=== PATIENT | female | born 1940 | race Caucasian/White ===

== ENCOUNTER 2017-03-25 14:05 | Inpatient (IN) | payer MEDICARE, OTHER ==
--- NOTE | 2017-03-25 15:11 | EDM.PDOC ---
ED HPI GENERAL MEDICAL PROBLEM - General Chief Complaint: Respiratory Problem Stated Complaint: COUGHING DIFFICULT TIME BREATHING Time Seen by Provider: 03/25/17 14:50 Source of Information: Reports: Patient, EMS, Family History Limitations: Reports: No Limitations - History of Present Illness INITIAL COMMENTS - FREE TEXT/NARRATIVE: 76-year-old female with chronic diarrhea, chronic weakness who has gotten to the point where she can't stand or walk by herself, can't get out of a chair, and her family is concerned that she is having serious failure to thrive. She was seen in the clinic 3 weeks ago and treated with double antibiotics for a "sinus infection", but her postnasal drainage, cough, and diarrhea had already started before that. She's had no fevers or chills. She denies any pain. Denies any significant shortness of breath despite the chronic cough. Onset: Unknown/Unsure Severity: Moderate Improves with: Reports: None Worsens with: Reports: Other (Whenever she eats anything she gets a profuse diarrhea response) Associated Symptoms: Reports: Cough, Weakness. Denies: Chest Pain, Fever/Chills , Nausea/Vomiting, Shortness of Breath - Related Data Allergies Allergy/AdvReac Type Severity Reaction Status Date / Time latex Allergy Rash Verified 03/25/17 17:58 Home Meds: Home Meds Albuterol [Proair HFA] 2 gm IN Q6HR PRN 06/26/16 [History] Aspirin [Ecotrin] 81 mg PO DAILY 06/26/16 [History] Cyanocobalamin (Vitamin B-12) [Vitamin B-12] 1,000 mcg INJECT ASDIRECTED [History] Furosemide [Lasix] 20 mg PO DAILY 06/26/16 [History] Gabapentin [Neurontin] 300 mg PO TID 06/26/16 [History] Hydrocodone/Acetaminophen [Ursa 10-325 Tablet] 10 - 325 mg PO Q4HR PRN [History] Omeprazole Magnesium [Prilosec Otc] 40 mg PO DAILY 06/26/16 [History] Oxybutynin 5 mg PO TID 06/26/16 [History] Primidone 125 mg PO BID 06/26/16 [History] Propranolol [Inderal LA] 60 mg PO BID 06/26/16 [History] Escitalopram [Lexapro] 10 mg PO BEDTIME 03/25/17 [History] Past Medical History HEENT History: Reports: Impaired Vision Respiratory History: Reports: Bronchitis, Recurrent, COPD Gastrointestinal History: Reports: Bowel Obstruction, GERD 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: Reports: Musculoskeletal History: Reports: Arthritis, Fracture, Osteoporosis Neurological History: Reports: Other (See Below) Other Neuro History: DBS implant for tremor Hematologic History: Reports: B12 Deficiency - Infectious Disease History Infectious Disease History: Reports: Chicken Pox - Past Surgical History HEENT Surgical History: Reports: Oral Surgery, Tonsillectomy GI Surgical History: Reports: Appendectomy, Cholecystectomy, Colon, Colostomy, EGD, Hernia Repair/Other Female Surgical History: Reports: Breast Biopsy, Section Musculoskeletal Surgical History: Reports: Knee Replacement Oncologic Surgical History: Reports: Biopsy of Breast Social & Family History - Tobacco Use Smoking Status *Q: Former Smoker Used Tobacco, but Quit: Yes Month Tobacco Last Used: 05/2016 - Caffeine Use Caffeine Use: Reports: Coffee - Recreational Drug Use Recreational Drug Use: No ED ROS GENERAL - Review of Systems Review Of Systems: See Below Constitutional: Reports: Malaise, Weakness. Denies: Fever, Chills HEENT: Reports: Other (She describes persistent postnasal drainage which is chronic) Respiratory: Reports: Cough. Denies: Shortness of Breath, Sputum Cardiovascular: Denies: Chest Pain GI/Abdominal: Reports: Diarrhea. Denies: Abdominal Pain, Nausea, Vomiting : Reports: No Symptoms Skin: Reports: No Symptoms Neurological: Reports: Weakness. Denies: Confusion, Headache ED EXAM, GENERAL - Physical Exam Exam: See Below Exam Limited By: No Limitations General Appearance: Alert, No Apparent Distress, Other (Patient does appear very tired, very weak even having difficulty keeping her eyes open) Throat/Mouth: Normal Inspection Head: Atraumatic Respiratory/Chest: No Respiratory Distress, Lungs Clear Cardiovascular: Regular Rate, Rhythm. No: Tachycardia GI/Abdominal: Soft, Non-Tender Extremities: Pedal Edema (Trace of lower extremity symmetric edema), Other ( Extremities are very thin) Neurological: Oriented, Slow to Respond Psychiatric: Depressed Mood, Flat Affect Skin Exam: Warm, Dry Course - Vital Signs Last Recorded V/S: Last Vital Signs Temp 98.3 F 03/26/17 14:25 Pulse 75 03/26/17 15:25 Resp 18 03/26/17 15:25 BP 120/61 11/10/17 15:25 Pulse Ox 97 03/26/17 15:25 - Orders/Labs/Meds Orders: Medication Orders Acetaminophen (Tylenol) 650 mg PO Q4H PRN PRN Reason: Pain (Mild 1-3)/fever Hydrocodone Bitart/Acetaminophen (Ursa 325-10 Mg) 1 tab PO Q4H PRN PRN Reason: Pain Aspirin (Halfprin) 81 mg PO DAILY [facility] Last Admin: 03/26/17 09:07 Dose: 81 mg Benzocaine/Menthol (Cepacol Sore Throat) 1 lozenge MUCMEM ASDIRECTED PRN PRN Reason: Cough Last Admin: 03/25/17 23:55 Dose: 1 camilla Escitalopram Oxalate (Lexapro) 10 mg PO BEDTIME [facility] Last Admin: 03/25/17 20:23 Dose: 10 mg Gabapentin (Neurontin) 300 mg PO TID [facility] Last Admin: 03/26/17 13:38 Dose: 300 mg Admin: 03/26/17 09:11 Dose: 300 mg Admin: 03/25/17 20:23 Dose: 300 mg Potassium Chloride/Dextrose/Sod Cl (D5 Ns With 20 Meq Kcl) 1,000 mls @ 100 mls/ hr IV ASDIRECTED [facility] Last Admin: 03/26/17 13:39 Dose: 100 mls/hr Infusion: 03/26/17 12:56 Dose: 100 mls/hr Admin: 03/26/17 02:56 Dose: 100 mls/hr Infusion: 03/26/17 02:56 Dose: 100 mls/hr Admin: 03/25/17 18:06 Dose: 100 mls/hr Sodium Chloride (Normal Saline) 70 mls @ 3 mls/sec IV ASDIRECTED [facility] Stop: 03/26/17 23:00 Last Admin: 03/26/17 08:54 Dose: 2.5 mls/sec Magnesium Sulfate 2 gm/ Premix 50 mls @ 25 mls/hr IV Q6H [facility] Stop: 03/26/17 23:59 Last Admin: 03/26/17 15:52 Dose: 25 mls/hr Infusion: 03/26/17 11:11 Dose: 25 mls/hr Admin: 03/26/17 09:11 Dose: 25 mls/hr Levofloxacin/Dextrose 750 mg/ (Premix) 150 mls @ 100 mls/hr IV Q24H [facility] Last Admin: 03/26/17 13:13 Dose: 100 mls/hr Iopamidol (Isovue-300 (61%)) 88 ml IV . DIRECTED PRN PRN Reason: RADIOLOGY EXAM Stop: 03/27/17 07:14 Last Admin: 03/26/17 08:54 Dose: 88 ml Lorazepam (Ativan) 0.5 - 1 mg IVPUSH Q4H PRN PRN Reason: Nausea/Vomiting Ondansetron HCl (Zofran Odt) 4 mg PO Q6H PRN PRN Reason: Nausea able to take PO Oxybutynin Chloride (Oxybutynin) 5 mg PO TID [facility] Last Admin: 03/26/17 13:38 Dose: 5 mg Admin: 03/26/17 09:11 Dose: 5 mg Admin: 03/25/17 20:23 Dose: 5 mg Primidone (Mysoline) 125 mg PO BID [facility] Last Admin: 03/26/17 09:10 Dose: 125 mg Admin: 03/25/17 20:22 Dose: 125 mg Propranolol HCl (Inderal La) 60 mg PO BID [facility] Last Admin: 03/26/17 09:10 Dose: 60 mg Admin: 03/25/17 21:32 Dose: 60 mg Trolamine Salicylate (Aspercreme 10%) 0 gm TOP Q1H PRN PRN Reason: Pain Last Admin: 03/26/17 02:56 Dose: 1 applic Labs: Laboratory Tests 03/25/17 03/25/17 03/25/17 Range/Units 15:05 15:20 15:20 WBC 9.5 (4.5-11.0) K/uL RBC 4.27 (3.30-5.50) M/uL Hgb 13.7 D (12.0-15.0) g/dL Hct 43.1 (36.0-48.0) % MCV 101 H (80-98) fL MCH 32 H (27-31) pg MCHC 32 (32-36) % Plt Count 268 (150-400) K/uL Neut % (Auto) 58 (36-66) % Lymph % (Auto) 25 (24-44) % [place] % (Auto) 15 H (2-6) % Eos % (Auto) 2 (2-4) % Baso % (Auto) 0 (0-1) % Sodium 139 L (140-148) mmol/L Potassium 3.2 L (3.6-5.2) mmol/L Chloride 99 L (100-108) mmol/L Carbon Dioxide 33 H (21-32) mmol/L Anion Gap 10.2 (5.0-14.0) mmol/L BUN 16 (7-18) mg/dL Creatinine 1.1 H (0.6-1.0) mg/dL Est Cr Clr Drug Dosing 38.34 mL/min Estimated GFR (MDRD) 48 L (>60) Glucose 91 (74-106) mg/dL Calcium 9.2 (8.5-10.1) mg/dL Magnesium (1.8-2.4) mg/dL Total Bilirubin 0.5 (0.2-1.0) mg/dL AST 21 (15-37) U/L ALT 13 (12-78) U/L Alkaline Phosphatase 96 (46-116) U/L C-Reactive Protein (0.0-0.3) mg/dL Total Protein 7.2 (6.4-8.2) g/dL Albumin 2.3 L (3.4-5.0) g/dL Globulin 4.9 H (2.3-3.5) g/dL Albumin/Globulin Ratio 0.5 L (1.2-2.2) Amylase 25 (25-115) U/L Lipase 59 L (73-393) U/L TSH, Ultra Sensitive (0.358-3.740) uIU/mL Urine Color Yellow Urine Appearance Clear Urine pH 6.0 (4.5-8.0) Ur Specific [place] 1.010 (1.008-1.030) Urine Protein Negative (NEGATIVE) mg/dL Urine Glucose (UA) Normal (NEGATIVE) mg/dL Urine Ketones Negative (NEGATIVE) mg/dL Urine Occult Blood Negative (NEGATIVE) Urine Nitrite Negative (NEGATIVE) Urine Bilirubin Negative (NEGATIVE) Urine Urobilinogen Normal (NORMAL) mg/dL Ur Leukocyte Esterase Negative (NEGATIVE) Urine RBC 0-5 (0-5) Urine WBC 0-5 (0-5) Ur Epithelial Cells Rare Amorphous Sediment Not seen Urine Bacteria Not seen Urine Mucus Not seen 03/25/17 Range/Units 17:05 WBC (4.5-11.0) K/uL RBC (3.30-5.50) M/uL Hgb (12.0-15.0) g/dL Hct (36.0-48.0) % MCV (80-98) fL MCH (27-31) pg MCHC (32-36) % Plt Count (150-400) K/uL Neut % (Auto) (36-66) % Lymph % (Auto) (24-44) % [place] % (Auto) (2-6) % Eos % (Auto) (2-4) % Baso % (Auto) (0-1) % Sodium (140-148) mmol/L Potassium (3.6-5.2) mmol/L Chloride (100-108) mmol/L Carbon Dioxide (21-32) mmol/L Anion Gap (5.0-14.0) mmol/L BUN (7-18) mg/dL Creatinine (0.6-1.0) mg/dL Est Cr Clr Drug Dosing mL/min Estimated GFR (MDRD) (>60) Glucose (74-106) mg/dL Calcium (8.5-10.1) mg/dL Magnesium 1.2 L (1.8-2.4) mg/dL Total Bilirubin (0.2-1.0) mg/dL AST (15-37) U/L ALT (12-78) U/L Alkaline Phosphatase (46-116) U/L C-Reactive Protein 11.48 H (0.0-0.3) mg/dL Total Protein (6.4-8.2) g/dL Albumin (3.4-5.0) g/dL Globulin (2.3-3.5) g/dL Albumin/Globulin Ratio (1.2-2.2) Amylase (25-115) U/L Lipase (73-393) U/L TSH, Ultra Sensitive 3.689 (0.358-3.740) uIU/mL Urine Color Urine Appearance Urine pH (4.5-8.0) Ur Specific [place] (1.008-1.030) Urine Protein (NEGATIVE) mg/dL Urine Glucose (UA) (NEGATIVE) mg/dL Urine Ketones (NEGATIVE) mg/dL Urine Occult Blood (NEGATIVE) Urine Nitrite (NEGATIVE) Urine Bilirubin (NEGATIVE) Urine Urobilinogen (NORMAL) mg/dL Ur Leukocyte Esterase (NEGATIVE) Urine RBC (0-5) Urine WBC (0-5) Ur Epithelial Cells Amorphous Sediment Urine Bacteria Urine Mucus Meds: Medications Generic Name Dose Route Start Last Admin Trade Name Freq PRN Reason Stop Dose Admin Acetaminophen 650 mg 03/25/17 17:55 Tylenol PO Q4H PRN Pain (Mild 1-3)/fever Hydrocodone Bitart/Acetaminophen 1 tab 03/25/17 17:55 Ursa 325-10 Mg PO Q4H PRN Pain Aspirin 81 mg 03/26/17 09:00 03/26/17 09:07 Halfprin PO 81 mg DAILY [facility] Administration Benzocaine/Menthol 1 lozenge 03/25/17 23:43 03/25/17 23:55 Cepacol Sore Throat MUCMEM 1 camilla ASDIRECTED PRN Administration Cough Escitalopram Oxalate 10 mg 03/25/17 21:00 03/25/17 20:23 Lexapro PO 10 mg BEDTIME [facility] Administration Gabapentin 300 mg 03/25/17 21:00 03/26/17 13:38 Neurontin PO 300 mg TID [facility] Administration Potassium Chloride/Dextrose/Sod Cl 1,000 mls @ 100 mls/hr 03/25/17 17:55 03/02 13:39 D5 Ns With 20 Meq Kcl IV 100 mls/hr ASDIRECTED [facility] Administration Sodium Chloride 70 mls @ 3 mls/sec 03/26/17 07:15 03/26/17 08:54 Normal Saline IV 03/26/17 23:00 2.5 mls/sec ASDIRECTED [facility] Administration Magnesium Sulfate 2 gm/ Premix 50 mls @ 25 mls/hr 03/26/17 10:00 03/26/17 15: 52 IV 03/26/17 23:59 25 mls/hr Q6H [facility] Administration Levofloxacin/Dextrose 750 mg/ 150 mls @ 100 mls/hr 03/26/17 12:30 03/26/17 13 :13 Premix IV 100 mls/hr Q24H [facility] Administration Iopamidol 88 ml 03/26/17 07:13 03/26/17 08:54 Isovue-300 (61%) IV 03/27/17 07:14 88 ml . DIRECTED PRN Administration RADIOLOGY EXAM Lorazepam 0.5 - 1 mg 03/25/17 17:55 Ativan IVPUSH Q4H PRN Nausea/Vomiting Ondansetron HCl 4 mg 03/25/17 17:55 Zofran Odt PO Q6H PRN Nausea able to take PO Oxybutynin Chloride 5 mg 03/25/17 21:00 03/26/17 13:38 Oxybutynin PO 5 mg TID [facility] Administration Primidone 125 mg 03/25/17 21:00 03/26/17 09:10 Mysoline PO 125 mg BID [facility] Administration Propranolol HCl 60 mg 03/25/17 21:00 03/26/17 09:10 Inderal La PO 60 mg BID [facility] Administration Trolamine Salicylate 0 gm 03/26/17 00:15 03/26/17 02:56 Aspercreme 10% TOP 1 applic Q1H PRN Administration Pain Discontinued Medications Generic Name Dose Route Start Last Admin Trade Name Freq PRN Reason Stop Dose Admin Bacitracin Confirm 03/26/17 15:27 Bacitracin Oint 1 Gm Administered 03/26/17 15:28 Dose 1 dose .ROUTE .STK-MED ONE Sodium Chloride 1,000 mls @ 250 mls/hr 03/25/17 15:15 03/25/17 15:35 Normal Saline IV 250 mls/hr ASDIRECTED [facility] Administration Potassium Chloride 20 meq/ 100 mls @ 50 mls/hr 03/25/17 19:00 03/25/17 21:56 Premix IV 03/25/17 22:59 50 mls/hr Q2H [facility] Administration Iohexol 20 ml 03/26/17 06:15 03/26/17 06:31 Omnipaque-300 PO 03/26/17 06:16 20 ml ONETIME ONE Administration Lidocaine HCl 2 ml 03/25/17 18:30 03/25/17 21:56 Xylocaine-Mpf 1% INJECT 03/25/17 20:31 2 ml Q2H [facility] Administration Sodium Chloride 10 ml 03/26/17 07:13 03/26/17 08:54 Saline Flush FLUSH 03/26/17 07:14 10 ml ONETIME ONE Administration - Re-Assessments/Exams Free Text/Narrative Re-Assessment/Exam: 03/25/17 15:11 A UA was obtained, CBC CMP amylase and lipase were obtained and an IV was started with hydration at 250 mL an hour of normal saline. 11/09/17 16:08 UA was clear, CBC was normal, CMP showed low protein levels and mild renal insufficiency. Also moderate hypokalemia. Patient was unable to give us a stool sample. I think because of her profound weakness, and the chronicity of her symptoms hospitalization for a few days until we can evaluate the diarrhea would be worthwhile. I discussed this with Dr. Valles, hospitalist, and he agreed to see the patient to assess for possible admission. Departure - Departure Time of Disposition: 17:43 Disposition: Admitted As Inpatient 65 Condition: Fair Clinical Impression: Weakness, Hypokalemia Diarrhea Qualifiers: Diarrhea type: unspecified type Qualified Code(s): R19.7 - Diarrhea, unspecified - Discharge Information
[2017-03-25] MEDS ORDERED: Sodium Chloride 0.9% 1,000 ML IV SCH (15:15)
--- NOTE | 2017-03-25 17:24 | PCM.HP ---
H&P History of Present Illness - General Date of Service: 03/25/17 Admit Problem/Dx: Admission Diagnosis/Problem Admission Diagnosis/Problem Diarrhea Source of Information: Patient, Family, Provider History Limitations: Reports: No Limitations - History of Present Illness Initial Comments - Free Text/Narative: Kelly presents today with approximately 2 months of progressive diarrhea, weakness and lethargy. Symptoms started out relatively mild but have slowly worsened. She now has watery diarrhea anytime that she eats something. May be some occasional nausea but no associated abdominal pain. She is not aware of any fevers. Her appetite has diminished because she gets sick every time she eats. She has lost weight but is not quite sure how many pounds. No complaints of change in her urinary habits. She also reports cough and some nasal congestion that have been present around the same amount of time. Symptoms have been up and down. She's had 2 rounds of antibiotics for suspected upper respiratory infections but has not improved with either course of treatment. She has not traveled anywhere exotic and has not had any obvious sick contacts. She has significant fatigue and has been sleeping through the night as well as much of the day for the past few weeks. She has also noted that her essential tremor has been worse lately. Workup in the emergency room revealed a mild decrease in her kidney function as well as hypokalemia. She is very somnolent and weak and not thought to be safe for outpatient management. She'll benefit from expedited inpatient workup as well as hydration and electrolyte replacement. - Related Data Allergies/Adverse Reactions: Allergies Allergy/AdvReac Type Severity Reaction Status Date / Time latex Allergy Rash Verified 03/25/17 14:21 Home Medications: Home Meds Albuterol [Proair HFA] 2 gm IN Q6HR PRN 06/26/16 [History] Aspirin [Ecotrin] 81 mg PO DAILY 06/26/16 [History] Cyanocobalamin (Vitamin B-12) [Vitamin B-12] 1,000 mcg INJECT ASDIRECTED [History] Furosemide [Lasix] 20 mg PO DAILY 06/26/16 [History] Gabapentin [Neurontin] 300 mg PO TID 06/26/16 [History] Hydrocodone/Acetaminophen [[place] 10-325 Tablet] 10 - 325 mg PO Q4HR PRN [History] Omeprazole Magnesium [Prilosec Otc] 40 mg PO DAILY 06/26/16 [History] Oxybutynin 5 mg PO TID 06/26/16 [History] Primidone 125 mg PO BID 06/26/16 [History] Propranolol [Inderal LA] 60 mg PO BID 06/26/16 [History] Escitalopram [Lexapro] 10 mg PO BEDTIME 03/25/17 [History] Past Medical History HEENT History: Reports: Impaired Vision Respiratory History: Reports: Bronchitis, Recurrent, COPD Gastrointestinal History: Reports: Bowel Obstruction, GERD COMEDIAN History: Reports: Musculoskeletal History: Reports: Arthritis, Fracture, Osteoporosis Neurological History: Reports: Other (See Below) Other Neuro History: DBS implant for tremor Hematologic History: Reports: B12 Deficiency - Infectious Disease History Infectious Disease History: Reports: Chicken Pox - Past Surgical History HEENT Surgical History: Reports: Oral Surgery, Tonsillectomy GI Surgical History: Reports: Appendectomy, Cholecystectomy, Colon, Colostomy, EGD, Hernia Repair/Other Female Surgical History: Reports: Breast Biopsy, Section Musculoskeletal Surgical History: Reports: Knee Replacement Oncologic Surgical History: Reports: Biopsy of Breast Social & Family History - Family History Cardiac: Denies: CAD - Tobacco Use Smoking Status *Q: Former Smoker Used Tobacco, but Quit: Yes Month Tobacco Last Used: 05/2016 - Caffeine Use Caffeine Use: Reports: Coffee - Alcohol Use Alcohol Use History: No - Recreational Drug Use Recreational Drug Use: No H&P Review of Systems - Review of Systems: Review Of Systems: See Below Free Text/Narrative: A complete 12 point review of systems was obtained. Pertinent positives and negatives are noted in the history of present illness. All other systems were reviewed and were negative except as noted. Exam - Exam Exam: See Below - Vital Signs Vital Signs: Last Vital Signs Temp 36.7 C 03/25/17 17:14 Pulse 61 03/25/17 17:14 Resp 20 03/25/17 14:27 BP 130/83 03/25/17 17:14 Pulse Ox 91 L 03/25/17 17:14 Weight: 56.699 kg - Exam Quality Assessment: No: Supplemental Oxygen General: Alert, Oriented, Cooperative, Lethargic. No: Mild Distress HEENT: Conjunctiva Clear. No: Mucosa Moist & [place] (dry), Scleral Icterus Neck: Supple, Trachea Midline. No: Lymphadenopathy Lungs: Clear to Auscultation, Normal Respiratory Effort Cardiovascular: Regular Rate, Regular Rhythm, Systolic Murmur GI/Abdominal Exam: Normal Bowel Sounds, Soft, Non-Tender, No Distention, No Mass Back Exam: Normal Inspection, Full Range of Motion Extremities: Pedal Edema (mild bilateral ankle edema). No: Increased Warmth Skin: Warm, Dry Neuro Extensive - Mental Status: Alert, Oriented x3, Nl Response to Commands Neuro Extensive - Motor, Sensory, Reflexes: CN II-XII Intact, Tremor (hands and head/neck ). No: Dysarthria, Abnormal Motor Psychiatric: Alert, Normal Affect - Patient Data Lab Results Last 24 hrs: Laboratory Results - last 24 hr 03/25/17 03/25/17 03/25/17 Range/Units 15:05 15:20 15:20 WBC 9.5 (4.5-11.0) K/uL RBC 4.27 (3.30-5.50) M/uL Hgb 13.7 D (12.0-15.0) g/dL Hct 43.1 (36.0-48.0) % MCV 101 H (80-98) fL MCH 32 H (27-31) pg MCHC 32 (32-36) % Plt Count 268 (150-400) K/uL Neut % (Auto) 58 (36-66) % Lymph % (Auto) 25 (24-44) % [place] % (Auto) 15 H (2-6) % Eos % (Auto) 2 (2-4) % Baso % (Auto) 0 (0-1) % Sodium 139 L (140-148) mmol/L Potassium 3.2 L (3.6-5.2) mmol/L Chloride 99 L (100-108) mmol/L Carbon Dioxide 33 H (21-32) mmol/L Anion Gap 10.2 (5.0-14.0) mmol/L BUN 16 (7-18) mg/dL Creatinine 1.1 H (0.6-1.0) mg/dL Est Cr Clr Drug Dosing 38.34 mL/min Estimated GFR (MDRD) 48 L (>60) Glucose 91 (74-106) mg/dL Calcium 9.2 (8.5-10.1) mg/dL Total Bilirubin 0.5 (0.2-1.0) mg/dL AST 21 (15-37) U/L ALT 13 (12-78) U/L Alkaline Phosphatase 96 (46-116) U/L Total Protein 7.2 (6.4-8.2) g/dL Albumin 2.3 L (3.4-5.0) g/dL Globulin 4.9 H (2.3-3.5) g/dL Albumin/Globulin Ratio 0.5 L (1.2-2.2) Amylase 25 (25-115) U/L Lipase 59 L (73-393) U/L Urine Color Yellow Urine Appearance Clear Urine pH 6.0 (4.5-8.0) Ur Specific [place] 1.010 (1.008-1.030) Urine Protein Negative (NEGATIVE) mg/dL Urine Glucose (UA) Normal (NEGATIVE) mg/dL Urine Ketones Negative (NEGATIVE) mg/dL Urine Occult Blood Negative (NEGATIVE) Urine Nitrite Negative (NEGATIVE) Urine Bilirubin Negative (NEGATIVE) Urine Urobilinogen Normal (NORMAL) mg/dL Ur Leukocyte Esterase Negative (NEGATIVE) Urine RBC 0-5 (0-5) Urine WBC 0-5 (0-5) Ur Epithelial Cells Rare Amorphous Sediment Not seen Urine Bacteria Not seen Urine Mucus Not seen Result Diagrams: 03/25/17 15:20 03/25/17 15:20 Imaging Impressions Last 24 hrs: CXR - images personally reviewed - No obvious mass, infiltrate or effusion. *Q Meaningful Use (ADM) - VTE *Q VTE Criteria *Q: - VTE Risk Assess *Q Each Risk Factor Represents 1 Point: Swollen Legs, Current, Abnormal Pulmonary Function (COPD) Total Score 1 Point Risk Factors: 2 Each Risk Factor Represents 2 Points: None Total Score 2 Point Risk Factors: 0 Each Risk Factor Represents 3 Points: Age 75 Years or Greater Total Score 3 Point Risk Factors: 3 Each Risk Factor Represents 5 Points: None Total Score 5 Point Risk Factors: 0 Venous Thromboembolism Risk Factor Score *Q: 5 - Stroke *Q Stroke Criteria *Q: - AMI *Q AMI Criteria *Q: - Problem List (1) Chronic diarrhea SNOMED Code(s): 123778360 ICD Code: K52.9 - NONINFECTIVE GASTROENTERITIS AND COLITIS, UNSPECIFIED Status: Acute Current Visit: Yes (2) Generalized weakness SNOMED Code(s): 44172390 ICD Code: R53.1 - WEAKNESS Status: Acute Current Visit: Yes (3) Hypokalemia SNOMED Code(s): 84347168 ICD Code: E87.6 - HYPOKALEMIA Status: Acute Current Visit: Yes (4) CKD (chronic kidney disease), stage III SNOMED Code(s): 385134139 ICD Code: N18.3 - CHRONIC KIDNEY DISEASE, STAGE 3 (MODERATE) Status: Chronic Current Visit: Yes (5) Essential tremor SNOMED Code(s): 052063524 ICD Code: G25.0 - ESSENTIAL TREMOR Status: Chronic Current Visit: Yes Problem List Initiated/Reviewed/Updated: Yes Orders Last 24hrs: Active Orders 24 hr Category Date Time Status Patient Status Manage Transfer [TRANSFER] Routine ADT 03/25/17 17:11 Ordered Chest 1V Frontal [CR] Stat Exams 03/25/17 16:07 Taken C-REACTIVE PROTEIN [CHEM] Routine Lab 03/25/17 17:05 Ordered CLOSTRIDIUM DIFFICILE BY PCR [RM] Stat Lab 03/25/17 15:05 Uncollected CULTURE STOOL + SHIGATOX [RM] Stat Lab 03/25/17 15:05 Uncollected MAGNESIUM [CHEM] Routine Lab 03/25/17 17:05 Ordered TSH ULTRASENSITIVE [CHEM] Routine Lab 03/25/17 17:05 Ordered WBC, STOOL [OP] Stat Lab 03/25/17 15:05 Uncollected Sodium Chloride 0.9% [Normal Saline] 1,000 ml Med 03/25/17 15:15 Active IV ASDIRECTED Resuscitation Status Routine Resus Stat 03/25/17 17:13 Ordered Medication Orders Sodium Chloride (Normal Saline) 1,000 mls @ 250 mls/hr IV ASDIRECTED ASH Last Admin: 03/25/17 15:35 Dose: 250 mls/hr Assessment/Plan Comment:: ASSESSMENT AND PLAN - Chronic diarrhea with dehydration - differential would include inflammatory versus infectious versus metabolic. She has been off of her cholestyramine which could be contributing. No personal or family history of inflammatory bowel disease. Has previously carried the diagnosis of irritable bowel syndrome but this seems far to severe. She has had recent antibiotics and Clostridium difficile is possible. Hyperthyroidism could be considered as well with recent tremor increase. -Stool studies for C. difficile, fecal leukocytes and stool culture -Hydration overnight -Hold off on Imodium until workup complete -Nausea control if needed -TSH and sedimentation rate -CT scan of the abdomen in the morning with IV contrast -Consider trial of cholestyramine -Discontinue proton pump inhibitor Hypokalemia - Mild at this time and would benefit from replacement. With significant diarrhea magnesium level will also be checked. -Supplement potassium tonight and repeat level in the morning -Magnesium level Stage III chronic kidney disease - Mild decrease in kidney function from baseline. Should improve with hydration. -Fluids as above and labs in the morning Essential tremor - Significant disability because of this, status post deep brain stimulator placement. Tremor worse recently. -management as above -Continue home medications Maintenance issues - - DVT prophylaxis - mechanical - GI prophylaxis - not indicated - Nutrition - regular diet - Montes catheter - not indicated CODE STATUS - DNR/DNI Admission justification - This patient will be admitted for inpatient services and is medically appropriate meeting medical necessity for inpatient admission as outlined in my documentation. I reasonably expect the patient will require inpatient services that span a period time over 2 midnights. I reasonably expect this patient to be discharged or transferred within 96 hours [facility] Disposition - anticipate discharged home after the hospital stay Primary care physician - Dr Mitchell Valles M.D.
[2017-03-25] MEDS ORDERED: Ondansetron 4 MG Tab.DIS PO PRN (17:55)
[2017-03-25] MEDS ORDERED: LORazepam 2 MG/ML MDV IVPUSH PRN (17:55)
[2017-03-25] MEDS ORDERED: Acetaminophen/HYDROcodone 325-10 MG Tab PO PRN (17:55)
[2017-03-25] MEDS ORDERED: Acetaminophen 325 MG Tab PO PRN (17:55)
[2017-03-25] MEDS ORDERED: Potassium Chloride 20 MEQ, Lidocaine 1% 2 ML in Sodium Chloride 0.9% 100 ML IV SCH (18:00)
[2017-03-25] MEDS: Dextrose 5%-0.9% NaCl with KCl 1,000 ML IV SCH (18:06)
[2017-03-25] MEDS: Potassium Chloride 20 MEQ in Premix Bag 1 BAG IV SCH ×2 (19:51→21:56)
[2017-03-25] MEDS: Primidone 50 MG Tab PO SCH (20:22)
[2017-03-25] MEDS: Oxybutynin 5 MG Tab PO SCH (20:23)
[2017-03-25] MEDS: Escitalopram 10 MG Tab PO SCH (20:23)
[2017-03-25] MEDS: Gabapentin 300 MG Cap PO SCH (20:23)
[2017-03-25] MEDS: Propranolol 60 MG Cap.ER PO SCH (21:32)
[2017-03-25] MEDS ORDERED: Benzocaine/Cetylpyridinium/Menthol Lozenge MUCMEM PRN (23:43)
[2017-03-26] MEDS ORDERED: Trolamine Salicylate/Aloe Vera 10% Crm 85 GM Tube TOP PRN (00:15)
[2017-03-26] MEDS: Dextrose 5%-0.9% NaCl with KCl 1,000 ML IV SCH ×2 (02:56→13:39)
[2017-03-26] MEDS ORDERED: Iohexol 647 MG/ML 10 ML SDV PO ONE (06:15)
[2017-03-26] MEDS ORDERED: Sodium Chloride 0.9% 10 ML Syringe FLUSH ONE (07:13)
[2017-03-26] MEDS ORDERED: Iopamidol 612 MG/ML 100 ML Bottle IV PRN (07:13)
--- NOTE | 2017-03-26 09:03 | CR ---
Chest 1V Frontal INDICATION: cough weakness FINDINGS: Comparison 03/05/2017. Stimulator device projected over the left chest. Cardiomegaly with m ild pulmonary venous hypertension, stable. The right pleural effusion is stable. The left pleural eff usion has resolved. Mild infiltrate or atelectasis in the right lung base is new.
[2017-03-26] MEDS: Aspirin 81 MG Tab.EC PO SCH (09:07)
[2017-03-26] MEDS: Primidone 50 MG Tab PO SCH ×2 (09:10→20:37)
[2017-03-26] MEDS: Propranolol 60 MG Cap.ER PO SCH ×2 (09:10→20:37)
[2017-03-26] MEDS: Gabapentin 300 MG Cap PO SCH ×3 (09:11→20:37)
[2017-03-26] MEDS: Magnesium Sulfate/Water 2 GM in Premix Bag 1 BAG IV SCH ×3 (09:11→22:15)
[2017-03-26] MEDS: Oxybutynin 5 MG Tab PO SCH ×3 (09:11→20:37)
--- NOTE | 2017-03-26 11:16 | CT ---
Abdomen Pelvis w Cont Total DLP 423 mGycm. INDICATION: chronic diarrhea, dehydration COMPARISON: None. FINDINGS: Small to moderate right and tiny left pleural effusions with associated infiltrate atelecta sis lung bases. Cardiomegaly. Ectasia of the upper abdominal aorta containing mural thrombus. The teresa er is enlarged measuring 24 cm superior-inferior dimension. Cholecystectomy. Small bilateral renal cy sts. Scattered degenerative changes. Small amount of free fluid in the posterior cul-de-sac is likely physiologic. Anastomosis at the rectosigmoid junction. Small and large bowel are normal in caliber. Exam otherwise unremarkable. IMPRESSION: Cardiac enlargement with bilateral pleural effusions. Infiltrate or atelectasis in the bronson ng bases, greater on the right. Findings suggest CHF; superimposed pneumonia is not excluded. Inciden gerda findings as above.
[2017-03-26] MEDS ORDERED: Levofloxacin/Dextrose 5%-Water 750 MG in Premix Bag 1 BAG IV SCH (12:30)
--- NOTE | 2017-03-26 13:40 | US ---
US Guidance Thoracentesis NC INDICATION: right pleural effusion FINDINGS: Ultrasound guidance provided for right thoracentesis.
--- NOTE | 2017-03-26 15:12 | PCM.PN ---
- General Info Date of Service: 03/26/17 Functional Status: Reports: Pain Controlled - Review of Systems General: Reports: Fever Cardiovascular: Reports: Orthopnea Gastrointestinal: Denies: Diarrhea Systems Review Comment:: no acute events overnight. No diarrhea since the time of admission. Still fatigued but otherwise feeling okay. Did have orthopnea overnight and a significant cough but feels better now that she's sitting up. CT scan of the abdomen did not reveal intra-abdominal pathology but did reveal right pleural effusion and infiltrate versus atelectasis. - Patient Data Vitals - Most Recent: Last Vital Signs Temp 36.8 C 03/26/17 14:25 Pulse 59 L 03/26/17 14:25 Resp 18 03/26/17 14:25 BP 117/48 L 03/26/17 14:25 Pulse Ox 94 L 03/26/17 14:25 Weight - Most Recent: 59.33 kg I&O - Last 24 Hours: Intake & Output 03/26/17 03/26/17 03/26/17 06:59 14:59 22:59 Intake Total 1731 Output Total 300 1000 Balance 1431 -1000 Lab Results Last 24 Hours: Laboratory Results - last 24 hr 03/26/17 03/26/17 Range/Units 05:35 05:35 WBC 7.3 (4.5-11.0) K/uL RBC 3.76 (3.30-5.50) M/uL Hgb 12.2 (12.0-15.0) g/dL Hct 37.3 (36.0-48.0) % MCV 99 H (80-98) fL MCH 32 H (27-31) pg MCHC 33 (32-36) % Plt Count 111 L (150-400) K/uL Sodium 140 (140-148) mmol/L Potassium 4.2 (3.6-5.2) mmol/L Chloride 107 (100-108) mmol/L Carbon Dioxide 26 (21-32) mmol/L Anion Gap 6.9 (5.0-14.0) mmol/L BUN 13 (7-18) mg/dL Creatinine 0.9 (0.6-1.0) mg/dL Est Cr Clr Drug Dosing 49.03 mL/min Estimated GFR (MDRD) > 60 (>60) Glucose 126 H (74-106) mg/dL Calcium 8.3 L (8.5-10.1) mg/dL Med Orders - Current: Current Medications Acetaminophen (Tylenol) 650 mg PO Q4H PRN PRN Reason: Pain (Mild 1-3)/fever Hydrocodone Bitart/Acetaminophen ([place] 325-10 Mg) 1 tab PO Q4H PRN PRN Reason: Pain Aspirin (Halfprin) 81 mg PO DAILY [facility] Last Admin: 03/26/17 09:07 Dose: 81 mg Benzocaine/Menthol (Cepacol Sore Throat) 1 lozenge MUCMEM ASDIRECTED PRN PRN Reason: Cough Last Admin: 03/25/17 23:55 Dose: 1 [place] Escitalopram Oxalate (Lexapro) 10 mg PO BEDTIME [facility] Last Admin: 03/25/17 20:23 Dose: 10 mg Gabapentin (Neurontin) 300 mg PO TID [facility] Last Admin: 03/26/17 13:38 Dose: 300 mg Potassium Chloride/Dextrose/Sod Cl (D5 Ns With 20 Meq Kcl) 1,000 mls @ 100 mls/ hr IV ASDIRECTED [facility] Last Admin: 03/26/17 13:39 Dose: 100 mls/hr Sodium Chloride (Normal Saline) 70 mls @ 3 mls/sec IV ASDIRECTED [facility] Stop: 03/26/17 23:00 Last Admin: 03/26/17 08:54 Dose: 2.5 mls/sec Magnesium Sulfate 2 gm/ Premix 50 mls @ 25 mls/hr IV Q6H [facility] Stop: 03/26/17 23:59 Last Admin: 03/26/17 09:11 Dose: 25 mls/hr Levofloxacin/Dextrose 750 mg/ (Premix) 150 mls @ 100 mls/hr IV Q24H [facility] Last Admin: 03/26/17 13:13 Dose: 100 mls/hr Iopamidol (Isovue-300 (61%)) 88 ml IV . DIRECTED PRN PRN Reason: RADIOLOGY EXAM Stop: 03/27/17 07:14 Last Admin: 03/26/17 08:54 Dose: 88 ml Lorazepam (Ativan) 0.5 - 1 mg IVPUSH Q4H PRN PRN Reason: Nausea/Vomiting Ondansetron HCl (Zofran Odt) 4 mg PO Q6H PRN PRN Reason: Nausea able to take PO Oxybutynin Chloride (Oxybutynin) 5 mg PO TID [facility] Last Admin: 03/26/17 13:38 Dose: 5 mg Primidone (Mysoline) 125 mg PO BID [facility] Last Admin: 03/26/17 09:10 Dose: 125 mg Propranolol HCl (Inderal La) 60 mg PO BID [facility] Last Admin: 03/26/17 09:10 Dose: 60 mg Trolamine Salicylate (Aspercreme 10%) 0 gm TOP Q1H PRN PRN Reason: Pain Last Admin: 03/26/17 02:56 Dose: 1 applic Discontinued Medications Sodium Chloride (Normal Saline) 1,000 mls @ 250 mls/hr IV ASDIRECTED [facility] Last Admin: 03/25/17 15:35 Dose: 250 mls/hr Potassium Chloride 20 meq/ (Premix) 100 mls @ 50 mls/hr IV Q2H [facility] Stop: 03/25/17 22:59 Last Admin: 03/25/17 21:56 Dose: 50 mls/hr Iohexol (Omnipaque-300) 20 ml PO ONETIME ONE Stop: 03/26/17 06:16 Last Admin: 03/26/17 06:31 Dose: 20 ml Lidocaine HCl (Xylocaine-Mpf 1%) 2 ml INJECT Q2H [facility] Stop: 03/25/17 20:31 Last Admin: 03/25/17 21:56 Dose: 2 ml Sodium Chloride (Saline Flush) 10 ml FLUSH ONETIME ONE Stop: 03/26/17 07:14 Last Admin: 03/26/17 08:54 Dose: 10 ml - Exam Quality Assessment: No: Supplemental Oxygen General: Alert, Oriented, Cooperative, No Acute Distress Neck: Supple Lungs: Normal Respiratory Effort Cardiovascular: Regular Rate, Regular Rhythm GI/Abdominal Exam: No Distention Extremities: No Pedal Edema Skin: Warm, Dry Psy/Mental Status: Alert, Normal Affect - Problem List & Annotations (1) Chronic diarrhea SNOMED Code(s): 358144921 Code(s): K52.9 - NONINFECTIVE GASTROENTERITIS AND COLITIS, UNSPECIFIED Status: Acute Current Visit: Yes (2) Generalized weakness SNOMED Code(s): 17384726 Code(s): R53.1 - WEAKNESS Status: Acute Current Visit: Yes (3) Hypokalemia SNOMED Code(s): 40135947 Code(s): E87.6 - HYPOKALEMIA Status: Acute Current Visit: Yes (4) CKD (chronic kidney disease), stage III SNOMED Code(s): 760414156 Code(s): N18.3 - CHRONIC KIDNEY DISEASE, STAGE 3 (MODERATE) Status: Chronic Current Visit: Yes (5) Essential tremor SNOMED Code(s): 538021509 Code(s): G25.0 - ESSENTIAL TREMOR Status: Chronic Current Visit: Yes - Problem List Review Problem List Initiated/Reviewed/Updated: Yes - My Orders Last 24 Hours: My Active Orders 03/25/17 17:13 Resuscitation Status Routine 03/25/17 17:55 Patient Status [ADT] Routine Intake and Output [RC] QSHIFT Notify Provider Vital Signs [RC] ASDIRECTED Oxygen Therapy [RC] PRN Up With Assistance [RC] ASDIRECTED Up to Chair [RC] QID Vital Signs [RC] Q4H Acetaminophen [Tylenol] 650 mg PO Q4H PRN Dextrose 5%-0.9% NaCl with KCl [D5 NS with 20 mEq KCl] 1,000 ml IV ASDIRECTED LORazepam [Ativan] 0.5 - 1 mg IVPUSH Q4H PRN Ondansetron [Zofran ODT] 4 mg PO Q6H PRN Sequential Compression Device [OM.PC] Per Unit Routine 03/25/17 23:43 Benzocaine/Cetylpyrd/Menthol [Cepacol Sore Throat] 1 lozenge MUCMEM ASDIRECTED PRN 03/25/17 Dinner Regular Diet [DIET] 03/26/17 00:15 Trolamine Salicylate/Aloe Vera [Aspercreme 10%] 0 gm TOP Q1H PRN 03/26/17 07:00 PT Evaluation and Treatment [CONS] Routine 03/26/17 07:13 Iopamidol [Isovue-300 (61%)] 88 ml IV . DIRECTED PRN 03/26/17 07:15 Sodium Chloride 0.9% [Normal Saline] 70 ml IV ASDIRECTED 03/26/17 10:00 Magnesium Sulfate/Water [Magnesium Sulfate 2 GM in Water 50 ML] 2 gm Premix Bag 1 bag IV Q6H 03/26/17 12:30 Consult to Physician [CONS] Routine Levofloxacin/Dextrose 5%-Water [Levaquin in D5W 750 MG/150 ML] 750 mg Premix Bag 1 bag IV Q24H 03/26/17 12:31 Notify Provider Consults [RC] ASDIRECTED 03/26/17 13:18 Verify Patient Consent Obtain [RC] ASDIRECTED CULTURE BODY FLUID + SMEAR [RM] Urgent 03/26/17 13:20 BLOSSOM PREP [MYC] Routine - Plan Plan:: ASSESSMENT AND PLAN - Chronic diarrhea with dehydration - differential would include inflammatory versus infectious versus metabolic. She has been off of her cholestyramine which could be contributing. CT did not reveal any bowel issues. No diarrhea since the time of admission. White count normal. She did have a low-grade fever overnight. -Stool studies for C. difficile, fecal leukocytes and stool culture -continue gentle hydration -Hold off on Imodium until workup complete -Nausea control if needed -Consider trial of cholestyramine -Discontinue proton pump inhibitor Probable right lower lobe pneumonia - persistent respiratory symptoms with probable infiltrate and possible parapneumonic effusion. Currently not hypoxic. -Trial of levofloxacin -Diagnostic and therapeutic thoracentesis Hypokalemia - improved with supplementation. -Supplement potassium and repeat labs Stage III chronic kidney disease - Mild decrease in kidney function from baseline which is slowly improving with fluids. -Fluids as above and labs in the morning Essential tremor - Significant disability because of this, status post deep brain stimulator placement. Tremor worse recently. -management as above -Continue home medications Maintenance issues - - DVT prophylaxis - mechanical - GI prophylaxis - not indicated - Nutrition - regular diet Disposition - anticipate discharged home after the hospital stay Nic Valles M.D.
[2017-03-26] MEDS ORDERED: Bacitracin Oint 1 GM U/D Packet ONE (15:27)
[2017-03-26] MEDS: Escitalopram 10 MG Tab PO SCH (20:37)
[2017-03-26] MEDS ORDERED: Calcium Carbonate 500 MG Tab.Chew PO PRN (21:18)
[2017-03-27] MEDS: Dextrose 5%-0.9% NaCl with KCl 1,000 ML IV SCH (04:41)
[2017-03-27] MEDS: Primidone 50 MG Tab PO SCH (08:27)
[2017-03-27] MEDS: Aspirin 81 MG Tab.EC PO SCH (08:27)
[2017-03-27] MEDS: Propranolol 60 MG Cap.ER PO SCH (08:27)
[2017-03-27] MEDS: Oxybutynin 5 MG Tab PO SCH (08:27)
[2017-03-27] MEDS: Gabapentin 300 MG Cap PO SCH (08:27)
--- NOTE | 2017-03-27 10:15 | PCM.DCSUM1 ---
Discharge Summary - Hospital Course Brief History: 76-year-old female with chronic diarrhea and recurrent difficulties with probable upper respiratory infection who presented with persistent watery diarrhea, weight loss, weakness and dehydration. She was admitted for hydration and further workup. - Discharge Data Discharge Date: 03/27/17 Discharge Disposition: Home, Self-Care 01 Condition: Stable - Discharge Diagnosis/Problem(s) (1) Right lower lobe pneumonia SNOMED Code(s): 003382781 ICD Code: J18.1 - LOBAR PNEUMONIA, UNSPECIFIED ORGANISM Status: Suspected Qualifiers: Pneumonia type: due to unspecified organism Qualified Code(s): J18.1 - Lobar pneumonia, unspecified organism (2) Parapneumonic effusion SNOMED Code(s): 83646795 ICD Code: J18.9 - PNEUMONIA, UNSPECIFIED ORGANISM; J91.8 - PLEURAL EFFUSION IN OTHER CONDITIONS CLASSIFIED ELSEWHERE Status: Acute (3) Chronic diarrhea SNOMED Code(s): 421972053 ICD Code: K52.9 - NONINFECTIVE GASTROENTERITIS AND COLITIS, UNSPECIFIED Status: Acute (4) Generalized weakness SNOMED Code(s): 48567178 ICD Code: R53.1 - WEAKNESS Status: Acute (5) Hypokalemia SNOMED Code(s): 72606662 ICD Code: E87.6 - HYPOKALEMIA Status: Acute (6) CKD (chronic kidney disease), stage III SNOMED Code(s): 296169509 ICD Code: N18.3 - CHRONIC KIDNEY DISEASE, STAGE 3 (MODERATE) Status: Chronic (7) Essential tremor SNOMED Code(s): 038572172 ICD Code: G25.0 - ESSENTIAL TREMOR Status: Chronic - Patient Summary/Data Consults: Consultations 03/26/17 07:00 PT Evaluation and Treatment [CONS] Routine Please Evaluate and Treat. PT Reason for Consult: Strengthening This query below is only for informational purposes and is not editable. 03/26/17 12:30 Consult to Physician [CONS] Routine Consulting Provider: Immanuel Alford Call Completed to Consulting Physician: Yes Reason for Consult: right pleural effusion Person Notified: RW Date Notified: 03/26/17 Special Instructions: right thoracentesis Hospital Course: Kelly presented to the emergency room with chronic diarrhea, dehydration, lethargy and weakness. Workup in the emergency room was relatively reassuring other than the somnolence and weakness. She was admitted to the hospital for hydration and further workup for the diarrhea. Overnight there were no acute difficulties. She did not have any diarrhea overnight Toradol during the hospital stay. Clinically she felt better with hydration. Laboratory studies were relatively normal at the time of presentation and remained that way throughout the hospital stay. The morning after admission we did get a CT scan of the abdomen and pelvis and fortunately this did not show any acute pathology in the abdomen. No evidence for enteritis or colitis. No evidence for abscess or abnormality in the abdomen. The CT scan did show a small right pleural effusion and atelectasis versus infiltrate. Given her outpatient symptoms including nocturnal cough and mild shortness of breath we elected to drain the effusion for both diagnostic and therapeutic purposes. She was empirically started on levofloxacin at the time of the thoracentesis. Dr. Alford performed thoracentesis without any complications. About 200 mL of slightly cloudy straw to light orange colored fluid was removed. Gram stain did not reveal organisms or white blood cells or fungal elements. Cultures are negative the morning after her thoracentesis. Clinically she feels quite a bit better. Her energy is improving. She is tolerated her diet without any diarrhea. Vital signs have been stable. I'm suspicious that her difficulties with the results of a parapneumonic effusion and possibly still a component of pneumonia. We have elected to treat her for 8 days with levofloxacin. She has not had this antibiotic previously. I will contact her if any of the cultures come back abnormal. She will follow-up in a few days to ensure that she continues to do well. We were never able to test for C. difficile because she did not have any diarrhea during the hospital stay. I did encourage probiotic use over the next month or so. - Patient Instructions Diet: Regular Diet as Tolerated Activity: As Tolerated Showering/Bathing: May Shower Notify Provider of: Fever, Increased Pain, Nausea and/or Vomiting Other/Special Instructions: 1. 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 While you were in the hospital we discovered a probable right lower lung pneumonia and parapneumonic effusion. There is no evidence for acute infection such as enteritis or colitis based on CT scan imaging. I recommend 7 additional days of antibiotic therapy with levofloxacin. You should take this medication once daily at lunchtime. Your next dose is due this afternoon. I will contact you if the culture results suggest that we need to adjust our treatment over the next couple of days. 2. Because you have had so much trouble with diarrhea and because he will be on antibiotics I recommend that you take a probiotic once daily for the next month. You may consult with your pharmacist to find one that is most appropriate for you. 3. Please continue your other medications as previously prescribed. 4. Please seek medical attention if he develops fever greater than 101, have severe diarrhea that causes dehydration or you suddenly become short of breath or have significant difficulty breathing. - Discharge Plan Prescriptions/Med Rec: Levofloxacin 750 mg PO WITHLUNCH #7 tablet Home Medications: Home Meds Albuterol [Proair HFA] 2 gm IN Q6HR PRN 06/26/16 [History] Aspirin [Ecotrin] 81 mg PO DAILY 06/26/16 [History] Cyanocobalamin (Vitamin B-12) [Vitamin B-12] 1,000 mcg INJECT ASDIRECTED [History] Furosemide [Lasix] 20 mg PO DAILY 06/26/16 [History] Gabapentin [Neurontin] 300 mg PO TID 06/26/16 [History] Hydrocodone/Acetaminophen [[place] 10-325 Tablet] 10 - 325 mg PO Q4HR PRN [History] Omeprazole Magnesium [Prilosec Otc] 40 mg PO DAILY 06/26/16 [History] Oxybutynin 5 mg PO TID 06/26/16 [History] Primidone 125 mg PO BID 06/26/16 [History] Propranolol [Inderal LA] 60 mg PO BID 06/26/16 [History] Escitalopram [Lexapro] 10 mg PO BEDTIME 03/25/17 [History] Levofloxacin 750 mg PO WITHLUNCH #7 tablet 03/27/17 [Rx] Patient Handouts: Levofloxacin tablets, Community-Acquired Pneumonia, Adult Forms: Take Home DC Nutrition Plan Referrals: Harley Medrano MD [Physician] - (f/u in 5 days (some time late next week) to ensure you are continuing to improve) - Discharge Summary/Plan Comment DC Time >30 min.: No (25) - Patient Data Vitals - Most Recent: Last Vital Signs Temp 36.7 C 03/27/17 07:00 Pulse 70 03/27/17 07:00 Resp 18 03/27/17 07:00 BP 144/68 H 03/27/17 07:00 Pulse Ox 94 L 03/27/17 07:00 Weight - Most Recent: 61.552 kg I&O - Last 24 hours: Intake & Output 03/26/17 03/27/17 03/27/17 22:59 06:59 14:59 Intake Total 1673 883 240 Output Total 250 200 300 Balance 1423 683 -60 JUNIOR Results - Last 24 hrs: Microbiology 03/26/17 15:48 BLOSSOM Preparation - Final Other - Lung, Right 03/26/17 15:48 Gram Stain - Final Thoracentesis Fluid - Right Med Orders - Current: Current Medications Acetaminophen (Tylenol) 650 mg PO Q4H PRN PRN Reason: Pain (Mild 1-3)/fever Hydrocodone Bitart/Acetaminophen ([place] 325-10 Mg) 1 tab PO Q4H PRN PRN Reason: Pain Aspirin (Halfprin) 81 mg PO DAILY [facility] Last Admin: 03/27/17 08:27 Dose: 81 mg Benzocaine/Menthol (Cepacol Sore Throat) 1 lozenge MUCMEM ASDIRECTED PRN PRN Reason: Cough Last Admin: 03/25/17 23:55 Dose: 1 camilla Calcium Carbonate/Glycine (Tums) 1,000 mg PO Q2H PRN PRN Reason: Indigestion Last Admin: 03/26/17 22:13 Dose: 1,000 mg Escitalopram Oxalate (Lexapro) 10 mg PO BEDTIME [facility] Last Admin: 03/26/17 20:37 Dose: 10 mg Gabapentin (Neurontin) 300 mg PO TID [facility] Last Admin: 03/27/17 08:27 Dose: 300 mg Levofloxacin/Dextrose 750 mg/ (Premix) 150 mls @ 100 mls/hr IV Q24H [facility] Last Admin: 03/26/17 13:13 Dose: 100 mls/hr Lorazepam (Ativan) 0.5 - 1 mg IVPUSH Q4H PRN PRN Reason: Nausea/Vomiting Ondansetron HCl (Zofran Odt) 4 mg PO Q6H PRN PRN Reason: Nausea able to take PO Last Admin: 03/26/17 18:22 Dose: 4 mg Oxybutynin Chloride (Oxybutynin) 5 mg PO TID [facility] Last Admin: 03/27/17 08:27 Dose: 5 mg Primidone (Mysoline) 125 mg PO BID [facility] Last Admin: 03/27/17 08:27 Dose: 125 mg Propranolol HCl (Inderal La) 60 mg PO BID [facility] Last Admin: 03/27/17 08:27 Dose: 60 mg Trolamine Salicylate (Aspercreme 10%) 0 gm TOP Q1H PRN PRN Reason: Pain Last Admin: 03/26/17 02:56 Dose: 1 applic Discontinued Medications Bacitracin (Bacitracin Oint 1 Gm) Confirm Administered Dose 1 dose .ROUTE .STK- MED ONE Stop: 03/26/17 15:28 Last Admin: 03/26/17 18:29 Dose: 1 dose Sodium Chloride (Normal Saline) 1,000 mls @ 250 mls/hr IV ASDIRECTED [facility] Last Admin: 03/25/17 15:35 Dose: 250 mls/hr Potassium Chloride/Dextrose/Sod Cl (D5 Ns With 20 Meq Kcl) 1,000 mls @ 100 mls/ hr IV ASDIRECTED [facility] Last Admin: 03/27/17 04:41 Dose: 100 mls/hr Potassium Chloride 20 meq/ (Premix) 100 mls @ 50 mls/hr IV Q2H [facility] Stop: 03/25/17 22:59 Last Admin: 03/25/17 21:56 Dose: 50 mls/hr Sodium Chloride (Normal Saline) 70 mls @ 3 mls/sec IV ASDIRECTED [facility] Stop: 03/26/17 23:00 Last Admin: 03/26/17 08:54 Dose: 2.5 mls/sec Magnesium Sulfate 2 gm/ Premix 50 mls @ 25 mls/hr IV Q6H [facility] Stop: 03/26/17 23:59 Last Admin: 03/26/17 22:15 Dose: 25 mls/hr Iohexol (Omnipaque-300) 20 ml PO ONETIME ONE Stop: 03/26/17 06:16 Last Admin: 03/26/17 06:31 Dose: 20 ml Iopamidol (Isovue-300 (61%)) 88 ml IV . DIRECTED PRN PRN Reason: RADIOLOGY EXAM Stop: 03/27/17 07:14 Last Admin: 03/26/17 08:54 Dose: 88 ml Lidocaine HCl (Xylocaine-Mpf 1%) 2 ml INJECT Q2H [facility] Stop: 03/25/17 20:31 Last Admin: 03/25/17 21:56 Dose: 2 ml Sodium Chloride (Saline Flush) 10 ml FLUSH ONETIME ONE Stop: 03/26/17 07:14 Last Admin: 03/26/17 08:54 Dose: 10 ml - Exam Quality Assessment: Denies: Supplemental Oxygen General: Reports: Alert, Oriented, Cooperative, No Acute Distress Neck: Reports: Supple Lungs: Reports: Normal Respiratory Effort Cardiovascular: Reports: Regular Rate, Regular Rhythm GI/Abdominal Exam: No Distention Extremities: No Pedal Edema Skin: Reports: Warm, Dry Psy/Mental Status: Reports: Alert, Normal Affect *Q Meaningful Use (DIS) - VTE *Q VTE Criteria *Q: - Stroke *Q Stroke Criteria *Q: - AMI *Q AMI Criteria *Q:
[2017-03-27 11:23] VITALS: BP 136/78
--- NOTE | 2017-03-29 09:32 | CR ---
Chest 1V Frontal INDICATION: post thoracentesis FINDINGS: Comparison 03/25/2017. Small right pleural effusion with infiltrate or atelectasis in the ri ght lung base. No evidence for pneumothorax. Stimulator device projected over the left chest.
--- NOTE | 2017-03-29 10:53 | OR ---
DATE OF PROCEDURE: 03/26/2017 PROCEDURE: Thoracentesis, right side. PREOPERATIVE DIAGNOSIS: Shortness of breath. POSTOPERATIVE DIAGNOSIS: Shortness of breath. INDICATIONS: A pleasant female with fluid noted on CT scan requiring therapeutic and diagnostic evaluation. RISKS: Risks, benefits, alternatives, limitations including, but not limited to infection, bleeding, and pneumothorax were explained to the patient and wished to proceed. PROCEDURE IN DETAIL: The patient was placed over a Gray stand. The right chest had been prepped, draped, and marked with ultrasound. The skin was anesthetized with lidocaine. A single roel was created. The sheath was introduced as the needle was withdrawn. Approximately 250 mL of straw-colored fluid, probably with a large amount of protein on an average was aspirated. The needle and sheath device were then removed. Direct pressure was held for 10 minutes, and dressings were applied. The patient tolerated the procedure well. Immanuel Alford MD /[id number]
== END 2017-03-27 11:54 | disposition home or self-care (01) | DRG 194 ==
LOC: JP.ED 14:05 → JP.MS 17:11
PROVIDERS: ADMIT Internal Medicine; ATTEND Internal Medicine
PROC: 0W993ZX Drainage of Right Pleural Cavity, Percutaneous Approach, Diagnostic (ICD-10-PCS; principal; 2017-03-26)
DX: J18.1 Lobar pneumonia, unspecified organism (principal); R19.7 Diarrhea, unspecified; J91.8 Pleural effusion in other conditions classified elsewhere; K52.9 Noninfective gastroenteritis and colitis, unspecified; E86.0 Dehydration; E87.6 Hypokalemia; J44.9 Chronic obstructive pulmonary disease, unspecified; Z87.891 Personal history of nicotine dependence; R05 Cough; N18.3 Chronic kidney disease, stage 3 (moderate); Z66 Do not resuscitate; G25.0 Essential tremor; R53.1 Weakness; M19.90 Unspecified osteoarthritis, unspecified site; E53.8 Deficiency of other specified B group vitamins; K21.9 Gastro-esophageal reflux disease without esophagitis; H54.7 Unspecified visual loss; Z91.040 Latex allergy status; Z79.82 Long term (current) use of aspirin
CPT/HCPCS: 36415; 71010 ×2; 80053; 81001; 82150; 83690; 83735; 84443; 85025; 86140; 96360; 96361; 99285; J7040; 74177; 74177-26; 80048; 85027; 87070; 87077; 87205; 87220; 99284; A9270-GY; J1956; J3475; J3480; J7030; J7050; Q9967

== ENCOUNTER 2017-05-06 15:29 | Inpatient (IN) | payer MEDICARE, OTHER ==
[2017-05-06] MEDS ORDERED: Sodium Chloride 0.9% 10 ML Syringe FLUSH PRN (15:44)
--- NOTE | 2017-05-06 15:57 | EDM.PDOC ---
ED HPI GENERAL MEDICAL PROBLEM - General Chief Complaint: Neurological Problem Stated Complaint: MEDICAL Time Seen by Provider: 05/06/17 15:35 Source of Information: Reports: Patient, Family, Old Records History Limitations: Reports: No Limitations (76 yofe ) - History of Present Illness INITIAL COMMENTS - FREE TEXT/NARRATIVE: 76 yo female with an admission in mid Mar here for pneumonia presents with a cough associated with a small amt of hematemesis and weakness coming on for a couple days. No definite fever. Does not complain of SOB. Has nearly fallen several times lately. Lives with her . Here via EMS. reports that for the past few days she leans to the side when she tries to walk. No known hx of afib. Onset: Gradual Onset Date: 05/03/17 Duration: Day(s):, Getting Worse Location: Reports: Generalized Severity: Moderate Improves with: Reports: None Worsens with: Reports: Other (? time) Context: Reports: Other (Hx of pneumonia) Associated Symptoms: Reports: Confusion (mild, intermittent), Cough, Weakness. 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: Reports: Other (see below) (none) Right Abdominal Pain Score (Numeric/FACES): 4 - Related Data Allergies Allergy/AdvReac Type Severity Reaction Status Date / Time latex Allergy Rash Verified 05/06/17 15:51 Home Meds: Home Meds Albuterol [Proair HFA] 2 gm IN Q6HR PRN 06/26/16 [History] Aspirin [Ecotrin] 81 mg PO DAILY 06/26/16 [History] Cyanocobalamin (Vitamin B-12) [Vitamin B-12] 1,000 mcg INJECT ASDIRECTED [History] Furosemide [Lasix] 20 mg PO DAILY 06/26/16 [History] Gabapentin [Neurontin] 300 mg PO TID 06/26/16 [History] Omeprazole Magnesium [Prilosec Otc] 40 mg PO DAILY 06/26/16 [History] Oxybutynin 5 mg PO TID 06/26/16 [History] Primidone 125 mg PO BID 06/26/16 [History] Propranolol [Inderal LA] 60 mg PO BID 06/26/16 [History] Escitalopram [Lexapro] 10 mg PO BEDTIME 03/25/17 [History] Escitalopram [Lexapro] 10 mg PO DAILY 05/06/17 [History] Past Medical History HEENT History: Reports: Impaired Vision Respiratory History: Reports: Bronchitis, Recurrent, COPD Gastrointestinal History: Reports: Bowel Obstruction, GERD [employer] FRAME [employer]TER History: Reports: Musculoskeletal History: Reports: Arthritis, Fracture, Osteoporosis Neurological History: Reports: Other (See Below) Other Neuro History: DBS implant for tremor Hematologic History: Reports: B12 Deficiency - Infectious Disease History Infectious Disease History: Reports: Chicken Pox - Past Surgical History HEENT Surgical History: Reports: Oral Surgery, Tonsillectomy GI Surgical History: Reports: Appendectomy, Cholecystectomy, Colon, Colostomy, EGD, Hernia Repair/Other Female Surgical History: Reports: Breast Biopsy, Section Musculoskeletal Surgical History: Reports: Knee Replacement Oncologic Surgical History: Reports: Biopsy of Breast Social & Family History - Family History Family Medical History: Noncontributory - Tobacco Use Smoking Status *Q: Former Smoker Years of Tobacco use: 60 Packs/Tins Daily: 0.5 Used Tobacco, but Quit: Yes Month Tobacco Last Used: 05/2016 Second Hand Smoke Exposure: No - Caffeine Use Caffeine Use: Reports: Coffee - Recreational Drug Use Recreational Drug Use: No ED ROS GENERAL - Review of Systems Review Of Systems: See Below Constitutional: Reports: Weakness. Denies: Fever HEENT: Reports: Hearing Loss (chronic) Respiratory: Reports: Cough, Hemoptysis Cardiovascular: Reports: No Symptoms GI/Abdominal: Reports: No Symptoms : Reports: No Symptoms Musculoskeletal: Reports: No Symptoms Skin: Reports: No Symptoms Neurological: Reports: Confusion (mild, intermittent), Difficulty Walking (due to weakness.) Psychiatric: Reports: No Symptoms ED EXAM, NEURO - Physical Exam Exam: See Below Exam Limited By: No Limitations General Appearance: Alert, WD/WN, No Apparent Distress Eye Exam: Bilateral Eye: EOMI, Normal Inspection, PERRL Ears: Normal External Exam, Normal Canal, Hearing Loss Nose: Normal Inspection, Normal Mucosa, No Blood Throat/Mouth: Normal Oropharynx, Normal Voice, No Airway Compromise, Other (dry oral mucosa) Head Exam: Atraumatic, Normocephalic Neck: Normal Inspection Respiratory/Chest: No Respiratory Distress, No Accessory Muscle Use, Rhonchi (R base). No: Respiratory Distress, Wheezing, Stridor, Accessory Muscle Use Cardiovascular: Irregularly Irregular GI/Abdominal: Normal Bowel Sounds, Soft, Non-Tender, No Distention Neurological: Alert, Normal Mood/Affect, CN II-XII Intact, No Motor/Sensory Deficits, Oriented x 3, Other (No obvious neuro deficits. Babinski's downgoing bilaterally.) Back Exam: Normal Inspection. No: CVA Tenderness (R), CVA Tenderness (L) Extremities: Normal Inspection, Normal Range of Motion, Non-Tender, No Pedal Edema Psychiatric: Normal Affect, Normal Mood Skin Exam: Warm, Dry, Intact, Normal Color, No Rash EKG INTERPRETATION EKG Date: 05/06/17 Time: 16:00 Rhythm: A-Fib Rate (Beats/Min): 62 [place]: Normal P-Wave: Absent QRS: Normal ST-T: Normal QT: Normal Comparison: NA - No Prior EKG Course - Vital Signs Last Recorded V/S: Last Vital Signs Temp 37.4 C 05/06/17 15:43 Pulse 64 05/06/17 16:33 Resp 20 05/06/17 16:33 BP 120/67 05/06/17 16:33 Pulse Ox 93 L 05/06/17 16:33 - Orders/Labs/Meds Orders: Active Orders 24 hr Category Date Time Status Cardiac Monitoring [RC] .As Directed Care 05/06/17 15:44 Active EKG Documentation Completion [RC] ASDIRECTED Care 05/06/17 15:44 Active Chest 1V Frontal [CR] Stat Exams 05/06/17 15:51 Taken UA W/MICROSCOPIC [URIN] Stat Lab 05/06/17 15:44 Uncollected Levofloxacin/Dextrose 5%-Water [Levaquin in D5W 750 MG/ Med 05/06/17 17:15 Ordered 150 ML] 750 mg Premix Bag 1 bag IV ONETIME Magnesium Sulfate/Water [Magnesium Sulfate 2 GM in Med 05/06/17 16:41 Active Water 50 ML] 2 gm Premix Bag 1 bag IV ONETIME NS + KCl 20mEq/L [Normal Saline with 20 mEq KCl] 1,000 Med 05/06/17 16:30 Active ml IV ASDIRECTED Sodium Chloride 0.9% [Saline Flush] Med 05/06/17 15:44 Active 10 ml FLUSH ASDIRECTED PRN Saline Lock Insert [OM.PC] Routine Oth 05/06/17 15:44 Ordered EKG 12 Lead [EK] Routine Ther 05/06/17 15:43 Ordered Medication Orders Potassium Chloride/Sodium Chloride (Normal Saline With 20 Meq Kcl) 1,000 mls @ 150 mls/hr IV ASDIRECTED [facility] Last Admin: 05/06/17 16:44 Dose: 150 mls/hr Magnesium Sulfate 2 gm/ Premix 50 mls @ 12.5 mls/hr IV ONETIME ONE Stop: 05/06/17 20:40 Last Admin: 05/06/17 16:58 Dose: 12.5 mls/hr Sodium Chloride (Saline Flush) 10 ml FLUSH ASDIRECTED PRN PRN Reason: Keep Vein Open Last Admin: 05/06/17 16:35 Dose: 10 ml Labs: Laboratory Tests 05/06/17 05/06/17 05/06/17 Range/Units 15:44 15:57 16:02 WBC 15.0 H (4.5-11.0) K/uL RBC 4.02 (3.30-5.50) M/uL Hgb 12.8 (12.0-15.0) g/dL Hct 41.0 (36.0-48.0) % MCV 102 H (80-98) fL MCH 32 H (27-31) pg MCHC 31 L (32-36) % Plt Count 161 (150-400) K/uL Sodium 139 L (140-148) mmol/L Potassium 3.0 L (3.6-5.2) mmol/L Chloride 98 L (100-108) mmol/L Carbon Dioxide 36 H (21-32) mmol/L Anion Gap 8.0 (5.0-14.0) mmol/L BUN 23 H D (7-18) mg/dL Creatinine 1.1 H (0.6-1.0) mg/dL Est Cr Clr Drug Dosing 40.48 mL/min Estimated GFR (MDRD) 48 L (>60) Glucose 99 (74-106) mg/dL Calcium 9.3 (8.5-10.1) mg/dL Magnesium 1.2 L (1.8-2.4) mg/dL Troponin I 0.073 H* (0.000-0.056) ng/mL Meds: Medications Generic Name Dose Route Start Last Admin Trade Name Freq PRN Reason Stop Dose Admin Potassium Chloride/Sodium Chloride 1,000 mls @ 150 mls/hr 05/06/17 16:30 16:44 Normal Saline With 20 Meq Kcl IV 150 mls/hr ASDIRECTED ASH Administration Magnesium Sulfate 2 gm/ Premix 50 mls @ 12.5 mls/hr 05/06/17 16:41 05/06/17 16:58 IV 05/06/17 20:40 12.5 mls/hr ONETIME ONE Administration Sodium Chloride 10 ml 05/06/17 15:44 05/06/17 16:35 Saline Flush FLUSH 10 ml ASDIRECTED PRN Administration Keep Vein Open Discontinued Medications Generic Name Dose Route Start Last Admin Trade Name Freq PRN Reason Stop Dose Admin Magnesium Oxide 400 mg 05/06/17 16:40 05/06/17 16:54 Magnesium Oxide PO 05/06/17 16:41 400 mg ONETIME ONE Administration Potassium Chloride 40 meq 05/06/17 16:26 05/06/17 16:42 Potassium Chloride PO 05/06/17 16:27 40 meq ONETIME ONE Administration - Radiology Interpretation Free Text/Narrative:: CXR-minimal change from 03/26/17 Departure - Departure Time of Disposition: 17:50 Disposition: Admitted As Inpatient 65 Condition: Fair Clinical Impression: New onset a-fib, Hypokalemia, Hypomagnesemia RLL pneumonia Qualifiers: Pneumonia type: due to unspecified organism Qualified Code(s): J18.1 - Lobar pneumonia, unspecified organism - Discharge Information Referrals: Harley Medrano MD [Primary Care Provider] - Forms: ED Department Discharge - My Orders Last 24 Hours: My Active Orders 05/06/17 15:43 EKG 12 Lead [EK] Routine 05/06/17 15:44 Cardiac Monitoring [RC] .As Directed EKG Documentation Completion [RC] ASDIRECTED UA W/MICROSCOPIC [URIN] Stat Sodium Chloride 0.9% [Saline Flush] 10 ml FLUSH ASDIRECTED PRN Saline Lock Insert [OM.PC] Routine 05/06/17 15:51 Chest 1V Frontal [CR] Stat 05/06/17 16:30 NS + KCl 20mEq/L [Normal Saline with 20 mEq KCl] 1,000 ml IV ASDIRECTED 05/06/17 16:41 Magnesium Sulfate/Water [Magnesium Sulfate 2 GM in Water 50 ML] 2 gm Premix Bag 1 bag IV ONETIME 05/06/17 17:15 Levofloxacin/Dextrose 5%-Water [Levaquin in D5W 750 MG/150 ML] 750 mg Premix Bag 1 bag IV ONETIME - Assessment/Plan Last 24 Hours: My Active Orders 05/06/17 15:43 EKG 12 Lead [EK] Routine 05/06/17 15:44 Cardiac Monitoring [RC] .As Directed EKG Documentation Completion [RC] ASDIRECTED UA W/MICROSCOPIC [URIN] Stat Sodium Chloride 0.9% [Saline Flush] 10 ml FLUSH ASDIRECTED PRN Saline Lock Insert [OM.PC] Routine 05/06/17 15:51 Chest 1V Frontal [CR] Stat 05/06/17 16:30 NS + KCl 20mEq/L [Normal Saline with 20 mEq KCl] 1,000 ml IV ASDIRECTED 05/06/17 16:41 Magnesium Sulfate/Water [Magnesium Sulfate 2 GM in Water 50 ML] 2 gm Premix Bag 1 bag IV ONETIME 05/06/17 17:15 Levofloxacin/Dextrose 5%-Water [Levaquin in D5W 750 MG/150 ML] 750 mg Premix Bag 1 bag IV ONETIME
[2017-05-06] MEDS ORDERED: Potassium Chloride 10 MEQ Cap.ER PO ONE (16:26)
[2017-05-06] MEDS ORDERED: NS + KCl 20mEq/L 1,000 ML IV SCH ×2 (16:30→18:49)
[2017-05-06] MEDS ORDERED: Magnesium Oxide 400 MG Tab PO ONE (16:40)
[2017-05-06] MEDS ORDERED: Magnesium Sulfate/Water 2 GM in Premix Bag 1 BAG IV ONE (16:41)
[2017-05-06] MEDS ORDERED: Levofloxacin/Dextrose 5%-Water 750 MG in Premix Bag 1 BAG IV ONE (17:15)
--- NOTE | 2017-05-06 18:12 | PCM.HP ---
H&P History of Present Illness - General Date of Service: 05/06/17 Admit Problem/Dx: Admission Diagnosis/Problem Admission Diagnosis/Problem Right lower lobe pneumonia Source of Information: Patient, Family History Limitations: Reports: No Limitations - History of Present Illness Initial Comments - Free Text/Narative: Kelly presents to the emergency room today with cough, weakness and right upper quadrant abdominal pain. She hasn't felt well for the past 2 days with loose cough and fatigue. She has lost her appetite. She has had intermittent episodes of moderately severe sharp right upper quadrant abdominal pain. No obvious trigger for the pain such as breathing or moving around. Seems to come and go in waves. She hasn't taken anything to make the pain feel better. She has not had difficulty with diarrhea. She doesn't feel particularly short of breath and has not had any chest pain. No orthopnea or lower extremity edema. She had several falls today due to generalized weakness but did not suffer any injuries. Workup in the emergency room revealed elevated white blood cell count, low- grade fever and probable right lower lobe and/or right middle lobe pneumonia. She also has low potassium and low magnesium. She will be admitted for further management. Right Abdominal Pain Score (Numeric/FACES): 4 - Related Data Allergies/Adverse Reactions: Allergies Allergy/AdvReac Type Severity Reaction Status Date / Time latex Allergy Rash Verified 05/06/17 15:51 Home Medications: Home Meds Albuterol [Proair HFA] 2 gm IN Q6HR PRN 06/26/16 [History] Aspirin [Ecotrin] 81 mg PO DAILY 06/26/16 [History] Cyanocobalamin (Vitamin B-12) [Vitamin B-12] 1,000 mcg INJECT ASDIRECTED [History] Furosemide [Lasix] 20 mg PO DAILY 06/26/16 [History] Gabapentin [Neurontin] 300 mg PO TID 06/26/16 [History] Omeprazole Magnesium [Prilosec Otc] 40 mg PO DAILY 06/26/16 [History] Oxybutynin 5 mg PO TID 06/26/16 [History] Primidone 125 mg PO BID 06/26/16 [History] Propranolol [Inderal LA] 60 mg PO BID 06/26/16 [History] Escitalopram [Lexapro] 10 mg PO BEDTIME 03/25/17 [History] Escitalopram [Lexapro] 10 mg PO DAILY 05/06/17 [History] Past Medical History HEENT History: Reports: Impaired Vision Respiratory History: Reports: Bronchitis, Recurrent, COPD Gastrointestinal History: Reports: Bowel Obstruction, GERD RN [facility] History: Reports: Musculoskeletal History: Reports: Arthritis, Fracture, Osteoporosis Neurological History: Reports: Other (See Below) Other Neuro History: DBS implant for tremor Psychiatric History: Reports: Depression Hematologic History: Reports: B12 Deficiency - Infectious Disease History Infectious Disease History: Reports: Chicken Pox - Past Surgical History HEENT Surgical History: Reports: Oral Surgery, Tonsillectomy GI Surgical History: Reports: Appendectomy, Cholecystectomy, Colon, Colostomy, EGD, Hernia Repair/Other Female Surgical History: Reports: Breast Biopsy, Section Musculoskeletal Surgical History: Reports: Knee Replacement Oncologic Surgical History: Reports: Biopsy of Breast Social & Family History - Family History Family Medical History: Noncontributory - Tobacco Use Smoking Status *Q: Former Smoker Years of Tobacco use: 60 Packs/Tins Daily: 0.5 Used Tobacco, but Quit: Yes Month Tobacco Last Used: 05/2016 Second Hand Smoke Exposure: No - Caffeine Use Caffeine Use: Reports: Coffee - Alcohol Use Alcohol Use History: No - Recreational Drug Use Recreational Drug Use: No H&P Review of Systems - Review of Systems: Review Of Systems: See Below Free Text/Narrative: A complete 12 point review of systems was obtained. Pertinent positives and negatives are noted in the history of present illness. All other systems were reviewed and were negative except as noted. Exam - Exam Exam: See Below - Vital Signs Vital Signs: Last Vital Signs Temp 37.4 C 05/06/17 15:43 Pulse 64 05/06/17 16:33 Resp 20 05/06/17 16:33 BP 120/67 05/06/17 16:33 Pulse Ox 93 L 05/06/17 16:33 Weight: 59.874 kg - Exam Quality Assessment: No: Supplemental Oxygen General: Alert, Oriented, Cooperative, Lethargic. No: Mild Distress HEENT: Conjunctiva Clear. No: Mucosa Moist & [place] (dry), Scleral Icterus Neck: Supple, Trachea Midline. No: Lymphadenopathy Lungs: Normal Respiratory Effort, Crackles (right middle and right lower lobe). No: Wheezing Cardiovascular: Regular Rate, Irregular Rhythm. No: Systolic Murmur GI/Abdominal Exam: Normal Bowel Sounds, Soft, Non-Tender, No Distention Back Exam: Normal Inspection, Full Range of Motion Extremities: No Pedal Edema. No: Increased Warmth Peripheral Pulses: 2+: Dorsalis Pedis (L), Dorsalis Pedis (R) Skin: Warm, Dry Neuro Extensive - Mental Status: Alert, Oriented x3, Nl Response to Commands Neuro Extensive - Motor, Sensory, Reflexes: CN II-XII Intact, Tremor. No: Dysarthria, Abnormal Motor Psychiatric: Alert, Normal Affect - Patient Data Lab Results Last 24 hrs: Laboratory Results - last 24 hr 05/06/17 05/06/17 05/06/17 Range/Units 15:44 15:57 16:02 WBC 15.0 H (4.5-11.0) K/uL RBC 4.02 (3.30-5.50) M/uL Hgb 12.8 (12.0-15.0) g/dL Hct 41.0 (36.0-48.0) % MCV 102 H (80-98) fL MCH 32 H (27-31) pg MCHC 31 L (32-36) % Plt Count 161 (150-400) K/uL Sodium 139 L (140-148) mmol/L Potassium 3.0 L (3.6-5.2) mmol/L Chloride 98 L (100-108) mmol/L Carbon Dioxide 36 H (21-32) mmol/L Anion Gap 8.0 (5.0-14.0) mmol/L BUN 23 H D (7-18) mg/dL Creatinine 1.1 H (0.6-1.0) mg/dL Est Cr Clr Drug Dosing 40.48 mL/min Estimated GFR (MDRD) 48 L (>60) Glucose 99 (74-106) mg/dL Calcium 9.3 (8.5-10.1) mg/dL Magnesium 1.2 L (1.8-2.4) mg/dL Troponin I 0.073 H* (0.000-0.056) ng/mL Result Diagrams: 05/06/17 15:44 05/06/17 15:57 Imaging Impressions Last 24 hrs: CXR - images personally reviewed - there is a RML and possibly RLL infiltrate. No mass or cardiomegally. Deep brain stimulator generator in left upper chest *Q Meaningful Use (ADM) - VTE *Q VTE Criteria *Q: - VTE Risk Assess *Q Each Risk Factor Represents 1 Point: Serious lung disease including pneumonia Total Score 1 Point Risk Factors: 1 Each Risk Factor Represents 2 Points: None Total Score 2 Point Risk Factors: 0 Each Risk Factor Represents 3 Points: Age 75 Years or Greater Total Score 3 Point Risk Factors: 3 Each Risk Factor Represents 5 Points: None Total Score 5 Point Risk Factors: 0 Venous Thromboembolism Risk Factor Score *Q: 4 - Stroke *Q Stroke Criteria *Q: - AMI *Q AMI Criteria *Q: - Problem List (1) RLL pneumonia SNOMED Code(s): 879401117 ICD Code: J18.1 - LOBAR PNEUMONIA, UNSPECIFIED ORGANISM Status: Acute Current Visit: Yes Qualifiers: Pneumonia type: due to unspecified organism Qualified Code(s): J18.1 - Lobar pneumonia, unspecified organism (2) New onset a-fib SNOMED Code(s): 00173551 ICD Code: I48.91 - UNSPECIFIED ATRIAL FIBRILLATION Status: Acute Current Visit: Yes (3) Hypomagnesemia SNOMED Code(s): 866407311 ICD Code: E83.42 - HYPOMAGNESEMIA Status: Acute Current Visit: Yes (4) Hypokalemia SNOMED Code(s): 38355486 ICD Code: E87.6 - HYPOKALEMIA Status: Acute Current Visit: Yes (5) CKD (chronic kidney disease), stage III SNOMED Code(s): 680704957 ICD Code: N18.3 - CHRONIC KIDNEY DISEASE, STAGE 3 (MODERATE) Status: Chronic Current Visit: No (6) Essential tremor SNOMED Code(s): 212998873 ICD Code: G25.0 - ESSENTIAL TREMOR Status: Chronic Current Visit: No Problem List Initiated/Reviewed/Updated: Yes Orders Last 24hrs: Active Orders 24 hr Category Date Time Status Patient Status Manage Transfer [TRANSFER] Routine ADT 05/06/17 17:49 Ordered Cardiac Monitoring [RC] .As Directed Care 05/06/17 15:44 Active EKG Documentation Completion [RC] ASDIRECTED Care 05/06/17 15:44 Active Chest 1V Frontal [CR] Stat Exams 05/06/17 15:51 Taken UA W/MICROSCOPIC [URIN] Stat Lab 05/06/17 15:44 Uncollected Levofloxacin/Dextrose 5%-Water [Levaquin in D5W 750 MG/ Med 05/06/17 17:15 Active 150 ML] 750 mg Premix Bag 1 bag IV ONETIME Magnesium Sulfate/Water [Magnesium Sulfate 2 GM in Med 05/06/17 16:41 Active Water 50 ML] 2 gm Premix Bag 1 bag IV ONETIME NS + KCl 20mEq/L [Normal Saline with 20 mEq KCl] 1,000 Med 05/06/17 16:30 Active ml IV ASDIRECTED Sodium Chloride 0.9% [Saline Flush] Med 05/06/17 15:44 Active 10 ml FLUSH ASDIRECTED PRN Saline Lock Insert [OM.PC] Routine Oth 05/06/17 15:44 Ordered Resuscitation Status Routine Resus Stat 05/06/17 17:53 Ordered EKG 12 Lead [EK] Routine Ther 05/06/17 15:43 Ordered Medication Orders Potassium Chloride/Sodium Chloride (Normal Saline With 20 Meq Kcl) 1,000 mls @ 150 mls/hr IV ASDIRECTED ASH Last Admin: 05/06/17 16:44 Dose: 150 mls/hr Magnesium Sulfate 2 gm/ Premix 50 mls @ 12.5 mls/hr IV ONETIME ONE Stop: 05/06/17 20:40 Last Admin: 05/06/17 16:58 Dose: 12.5 mls/hr Levofloxacin/Dextrose 750 mg/ (Premix) 150 mls @ 100 mls/hr IV ONETIME ONE Stop: 05/06/17 18:44 Last Admin: 05/06/17 17:52 Dose: 100 mls/hr Sodium Chloride (Saline Flush) 10 ml FLUSH ASDIRECTED PRN PRN Reason: Keep Vein Open Last Admin: 05/06/17 16:35 Dose: 10 ml Assessment/Plan Comment:: ASSESSMENT AND PLAN - right lower lobe pneumonia - symptoms of cough and fatigue and some shortness of breath. Not currently hypoxic. She had a similar infiltrate just over a month ago and would benefit from advanced imaging. No evidence for pleural effusion which was present just over a month ago. Low-grade temperature elevation but no fever at this time. she did receive levofloxacin in the emergency room. -ceftriaxone, consider azithromycin versus levofloxacin tomorrow -Blood cultures if fever -Sputum culture -Supplement oxygen if needed -Tessalon for cough -CT scan of the chest in the morning new-onset atrial fibrillation - history of pulmonary hypertension and enlarged left atrium, both of which could be triggers and likely contribution from current respiratory infection. currently rate controlled. Plan to reassess need for anticoagulation based on duration of atrial fibrillation, hopefully will be short-lived with treatment for pneumonia and electrolyte imbalances as below. -Continue beta sudhir -Optimize electrolytes -Cardiac monitoring hypokalemia - probably related to inadequate intake. No obvious reason for loss other than low-dose diuretic. She has received 60 mEq in the emergency room. -Recheck in the morning hypomagnesemia - probably related to inadequate intake. She did receive some supplementation in the emergency room. -Additional supplementation over the next 24 hours Essential tremor - stable at this time. -Continue home medications Maintenance issues - - DVT prophylaxis - enoxaparin - GI prophylaxis - PPI - Nutrition - regular diet - Montes catheter - not indicated CODE STATUS - DNR/DNI Admission justification - This patient will be admitted for inpatient services and is medically appropriate meeting medical necessity for inpatient admission as outlined in my documentation. I reasonably expect the patient will require inpatient services that span a period time over 2 midnights. I reasonably expect this patient to be discharged or transferred within 96 hours [facility] Disposition - anticipate discharge home after the hospital stay Primary care physician - Dr Mitchell Valles M.D.
[2017-05-06] MEDS ORDERED: Albuterol 0.083% 2.5 MG/3 ML Neb Soln NEB PRN (18:49)
[2017-05-06] MEDS ORDERED: Morphine 2 MG/ML Syringe IVPUSH PRN (18:49)
[2017-05-06] MEDS ORDERED: Polyethylene Glycol 3350 Powder 17 GM Packet PO PRN (18:49)
[2017-05-06] MEDS ORDERED: Benzonatate 100 MG Cap PO PRN (18:49)
[2017-05-06] MEDS ORDERED: Acetaminophen 325 MG Tab PO PRN (18:49)
[2017-05-06] MEDS ORDERED: Ondansetron 4 MG/2 ML SDV IV PRN (18:49)
[2017-05-06] MEDS ORDERED: Ondansetron 4 MG Tab.DIS PO PRN (18:49)
[2017-05-06] MEDS ORDERED: oxyCODONE 5 MG Tab PO PRN (18:49)
[2017-05-06] MEDS ORDERED: cefTRIAXone 2 GM in Sodium Chloride 0.9% 50 ML IV SCH (19:00)
[2017-05-06] MEDS: Magnesium Sulfate/Water 2 GM in Premix Bag 1 BAG IV SCH (20:51)
[2017-05-06] MEDS: Oxybutynin 5 MG Tab PO SCH (20:53)
[2017-05-06] MEDS: Gabapentin 300 MG Cap PO SCH (20:53)
[2017-05-06] MEDS: Escitalopram 10 MG Tab PO SCH (20:53)
[2017-05-06] MEDS: Enoxaparin 40 MG/0.4 ML Syringe SUBCUT SCH (20:53)
[2017-05-06] MEDS ORDERED: Propranolol 40 MG Tab ONE (21:13)
[2017-05-06] MEDS: Primidone 50 MG Tab PO SCH (21:33)
[2017-05-06] MEDS: Propranolol 60 MG Cap.ER PO SCH (21:59)
[2017-05-06] MEDS ORDERED: Calcium Carbonate 500 MG Tab.Chew PO PRN (22:05)
[2017-05-07] MEDS: Magnesium Sulfate/Water 2 GM in Premix Bag 1 BAG IV SCH ×2 (01:05→06:12)
--- NOTE | 2017-05-07 04:07 | PCM.SN ---
- Free Text/Narrative Note: date; 05/06/2017 time 22:05 call from 2 [facility]; Mrs. Delgado ate salad for supper, now with heart burn , requesting Tums, no other concerns a;heart burn p; order Tums 2 tabs as directed. continue present plan of care.
[2017-05-07] MEDS: Propranolol 60 MG Cap.ER PO SCH ×2 (09:11→21:26)
[2017-05-07] MEDS: Aspirin 81 MG Tab.EC PO SCH (09:11)
[2017-05-07] MEDS: Pantoprazole 40 MG Tab.CR PO SCH (09:11)
[2017-05-07] MEDS: Gabapentin 300 MG Cap PO SCH ×3 (09:11→21:28)
[2017-05-07] MEDS: Primidone 50 MG Tab PO SCH ×2 (09:11→21:26)
[2017-05-07] MEDS: Oxybutynin 5 MG Tab PO SCH ×3 (09:11→21:28)
--- NOTE | 2017-05-07 09:38 | PCM.PN ---
- General Info Date of Service: 05/07/17 Functional Status: Reports: Pain Controlled, Tolerating Diet - Review of Systems General: Reports: Weakness. Denies: Fever Pulmonary: Reports: Shortness of Breath Gastrointestinal: Denies: Abdominal Pain Systems Review Comment:: No acute events overnight. Patient is feeling better today with less shortness of breath. Still has a little bit of a cough. She has not had any fevers. Still requiring supplemental oxygen. CT scan of the chest showed probable infiltrate in the right lower lung as well as a small effusion. No recurrence of the right upper quadrant abdominal pain. Appetite has improved. - Patient Data Vitals - Most Recent: Last Vital Signs Temp 36.9 C 05/07/17 08:07 Pulse 68 05/07/17 08:07 Resp 16 05/07/17 08:07 BP 125/72 05/07/17 08:07 Pulse Ox 94 L 05/07/17 08:07 Weight - Most Recent: 56.971 kg I&O - Last 24 Hours: Intake & Output 05/06/17 05/07/17 05/07/17 22:59 06:59 14:59 Intake Total 100 1082 Output Total 110 200 Balance -10 882 Lab Results Last 24 Hours: Laboratory Results - last 24 hr 05/06/17 05/06/17 05/07/17 Range/Units 20:00 21:29 06:15 WBC 11.3 H (4.5-11.0) K/uL RBC 3.72 (3.30-5.50) M/uL Hgb 11.9 L (12.0-15.0) g/dL Hct 37.8 (36.0-48.0) % MCV 102 H (80-98) fL MCH 32 H (27-31) pg MCHC 32 (32-36) % Plt Count 164 (150-400) K/uL Sodium (140-148) mmol/L Potassium (3.6-5.2) mmol/L Chloride (100-108) mmol/L Carbon Dioxide (21-32) mmol/L Anion Gap (5.0-14.0) mmol/L BUN (7-18) mg/dL Creatinine (0.6-1.0) mg/dL Est Cr Clr Drug Dosing mL/min Estimated GFR (MDRD) (>60) Glucose (74-106) mg/dL Calcium (8.5-10.1) mg/dL Troponin I 0.064 H* (0.000-0.056) ng/mL Urine Color [place] Urine Appearance Cloudy Urine pH 5.0 (4.5-8.0) Ur Specific [place] 1.020 (1.008-1.030) Urine Protein 30 H (NEGATIVE) mg/dL Urine Glucose (UA) Normal (NEGATIVE) mg/dL Urine Ketones Negative (NEGATIVE) mg/dL Urine Occult Blood Negative (NEGATIVE) Urine Nitrite Negative (NEGATIVE) Urine Bilirubin Negative (NEGATIVE) Urine Urobilinogen 1 (NORMAL) mg/dL Ur Leukocyte Esterase Moderate (NEGATIVE) Urine RBC 0-5 (0-5) Urine WBC 10-20 H (0-5) Ur Epithelial Cells Moderate Amorphous Sediment Few Urine Bacteria Few Urine Mucus Moderate // Range/Units 06:15 WBC (4.5-11.0) K/uL RBC (3.30-5.50) M/uL Hgb (12.0-15.0) g/dL Hct (36.0-48.0) % MCV (80-98) fL MCH (27-31) pg MCHC (32-36) % Plt Count (150-400) K/uL Sodium 140 (140-148) mmol/L Potassium 3.9 (3.6-5.2) mmol/L Chloride 104 (100-108) mmol/L Carbon Dioxide 31 (21-32) mmol/L Anion Gap 5.1 (5.0-14.0) mmol/L BUN 20 H (7-18) mg/dL Creatinine 1.0 (0.6-1.0) mg/dL Est Cr Clr Drug Dosing 42.37 mL/min Estimated GFR (MDRD) 54 L (>60) Glucose 100 (74-106) mg/dL Calcium 8.4 L (8.5-10.1) mg/dL Troponin I 0.039 (0.000-0.056) ng/mL Urine Color Urine Appearance Urine pH (4.5-8.0) Ur Specific [place] (1.008-1.030) Urine Protein (NEGATIVE) mg/dL Urine Glucose (UA) (NEGATIVE) mg/dL Urine Ketones (NEGATIVE) mg/dL Urine Occult Blood (NEGATIVE) Urine Nitrite (NEGATIVE) Urine Bilirubin (NEGATIVE) Urine Urobilinogen (NORMAL) mg/dL Ur Leukocyte Esterase (NEGATIVE) Urine RBC (0-5) Urine WBC (0-5) Ur Epithelial Cells Amorphous Sediment Urine Bacteria Urine Mucus Spike Results Last 24 Hours: Microbiology 05/07/17 02:17 Gram Stain - Final Sputum - Expectorated Med Orders - Current: Current Medications Acetaminophen (Tylenol) 650 mg PO Q4H PRN PRN Reason: Pain (Mild 1-3)/fever Albuterol (Proventil Neb Soln) 2.5 mg NEB Q4H PRN PRN Reason: Shortness Of Breath/wheezing Aspirin (Halfprin) 81 mg PO DAILY [facility] Last Admin: 05/07/17 09:11 Dose: 81 mg Benzonatate (Tessalon Perles) 100 mg PO TID PRN PRN Reason: Cough Calcium Carbonate/Glycine (Tums) 1,000 mg PO Q2H PRN PRN Reason: Indigestion Last Admin: 05/06/17 22:26 Dose: 1,000 mg Enoxaparin Sodium (Lovenox) 40 mg SUBCUT BEDTIME [facility] Last Admin: 05/06/17 20:53 Dose: 40 mg Escitalopram Oxalate (Lexapro) 10 mg PO BEDTIME [facility] Last Admin: 05/06/17 20:53 Dose: 10 mg Furosemide (Lasix) 20 mg PO DAILY [facility] Gabapentin (Neurontin) 300 mg PO TID [facility] Last Admin: 05/07/17 09:11 Dose: 300 mg Magnesium Sulfate 2 gm/ Premix 50 mls @ 12.5 mls/hr IV Q6H [facility] Stop: 05/07/17 10:48 Last Admin: 05/07/17 06:12 Dose: 12.5 mls/hr Ceftriaxone Sodium 2 gm/ (Sodium Chloride) 50 mls @ 100 mls/hr IV Q24H [facility] Morphine Sulfate (Morphine) 2 mg IVPUSH Q2H PRN PRN Reason: Pain Ondansetron HCl (Zofran Odt) 4 mg PO Q6H PRN PRN Reason: Nausea able to take PO Ondansetron HCl (Zofran) 4 mg IV Q6H PRN PRN Reason: Nausea/Vomiting Oxybutynin Chloride (Oxybutynin) 5 mg PO TID [facility] Last Admin: 05/07/17 09:11 Dose: 5 mg Oxycodone HCl (Oxycodone) 5 mg PO Q4H PRN PRN Reason: Pain (moderate 4-6) Pantoprazole Sodium (Protonix) 40 mg PO ACBREAKFAST [facility] Last Admin: 05/07/17 09:11 Dose: 40 mg Polyethylene Glycol (Miralax) 17 gm PO DAILY PRN PRN Reason: Constipation Primidone (Mysoline) 125 mg PO BID [facility] Last Admin: 05/07/17 09:11 Dose: 125 mg Propranolol HCl (Inderal La) 60 mg PO BID [facility] Last Admin: 05/07/17 09:11 Dose: 60 mg Senna/Docusate Sodium (Senna Plus) 1 tab PO BID PRN PRN Reason: Constipation Sodium Chloride (Saline Flush) 10 ml FLUSH ASDIRECTED PRN PRN Reason: Keep Vein Open Last Admin: 05/06/17 16:35 Dose: 10 ml Discontinued Medications Potassium Chloride/Sodium Chloride (Normal Saline With 20 Meq Kcl) 1,000 mls @ 150 mls/hr IV ASDIRECTED [facility] Last Admin: 05/06/17 16:44 Dose: 150 mls/hr Magnesium Sulfate 2 gm/ Premix 50 mls @ 12.5 mls/hr IV ONETIME ONE Stop: 05/06/17 20:40 Last Admin: 05/06/17 16:58 Dose: 12.5 mls/hr Levofloxacin/Dextrose 750 mg/ (Premix) 150 mls @ 100 mls/hr IV ONETIME ONE Stop: 05/06/17 18:44 Last Admin: 05/06/17 17:52 Dose: 100 mls/hr Ceftriaxone Sodium 2 gm/ (Sodium Chloride) 50 mls @ 100 mls/hr IV Q24H [facility] Last Admin: 05/06/17 21:01 Dose: 100 mls/hr Potassium Chloride/Sodium Chloride (Normal Saline With 20 Meq Kcl) 1,000 mls @ 100 mls/hr IV ASDIRECTED [facility] Magnesium Oxide (Magnesium Oxide) 400 mg PO ONETIME ONE Stop: 05/06/17 16:41 Last Admin: 05/06/17 16:54 Dose: 400 mg Potassium Chloride (Potassium Chloride) 40 meq PO ONETIME ONE Stop: 05/06/17 16:27 Last Admin: 05/06/17 16:42 Dose: 40 meq Propranolol HCl (Inderal) Confirm Administered Dose 80 mg .ROUTE .STK-MED ONE Stop: 12/21/17 21:14 Last Admin: 05/06/17 21:33 Dose: Not Given - Exam Quality Assessment: Supplemental Oxygen General: Alert, Oriented, Cooperative, No Acute Distress Neck: Supple Lungs: Normal Respiratory Effort, Crackles (few right lung base) Cardiovascular: Regular Rate, Irregular Rhythm GI/Abdominal Exam: Soft, No Distention Extremities: No Pedal Edema Psy/Mental Status: Alert, Normal Affect - Problem List & Annotations (1) RLL pneumonia SNOMED Code(s): 474242456 Code(s): J18.1 - LOBAR PNEUMONIA, UNSPECIFIED ORGANISM Status: Acute Current Visit: Yes Qualifiers: Pneumonia type: due to unspecified organism Qualified Code(s): J18.1 - Lobar pneumonia, unspecified organism (2) New onset a-fib SNOMED Code(s): 31749974 Code(s): I48.91 - UNSPECIFIED ATRIAL FIBRILLATION Status: Acute Current Visit: Yes (3) Hypomagnesemia SNOMED Code(s): 460525924 Code(s): E83.42 - HYPOMAGNESEMIA Status: Acute Current Visit: Yes (4) Hypokalemia SNOMED Code(s): 25036859 Code(s): E87.6 - HYPOKALEMIA Status: Acute Current Visit: Yes (5) CKD (chronic kidney disease), stage III SNOMED Code(s): 389131304 Code(s): N18.3 - CHRONIC KIDNEY DISEASE, STAGE 3 (MODERATE) Status: Chronic Current Visit: No (6) Essential tremor SNOMED Code(s): 500688363 Code(s): G25.0 - ESSENTIAL TREMOR Status: Chronic Current Visit: No - Problem List Review Problem List Initiated/Reviewed/Updated: Yes - My Orders Last 24 Hours: My Active Orders 05/06/17 17:53 Resuscitation Status Routine 05/06/17 18:49 Patient Status [ADT] Routine Intake and Output [RC] QSHIFT Notify Provider Vital Signs [RC] ASDIRECTED Oxygen Therapy [RC] PRN RT Aerosol Therapy [RC] ASDIRECTED Up With Assistance [RC] ASDIRECTED VTE/DVT Education [RC] Per Unit Routine Vital Signs [RC] Q4H Acetaminophen [Tylenol] 650 mg PO Q4H PRN Albuterol [Proventil Neb Soln] 2.5 mg NEB Q4H PRN Benzonatate [Tessalon Perles] 100 mg PO TID PRN Docusate Sodium/Sennosides [Senna Plus] 1 tab PO BID PRN Magnesium Sulfate/Water [Magnesium Sulfate 2 GM in Water 50 ML] 2 gm Premix Bag 1 bag IV Q6H Morphine 2 mg IVPUSH Q2H PRN Ondansetron [Zofran ODT] 4 mg PO Q6H PRN Ondansetron [Zofran] 4 mg IV Q6H PRN Polyethylene Glycol 3350 [MiraLAX] 17 gm PO DAILY PRN oxyCODONE 5 mg PO Q4H PRN 05/06/17 21:00 Enoxaparin [Lovenox] 40 mg SUBCUT BEDTIME 05/07/17 02:17 CULTURE RESPIRATORY + SMEAR [RM] Routine 05/07/17 07:00 PT Evaluation and Treatment [CONS] Routine Chest wo Cont [CT] Routine 05/07/17 07:30 Pantoprazole [ProTONIX] 40 mg PO ACBREAKFAST 05/07/17 09:36 Discontinue Telemetry Monitoring [Cardiac Monitoring Discontinue] [RC] Click to Edit 05/07/17 09:37 Convert IV to Saline Lock [OM.PC] Routine 05/07/17 09:45 Doxycycline [Vibramycin] 100 mg PO Q12H 05/07/17 21:00 cefTRIAXone [Rocephin] 2 gm Sodium Chloride 0.9% [Normal Saline] 50 ml IV Q24H 05/08/17 05:00 BASIC METABOLIC PANEL,BMP [CHEM] Timed CBC W/O DIFF,HEMOGRAM [HEME] Timed (1) - Plan Plan:: ASSESSMENT AND PLAN - Right lower lobe pneumonia - still hypoxic. Sputum culture pending with Gram stain showing gram-positive cocci. Quickly improving with current treatment. CT of the chest showed probable right lower lobe pneumonia with small to moderate effusion. -ceftriaxone and doxycycline -Blood cultures if fever -Follow-up Sputum culture -Supplement oxygen as needed -Tessalon for cough New-onset atrial fibrillation - history of pulmonary hypertension and enlarged left atrium, both of which could be triggers and likely contribution from current respiratory infection. Rate control excellent. Electrolytes have improved. -Continue beta sudhir -Optimize electrolytes -Discontinue Cardiac monitoring Hypokalemia - improved with supplementation. -Recheck in the morning Hypomagnesemia - improved with supplementation. Essential tremor - stable at this time. -Continue home medications Maintenance issues - - DVT prophylaxis - enoxaparin - GI prophylaxis - PPI - Nutrition - regular diet Disposition - anticipate discharge home after the hospital stay, hopefully in a day or maybe 2 Nic Valles M.D.
--- NOTE | 2017-05-07 09:56 | CR ---
Chest 1V Frontal HISTORY: hypoxia COMPARISON: 03/26/2017 FINDINGS: Portable chest, 1611 hours. Mild generalized cardiomegaly is redemonstrated. Pulmonary vasculature is not engorged. There is blun ting of the right costophrenic angle suggesting a small amount of pleural fluid. Mild interstitial pr ominence is seen lower right chest. This could be infiltrates, atelectasis, or fibrotic changes. Aleshia harpreet the chest is felt to be clear. Generator overlies the left mid chest and proximal lead wires ap pear stable. Lead wires extend cephalad off the edge of the image. Remainder of the chest is stable. IMPRESSION: Stable cardiomegaly. Possible early infiltrates versus atelectasis or scarring right lowe r lobe. Small right pleural effusion.
--- NOTE | 2017-05-07 10:43 | CT ---
Chest wo Cont HISTORY: recurrent pneumonia Axial spiral noncontrasted CT scan of the chest was obtained along with coronal and MIP reconstructio ns. Comparison plain chest radiograph is dated 05/06/2017. FINDINGS: There are interstitial infiltrates and consolidation along with some atelectasis right lowe r lobe posteriorly. No other focal infiltrate is identified. Some of these changes are noted. There i s a small to moderate right pleural effusion. Minimal left pleural fluid is present. There is mild de pendent atelectasis or scarring posteriorly at the left lung base. Cardiomegaly is noted. I see no obvious hilar or mediastinal mass or adenopathy. Mild atherosclerotic calcification is noted in the aortic arch. Chest wall structures are unremarkable. Probable cyst rudy suring about 1.5 cm diameter in size is noted on the posterior right kidney on the lowermost images. There is a 2 cm diameter cyst upper pole left kidney. IMPRESSION: 1. Possible right lower lobe pneumonia with consolidation or atelectasis. 2. Small to moderate right pleural effusion. 3. There are interstitial infiltrates along with an area of atelectasis or scarring are noted left bronson ng base posteriorly. 4. Generalized cardiomegaly with possible mild pulmonary congestive changes. Emphysematous changes ar e also noted. Total DLP 170 mGycm
[2017-05-07] MEDS: Doxycycline 100 MG Cap PO SCH ×2 (11:10→21:23)
[2017-05-07] MEDS ORDERED: Trolamine Salicylate/Aloe Vera 10% Crm 85 GM Tube TOP PRN (12:22)
[2017-05-07] MEDS ORDERED: cefTRIAXone 2 GM in Sodium Chloride 0.9% 50 ML IV SCH (21:00)
[2017-05-07] MEDS: Escitalopram 10 MG Tab PO SCH (21:25)
[2017-05-07] MEDS: Enoxaparin 40 MG/0.4 ML Syringe SUBCUT SCH (21:25)
[2017-05-07] MEDS: Cefdinir 300 MG Cap PO SCH (21:43)
[2017-05-08] MEDS: Pantoprazole 40 MG Tab.CR PO SCH (07:45)
[2017-05-08] MEDS: Doxycycline 100 MG Cap PO SCH ×2 (07:45→16:38)
[2017-05-08] MEDS: Oxybutynin 5 MG Tab PO SCH ×3 (08:02→21:06)
[2017-05-08] MEDS: Aspirin 81 MG Tab.EC PO SCH (08:02)
[2017-05-08] MEDS: Primidone 50 MG Tab PO SCH ×2 (08:02→21:03)
[2017-05-08] MEDS: Propranolol 60 MG Cap.ER PO SCH ×2 (08:02→21:02)
[2017-05-08] MEDS: Furosemide 20 MG Tab PO SCH (08:02)
[2017-05-08] MEDS: Gabapentin 300 MG Cap PO SCH ×3 (08:03→21:05)
[2017-05-08] MEDS: Cefdinir 300 MG Cap PO SCH ×2 (08:03→21:06)
--- NOTE | 2017-05-08 15:43 | PCM.PN ---
- General Info Date of Service: 05/08/17 Functional Status: Reports: Pain Controlled, Tolerating Diet - Review of Systems General: Reports: Weakness. Denies: Fever Pulmonary: Reports: Shortness of Breath, Cough Systems Review Comment:: No acute events overnight. IV when bad yesterday and she was transitioned to pills. Strength is improving but she remains fairly weak. Still requiring supplemental oxygen down to 1 L at this time. Cultures negative. She has not had any fevers. - Patient Data Vitals - Most Recent: Last Vital Signs Temp 35.3 C 05/08/17 14:43 Pulse 70 05/08/17 14:43 Resp 18 05/08/17 14:43 BP 141/66 H 05/08/17 14:43 Pulse Ox 91 L 05/08/17 14:43 Weight - Most Recent: 58.06 kg I&O - Last 24 Hours: Intake & Output 05/08/17 05/08/17 05/08/17 06:59 14:59 22:59 Intake Total 200 240 Output Total 200 100 Balance 0 140 Lab Results Last 24 Hours: Laboratory Results - last 24 hr 05/08/17 05/08/17 Range/Units 04:59 04:59 WBC 9.9 (4.5-11.0) K/uL RBC 3.59 (3.30-5.50) M/uL Hgb 11.6 L (12.0-15.0) g/dL Hct 35.8 L (36.0-48.0) % MCV 100 H (80-98) fL MCH 32 H (27-31) pg MCHC 32 (32-36) % Plt Count 179 (150-400) K/uL Sodium 138 L (140-148) mmol/L Potassium 3.7 (3.6-5.2) mmol/L Chloride 103 (100-108) mmol/L Carbon Dioxide 28 (21-32) mmol/L Anion Gap 10.7 (5.0-14.0) mmol/L BUN 18 (7-18) mg/dL Creatinine 0.9 (0.6-1.0) mg/dL Est Cr Clr Drug Dosing 47.08 mL/min Estimated GFR (MDRD) > 60 (>60) Glucose 114 H (74-106) mg/dL Calcium 8.2 L (8.5-10.1) mg/dL Spike Results Last 24 Hours: Microbiology 05/07/17 02:17 Gram Stain - Final Sputum - Expectorated Respiratory Culture - Preliminary NORMAL RESPIRATORY BENNY 1 DAY Med Orders - Current: Current Medications Acetaminophen (Tylenol) 650 mg PO Q4H PRN PRN Reason: Pain (Mild 1-3)/fever Albuterol (Proventil Neb Soln) 2.5 mg NEB Q4H PRN PRN Reason: Shortness Of Breath/wheezing Aspirin (Halfprin) 81 mg PO DAILY [facility] Last Admin: 05/08/17 08:02 Dose: 81 mg Benzonatate (Tessalon Perles) 100 mg PO TID PRN PRN Reason: Cough Calcium Carbonate/Glycine (Tums) 1,000 mg PO Q2H PRN PRN Reason: Indigestion Last Admin: 05/06/17 22:26 Dose: 1,000 mg Cefdinir (Omnicef) 300 mg PO BID [facility] Last Admin: 05/08/17 08:03 Dose: 300 mg [facility] Last Admin: 05/08/17 07:45 Dose: 100 mg Enoxaparin Sodium (Lovenox) 40 mg SUBCUT BEDTIME [facility] Last Admin: 05/07/17 21:25 Dose: 40 mg Escitalopram Oxalate (Lexapro) 10 mg PO BEDTIME [facility] Last Admin: 05/07/17 21:25 Dose: 10 mg Furosemide (Lasix) 20 mg PO DAILY [facility] Last Admin: 05/08/17 08:02 Dose: 20 mg Gabapentin (Neurontin) 300 mg PO TID [facility] Last Admin: 05/08/17 14:58 Dose: 300 mg Morphine Sulfate (Morphine) 2 mg IVPUSH Q2H PRN PRN Reason: Pain Ondansetron HCl (Zofran Odt) 4 mg PO Q6H PRN PRN Reason: Nausea able to take PO Ondansetron HCl (Zofran) 4 mg IV Q6H PRN PRN Reason: Nausea/Vomiting Oxybutynin Chloride (Oxybutynin) 5 mg PO TID [facility] Last Admin: 05/08/17 14:58 Dose: 5 mg Oxycodone HCl (Oxycodone) 5 mg PO Q4H PRN PRN Reason: Pain (moderate 4-6) Pantoprazole Sodium (Protonix) 40 mg PO ACBREAKFAST [facility] Last Admin: 05/08/17 07:45 Dose: 40 mg Polyethylene Glycol (Miralax) 17 gm PO DAILY PRN PRN Reason: Constipation Primidone (Mysoline) 125 mg PO BID [facility] Last Admin: 05/08/17 08:02 Dose: 125 mg Propranolol HCl (Inderal La) 60 mg PO BID [facility] Last Admin: 05/08/17 08:02 Dose: 60 mg Senna/Docusate Sodium (Senna Plus) 1 tab PO BID PRN PRN Reason: Constipation Sodium Chloride (Saline Flush) 10 ml FLUSH ASDIRECTED PRN PRN Reason: Keep Vein Open Last Admin: 05/06/17 16:35 Dose: 10 ml Trolamine Salicylate (Aspercreme 10%) 0 gm TOP Q1H PRN PRN Reason: muscle pain Discontinued Medications Potassium Chloride/Sodium Chloride (Normal Saline With 20 Meq Kcl) 1,000 mls @ 150 mls/hr IV ASDIRECTED [facility] Last Admin: 05/06/17 16:44 Dose: 150 mls/hr Magnesium Sulfate 2 gm/ Premix 50 mls @ 12.5 mls/hr IV ONETIME ONE Stop: 05/06/17 20:40 Last Admin: 05/06/17 16:58 Dose: 12.5 mls/hr Levofloxacin/Dextrose 750 mg/ (Premix) 150 mls @ 100 mls/hr IV ONETIME ONE Stop: 05/06/17 18:44 Last Admin: 05/06/17 17:52 Dose: 100 mls/hr Ceftriaxone Sodium 2 gm/ (Sodium Chloride) 50 mls @ 100 mls/hr IV Q24H [facility] Last Admin: 05/06/17 21:01 Dose: 100 mls/hr Magnesium Sulfate 2 gm/ Premix 50 mls @ 12.5 mls/hr IV Q6H [facility] Stop: 05/07/17 10:48 Last Admin: 05/07/17 06:12 Dose: 12.5 mls/hr Potassium Chloride/Sodium Chloride (Normal Saline With 20 Meq Kcl) 1,000 mls @ 100 mls/hr IV ASDIRECTED [facility] Ceftriaxone Sodium 2 gm/ (Sodium Chloride) 50 mls @ 100 mls/hr IV Q24H [facility] Last Admin: 05/07/17 21:49 Dose: Not Given Magnesium Oxide (Magnesium Oxide) 400 mg PO ONETIME ONE Stop: 05/06/17 16:41 Last Admin: 05/06/17 16:54 Dose: 400 mg Potassium Chloride (Potassium Chloride) 40 meq PO ONETIME ONE Stop: 05/06/17 16:27 Last Admin: 05/06/17 16:42 Dose: 40 meq Propranolol HCl (Inderal) Confirm Administered Dose 80 mg .ROUTE .STK-MED ONE Stop: 05/06/17 21:14 Last Admin: 05/06/17 21:33 Dose: Not Given - Exam Quality Assessment: Supplemental Oxygen General: Alert, Oriented, Cooperative, No Acute Distress Neck: Supple (No) Lungs: Clear to Auscultation, Normal Respiratory Effort Cardiovascular: Regular Rate, Regular Rhythm GI/Abdominal Exam: No Distention Extremities: No Pedal Edema Skin: Warm, Dry Psy/Mental Status: Alert, Normal Affect - Problem List & Annotations (1) RLL pneumonia SNOMED Code(s): 072801493 Code(s): J18.1 - LOBAR PNEUMONIA, UNSPECIFIED ORGANISM Status: Acute Current Visit: Yes Qualifiers: Pneumonia type: due to unspecified organism Qualified Code(s): J18.1 - Lobar pneumonia, unspecified organism (2) New onset a-fib SNOMED Code(s): 88462531 Code(s): I48.91 - UNSPECIFIED ATRIAL FIBRILLATION Status: Acute Current Visit: Yes (3) Hypomagnesemia SNOMED Code(s): 425299782 Code(s): E83.42 - HYPOMAGNESEMIA Status: Acute Current Visit: Yes (4) Hypokalemia SNOMED Code(s): 09818795 Code(s): E87.6 - HYPOKALEMIA Status: Acute Current Visit: Yes (5) CKD (chronic kidney disease), stage III SNOMED Code(s): 998448373 Code(s): N18.3 - CHRONIC KIDNEY DISEASE, STAGE 3 (MODERATE) Status: Chronic Current Visit: No (6) Essential tremor SNOMED Code(s): 859496250 Code(s): G25.0 - ESSENTIAL TREMOR Status: Chronic Current Visit: No - Problem List Review Problem List Initiated/Reviewed/Updated: Yes - My Orders Last 24 Hours: My Active Orders 05/07/17 21:30 Cefdinir [Omnicef] 300 mg PO BID 05/09/17 05:00 BASIC METABOLIC PANEL,BMP [CHEM] Timed CBC W/O DIFF,HEMOGRAM [HEME] Timed (1) - Plan Plan:: ASSESSMENT AND PLAN - Right lower lobe pneumonia - still hypoxic but slowly improving. Tolerated transition to oral medications. I would anticipate that we can wean her off her supplemental oxygen in the next 24 hours. -cefdinir and doxycycline -Blood cultures if fever -Follow-up Sputum culture -Supplement oxygen as needed wean as able, -Tessalon for cough New-onset atrial fibrillation - history of pulmonary hypertension and enlarged left atrium, both of which could be triggers and likely contribution from current respiratory infection. Rate control excellent. -Continue beta sudhir -Optimize electrolytes -Outpatient follow-up after resolution of pneumonia Hypokalemia - improved with supplementation. -Recheck in the morning Hypomagnesemia - improved with supplementation. Essential tremor - stable at this time. -Continue home medications Maintenance issues - - DVT prophylaxis - enoxaparin - GI prophylaxis - PPI - Nutrition - regular diet Disposition - anticipate discharge home after the hospital stay, hopefully tomorrow. She may need home oxygen. Nic Valles M.D.
[2017-05-08] MEDS: Escitalopram 10 MG Tab PO SCH (21:02)
[2017-05-08] MEDS: Enoxaparin 40 MG/0.4 ML Syringe SUBCUT SCH (21:03)
[2017-05-09 08:08] VITALS: BP 144/69
[2017-05-09] MEDS: Furosemide 20 MG Tab PO SCH (08:17)
[2017-05-09] MEDS: Propranolol 60 MG Cap.ER PO SCH (08:17)
[2017-05-09] MEDS: Primidone 50 MG Tab PO SCH (08:17)
[2017-05-09] MEDS: Pantoprazole 40 MG Tab.CR PO SCH (08:17)
[2017-05-09] MEDS: Doxycycline 100 MG Cap PO SCH (08:17)
[2017-05-09] MEDS: Aspirin 81 MG Tab.EC PO SCH (08:17)
[2017-05-09] MEDS: Cefdinir 300 MG Cap PO SCH (08:18)
[2017-05-09] MEDS: Oxybutynin 5 MG Tab PO SCH (08:18)
[2017-05-09] MEDS: Gabapentin 300 MG Cap PO SCH (08:18)
--- NOTE | 2017-05-09 10:57 | PCM.DCSUM1 ---
Discharge Summary - Hospital Course Brief History: 76-year-old female with history of pulmonary hypertension and essential tremor who presented with weakness, cough and shortness of breath. She was admitted for management of right lower lobe pneumonia. - Discharge Data Discharge Date: 05/09/17 Discharge Disposition: Home, Self-Care 01 Condition: Good - Discharge Diagnosis/Problem(s) (1) RLL pneumonia SNOMED Code(s): 902135732 ICD Code: J18.1 - LOBAR PNEUMONIA, UNSPECIFIED ORGANISM Status: Acute Qualifiers: Pneumonia type: due to unspecified organism Qualified Code(s): J18.1 - Lobar pneumonia, unspecified organism (2) New onset a-fib SNOMED Code(s): 82526847 ICD Code: I48.91 - UNSPECIFIED ATRIAL FIBRILLATION Status: Acute (3) Hypomagnesemia SNOMED Code(s): 184222622 ICD Code: E83.42 - HYPOMAGNESEMIA Status: Acute (4) Hypokalemia SNOMED Code(s): 33226555 ICD Code: E87.6 - HYPOKALEMIA Status: Acute (5) CKD (chronic kidney disease), stage III SNOMED Code(s): 548165498 ICD Code: N18.3 - CHRONIC KIDNEY DISEASE, STAGE 3 (MODERATE) Status: Chronic (6) Essential tremor SNOMED Code(s): 681994628 ICD Code: G25.0 - ESSENTIAL TREMOR Status: Chronic - Patient Summary/Data Consults: Consultations 05/07/17 07:00 PT Evaluation and Treatment [CONS] Routine Please Evaluate and Treat. PT Reason for Consult: Strengthening This query below is only for informational purposes and is not editable. Hospital Course: Kelly presented to the emergency room with weakness, fever as well as cough and shortness of breath. Workup in the emergency room suggested right lower lung pneumonia with hypoxic respiratory failure. She was started on antibiotics and admitted to the hospital for further management. Cultures were obtained at the time of admission including a sputum culture. Over the next 2 days we saw slow but steady improvement in her respiratory status. Her strength and appetite have both been improving. We have been able to wean down her supplemental oxygen but have not been able to wean her off of the supplemental oxygen. Her vital signs have been stable. She's been up and moving around some. Essential tremor is at baseline. We had transitioned her to only oral antibiotics which she tolerated well and continued to improve. On the day of discharge the plan was initially for just antibiotic coverage but her sputum culture returned growing yeast. She had a similar finding during last hospital stay which was not treated because of the small quantity. Although she has been improving with only antibiotic therapy I believe that with 2 different cultures for yeast she would benefit from a course of antifungal therapy. We will complete a course of antibiotics with doxycycline which she will take is directed in the discharge medications. She received a one-time dose of fluconazole in the hospital and will take this once daily for 7 more days. She has follow-up scheduled in about 10 days. Because we were not able to wean her off the supplemental oxygen we did prescribe home oxygen. She will use this 24 hours a day until her oxygenation improves. With her underlying pulmonary hypertension I think she would benefit from probably lifelong oxygen therapy even if it just at night. She is receiving her equipment through [employer]. - Patient Instructions Diet: Regular Diet as Tolerated Activity: As Tolerated Showering/Bathing: May Shower Notify Provider of: Fever, Increased Pain, Nausea and/or Vomiting Other/Special Instructions: 1. You were in the hospital for management of a right lower lobe pneumonia. The exact cause for the infection is not entirely clear and your culture results have been negative other than as discussed below. You have improved with antibiotic therapy and I recommend 7 additional doses of doxycycline. You should take 100 mg twice daily with food. Your next dose is due tonight. 2. Your sputum culture did eventually grow out yeast. It was not a large quantity but a similar culture result was obtained during your last hospital stay. You have been improving without treatment but I do recommend that we treat this like an infection because we've cultured it on 2 consecutive occasions. I have sent a prescription for fluconazole. You will take 100 mg once daily for 7 more days. You're next dose is due tomorrow morning. 3. Please continue your other medications as previously prescribed. 4. Seek medical attention if you develop fever greater than 101, have sudden onset of shortness of breath or if you develop chest pain - Discharge Plan Prescriptions/Med Rec: Doxycycline Calcium [IMW: Doxycycline] 100 mg PO BIDAC #7 capsule Fluconazole [Diflucan] 100 mg PO DAILY #7 tablet Home Medications: Home Meds Albuterol [Proair HFA] 2 gm IN Q6HR PRN 06/26/16 [History] Aspirin [Ecotrin] 81 mg PO DAILY 06/26/16 [History] Cyanocobalamin (Vitamin B-12) [Vitamin B-12] 1,000 mcg INJECT ASDIRECTED [History] Furosemide [Lasix] 20 mg PO DAILY 06/26/16 [History] Gabapentin [Neurontin] 300 mg PO TID 06/26/16 [History] Omeprazole Magnesium [Prilosec Otc] 40 mg PO DAILY 06/26/16 [History] Oxybutynin 5 mg PO TID 06/26/16 [History] Primidone 125 mg PO BID 06/26/16 [History] Propranolol [Inderal LA] 60 mg PO BID 06/26/16 [History] Escitalopram [Lexapro] 10 mg PO BEDTIME 03/25/17 [History] Escitalopram [Lexapro] 10 mg PO DAILY 05/06/17 [History] Doxycycline Calcium [IMW: Doxycycline] 100 mg PO BIDAC #7 capsule 05/09/17 [Rx] Fluconazole [Diflucan] 100 mg PO DAILY #7 tablet 05/09/17 [Rx] Patient Handouts: Doxycycline tablets or capsules, Smoking Cessation, Tips for Success, Community-Acquired Pneumonia, Adult Referrals: Harley Medrano MD [Primary Care Provider] - 05/21/17 2:00 pm - Discharge Summary/Plan Comment DC Time >30 min.: No (25) - Patient Data Vitals - Most Recent: Last Vital Signs Temp 36.9 C 05/09/17 08:06 Pulse 59 L 05/09/17 08:06 Resp 16 05/09/17 08:06 BP 144/69 H 05/09/17 08:06 Pulse Ox 92 L 05/09/17 08:06 Weight - Most Recent: 58.06 kg I&O - Last 24 hours: Intake & Output 05/08/17 05/09/17 05/09/17 22:59 06:59 14:59 Intake Total 240 120 300 Balance 240 120 300 Lab Results - Last 24 hrs: Laboratory Results - last 24 hr 05/09/17 05/09/17 Range/Units 04:58 04:58 WBC 8.5 (4.5-11.0) K/uL RBC 3.51 (3.30-5.50) M/uL Hgb 11.2 L (12.0-15.0) g/dL Hct 35.7 L (36.0-48.0) % MCV 102 H (80-98) fL MCH 32 H (27-31) pg MCHC 31 L (32-36) % Plt Count 185 (150-400) K/uL Sodium 140 (140-148) mmol/L Potassium 3.5 L (3.6-5.2) mmol/L Chloride 104 (100-108) mmol/L Carbon Dioxide 30 (21-32) mmol/L Anion Gap 9.5 (5.0-14.0) mmol/L BUN 21 H (7-18) mg/dL Creatinine 1.0 (0.6-1.0) mg/dL Est Cr Clr Drug Dosing 43.18 mL/min Estimated GFR (MDRD) 54 L (>60) Glucose 89 (74-106) mg/dL Calcium 7.9 L (8.5-10.1) mg/dL JUNIOR Results - Last 24 hrs: Microbiology 05/07/17 02:17 Gram Stain - Final Sputum - Expectorated Respiratory Culture - Final YEAST Med Orders - Current: Current Medications Acetaminophen (Tylenol) 650 mg PO Q4H PRN PRN Reason: Pain (Mild 1-3)/fever Albuterol (Proventil Neb Soln) 2.5 mg NEB Q4H PRN PRN Reason: Shortness Of Breath/wheezing Aspirin (Halfprin) 81 mg PO DAILY [facility] Last Admin: 05/09/17 08:17 Dose: 81 mg Benzonatate (Tessalon Perles) 100 mg PO TID PRN PRN Reason: Cough Calcium Carbonate/Glycine (Tums) 1,000 mg PO Q2H PRN PRN Reason: Indigestion Last Admin: 05/06/17 22:26 Dose: 1,000 mg Cefdinir (Omnicef) 300 mg PO BID [facility] Last Admin: 05/09/17 08:18 Dose: 300 mg Doxycycline Hyclate (Vibramycin) 100 mg PO BIDAC [facility] Last Admin: 05/09/17 08:17 Dose: 100 mg Enoxaparin Sodium (Lovenox) 40 mg SUBCUT BEDTIME [facility] Last Admin: 05/08/17 21:03 Dose: 40 mg Escitalopram Oxalate (Lexapro) 10 mg PO BEDTIME [facility] Last Admin: 05/08/17 21:02 Dose: 10 mg Fluconazole (Diflucan) 100 mg PO ONETIME ONE Stop: 05/09/17 10:46 Furosemide (Lasix) 20 mg PO DAILY [facility] Last Admin: 05/09/17 08:17 Dose: 20 mg Gabapentin (Neurontin) 300 mg PO TID [facility] Last Admin: 05/09/17 08:18 Dose: 300 mg Morphine Sulfate (Morphine) 2 mg IVPUSH Q2H PRN PRN Reason: Pain Ondansetron HCl (Zofran Odt) 4 mg PO Q6H PRN PRN Reason: Nausea able to take PO Ondansetron HCl (Zofran) 4 mg IV Q6H PRN PRN Reason: Nausea/Vomiting Oxybutynin Chloride (Oxybutynin) 5 mg PO TID [facility] Last Admin: 05/09/17 08:18 Dose: 5 mg Oxycodone HCl (Oxycodone) 5 mg PO Q4H PRN PRN Reason: Pain (moderate 4-6) Pantoprazole Sodium (Protonix) 40 mg PO ACBREAKFAST [facility] Last Admin: 05/09/17 08:17 Dose: 40 mg Polyethylene Glycol (Miralax) 17 gm PO DAILY PRN PRN Reason: Constipation Primidone (Mysoline) 125 mg PO BID [facility] Last Admin: 05/09/17 08:17 Dose: 125 mg Propranolol HCl (Inderal La) 60 mg PO BID [facility] Last Admin: 05/09/17 08:17 Dose: 60 mg Senna/Docusate Sodium (Senna Plus) 1 tab PO BID PRN PRN Reason: Constipation Sodium Chloride (Saline Flush) 10 ml FLUSH ASDIRECTED PRN PRN Reason: Keep Vein Open Last Admin: 05/06/17 16:35 Dose: 10 ml Trolamine Salicylate (Aspercreme 10%) 0 gm TOP Q1H PRN PRN Reason: muscle pain Discontinued Medications Potassium Chloride/Sodium Chloride (Normal Saline With 20 Meq Kcl) 1,000 mls @ 150 mls/hr IV ASDIRECTED [facility] Last Admin: 05/06/17 16:44 Dose: 150 mls/hr Magnesium Sulfate 2 gm/ Premix 50 mls @ 12.5 mls/hr IV ONETIME ONE Stop: 05/06/17 20:40 Last Admin: 05/06/17 16:58 Dose: 12.5 mls/hr Levofloxacin/Dextrose 750 mg/ (Premix) 150 mls @ 100 mls/hr IV ONETIME ONE Stop: 05/06/17 18:44 Last Admin: 05/06/17 17:52 Dose: 100 mls/hr Ceftriaxone Sodium 2 gm/ (Sodium Chloride) 50 mls @ 100 mls/hr IV Q24H [facility] Last Admin: 05/06/17 21:01 Dose: 100 mls/hr Magnesium Sulfate 2 gm/ Premix 50 mls @ 12.5 mls/hr IV Q6H [facility] Stop: 05/07/17 10:48 Last Admin: 05/07/17 06:12 Dose: 12.5 mls/hr Potassium Chloride/Sodium Chloride (Normal Saline With 20 Meq Kcl) 1,000 mls @ 100 mls/hr IV ASDIRECTED [facility] Ceftriaxone Sodium 2 gm/ (Sodium Chloride) 50 mls @ 100 mls/hr IV Q24H [facility] Last Admin: 05/07/17 21:49 Dose: Not Given Magnesium Oxide (Magnesium Oxide) 400 mg PO ONETIME ONE Stop: 05/06/17 16:41 Last Admin: 05/06/17 16:54 Dose: 400 mg Potassium Chloride (Potassium Chloride) 40 meq PO ONETIME ONE Stop: 05/06/17 16:27 Last Admin: 05/06/17 16:42 Dose: 40 meq Propranolol HCl (Inderal) Confirm Administered Dose 80 mg .ROUTE .STK-MED ONE Stop: 05/06/17 21:14 Last Admin: 05/06/17 21:33 Dose: Not Given - Exam Quality Assessment: Reports: Supplemental Oxygen General: Reports: Alert, Oriented, Cooperative, No Acute Distress Neck: Reports: Supple Lungs: Reports: Normal Respiratory Effort GI/Abdominal Exam: Soft, No Distention Extremities: No Pedal Edema Psy/Mental Status: Reports: Alert, Normal Affect *Q Meaningful Use (DIS) - VTE *Q VTE Criteria *Q: - Stroke *Q Stroke Criteria *Q: - AMI *Q AMI Criteria *Q:
[2017-05-09] MEDS ORDERED: Fluconazole 100 MG Tab PO ONE (11:00)
== END 2017-05-09 12:00 | disposition home or self-care (01) | DRG 193 ==
LOC: JP.ED 15:29 → JP.MS 17:49
PROVIDERS: ADMIT Internal Medicine; ATTEND Internal Medicine
DX: J18.1 Lobar pneumonia, unspecified organism (principal); J96.91 Respiratory failure, unspecified with hypoxia; B37.89 Other sites of candidiasis; I48.91 Unspecified atrial fibrillation; E87.6 Hypokalemia; E83.42 Hypomagnesemia; R29.6 Repeated falls; Z91.81 History of falling; N18.3 Chronic kidney disease, stage 3 (moderate); G25.0 Essential tremor; J44.9 Chronic obstructive pulmonary disease, unspecified; R05 Cough; R53.1 Weakness; I27.23 Pulmonary hypertension due to lung diseases and hypoxia; Z99.81 Dependence on supplemental oxygen; K21.9 Gastro-esophageal reflux disease without esophagitis; H54.7 Unspecified visual loss; M19.90 Unspecified osteoarthritis, unspecified site; E53.8 Deficiency of other specified B group vitamins; Z87.891 Personal history of nicotine dependence; Z79.82 Long term (current) use of aspirin; Z91.040 Latex allergy status; Z96.659 Presence of unspecified artificial knee joint; R84.5 Abnormal microbiological findings in specimens from respiratory organs and thorax
CPT/HCPCS: 36415; 71010 ×2; 80048; 83735; 84484; 85027; 93005; 96365; 99285; A9270 ×2; J3475; J3480; J7050; 71250; 71250-26; 81001; 87070; 87077; 87205; 93010; 97110-GP; 97162-GP; 97530-GP; J0696; J1650; J1956

== ENCOUNTER 2017-09-03 04:50 | Inpatient (IN) | payer MEDICARE, OTHER ==
[2017-09-03] MEDS ORDERED: HYDROmorphone 0.5 MG/0.5 ML Syringe IVPUSH ONE (05:30)
[2017-09-03] MEDS ORDERED: Sodium Chloride 0.9% 1,000 ML IV SCH (05:30)
--- NOTE | 2017-09-03 06:36 | EDM.PDOC ---
<Randy Cohen - Last Filed: 09/03/17 06:47> ED HPI GENERAL MEDICAL PROBLEM - General Chief Complaint: Abdominal Pain Stated Complaint: MEDICAL [facility]IA [facility] Time Seen by Provider: 09/03/17 05:05 Source of Information: Reports: Patient, EMS History Limitations: Reports: No Limitations - History of Present Illness INITIAL COMMENTS - FREE TEXT/NARRATIVE: 77-year-old female with a previous history of hernia repair, cholecystectomy and several C-sections has developed abdominal pain over the past 12 hours. She has not had a bowel movement for the past 3 days, and feel symptoms similar to past bowel obstructions. Nausea but no vomiting. No chest pain or shortness of breath, no pain radiating to the back. Most of her pain is periumbilical and in the lower abdomen. She's had no fever. Onset: Sudden (Pain started rather suddenly 12 hours ago) Location: Reports: Abdomen Severity: Moderate Associated Symptoms: Reports: Malaise. Denies: Cough, Shortness of Breath Left Middle Abdomen Pain Score (Numeric/FACES): 6 - Related Data Allergies Allergy/AdvReac Type Severity Reaction Status Date / Time latex Allergy Rash Verified 09/03/17 04:56 Home Meds: Home Meds Albuterol [Proair HFA] 2 gm IN Q6HR PRN 06/26/16 [History] Aspirin [Ecotrin] 81 mg PO DAILY 06/26/16 [History] Cyanocobalamin (Vitamin B-12) [Vitamin B-12] 1,000 mcg INJECT ASDIRECTED [History] Furosemide [Lasix] 20 mg PO DAILY 06/26/16 [History] Gabapentin [Neurontin] 600 mg PO TID 06/26/16 [History] Omeprazole Magnesium [Prilosec Otc] 40 mg PO DAILY 06/26/16 [History] Oxybutynin 5 mg PO TID 06/26/16 [History] Primidone 125 mg PO BID 06/26/16 [History] Propranolol [Inderal LA] 60 mg PO BID 06/26/16 [History] Escitalopram [Lexapro] 10 mg PO DAILY 05/06/17 [History] Hydrocodone/Acetaminophen [Hydrocodon-Acetaminophen 5-325] 1 tab PO BID PRN [History] Past Medical History HEENT History: Reports: Cataract, Hard of Hearing, Impaired Vision Cardiovascular History: Reports: Afib, Arrhythmia, Heart Failure, Pulmonary Hypertension, Other (See Below) Other Cardiovascular History: edema bilaterally Respiratory History: Reports: Bronchitis, Recurrent, COPD, Pneumonia, Recurrent , Other (See Below) Other Respiratory History: panlobular emphysema Gastrointestinal History: Reports: Bowel Obstruction, GERD, Irritable Bowel Syndrome Genitourinary History: Reports: Urinary Incontinence 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 Psychiatric History: Reports: Depression Hematologic History: Reports: Anemia, B12 Deficiency - Infectious Disease History Infectious Disease History: Reports: Chicken Pox, Shingles - Past Surgical History HEENT Surgical History: Reports: Oral Surgery, Tonsillectomy Cardiovascular Surgical History: Reports: None Respiratory Surgical History: Reports: None GI Surgical History: Reports: Appendectomy, Cholecystectomy, Colon, Colonoscopy , EGD, Hernia Repair/Other, Other (See Below) Other GI Surgeries/Procedures: bowel resection Female Surgical History: Reports: Breast Biopsy, Section, Other ( See Below) Other Female Surgeries/Procedures: left side biopsy Neurological Surgical History: Reports: None Musculoskeletal Surgical History: Reports: Knee Replacement Oncologic Surgical History: Reports: Biopsy of Breast, Other (See Below) Other Oncologic Surgeries/Procedures: left side biopsy Social & Family History - Family History Family Medical History: Noncontributory - Tobacco Use Smoking Status *Q: Current Every Day Smoker Years of Tobacco use: 60 Packs/Tins Daily: 0.5 Used Tobacco, but Quit: No Month/Year Tobacco Last Used: 05/2016 Second Hand Smoke Exposure: Yes - Caffeine Use Caffeine Use: Reports: None - Recreational Drug Use Recreational Drug Use: No ED ROS GENERAL - Review of Systems Review Of Systems: See Below Constitutional: Reports: Malaise, Decreased Appetite. Denies: Fever HEENT: Reports: No Symptoms Respiratory: Denies: Shortness of Breath, Cough Cardiovascular: Denies: Chest Pain GI/Abdominal: Reports: Abdominal Pain, Nausea, Other (no bowel movement for the past 3 days). Denies: Vomiting : Reports: No Symptoms Skin: Reports: No Symptoms Neurological: Denies: Headache ED EXAM, GI/ABD - Physical Exam Exam: See Below Exam Limited By: No Limitations General Appearance: Alert, Mild Distress (Patient looks fairly uncomfortable) Eyes: Bilateral: Normal Appearance (No jaundice) Throat/Mouth: Normal Inspection Head: Atraumatic Respiratory/Chest: No Respiratory Distress, Lungs Clear Cardiovascular: Regular Rate, Rhythm. No: Extra Beats GI/Abdominal Exam: Normal Bowel Sounds, Soft, Tender (She is very tender periumbilically into the left lower quadrant with mild guarding) Extremities: Pedal Edema (Symmetric 1+ pitting edema at the ankles) Neurological: Alert, Oriented Psychiatric: Flat Affect Skin Exam: Warm, Dry Course - Vital Signs Last Recorded V/S: Last Vital Signs Temp 94.8 F L 09/03/17 08:12 Pulse 62 09/03/17 08:12 Resp 14 09/03/17 08:12 BP 122/87 09/03/17 08:12 Pulse Ox 94 L 09/03/17 08:12 - Orders/Labs/Meds Orders: Active Orders 24 hr Category Date Time Status Abdomen Pelvis w Cont [CT] Stat Exams 09/03/17 06:31 Taken Lactated Ringers [Ringers, Lactated] 1,000 ml Med 09/03/17 08:08 Active IV BOLUS Lidocaine 4% [Xylocaine 4% Top Soln] Med 09/03/17 09:00 Once 0 ml TOP ONETIME ONE Sodium Chloride 0.9% [Normal Saline] 1,000 ml Med 09/03/17 05:30 Active IV ASDIRECTED NG [Nasogastric Orogastric Tube Insertion] [OM.PC] Oth 09/03/17 08:21 Ordered Routine Medication Orders Sodium Chloride (Normal Saline) 1,000 mls @ 500 mls/hr IV ASDIRECTED ASH Last Admin: 09/03/17 05:36 Dose: 500 mls/hr Lactated Ringer's (Ringers, Lactated) 1,000 mls @ 125 mls/hr IV BOLUS ONE Stop: 09/03/17 16:07 Last Admin: 09/03/17 08:11 Dose: 125 mls/hr Lidocaine HCl (Xylocaine 4% Top Soln) 0 ml TOP ONETIME ONE Stop: 09/03/17 09:01 Last Admin: 09/03/17 08:29 Dose: 2 ml Labs: Laboratory Tests 09/03/17 09/03/17 09/03/17 Range/Units 05:40 05:40 05:40 WBC 10.5 (4.5-11.0) K/uL RBC 4.22 (3.30-5.50) M/uL Hgb 14.2 D (12.0-15.0) g/dL Hct 43.1 (36.0-48.0) % MCV 102 H (80-98) fL MCH 34 H (27-31) pg MCHC 33 (32-36) % Plt Count 217 (150-400) K/uL Neut % (Auto) 67 H (36-66) % Lymph % (Auto) 20 L (24-44) % Addison % (Auto) 8 H (2-6) % Eos % (Auto) 6 H (2-4) % Baso % (Auto) 0 (0-1) % Sodium 142 (140-148) mmol/L Potassium 4.6 (3.6-5.2) mmol/L Chloride 102 (100-108) mmol/L Carbon Dioxide 33 H (21-32) mmol/L Anion Gap 11.6 (5.0-14.0) mmol/L BUN 26 H (7-18) mg/dL Creatinine 1.1 H (0.6-1.0) mg/dL Est Cr Clr Drug Dosing 37.73 mL/min Estimated GFR (MDRD) 48 L (>60) Glucose 131 H (74-106) mg/dL Lactic Acid 1.9 (0.4-2.0) mmol/L Calcium 9.3 D (8.5-10.1) mg/dL Total Bilirubin 0.5 (0.2-1.0) mg/dL AST 31 (15-37) U/L ALT 28 D (12-78) U/L Alkaline Phosphatase 92 (46-116) U/L Total Protein 7.8 (6.4-8.2) g/dL Albumin 3.1 L (3.4-5.0) g/dL Globulin 4.7 H (2.3-3.5) g/dL Albumin/Globulin Ratio 0.7 L (1.2-2.2) Amylase 50 D (25-115) U/L Lipase 112 (73-393) U/L Meds: Medications Generic Name Dose Route Start Last Admin Trade Name Freq PRN Reason Stop Dose Admin Sodium Chloride 1,000 mls @ 500 mls/hr 09/03/17 05:30 09/03/17 05:36 Normal Saline IV 500 mls/hr ASDIRECTED ASH Administration Lactated Ringer's 1,000 mls @ 125 mls/hr 09/03/17 08:08 09/03/17 08:11 Ringers, Lactated IV 09/03/17 16:07 125 mls/hr BOLUS ONE Administration Lidocaine HCl 0 ml 09/03/17 09:00 09/03/17 08:29 Xylocaine 4% Top Soln TOP 09/03/17 09:01 2 ml ONETIME ONE Administration Discontinued Medications Generic Name Dose Route Start Last Admin Trade Name Freq PRN Reason Stop Dose Admin Hydromorphone HCl 0.5 mg 09/03/17 05:30 09/03/17 05:36 Dilaudid IVPUSH 09/03/17 05:31 0.5 mg ONETIME ONE Administration Sodium Chloride 70 mls @ 3 mls/sec 09/03/17 06:42 09/03/17 07:20 Normal Saline IV 09/03/17 06:43 3 mls/sec ASDIRECTED STA Administration Iopamidol 86 ml 09/03/17 06:41 09/03/17 07:21 Isovue-300 (61%) IV 09/03/17 06:42 86 ml . DIRECTED STA Administration - Re-Assessments/Exams Free Text/Narrative Re-Assessment/Exam: 09/03/17 06:34 0.5 mg of Dilaudid was given and 500 mL of normal saline an hour was started. CBC, CMP, amylase, lipase and lactic acid were obtained. Lactic acid was normal. Creatinine is 1.1 with a GFR of 48. 09/03/17 06:35 White count and hemoglobin were normal. Patient was then sent back for a CT scan of the abdomen and pelvis with IV contrast. The pain was improved after the Dilaudid. Departure - Departure Disposition: Admitted As Inpatient 65 Clinical Impression: Small bowel obstruction - Discharge Information Referrals: PCP,None [Primary Care Provider] - Forms: ED Department Discharge - My Orders Last 24 Hours: My Active Orders 09/03/17 08:08 Lactated Ringers [Ringers, Lactated] 1,000 ml IV BOLUS 09/03/17 08:21 NG [Nasogastric Orogastric Tube Insertion] [OM.PC] Routine 09/03/17 09:00 Lidocaine 4% [Xylocaine 4% Top Soln] 0 ml TOP ONETIME ONE - Assessment/Plan Last 24 Hours: My Active Orders 09/03/17 08:08 Lactated Ringers [Ringers, Lactated] 1,000 ml IV BOLUS 09/03/17 08:21 NG [Nasogastric Orogastric Tube Insertion] [OM.PC] Routine 09/03/17 09:00 Lidocaine 4% [Xylocaine 4% Top Soln] 0 ml TOP ONETIME ONE <ElainarHarpal - Last Filed: 09/03/17 08:39> Departure - Departure Time of Disposition: 08:39 - Assessment/Plan Plan: Assessment Acuity = acute Site and laterality = small bowel obstruction Etiology = probably secondary to adhesions Manifestations = pain, nausea Location of injury = Home Lab values = CBC unremarkable, creatinine elevated 1.1 consistent with chronic renal failure stage GIII a, albumin low at 3.[address] scan describes the obstruction Plan Call discussed case with hospitalist on-call he agreed, and evaluate the patient emergency department for admission, NG tube has been placed This note was dictated using [employer] voice recognition software please call with any questions on syntax or juhi.
--- NOTE | 2017-09-03 06:37 | EDM.PDOC ---
ED HPI GENERAL MEDICAL PROBLEM - General Chief Complaint: Abdominal Pain Stated Complaint: MEDICAL [facility] Time Seen by Provider: 09/03/17 05:05 Source of Information: Reports: Patient, EMS History Limitations: Reports: No Limitations - History of Present Illness INITIAL COMMENTS - FREE TEXT/NARRATIVE: 69-year-old female with a history of numerous abdominal surgeries including C- sections, hernia repair and cholecystectomy presents with abdominal pain, distention, inability to have a bowel movement for 3 days and symptoms very similar to her previous bowel obstructions. She has nausea but no vomiting, significant discomfort. No fevers but some mild chills. No shortness of breath or chest pain. Symptoms have been ongoing since last night. Onset: Gradual Location: Reports: Abdomen Severity: Moderate Associated Symptoms: Reports: Malaise Left Middle Abdomen Pain Score (Numeric/FACES): 6 - Related Data Allergies Allergy/AdvReac Type Severity Reaction Status Date / Time latex Allergy Rash Verified 09/03/17 04:56 Home Meds: Home Meds Albuterol [Proair HFA] 2 gm IN Q6HR PRN 06/26/16 [History] Aspirin [Ecotrin] 81 mg PO DAILY 06/26/16 [History] Cyanocobalamin (Vitamin B-12) [Vitamin B-12] 1,000 mcg INJECT ASDIRECTED [History] Furosemide [Lasix] 20 mg PO DAILY 06/26/16 [History] Gabapentin [Neurontin] 600 mg PO TID 06/26/16 [History] Omeprazole Magnesium [Prilosec Otc] 40 mg PO DAILY 06/26/16 [History] Oxybutynin 5 mg PO TID 06/26/16 [History] Primidone 125 mg PO BID 06/26/16 [History] Propranolol [Inderal LA] 60 mg PO BID 06/26/16 [History] Escitalopram [Lexapro] 10 mg PO DAILY 05/06/17 [History] Hydrocodone/Acetaminophen [Hydrocodon-Acetaminophen 5-325] 1 tab PO BID PRN [History] Past Medical History HEENT History: Reports: Cataract, Hard of Hearing, Impaired Vision Cardiovascular History: Reports: Afib, Arrhythmia, Heart Failure, Pulmonary Hypertension, Other (See Below) Other Cardiovascular History: edema bilaterally Respiratory History: Reports: Bronchitis, Recurrent, COPD, Pneumonia, Recurrent , Other (See Below) Other Respiratory History: panlobular emphysema Gastrointestinal History: Reports: Bowel Obstruction, GERD, Irritable Bowel Syndrome Genitourinary History: Reports: Urinary Incontinence 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 Psychiatric History: Reports: Depression Hematologic History: Reports: Anemia, B12 Deficiency - Infectious Disease History Infectious Disease History: Reports: Chicken Pox, Shingles - Past Surgical History HEENT Surgical History: Reports: Oral Surgery, Tonsillectomy Cardiovascular Surgical History: Reports: None Respiratory Surgical History: Reports: None GI Surgical History: Reports: Appendectomy, Cholecystectomy, Colon, Colonoscopy , EGD, Hernia Repair/Other, Other (See Below) Other GI Surgeries/Procedures: bowel resection Female Surgical History: Reports: Breast Biopsy, Section, Other ( See Below) Other Female Surgeries/Procedures: left side biopsy Neurological Surgical History: Reports: None Musculoskeletal Surgical History: Reports: Knee Replacement Oncologic Surgical History: Reports: Biopsy of Breast, Other (See Below) Other Oncologic Surgeries/Procedures: left side biopsy Social & Family History - Family History Family Medical History: Noncontributory - Tobacco Use Smoking Status *Q: Current Every Day Smoker Years of Tobacco use: 60 Packs/Tins Daily: 0.5 Used Tobacco, but Quit: No Month/Year Tobacco Last Used: 05/2016 Second Hand Smoke Exposure: Yes - Caffeine Use Caffeine Use: Reports: None - Recreational Drug Use Recreational Drug Use: No ED ROS GENERAL - Review of Systems Review Of Systems: See Below Constitutional: Reports: Chills, Malaise. Denies: Fever HEENT: Reports: No Symptoms Respiratory: Denies: Shortness of Breath, Cough Cardiovascular: Reports: Edema (Chronic lower extremity edema). Denies: Chest Pain GI/Abdominal: Reports: Abdominal Pain, Nausea. Denies: Constipation, Diarrhea, Vomiting : Reports: No Symptoms Skin: Reports: No Symptoms Neurological: Denies: Headache Psychiatric: Reports: No Symptoms ED EXAM, GI/ABD - Physical Exam Exam: See Below Exam Limited By: No Limitations General Appearance: Alert, Mild Distress (Patient is fairly uncomfortable) Eyes: Bilateral: Normal Appearance (No jaundice) Head: Atraumatic Respiratory/Chest: No Respiratory Distress, Lungs Clear Cardiovascular: Regular Rate, Rhythm. No: Extra Beats GI/Abdominal Exam: Normal Bowel Sounds, Soft, Tender (Patient is fairly tender to palpation around the periumbilical area into the left lower quadrant) Extremities: Pedal Edema (Symmetric 1+ edema of the lower extremities) Neurological: Alert, Oriented Psychiatric: Flat Affect Skin Exam: Warm, Dry Course - Vital Signs Last Recorded V/S: Last Vital Signs Temp 94.8 F L 09/03/17 04:59 Pulse 65 09/03/17 04:59 Resp 16 09/03/17 04:59 BP 168/89 H 09/03/17 04:59 Pulse Ox 98 09/03/17 04:59 - Orders/Labs/Meds Orders: Active Orders 24 hr Category Date Time Status Abdomen Pelvis w Cont [CT] Stat Exams 09/03/17 06:31 Ordered Sodium Chloride 0.9% [Normal Saline] 1,000 ml Med 09/03/17 05:30 Active IV ASDIRECTED Medication Orders Sodium Chloride (Normal Saline) 1,000 mls @ 500 mls/hr IV ASDIRECTED ASH Last Admin: 09/03/17 05:36 Dose: 500 mls/hr Labs: Laboratory Tests 09/03/17 09/03/17 09/03/17 Range/Units 05:40 05:40 05:40 WBC 10.5 (4.5-11.0) K/uL RBC 4.22 (3.30-5.50) M/uL Hgb 14.2 D (12.0-15.0) g/dL Hct 43.1 (36.0-48.0) % MCV 102 H (80-98) fL MCH 34 H (27-31) pg MCHC 33 (32-36) % Plt Count 217 (150-400) K/uL Neut % (Auto) 67 H (36-66) % Lymph % (Auto) 20 L (24-44) % Pepin % (Auto) 8 H (2-6) % Eos % (Auto) 6 H (2-4) % Baso % (Auto) 0 (0-1) % Sodium 142 (140-148) mmol/L Potassium 4.6 (3.6-5.2) mmol/L Chloride 102 (100-108) mmol/L Carbon Dioxide 33 H (21-32) mmol/L Anion Gap 11.6 (5.0-14.0) mmol/L BUN 26 H (7-18) mg/dL Creatinine 1.1 H (0.6-1.0) mg/dL Est Cr Clr Drug Dosing 37.73 mL/min Estimated GFR (MDRD) 48 L (>60) Glucose 131 H (74-106) mg/dL Lactic Acid 1.9 (0.4-2.0) mmol/L Calcium 9.3 D (8.5-10.1) mg/dL Total Bilirubin 0.5 (0.2-1.0) mg/dL AST 31 (15-37) U/L ALT 28 D (12-78) U/L Alkaline Phosphatase 92 (46-116) U/L Total Protein 7.8 (6.4-8.2) g/dL Albumin 3.1 L (3.4-5.0) g/dL Globulin 4.7 H (2.3-3.5) g/dL Albumin/Globulin Ratio 0.7 L (1.2-2.2) Amylase 50 D (25-115) U/L Lipase 112 (73-393) U/L Meds: Medications Generic Name Dose Route Start Last Admin Trade Name Freq PRN Reason Stop Dose Admin Sodium Chloride 1,000 mls @ 500 mls/hr 09/03/17 05:30 09/03/17 05:36 Normal Saline IV 500 mls/hr ASDIRECTED ASH Administration Discontinued Medications Generic Name Dose Route Start Last Admin Trade Name Patricioq PRN Reason Stop Dose Admin Hydromorphone HCl 0.5 mg 09/03/17 05:30 09/03/17 05:36 Dilaudid IVPUSH 09/03/17 05:31 0.5 mg ONETIME ONE Administration Sodium Chloride 70 mls @ 3 mls/sec 09/03/17 06:42 Normal Saline IV 09/03/17 06:43 ASDIRECTED STA Iopamidol 86 ml 09/03/17 06:41 Isovue-300 (61%) IV 09/03/17 06:42 . DIRECTED STA - Re-Assessments/Exams Free Text/Narrative Re-Assessment/Exam: 09/03/17 05:29 Normal saline at 500 mL an hour was started, patient was given 0.5 mg of Dilaudid IV and a CBC, CMP, amylase, lipase and lactic acid were obtained. Departure - Departure Time of Disposition: 06:48 (Duplicate chart. Please disregard this chart) Disposition: Eloped 07 Condition: Undetermined Clinical Impression: Abdominal pain - Discharge Information Referrals: PCP,None [Primary Care Provider] - Forms: ED Department Discharge - My Orders Last 24 Hours: My Active Orders 09/03/17 05:30 Sodium Chloride 0.9% [Normal Saline] 1,000 ml IV ASDIRECTED 09/03/17 06:31 Abdomen Pelvis w Cont [CT] Stat - Assessment/Plan Last 24 Hours: My Active Orders 09/03/17 05:30 Sodium Chloride 0.9% [Normal Saline] 1,000 ml IV ASDIRECTED 09/03/17 06:31 Abdomen Pelvis w Cont [CT] Stat
[2017-09-03] MEDS ORDERED: Iopamidol 612 MG/ML 100 ML Bottle IV STA (06:41)
[2017-09-03] MEDS ORDERED: Lactated Ringers 1,000 ML IV ONE (08:08)
[2017-09-03] MEDS ORDERED: Lidocaine 4% Top Soln 50 ML Bottle TOP ONE (09:00)
--- NOTE | 2017-09-03 09:14 | PCM.HP ---
H&P History of Present Illness - General Date of Service: 09/03/17 Admit Problem/Dx: Source of Information: Patient, Family, Provider, RN Notes Reviewed History Limitations: Reports: No Limitations - History of Present Illness Initial Comments - Free Text/Narative: Ms. Delgado is a 77-year-old woman who is admitted through the emergency department with mechanical small bowel obstruction. She did not felt well since early this morning with symptoms of cramping abdominal pain associated with nausea and vomiting. She has had previous abdominal surgery, and 2 previous episodes of mechanical small bowel obstruction which were managed conservatively. CT scan of the abdomen and pelvis was obtained in the emergency department and shows 2 transition points consistent with a twisted loop of bowel. NG tube has been placed in the emergency department and she is feeling somewhat improved. Left Middle Abdomen Pain Score (Numeric/FACES): 6 - Related Data Allergies/Adverse Reactions: Allergies Allergy/AdvReac Type Severity Reaction Status Date / Time latex Allergy Rash Verified 09/03/17 04:56 Home Medications: Home Meds Albuterol [Proair HFA] 2 gm IN Q6HR PRN 06/26/16 [History] Aspirin [Ecotrin] 81 mg PO DAILY 06/26/16 [History] Cyanocobalamin (Vitamin B-12) [Vitamin B-12] 1,000 mcg INJECT ASDIRECTED [History] Furosemide [Lasix] 20 mg PO DAILY 06/26/16 [History] Gabapentin [Neurontin] 600 mg PO TID 06/26/16 [History] Omeprazole Magnesium [Prilosec Otc] 40 mg PO DAILY 06/26/16 [History] Oxybutynin 5 mg PO TID 06/26/16 [History] Primidone 125 mg PO BID 06/26/16 [History] Propranolol [Inderal LA] 60 mg PO BID 06/26/16 [History] Escitalopram [Lexapro] 10 mg PO DAILY 05/06/17 [History] Hydrocodone/Acetaminophen [Hydrocodon-Acetaminophen 5-325] 1 tab PO BID PRN [History] Past Medical History HEENT History: Reports: Cataract, Hard of Hearing, Impaired Vision Cardiovascular History: Reports: Afib, Arrhythmia, Heart Failure, Pulmonary Hypertension, Other (See Below) Other Cardiovascular History: edema bilaterally Respiratory History: Reports: Bronchitis, Recurrent, COPD, Pneumonia, Recurrent , Other (See Below) Other Respiratory History: panlobular emphysema Gastrointestinal History: Reports: Bowel Obstruction, GERD, Irritable Bowel Syndrome Genitourinary History: Reports: Urinary Incontinence WRINKLE CHASER 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 Psychiatric History: Reports: Depression Hematologic History: Reports: Anemia, B12 Deficiency - Infectious Disease History Infectious Disease History: Reports: Chicken Pox, Shingles - Past Surgical History HEENT Surgical History: Reports: Oral Surgery, Tonsillectomy Cardiovascular Surgical History: Reports: None Respiratory Surgical History: Reports: None GI Surgical History: Reports: Appendectomy, Cholecystectomy, Colon, Colonoscopy , EGD, Hernia Repair/Other, Other (See Below) Other GI Surgeries/Procedures: bowel resection Female Surgical History: Reports: Breast Biopsy, Section, Other ( See Below) Other Female Surgeries/Procedures: left side biopsy Neurological Surgical History: Reports: None Musculoskeletal Surgical History: Reports: Knee Replacement Oncologic Surgical History: Reports: Biopsy of Breast, Other (See Below) Other Oncologic Surgeries/Procedures: left side biopsy Social & Family History - Family History Family Medical History: Noncontributory - Tobacco Use Smoking Status *Q: Current Every Day Smoker Years of Tobacco use: 60 Packs/Tins Daily: 0.5 Used Tobacco, but Quit: No Month/Year Tobacco Last Used: 05/2016 Second Hand Smoke Exposure: Yes - Caffeine Use Caffeine Use: Reports: None - Recreational Drug Use Recreational Drug Use: No H&P Review of Systems - Review of Systems: Review Of Systems: See Below General: Denies: Fever, Chills, Diaphoresis HEENT: Reports: No Symptoms Pulmonary: Reports: No Symptoms Cardiovascular: Reports: No Symptoms Gastrointestinal: Reports: Abdominal Pain, Decreased Appetite, Distension, Nausea, Vomiting. Denies: Black Stool, Bloody Stool, Constipation, Diarrhea, Difficulty Swallowing Genitourinary: Reports: No Symptoms Musculoskeletal: Reports: No Symptoms Skin: Reports: No Symptoms Psychiatric: Reports: No Symptoms Neurological: Reports: No Symptoms Hematologic/Lymphatic: Reports: No Symptoms Immunologic: Reports: No Symptoms Exam - Exam Exam: See Below - Vital Signs Vital Signs: Last Vital Signs Temp 94.8 F L 09/03/17 08:12 Pulse 62 09/03/17 08:12 Resp 14 09/03/17 08:12 BP 122/87 09/03/17 08:12 Pulse Ox 94 L 09/03/17 08:12 Weight: 125 lb - Exam Quality Assessment: DVT Prophylaxis General: Alert, Oriented, Cooperative, Moderate Distress HEENT: Conjunctiva Clear, Hearing Intact, Mucosa Moist & [place], Normal Nasal Septum, Posterior Pharynx Clear, Pupils Equal Neck: Supple, Trachea Midline, +2 Carotid Pulse wo Bruit Lungs: Clear to Auscultation, Normal Respiratory Effort Cardiovascular: Regular Rate, Regular Rhythm, Normal S1, Normal S2. No: Systolic Murmur, Diastolic Murmur GI/Abdominal Exam: Soft, No Organomegaly, Distended, Tender. No: Guarding, Rigid, Rebound Back Exam: Normal Inspection, Full Range of Motion Extremities: Non-Tender, No Pedal Edema Skin: Warm, Dry, Intact Neurological: Cranial Nerves Intact, Strength Equal Bilateral, Normal Speech, Normal Tone, Sensation Intact. No: Focal Deficit Neuro Extensive - Mental Status: Alert, Oriented x3, Normal Mood/Affect, Normal Cognition, Memory Intact - Patient Data Lab Results Last 24 hrs: Laboratory Results - last 24 hr 09/03/17 09/03/17 09/03/17 Range/Units 05:40 05:40 05:40 WBC 10.5 (4.5-11.0) K/uL RBC 4.22 (3.30-5.50) M/uL Hgb 14.2 D (12.0-15.0) g/dL Hct 43.1 (36.0-48.0) % MCV 102 H (80-98) fL MCH 34 H (27-31) pg MCHC 33 (32-36) % Plt Count 217 (150-400) K/uL Neut % (Auto) 67 H (36-66) % Lymph % (Auto) 20 L (24-44) % Grand % (Auto) 8 H (2-6) % Eos % (Auto) 6 H (2-4) % Baso % (Auto) 0 (0-1) % Sodium 142 (140-148) mmol/L Potassium 4.6 (3.6-5.2) mmol/L Chloride 102 (100-108) mmol/L Carbon Dioxide 33 H (21-32) mmol/L Anion Gap 11.6 (5.0-14.0) mmol/L BUN 26 H (7-18) mg/dL Creatinine 1.1 H (0.6-1.0) mg/dL Est Cr Clr Drug Dosing 37.73 mL/min Estimated GFR (MDRD) 48 L (>60) Glucose 131 H (74-106) mg/dL Lactic Acid 1.9 (0.4-2.0) mmol/L Calcium 9.3 D (8.5-10.1) mg/dL Total Bilirubin 0.5 (0.2-1.0) mg/dL AST 31 (15-37) U/L ALT 28 D (12-78) U/L Alkaline Phosphatase 92 (46-116) U/L Total Protein 7.8 (6.4-8.2) g/dL Albumin 3.1 L (3.4-5.0) g/dL Globulin 4.7 H (2.3-3.5) g/dL Albumin/Globulin Ratio 0.7 L (1.2-2.2) Amylase 50 D (25-115) U/L Lipase 112 (73-393) U/L Result Diagrams: 09/03/17 05:40 09/03/17 05:40 *Q Meaningful Use (ADM) - VTE *Q VTE Pharmacological Contraindications *Q: Patient Scheduled Surgery - VTE Risk Assess *Q Each Risk Factor Represents 1 Point: None Total Score 1 Point Risk Factors: 0 Each Risk Factor Represents 2 Points: None Total Score 2 Point Risk Factors: 0 Each Risk Factor Represents 3 Points: Age 75 Years or Greater Total Score 3 Point Risk Factors: 3 Each Risk Factor Represents 5 Points: None Total Score 5 Point Risk Factors: 0 Venous Thromboembolism Risk Factor Score *Q: 3 Problem List Initiated/Reviewed/Updated: Yes Orders Last 24hrs: Active Orders 24 hr Category Date Time Status Patient Status Manage Transfer [TRANSFER] Routine ADT 09/03/17 08:53 Active Abdomen 1V Upright [CR] Stat Exams 09/03/17 09:01 Ordered Abdomen Pelvis w Cont [CT] Stat Exams 09/03/17 06:31 Taken Lactated Ringers [Ringers, Lactated] 1,000 ml Med 09/03/17 08:08 Active IV BOLUS Sodium Chloride 0.9% [Normal Saline] 1,000 ml Med 09/03/17 05:30 Active IV ASDIRECTED NG [Nasogastric Orogastric Tube Insertion] [OM.PC] Oth 09/03/17 08:21 Ordered Routine Resuscitation Status Routine Resus Stat 09/03/17 08:58 Ordered Medication Orders Sodium Chloride (Normal Saline) 1,000 mls @ 500 mls/hr IV ASDIRECTED ASH Last Admin: 09/03/17 05:36 Dose: 500 mls/hr Lactated Ringer's (Ringers, Lactated) 1,000 mls @ 125 mls/hr IV BOLUS ONE Stop: 09/03/17 16:07 Last Admin: 09/03/17 08:11 Dose: 125 mls/hr Assessment/Plan Comment:: ASSESSMENT AND PLAN MECHANICAL SMALL BOWEL OBSTRUCTION-abrupt onset very early this morning, history of previous abdominal surgery and 2 previous episodes of mechanical obstruction resolved with conservative management. CT scan shows evidence of 2 transition points consistent with a twisted loop of bowel. -Nothing by mouth -NG tube to low intermittent suction -Protonix 40 mg IV every 24 hours -pain medication and antiemetic therapy as needed -follow-up labs and abdominal x-ray in the a.m. -consult Dr. Alford for surgical follow-up CORONARY ARTERY DISEASE-currently asymptomatic ESSENTIAL TREMOR -resume meds when she is able to start eating MAINTENANCE ISSUES -DVT prophylaxis; SCUDs, hold on anticoagulation because of possible surgery -GI prophylaxis; Protonix as above -Montes catheter; not indicated -Nutrition; nothing by mouth -Nicotine dependence;Not required CODE STATUS-FULL CODE ADMISSION STATUS-patient will be admitted to inpatient status, expect at least a 2 night hospital stay for evaluation and management of problems as outlined above. At the time of this admission I do not reasonably expected evaluation and management of this problem will require more than a 96 hour hospital stay. DISPOSITION-anticipate discharge to home after the hospital stay. PRIMARY CARE PROVIDER-
--- NOTE | 2017-09-03 09:25 | CR ---
Chest 1V Frontal HISTORY: NG tube placement. COMPARISON: CT scan 05/07/2017. FINDINGS: Left-sided stimulator the wires extend into the neck and are not completely visualized. NG tube present appears to extend below the diaphragm into the stomach. Moderate cardiomegaly. Hyperinfl ation. No focal infiltrates.
[2017-09-03] MEDS ORDERED: Albuterol 0.083% 2.5 MG/3 ML Neb Soln NEB PRN (10:07)
[2017-09-03] MEDS ORDERED: Sodium Chloride 0.9% 10 ML Syringe FLUSH PRN (10:07)
[2017-09-03] MEDS ORDERED: Albuterol 8 GM Inhaler INH PRN (10:07)
[2017-09-03] MEDS ORDERED: Propofol 200 MG/20 ML SDV ONE (11:31)
[2017-09-03] MEDS ORDERED: Succinylcholine 200 MG/10 ML MDV ONE (11:31)
[2017-09-03] MEDS ORDERED: Ondansetron 4 MG/2 ML SDV ONE (11:31)
[2017-09-03] MEDS ORDERED: fentaNYL 250 MCG/5 ML SDV ONE (11:31)
[2017-09-03] MEDS ORDERED: Dexamethasone 4 MG/ML SDV ONE (11:31)
[2017-09-03] MEDS ORDERED: Glycopyrrolate 0.2 MG/ML 5 ML MDV ONE (11:31)
[2017-09-03] MEDS ORDERED: Rocuronium 50 MG/5 ML Vial ONE (11:31)
[2017-09-03] MEDS ORDERED: Neostigmine Methylsulfate 1 MG/ML 5 ML Syringe ONE (11:31)
[2017-09-03] MEDS ORDERED: Ropivacaine 28 ML, Dexamethasone 8 MG, EPINEPHrine 0.4 MG, Sodium Chloride 0.9% 49.6 ML NERVRT SCH ×4 (12:30)
[2017-09-03] MEDS: Pantoprazole 40 MG Vial IVPUSH SCH (12:32)
[2017-09-03] MEDS ORDERED: Lactated Ringers 1,000 ML ONE (12:58)
[2017-09-03] MEDS ORDERED: Phenylephrine 1% 10 MG/ML SDV ONE (13:14)
[2017-09-03] MEDS ORDERED: ePHEDrine 50 MG/ML SDV ONE (13:14)
[2017-09-03] MEDS ORDERED: Zolpidem 5 MG Tab PO PRN (14:09)
[2017-09-03] MEDS ORDERED: diphenhydrAMINE 50 MG/ML SDV IVPUSH PRN (14:09)
[2017-09-03] MEDS ORDERED: Benzocaine/Cetylpyridinium/Menthol Lozenge MUCMEM PRN (14:09)
[2017-09-03] MEDS ORDERED: hydrOXYzine HCl 100 MG/2 ML SDV IM PRN (14:09)
[2017-09-03] MEDS: Ondansetron 4 MG/2 ML SDV IV PRN (15:31)
[2017-09-03] MEDS: Scopolamine 1.5 MG Transdermal Patch TRDERM SCH (15:41)
[2017-09-03] MEDS: Acetaminophen 1,000 MG in Premix Bag 1 BAG IV PRN (15:42)
[2017-09-03] MEDS: ceFAZolin 2 GM in Premix Bag 1 BAG IV SCH (16:55)
[2017-09-03] MEDS: Sodium Chloride 0.9% 1,000 ML IV SCH (18:05)
[2017-09-03] MEDS ORDERED: Sodium Chloride 0.9% 500 ML IV ONE (18:18)
--- NOTE | 2017-09-03 18:18 | CONS ---
DATE OF SERVICE: 09/03/2017 REFERRING PHYSICIAN: CONSULTING PHYSICIAN: Immanuel Alford MD REASON FOR CONSULTATION: Evaluation of abdominal pain. HISTORY OF PRESENT ILLNESS: A 77-year-old female who has had a history of abdominal pain. This has been intermittent and present for several years. The patient has been admitted twice for nonoperative management. She is not passing gas nor having any bowel movements. Her pain is described as 3/10 to 4/10. This is obviously an ongoing problem for her. This is modified by her multiple risk factors including current smoking. PAST MEDICAL HISTORY: Extensive. Bronchitis, COPD, pneumonia, emphysema, GERD, irritable bowel, urinary incontinence, arthritis, back pain, osteoporosis, general decompensation, Parkinson's, history of hereditary tremor, depression, anemia, atrial fibrillation, heart failure, cataracts, hard of hearing, impaired vision. PAST SURGICAL HISTORY: x2, appendectomy, cholecystectomy, breast biopsy. SOCIAL HISTORY: She presents with her family today. FAMILY HISTORY: Noncontributory. REVIEW OF SYSTEMS: GENERAL: The patient is resting somewhat comfortable. HEENT: History of vision changes. CARDIOVASCULAR: Multiple issues including heart failure, atrial fibrillation. RESPIRATORY: COPD, bronchitis, and has ongoing COPD problems, although she is not clear on the etiology of this. GASTROINTESTINAL: As above. GENITOURINARY: History of urinary incontinence. MUSCULOSKELETAL: Multiple problems with respect to back pain, arthritis, fractures. NEUROLOGICAL: History of Parkinson's, but the patient states she did have an implant for this. PSYCHIATRIC: She has been on an ongoing treatment for depression including even recently. HEMATOLOGY: B12 deficiency. The remainder of review of systems was reviewed and is negative. PHYSICAL EXAMINATION: VITAL SIGNS: Temperature 97.4, blood pressure 156/73, pulse 58, respirations 16, and 95% on room air. HEENT: Pupils are equal. NECK: Supple. LUNGS: Clear. ABDOMEN: Distended, tender, rebound, guarding. EXTREMITIES: Limited motion. NEUROLOGICAL: Oriented x3. PSYCHIATRIC: No gross depression today, although does have a history of this. LABORATORY RESULTS: Show white blood cell count 10.5, hemoglobin 14.2. Creatinine is 1.1. IMAGING: I did review the CT scan, which shows internal hernia/volvulus along with probable multiple adhesions. Of note, this is a cursory review of the CT and please see the report for further details. ASSESSMENT AND PLAN: The patient and the family and I had a long discussion as far as observation versus active management. The patient is not a very good surgical candidate, however, she has had these exact same problems twice and furthermore today, the CT scan suggests a closed-loop bowel obstruction, which is a surgical emergency. Unfortunately, the only option at this point is to explore the patient and perform possible small-bowel resection. We spent extensive time discussing risks, benefits, alternatives, and limitations, including the fact that we might resect small bowel, colon. We also discussed lysis of adhesions, the role of mesh in hernias. We also discussed the fact that the patient is a poor surgical candidate due to multiple comorbidities, mostly COPD and her cardiovascular, overall status that can result in worsening problems including anastomotic failure, leaks, sepsis, respiratory, cardiovascular collapse, and even . They understand these risks. They were given approximately 30 minutes to discuss this with the family, and upon calling me back to the room, the patient and family have agreed for surgery. Immanuel Alford MD /[id number]
[2017-09-03] MEDS: Sodium Chloride 0.9% 250 ML IV SCH ×2 (20:05→23:32)
[2017-09-03] MEDS: metroNIDAZOLE/Normal Saline 500 MG in Premix Bag 1 BAG IV SCH (23:20)
[2017-09-04] MEDS: ceFAZolin 2 GM in Premix Bag 1 BAG IV SCH (00:41)
[2017-09-04] MEDS: Sodium Chloride 0.9% 1,000 ML IV SCH ×3 (03:53→18:24)
[2017-09-04] MEDS: metroNIDAZOLE/Normal Saline 500 MG in Premix Bag 1 BAG IV SCH ×3 (06:35→22:46)
[2017-09-04] MEDS: HYDROmorphone 0.5 MG/0.5 ML Syringe IVPUSH PRN (08:17)
[2017-09-04] MEDS: Sodium Chloride 0.9% 250 ML IV SCH (08:27)
--- NOTE | 2017-09-04 08:28 | PN ---
DATE OF SERVICE: 09/04/2017 SUBJECTIVE: The patient is doing well. Had multiple bowel movements through the night. OBJECTIVE: VITAL SIGNS: Stable. Temperature 99.7, blood pressure 141/70, pulse 97, respirations 18, 95% on room air. CARDIOVASCULAR: Regular rhythm and rate. RESPIRATORY: Lungs clear to auscultation bilaterally. ABDOMEN: Bowel sounds are positive. Distention is decreased today. EXTREMITIES: Full range of motion, strength 4/5. SKIN: Incision is healing well. LABORATORY DATA: Laboratory results showed normal white blood cell count and normal hemoglobin. Basic metabolic panel is currently still pending. ASSESSMENT: Status post bowel obstruction, small bowel resection. PLAN: We will continue to slowly advance her diet. Increase her activity also today. We will start her on Lovenox and await further GI function. Immanuel Alford MD /[id number]
[2017-09-04] MEDS: SCOPOLAMINE PATCH CHECK TOP SCH (09:48)
[2017-09-04] MEDS: Magnesium Sulfate/Water 2 GM in Premix Bag 1 BAG IV SCH ×3 (09:51→21:20)
[2017-09-04] MEDS: Enoxaparin 40 MG/0.4 ML Syringe SUBCUT SCH (09:57)
[2017-09-04] MEDS ORDERED: Sodium Chloride 0.9% 500 ML IV ONE (10:15)
[2017-09-04] MEDS: Acetaminophen 1,000 MG in Premix Bag 1 BAG IV PRN (11:27)
[2017-09-04] MEDS: Sodium Chloride 0.9% 500 ML IV ONE (12:18)
[2017-09-04] MEDS: Pantoprazole 40 MG Vial IVPUSH SCH (12:40)
[2017-09-04] MEDS: Acetaminophen/oxyCODONE 325-10 MG Tab PO PRN ×3 (13:44→21:05)
--- NOTE | 2017-09-04 14:05 | PCM.PN ---
- General Info Date of Service: 09/04/17 Subjective Update: Ms. gasca is status post exploratory laparotomy done yesterday by Dr. Alford because of mechanical small bowel obstruction. Postoperative course has been complicated by borderline hypotension and urine output. Findings are felt to be likely secondary to third spacing and she has received IV fluid boluses and increased IV fluid rate. Saturation somewhat borderline, she has been fairly weak and lethargic. Low-grade temperature elevation consistent with atelectasis. - Review of Systems General: Reports: Fever, Weakness, Fatigue. Denies: Chills Pulmonary: Reports: No Symptoms Cardiovascular: Reports: No Symptoms Gastrointestinal: Reports: Abdominal Pain. Denies: Diarrhea, Difficulty Swallowing, Nausea, Vomiting - Patient Data Vitals - Most Recent: Last Vital Signs Temp 99.1 F 09/04/17 12:35 Pulse 113 H 09/04/17 11:00 Resp 18 09/04/17 11:00 BP 90/43 L 09/04/17 12:35 Pulse Ox 92 L 09/04/17 13:43 Weight - Most Recent: 125 lb I&O - Last 24 Hours: Intake & Output 09/03/17 09/04/17 09/04/17 22:59 06:59 14:59 Intake Total 1387 1825 1000 Output Total 230 420 130 Balance 1157 1405 870 Lab Results Last 24 Hours: Laboratory Results - last 24 hr 09/04/17 09/04/17 Range/Units 05:11 06:15 WBC 7.4 (4.5-11.0) K/uL RBC 3.84 (3.30-5.50) M/uL Hgb 13.0 (12.0-15.0) g/dL Hct 39.4 (36.0-48.0) % MCV 103 H (80-98) fL MCH 34 H (27-31) pg MCHC 33 (32-36) % Plt Count 201 (150-400) K/uL Neut % (Auto) 56 (36-66) % Lymph % (Auto) 25 (24-44) % Josephine % (Auto) 19 H (2-6) % Eos % (Auto) 0 L (2-4) % Baso % (Auto) 0 (0-1) % Sodium 142 (140-148) mmol/L Potassium 4.2 (3.6-5.2) mmol/L Chloride 107 (100-108) mmol/L Carbon Dioxide 27 (21-32) mmol/L Anion Gap 8.3 (5.0-14.0) mmol/L BUN 25 H (7-18) mg/dL Creatinine 1.3 H (0.6-1.0) mg/dL Est Cr Clr Drug Dosing 31.92 mL/min Estimated GFR (MDRD) 40 L (>60) Glucose 135 H (74-106) mg/dL Calcium 8.3 L (8.5-10.1) mg/dL Magnesium 1.3 L (1.8-2.4) mg/dL Spike Results Last 24 Hours: Microbiology 09/04/17 05:48 Clostridium difficile (PCR) - Final Stool / Feces NEGATIVE CDIFF TOXIN 09/03/17 13:30 Gram Stain - Final Abdominal Fluid - Drainage Med Orders - Current: Current Medications Albuterol (Ventolin Hfa) 2 gm INH Q4H PRN PRN Reason: Wheezing Albuterol (Proventil Neb Soln) 2.5 mg NEB Q4H PRN PRN Reason: Shortness Of Breath/wheezing Benzocaine/Menthol (Cepacol Sore Throat) 1 lozenge MUCMEM Q1H PRN PRN Reason: Sore Throat Diphenhydramine HCl (Benadryl) 50 mg IVPUSH Q4H PRN PRN Reason: Itching Enoxaparin Sodium (Lovenox) 40 mg SUBCUT DAILY [facility] Last Admin: 09/04/17 09:57 Dose: 40 mg Hydromorphone HCl (Dilaudid) 0.25 mg IVPUSH Q2H PRN PRN Reason: Pain Last Admin: 09/04/17 08:17 Dose: 0.25 mg Hydroxyzine HCl (Vistaril) 50 mg IM Q4H PRN PRN Reason: Nausea Last Admin: 09/03/17 15:41 Dose: 50 mg Acetaminophen 1,000 mg/ Premix 100 mls @ 400 mls/hr IV Q6H PRN PRN Reason: Pain (severe 7-10) Stop: 09/04/17 14:10 Last Admin: 09/04/17 11:27 Dose: 400 mls/hr Sodium Chloride (Normal Saline) 250 mls @ 250 mls/hr IV ASDIRECTED [facility] Last Admin: 09/04/17 08:27 Dose: 250 mls/hr Metronidazole 500 mg/ Premix 100 mls @ 100 mls/hr IV Q8H [facility] Last Admin: 09/04/17 13:25 Dose: 100 mls/hr Magnesium Sulfate 2 gm/ Premix 50 mls @ 25 mls/hr IV Q6H [facility] Stop: 09/04/17 22:59 Last Admin: 09/04/17 09:51 Dose: 25 mls/hr Sodium Chloride (Normal Saline) 1,000 mls @ 175 mls/hr IV ASDIRECTED [facility] Last Admin: 09/04/17 12:34 Dose: 175 mls/hr Scopolamine Patch (Check) 1 each TOP DAILY [facility] Last Admin: 09/04/17 09:48 Dose: Not Given Ondansetron HCl (Zofran) 4 mg IV Q4H PRN PRN Reason: Nausea/Vomiting Last Admin: 09/03/17 15:31 Dose: 4 mg Oxycodone/Acetaminophen (Percocet 325-10 Mg) 2 tab PO Q4H PRN PRN Reason: Pain (moderate 4-6) Last Admin: 09/04/17 13:44 Dose: 1 tab Pantoprazole Sodium (Protonix Iv) 40 mg IVPUSH Q24H [facility] Last Admin: 09/04/17 12:40 Dose: 40 mg Scopolamine (Transderm-Scop) 1.5 mg TRDERM Q72H [facility] Last Admin: 09/03/17 15:41 Dose: 1.5 mg Senna/Docusate Sodium (Senna Plus) 1 tab PO BID PRN PRN Reason: Constipation Sodium Chloride (Saline Flush) 10 ml FLUSH ASDIRECTED PRN PRN Reason: Keep Vein Open Last Admin: 09/04/17 08:17 Dose: 10 ml Zolpidem Tartrate (Ambien) 5 mg PO BEDTIME PRN PRN Reason: Insomnia Discontinued Medications Ropivacaine 28 ml/Dexamethasone 8 mg/Epinephrine HCl 0.4 mg/ Sodium Chloride 49.6 ml 0 ml NERVRT ASDIRECTED [facility] Last Admin: 09/03/17 13:05 Dose: 80 syringe Dexamethasone (Dexamethasone) Confirm Administered Dose 4 mg .ROUTE .STK-MED ONE Stop: 09/03/17 11:32 Ephedrine Sulfate (Ephedrine Sulfate) Confirm Administered Dose 50 mg .ROUTE .STK-MED ONE Stop: 09/03/17 13:15 Fentanyl (Sublimaze) Confirm Administered Dose 250 mcg .ROUTE .STK-MED ONE Stop: 09/03/17 11:32 Glycopyrrolate (Robinul) Confirm Administered Dose 1 mg .ROUTE .STK-MED ONE Stop: 09/03/17 11:32 Hydromorphone HCl (Dilaudid) 0.5 mg IVPUSH ONETIME ONE Stop: 09/03/17 05:31 Last Admin: 09/03/17 05:36 Dose: 0.5 mg Sodium Chloride (Normal Saline) 1,000 mls @ 500 mls/hr IV ASDIRECTED [facility] Last Admin: 09/03/17 05:36 Dose: 500 mls/hr Sodium Chloride (Normal Saline) 70 mls @ 3 mls/sec IV ASDIRECTED STA Stop: 09/03/17 06:43 Last Admin: 09/03/17 07:20 Dose: 3 mls/sec Lactated Ringer's (Ringers, Lactated) 1,000 mls @ 125 mls/hr IV BOLUS ONE Stop: 09/03/17 16:07 Last Admin: 09/03/17 08:11 Dose: 125 mls/hr Sodium Chloride (Normal Saline) 1,000 mls @ 125 mls/hr IV ASDIRECTED [facility] Last Infusion: 09/04/17 10:06 Dose: 175 mls/hr Lactated Ringer's (Ringers, Lactated) Confirm Administered Dose 1,000 mls @ as directed .ROUTE .STK-MED ONE Stop: 09/03/17 12:59 Cefazolin Sodium/Dextrose 2 gm (/ Premix) 50 mls @ 100 mls/hr IV Q8H [facility] Stop: 09/03/17 23:59 Last Admin: 09/04/17 00:41 Dose: 100 mls/hr Sodium Chloride (Normal Saline) 500 mls @ 500 mls/hr IV .BOLUS ONE Stop: 09/03/17 19:17 Last Admin: 09/03/17 18:42 Dose: 500 mls/hr Sodium Chloride (Normal Saline) 500 mls @ 500 mls/hr IV BOLUS ONE Stop: 09/04/17 12:59 Last Admin: 09/04/17 12:18 Dose: 500 mls/hr Iopamidol (Isovue-300 (61%)) 86 ml IV . DIRECTED STA Stop: 09/03/17 06:42 Last Admin: 09/03/17 07:21 Dose: 86 ml Lidocaine HCl (Xylocaine 4% Top Soln) 0 ml TOP ONETIME ONE Stop: 09/03/17 09:01 Last Admin: 09/03/17 08:29 Dose: 2 ml Neostigmine Methylsulfate (Neostigmine) Confirm Administered Dose 5 mg .ROUTE .STK-MED ONE Stop: 09/03/17 11:32 Ondansetron HCl (Zofran) Confirm Administered Dose 4 mg .ROUTE .STK-MED ONE Stop: 09/03/17 11:32 Phenylephrine HCl (Rito-Synephrine) Confirm Administered Dose 10 mg .ROUTE .STK- MED ONE Stop: 09/03/17 13:15 Propofol (Diprivan 20 Ml) Confirm Administered Dose 200 mg .ROUTE .STK-MED ONE Stop: 09/03/17 11:32 Rocuronium [place] (Zemuron) Confirm Administered Dose 50 mg .ROUTE .STK-MED ONE Stop: 09/03/17 11:32 Succinylcholine Chloride (Quelicin) Confirm Administered Dose 200 mg .ROUTE .STK -MED ONE Stop: 09/03/17 11:32 - Exam General: Alert, Oriented, Cooperative, Mild Distress Lungs: Clear to Auscultation, Normal Respiratory Effort Cardiovascular: Regular Rate, Regular Rhythm, No Murmurs GI/Abdominal Exam: Soft, Non-Tender, No Organomegaly, No Distention Extremities: Non-Tender, No Pedal Edema Skin: Warm, Dry - Problem List Review Problem List Initiated/Reviewed/Updated: Yes - My Orders Last 24 Hours: My Active Orders 09/04/17 09:00 Magnesium Sulfate/Water [Magnesium Sulfate 2 GM in Water 50 ML] 2 gm Premix Bag 1 bag IV Q6H 09/05/17 05:00 MAGNESIUM [CHEM] Timed - Plan Plan:: ASSESSMENT AND PLAN MECHANICAL SMALL BOWEL OBSTRUCTION-status post exploratory laparotomy, postoperative course complicated by third spacing with borderline urine output and blood pressure -Nothing by mouth -Regular use of incentive spirometry -IV fluids as ordered by Dr. Alford -Protonix 40 mg IV every 24 hours -pain medication and antiemetic therapy as needed -Postoperative care per Dr. Alford HYPOMAGNESEMIA -IV magnesium replacement -recheck magnesium in a.m. BORDERLINE HYPOXIA-likely secondary to sedation and hypoventilation related to surgery -continuous pulse oximetry -supplemental oxygen as needed CORONARY ARTERY DISEASE-currently asymptomatic ESSENTIAL TREMOR -resume meds when she is able to start eating MAINTENANCE ISSUES -DVT prophylaxis; SCUDs, hold on anticoagulation because of possible surgery -GI prophylaxis; Protonix as above -Montes catheter; not indicated -Nutrition; nothing by mouth -Nicotine dependence;Not required CODE STATUS-FULL CODE ADMISSION STATUS-patient will be admitted to inpatient status, expect at least a 2 night hospital stay for evaluation and management of problems as outlined above. At the time of this admission I do not reasonably expected evaluation and management of this problem will require more than a 96 hour hospital stay. DISPOSITION-anticipate discharge to home after the hospital stay. PRIMARY CARE PROVIDER-
[2017-09-04] MEDS: Lactated Ringers 250 ML IV SCH (23:52)
[2017-09-05] MEDS: Sodium Chloride 0.9% 1,000 ML IV SCH ×4 (00:36→21:09)
[2017-09-05] MEDS: Lactated Ringers 250 ML IV SCH (02:25)
[2017-09-05] MEDS: Ondansetron 4 MG/2 ML SDV IV PRN (04:29)
[2017-09-05] MEDS: HYDROmorphone 0.5 MG/0.5 ML Syringe IVPUSH PRN ×4 (04:29→23:11)
[2017-09-05] MEDS: metroNIDAZOLE/Normal Saline 500 MG in Premix Bag 1 BAG IV SCH ×3 (05:27→21:57)
[2017-09-05] MEDS ORDERED: Furosemide 20 MG/2 ML VIAL IVPUSH ONE (06:30)
[2017-09-05] MEDS: Enoxaparin 40 MG/0.4 ML Syringe SUBCUT SCH (09:39)
[2017-09-05] MEDS: SCOPOLAMINE PATCH CHECK TOP SCH (09:40)
[2017-09-05] MEDS: Pantoprazole 40 MG Vial IVPUSH SCH (11:15)
[2017-09-05] MEDS: Magnesium Hydroxide 400 MG/5 ML Susp 30 ML Cup PO SCH ×2 (11:15→17:30)
[2017-09-05] MEDS: Ibuprofen 600 MG Tab PO PRN ×2 (11:31→21:13)
--- NOTE | 2017-09-05 13:26 | PCM.PN ---
- General Info Date of Service: 09/05/17 Subjective Update: Ms. Delgado is improved over the past 24 hours, blood pressures, and urine output improved. She has developed somewhat rhonchorous respirations and needs to be pushed as far as pulmonary toilet as well as ambulation. Vital signs have otherwise been stable and she has remained afebrile. - Review of Systems General: Reports: Weakness. Denies: Fever, Chills Pulmonary: Reports: No Symptoms Cardiovascular: Reports: No Symptoms Gastrointestinal: Reports: Abdominal Pain. Denies: Difficulty Swallowing, Flatus, Nausea, Vomiting - Patient Data Vitals - Most Recent: Last Vital Signs Temp 100.2 F 09/05/17 10:40 Pulse 82 09/05/17 10:40 Resp 18 09/05/17 10:40 BP 133/73 09/05/17 10:40 Pulse Ox 91 L 09/05/17 13:11 Weight - Most Recent: 138 lb 6.4 oz I&O - Last 24 Hours: Intake & Output 09/04/17 09/05/17 09/05/17 22:59 06:59 14:59 Intake Total 2894 2578 15 Output Total 330 692 4350 Balance 2582 2276 -1235 Lab Results Last 24 Hours: Laboratory Results - last 24 hr 09/05/17 Range/Units 04:30 Sodium 143 (140-148) mmol/L Potassium 3.9 (3.6-5.2) mmol/L Chloride 110 H (100-108) mmol/L Carbon Dioxide 23 (21-32) mmol/L Anion Gap 13.9 (5.0-14.0) mmol/L BUN 22 H (7-18) mg/dL Creatinine 1.1 H (0.6-1.0) mg/dL Est Cr Clr Drug Dosing 37.73 mL/min Estimated GFR (MDRD) 48 L (>60) Glucose 99 (74-106) mg/dL Calcium 7.4 L (8.5-10.1) mg/dL Magnesium 2.5 H D (1.8-2.4) mg/dL Spike Results Last 24 Hours: Microbiology 09/03/17 13:30 Gram Stain - Final Abdominal Fluid - Drainage Wound Culture - Preliminary NO GROWTH AFTER 1 DAY Anaerobic Culture - Preliminary NO GROWTH AFTER 1 DAY Med Orders - Current: Current Medications Albuterol (Ventolin Hfa) 2 gm INH Q4H PRN PRN Reason: Wheezing Albuterol (Proventil Neb Soln) 2.5 mg NEB Q4H PRN PRN Reason: Shortness Of Breath/wheezing Benzocaine/Menthol (Cepacol Sore Throat) 1 lozenge MUCMEM Q1H PRN PRN Reason: Sore Throat Diphenhydramine HCl (Benadryl) 50 mg IVPUSH Q4H PRN PRN Reason: Itching Enoxaparin Sodium (Lovenox) 40 mg SUBCUT DAILY [facility] Last Admin: 09/05/17 09:39 Dose: 40 mg Hydromorphone HCl (Dilaudid) 0.25 mg IVPUSH Q2H PRN PRN Reason: Pain Last Admin: 09/05/17 09:36 Dose: 0.25 mg Hydroxyzine HCl (Vistaril) 50 mg IM Q4H PRN PRN Reason: Nausea Last Admin: 09/03/17 15:41 Dose: 50 mg Metronidazole 500 mg/ Premix 100 mls @ 100 mls/hr IV Q8H [facility] Last Admin: 09/05/17 05:27 Dose: 100 mls/hr Sodium Chloride (Normal Saline) 1,000 mls @ 100 mls/hr IV ASDIRECTED [facility] Ibuprofen (Motrin) 600 mg PO Q8H PRN PRN Reason: Pain Last Admin: 09/05/17 11:31 Dose: 600 mg Magnesium Hydroxide (Milk Of Magnesia) 30 ml PO Q8H [facility] Last Admin: 09/05/17 11:15 Dose: 30 ml Scopolamine Patch (Check) 1 each TOP DAILY [facility] Last Admin: 09/05/17 09:40 Dose: Not Given Ondansetron HCl (Zofran) 4 mg IV Q4H PRN PRN Reason: Nausea/Vomiting Last Admin: 09/05/17 04:29 Dose: 4 mg Oxycodone/Acetaminophen (Percocet 325-10 Mg) 2 tab PO Q4H PRN PRN Reason: Pain (moderate 4-6) Last Admin: 09/04/17 21:05 Dose: 1 tab Pantoprazole Sodium (Protonix) 40 mg PO ACBREAKFAST [facility] Scopolamine (Transderm-Scop) 1.5 mg TRDERM Q72H [facility] Last Admin: 09/03/17 15:41 Dose: 1.5 mg Senna/Docusate Sodium (Senna Plus) 1 tab PO BID PRN PRN Reason: Constipation Sodium Chloride (Saline Flush) 10 ml FLUSH ASDIRECTED PRN PRN Reason: Keep Vein Open Last Admin: 09/04/17 08:17 Dose: 10 ml Zolpidem Tartrate (Ambien) 5 mg PO BEDTIME PRN PRN Reason: Insomnia Discontinued Medications Ropivacaine 28 ml/Dexamethasone 8 mg/Epinephrine HCl 0.4 mg/ Sodium Chloride 49.6 ml 0 ml NERVRT ASDIRECTED [facility] Last Admin: 09/03/17 13:05 Dose: 80 syringe Dexamethasone (Dexamethasone) Confirm Administered Dose 4 mg .ROUTE .STK-MED ONE Stop: 09/03/17 11:32 Ephedrine Sulfate (Ephedrine Sulfate) Confirm Administered Dose 50 mg .ROUTE .STK-MED ONE Stop: 09/03/17 13:15 Fentanyl (Sublimaze) Confirm Administered Dose 250 mcg .ROUTE .STK-MED ONE Stop: 09/03/17 11:32 Furosemide (Lasix) 20 mg IVPUSH ONETIME ONE Stop: 09/05/17 06:31 Last Admin: 09/05/17 06:52 Dose: 20 mg Glycopyrrolate (Robinul) Confirm Administered Dose 1 mg .ROUTE .STK-MED ONE Stop: 09/03/17 11:32 Hydromorphone HCl (Dilaudid) 0.5 mg IVPUSH ONETIME ONE Stop: 09/03/17 05:31 Last Admin: 09/03/17 05:36 Dose: 0.5 mg Sodium Chloride (Normal Saline) 1,000 mls @ 500 mls/hr IV ASDIRECTED [facility] Last Admin: 09/03/17 05:36 Dose: 500 mls/hr Sodium Chloride (Normal Saline) 70 mls @ 3 mls/sec IV ASDIRECTED STA Stop: 09/03/17 06:43 Last Admin: 09/03/17 07:20 Dose: 3 mls/sec Lactated Ringer's (Ringers, Lactated) 1,000 mls @ 125 mls/hr IV BOLUS ONE Stop: 09/03/17 16:07 Last Admin: 09/03/17 08:11 Dose: 125 mls/hr Sodium Chloride (Normal Saline) 1,000 mls @ 125 mls/hr IV ASDIRECTED [facility] Last Infusion: 09/04/17 10:06 Dose: 175 mls/hr Lactated Ringer's (Ringers, Lactated) Confirm Administered Dose 1,000 mls @ as directed .ROUTE .STK-MED ONE Stop: 09/03/17 12:59 Acetaminophen 1,000 mg/ Premix 100 mls @ 400 mls/hr IV Q6H PRN PRN Reason: Pain (severe 7-10) Stop: 09/04/17 14:10 Last Admin: 09/04/17 11:27 Dose: 400 mls/hr Cefazolin Sodium/Dextrose 2 gm (/ Premix) 50 mls @ 100 mls/hr IV Q8H [facility] Stop: 09/03/17 23:59 Last Admin: 09/04/17 00:41 Dose: 100 mls/hr Sodium Chloride (Normal Saline) 500 mls @ 500 mls/hr IV .BOLUS ONE Stop: 09/03/17 19:17 Last Admin: 09/03/17 18:42 Dose: 500 mls/hr Sodium Chloride (Normal Saline) 250 mls @ 250 mls/hr IV ASDIRECTED [facility] Last Admin: 09/04/17 08:27 Dose: 250 mls/hr Magnesium Sulfate 2 gm/ Premix 50 mls @ 25 mls/hr IV Q6H [facility] Stop: 09/04/17 22:59 Last Admin: 09/04/17 21:20 Dose: 25 mls/hr Sodium Chloride (Normal Saline) 1,000 mls @ 175 mls/hr IV ASDIRECTED [facility] Last Admin: 09/05/17 12:06 Dose: 175 mls/hr Sodium Chloride (Normal Saline) 500 mls @ 500 mls/hr IV BOLUS ONE Stop: 09/04/17 12:59 Last Admin: 09/04/17 12:18 Dose: 500 mls/hr Lactated Ringer's (Ringers, Lactated) 250 mls @ 250 mls/hr IV BOLUS [facility] Last Admin: 09/05/17 02:25 Dose: 250 mls/hr Iopamidol (Isovue-300 (61%)) 86 ml IV . DIRECTED STA Stop: 09/03/17 06:42 Last Admin: 09/03/17 07:21 Dose: 86 ml Lidocaine HCl (Xylocaine 4% Top Soln) 0 ml TOP ONETIME ONE Stop: 09/03/17 09:01 Last Admin: 09/03/17 08:29 Dose: 2 ml Neostigmine Methylsulfate (Neostigmine) Confirm Administered Dose 5 mg .ROUTE .STK-MED ONE Stop: 09/03/17 11:32 Ondansetron HCl (Zofran) Confirm Administered Dose 4 mg .ROUTE .STK-MED ONE Stop: 09/03/17 11:32 Pantoprazole Sodium (Protonix Iv) 40 mg IVPUSH Q24H [facility] Stop: 09/05/17 11:45 Last Admin: 09/05/17 11:15 Dose: 40 mg Phenylephrine HCl (Rito-Synephrine) Confirm Administered Dose 10 mg .ROUTE .STK- MED ONE Stop: 09/03/17 13:15 Propofol (Diprivan 20 Ml) Confirm Administered Dose 200 mg .ROUTE .STK-MED ONE Stop: 09/03/17 11:32 Rocuronium [place] (Zemuron) Confirm Administered Dose 50 mg .ROUTE .STK-MED ONE Stop: 09/03/17 11:32 Succinylcholine Chloride (Quelicin) Confirm Administered Dose 200 mg .ROUTE .STK -MED ONE Stop: 09/03/17 11:32 - Exam Quality Assessment: Supplemental Oxygen, DVT Prophylaxis General: Alert, Oriented, Cooperative, Mild Distress Lungs: Clear to Auscultation, Normal Respiratory Effort Cardiovascular: Regular Rate, Regular Rhythm, No Murmurs GI/Abdominal Exam: Soft, No Organomegaly, Tender. No: Distended, Guarding, Rigid, Rebound Extremities: Non-Tender, Pedal Edema Skin: Warm, Dry - Problem List Review Problem List Initiated/Reviewed/Updated: Yes - My Orders Last 24 Hours: My Active Orders 09/04/17 14:05 Overnight Pulse Oximetry [RC] Click to Edit Pulse Oximetry Continuous Monitoring [OM.PC] Routine 09/05/17 13:30 Sodium Chloride 0.9% [Normal Saline] 1,000 ml IV ASDIRECTED 09/06/17 05:00 MAGNESIUM [CHEM] Timed 09/06/17 07:30 Pantoprazole [ProTONIX] 40 mg PO ACBREAKFAST - Plan Plan:: ASSESSMENT AND PLAN MECHANICAL SMALL BOWEL OBSTRUCTION-status post exploratory laparotomy, more stable today, urine output has improved as has blood pressure -Nothing by mouth -Regular use of incentive spirometry -Decrease IV rate to 100 mL per hour -Protonix 40 mg IV every 24 hours -Postoperative care per Dr. Alford HYPOMAGNESEMIA-resolved after replacement -recheck magnesium in a.m. BORDERLINE HYPOXIA-likely secondary to sedation and hypoventilation related to surgery -continuous pulse oximetry -supplemental oxygen as needed -Ambulate 4 times a day -Incentive spirometer every hour CORONARY ARTERY DISEASE-currently asymptomatic ESSENTIAL TREMOR -resume meds when she is able to start eating MAINTENANCE ISSUES -DVT prophylaxis; SCUDs, hold on anticoagulation because of possible surgery -GI prophylaxis; Protonix as above -Montes catheter; not indicated -Nutrition; nothing by mouth -Nicotine dependence;Not required CODE STATUS-FULL CODE ADMISSION STATUS-patient will be admitted to inpatient status, expect at least a 2 night hospital stay for evaluation and management of problems as outlined above. At the time of this admission I do not reasonably expected evaluation and management of this problem will require more than a 96 hour hospital stay. DISPOSITION-anticipate discharge to home after the hospital stay. PRIMARY CARE PROVIDER-
--- NOTE | 2017-09-05 13:27 | PN ---
DATE OF SERVICE: 09/05/2017 SUBJECTIVE: The patient continues to slowly improve. Pain has improved. She has very mild nausea, but no vomiting, shortness of breath, or chest pain. With respect to her nausea, this has improved and the patient is passing large amount of gas and having bowel movements. OBJECTIVE: VITAL SIGNS: Stable, temperature 98.7, blood pressure 123/48, pulse 88, and saturation 100% on 1 L. CARDIOVASCULAR: Regular rhythm and rate. RESPIRATORY: Lungs are clear to auscultation bilaterally. ABDOMEN: Mildly distended, but improved compared to preoperatively. Incision is healing well. ASSESSMENT: Status post small bowel resection. PLAN: I will continue to slowly advance her diet except we will keep her more on clear liquids today. Dr. Alford will continue to work on fluid and electrolytes. I will also give her some Milk of Mag and switch her to ibuprofen based pain regimen. In addition, we will have incentive spirometry again taught by respiratory therapy. We will have physical therapy see her for strengthening and we will also have chest x-ray performed, as the patient is developing a productive cough, 1-2 days ago was normal. However, we will follow up with an x-ray today. Immanuel Alford MD /[id number]
[2017-09-05] MEDS: Sodium Chloride 0.9% 500 ML IV ONE (17:29)
[2017-09-05] MEDS: Albuterol/Ipratropium 3.0-0.5 MG/3 ML Neb Soln NEB PRN (21:49)
[2017-09-05] MEDS ORDERED: Trolamine Salicylate/Aloe Vera 10% Crm 85 GM Tube TOP PRN (22:25)
[2017-09-06] MEDS ORDERED: Lactated Ringers 500 ML IV SCH (00:30)
[2017-09-06] MEDS: Acetaminophen 325 MG Tab PO PRN ×2 (01:03→19:34)
[2017-09-06] MEDS: Magnesium Hydroxide 400 MG/5 ML Susp 30 ML Cup PO SCH ×4 (01:56→17:53)
[2017-09-06] MEDS: Albuterol/Ipratropium 3.0-0.5 MG/3 ML Neb Soln NEB PRN ×2 (01:56→21:47)
[2017-09-06] MEDS ORDERED: Furosemide 20 MG/2 ML VIAL IVPUSH ONE (03:32)
[2017-09-06] MEDS: Sodium Chloride 0.9% 1,000 ML IV SCH (03:47)
[2017-09-06] MEDS: metroNIDAZOLE/Normal Saline 500 MG in Premix Bag 1 BAG IV SCH ×3 (06:12→22:31)
[2017-09-06] MEDS: Pantoprazole 40 MG Tab.CR PO SCH (08:01)
--- NOTE | 2017-09-06 08:35 | PN ---
DATE OF SERVICE: 09/06/2017 SUBJECTIVE: The patient is doing very well. Pain is well controlled. No nausea, vomiting, shortness of breath, or chest pain. The nausea she has yesterday has abated. She is passing a large amount of gas, but no bowel movement yesterday. OBJECTIVE: VITAL SIGNS: Stable. CARDIOVASCULAR: Regular rhythm and rate. RESPIRATORY: Lungs are clear to auscultation bilaterally. ASSESSMENT: Status post small bowel resection. PLAN: We will order an upper GI with KUB just to ensure that contrast was flowing completely through the colon. In addition, we will continue lactulose on a clear liquid diet today. As far as fluid and electrolytes, we will continue to rely on the help from the hospitalist service. Hopefully, they can remove her Montes today. In addition, she can shower and we will continue to monitor . Immanuel Alford MD /[id number]
--- NOTE | 2017-09-06 09:28 | OR ---
DATE OF PROCEDURE: 09/03/2017 PROCEDURES: 1. Repair/reduction of internal hernia/volvulus (66650). 2. Small bowel resection, jejunum (13404). 3. Drainage and culture of bacterial peritonitis, non-appendiceal (96890). COMPLICATIONS: None. ASSISTANTS: None. SPECIMENS: 1. Jejunum. 2. Abdominal cultures. RISKS: Risks, benefits, alternatives, and limitations including, but not to limited to, infection, bleeding, perforation of abdominal structures such as enterotomy, fistula formation, leaks, cardiovascular events, especially due to the patient's high comorbidities, such as COPD, were explained the patient and family, and they wished to proceed. PROCEDURE IN DETAIL: The patient was placed in supine position. A midline abdominal incision was made. Two Humberto clamps were used to elevate the abdominal incision. This was entered sharply. Small bowel was immediately noted, and this area was deflected freely. This abdominal incision was approximately 5 cm in size and was used as a previous abdominal incision. It was immediately noted that the patient had a volvulus/internal hernia resulting in a closed loop. This was not through the defect of the Evin-en-Y limb. This was reduced. Associated with this was a small piece of bowel that was slightly ischemic/injured during the mobilization process. It was determined to resect this small piece. This would be resected towards the end of the procedure by [id number] functional end-to- end anastomosis by using two blue loads to transect the bowel, white loads to transect the mesentery, and creating a defect to the antimesenteric side with the small bowel with two blue load staplers to make a double large anastomosis. A single Prolene stitch was also placed on this anastomosis to facilitate further identification in case of future surgical requirements. The antimesenteric defect was closed. The mesenteric defect causing her original problem was also closed with 0 Vicryl sutures. The patient had a quite interesting Evin-en-Y limb. This was retrocolic, however, had a large amount of torsion noted on this. Unfortunately to correct this, this required complete removal of both anastomoses, resulting in probable higher comorbidity. Prior to any bowel resection, the patient had a marked inflammation in her abdomen and approximately 1 L of fluid, along with a gel-type consistency material. This was suctioned, irrigated, removed, and sent for culture to address the non-appendiceal peritonitis. Tisseel was then applied to the anastomosis. The abdomen was thoroughly irrigated again. The deep fascia was closed with #1 Vicryl sutures, and skin was closed with frank. There was gross spillage during this process of the anastomosis; however, the risk was felt to be acceptable to close the abdominal wall. Immanuel Alford MD /[id number]
[2017-09-06] MEDS ORDERED: Barium Sulfate 98% Powder for Susp 340 GM Bottle PO SCH (09:30)
--- NOTE | 2017-09-06 09:40 | CR ---
Chest 1V Frontal HISTORY: cough COMPARISON: 09/03/2017 FINDINGS: Portable chest, 1032 hours. Generalized cardiomegaly appears similar to the prior exam. No vascular redistribution or pleural flu id is seen. Lungs are mildly hyperinflated suggesting a component of COPD. No acute infiltrate is ede ntified. Generator overlies the left mid chest. Stimulator wires extend into the left neck off the ed ge of the image. Esophagogastric tube has been removed in the interval. IMPRESSION: Stable cardiomegaly without evidence for decompensation. Probable COPD. No other acute ch est abnormality or significant interval change is identified.
[2017-09-06] MEDS: Enoxaparin 40 MG/0.4 ML Syringe SUBCUT SCH (10:34)
[2017-09-06] MEDS: SCOPOLAMINE PATCH CHECK TOP SCH (10:34)
[2017-09-06] MEDS: Lactulose Soln 10 GM/15 ML 15 ML UD Cup PO SCH ×2 (12:55→22:26)
[2017-09-06] MEDS: Ibuprofen 600 MG Tab PO PRN (12:59)
[2017-09-06] MEDS: Ondansetron 4 MG/2 ML SDV IV PRN (13:39)
[2017-09-06] MEDS ORDERED: Sodium Chloride 0.9% 1,000 ML IV SCH (14:25)
--- NOTE | 2017-09-06 14:30 | PCM.PN ---
- General Info Date of Service: 09/06/17 Functional Status: Reports: Pain Controlled, Tolerating Diet - Review of Systems General: Denies: Fever Gastrointestinal: Reports: Abdominal Pain Systems Review Comment:: No acute events overnight. She did have some wheezing which did respond to IV furosemide. Abdominal pain is mild to moderate and improving each day. She has not had any fevers. She does complain of mouth and tongue pain and has white plaques visible. Upper GI series is pending. - Patient Data Vitals - Most Recent: Last Vital Signs Temp 36.4 C 09/06/17 13:04 Pulse 76 09/06/17 13:04 Resp 20 09/06/17 13:04 BP 137/68 09/06/17 13:04 Pulse Ox 93 L 09/06/17 13:04 Weight - Most Recent: 64.637 kg I&O - Last 24 Hours: Intake & Output 09/05/17 09/06/17 09/06/17 22:59 06:59 14:59 Intake Total 2771 2366 190 Output Total 194 691 Balance 2577 1105 190 Lab Results Last 24 Hours: Laboratory Results - last 24 hr 09/06/17 09/06/17 09/06/17 Range/Units 06:05 06:05 06:05 WBC 10.5 (4.5-11.0) K/uL RBC 3.44 (3.30-5.50) M/uL Hgb 11.4 L (12.0-15.0) g/dL Hct 36.0 (36.0-48.0) % MCV 105 H (80-98) fL MCH 33 H (27-31) pg MCHC 32 (32-36) % Plt Count 182 (150-400) K/uL Neut % (Auto) 72 H (36-66) % Lymph % (Auto) 15 L (24-44) % [place] % (Auto) 9 H (2-6) % Eos % (Auto) 4 (2-4) % Baso % (Auto) 0 (0-1) % Sodium 145 (140-148) mmol/L Potassium 3.6 (3.6-5.2) mmol/L Chloride 111 H (100-108) mmol/L Carbon Dioxide 23 (21-32) mmol/L Anion Gap 14.6 H (5.0-14.0) mmol/L BUN 20 H (7-18) mg/dL Creatinine 1.1 H (0.6-1.0) mg/dL Est Cr Clr Drug Dosing 43.01 mL/min Estimated GFR (MDRD) 48 L (>60) Glucose 90 (74-106) mg/dL Calcium 7.4 L (8.5-10.1) mg/dL Magnesium 2.1 (1.8-2.4) mg/dL Spike Results Last 24 Hours: Microbiology 09/03/17 13:30 Gram Stain - Final Abdominal Fluid - Drainage Wound Culture - Preliminary NO GROWTH AFTER 2 DAYS Anaerobic Culture - Preliminary NO GROWTH AFTER 2 DAYS Med Orders - Current: Current Medications Acetaminophen (Tylenol) 650 mg PO Q4H PRN PRN Reason: Pain Last Admin: 09/06/17 01:03 Dose: 650 mg Albuterol (Ventolin Hfa) 2 gm INH Q4H PRN PRN Reason: Wheezing Albuterol (Proventil Neb Soln) 2.5 mg NEB Q4H PRN PRN Reason: Shortness Of Breath/wheezing Albuterol/Ipratropium (Duoneb 3.0-0.5 Mg/3 Ml) 3 ml NEB Q4H PRN PRN Reason: wheeze/SOB Last Admin: 09/06/17 01:56 Dose: 3 ml Barium Sulfate (E-Z-Hd) 340 gm PO . DIRECTED [facility] Stop: 09/07/17 09:31 Benzocaine/Menthol (Cepacol Sore Throat) 1 lozenge MUCMEM Q1H PRN PRN Reason: Sore Throat Diphenhydramine HCl (Benadryl) 50 mg IVPUSH Q4H PRN PRN Reason: Itching Last Admin: 09/06/17 03:53 Dose: 50 mg Enoxaparin Sodium (Lovenox) 40 mg SUBCUT DAILY [facility] Last Admin: 09/06/17 10:34 Dose: 40 mg Hydromorphone HCl (Dilaudid) 0.25 mg IVPUSH Q2H PRN PRN Reason: Pain Last Admin: 09/05/17 23:11 Dose: 0.25 mg Hydroxyzine HCl (Vistaril) 50 mg IM Q4H PRN PRN Reason: Nausea Last Admin: 09/03/17 15:41 Dose: 50 mg Metronidazole 500 mg/ Premix 100 mls @ 100 mls/hr IV Q8H [facility] Last Admin: 09/06/17 13:41 Dose: 100 mls/hr Ibuprofen (Motrin) 600 mg PO Q8H PRN PRN Reason: Pain Last Admin: 09/06/17 12:59 Dose: 600 mg Lactulose (Chronulac) 10 gm PO BID [facility] Last Admin: 09/06/17 12:55 Dose: 10 gm Magnesium Hydroxide (Milk Of Magnesia) 30 ml PO Q8H [facility] Last Admin: 09/06/17 10:34 Dose: Not Given Scopolamine Patch (Check) 1 each TOP DAILY [facility] Last Admin: 09/06/17 10:34 Dose: Not Given Ondansetron HCl (Zofran) 4 mg IV Q4H PRN PRN Reason: Nausea/Vomiting Last Admin: 09/06/17 13:39 Dose: 4 mg Oxycodone/Acetaminophen (Percocet 325-10 Mg) 2 tab PO Q4H PRN PRN Reason: Pain (moderate 4-6) Last Admin: 09/04/17 21:05 Dose: 1 tab Pantoprazole Sodium (Protonix) 40 mg PO ACBREAKFAST [facility] Last Admin: 09/06/17 08:01 Dose: 40 mg Scopolamine (Transderm-Scop) 1.5 mg TRDERM Q72H [facility] Last Admin: 09/03/17 15:41 Dose: 1.5 mg Senna/Docusate Sodium (Senna Plus) 1 tab PO BID PRN PRN Reason: Constipation Last Admin: 09/05/17 21:13 Dose: 1 tab Sodium Chloride (Saline Flush) 10 ml FLUSH ASDIRECTED PRN PRN Reason: Keep Vein Open Last Admin: 09/04/17 08:17 Dose: 10 ml Trolamine Salicylate (Aspercreme 10%) 1 gm TOP Q1H PRN PRN Reason: knee pain Zolpidem Tartrate (Ambien) 5 mg PO BEDTIME PRN PRN Reason: Insomnia Discontinued Medications Ropivacaine 28 ml/Dexamethasone 8 mg/Epinephrine HCl 0.4 mg/ Sodium Chloride 49.6 ml 0 ml NERVRT ASDIRECTED [facility] Last Admin: 09/03/17 13:05 Dose: 80 syringe Dexamethasone (Dexamethasone) Confirm Administered Dose 4 mg .ROUTE .STK-MED ONE Stop: 09/03/17 11:32 Ephedrine Sulfate (Ephedrine Sulfate) Confirm Administered Dose 50 mg .ROUTE .STK-MED ONE Stop: 09/03/17 13:15 Fentanyl (Sublimaze) Confirm Administered Dose 250 mcg .ROUTE .STK-MED ONE Stop: 09/03/17 11:32 Furosemide (Lasix) 20 mg IVPUSH ONETIME ONE Stop: 09/05/17 06:31 Last Admin: 09/05/17 06:52 Dose: 20 mg Furosemide (Lasix) 20 mg IVPUSH ONETIME ONE Stop: 09/06/17 03:33 Last Admin: 09/06/17 03:40 Dose: 20 mg Glycopyrrolate (Robinul) Confirm Administered Dose 1 mg .ROUTE .STK-MED ONE Stop: 09/03/17 11:32 Hydromorphone HCl (Dilaudid) 0.5 mg IVPUSH ONETIME ONE Stop: 09/03/17 05:31 Last Admin: 09/03/17 05:36 Dose: 0.5 mg Sodium Chloride (Normal Saline) 1,000 mls @ 500 mls/hr IV ASDIRECTED [facility] Last Admin: 09/03/17 05:36 Dose: 500 mls/hr Sodium Chloride (Normal Saline) 70 mls @ 3 mls/sec IV ASDIRECTED [facility] Stop: 09/03/17 06:43 Last Admin: 09/03/17 07:20 Dose: 3 mls/sec Lactated Ringer's (Ringers, Lactated) 1,000 mls @ 125 mls/hr IV BOLUS ONE Stop: 09/03/17 16:07 Last Admin: 09/03/17 08:11 Dose: 125 mls/hr Sodium Chloride (Normal Saline) 1,000 mls @ 125 mls/hr IV ASDIRECTED [facility] Last Infusion: 09/04/17 10:06 Dose: 175 mls/hr Lactated Ringer's (Ringers, Lactated) Confirm Administered Dose 1,000 mls @ as directed .ROUTE .STK-MED ONE Stop: 09/03/17 12:59 Acetaminophen 1,000 mg/ Premix 100 mls @ 400 mls/hr IV Q6H PRN PRN Reason: Pain (severe 7-10) Stop: 09/04/17 14:10 Last Admin: 09/04/17 11:27 Dose: 400 mls/hr Cefazolin Sodium/Dextrose 2 gm (/ Premix) 50 mls @ 100 mls/hr IV Q8H [facility] Stop: 09/03/17 23:59 Last Admin: 09/04/17 00:41 Dose: 100 mls/hr Sodium Chloride (Normal Saline) 500 mls @ 500 mls/hr IV .BOLUS ONE Stop: 09/03/17 19:17 Last Admin: 09/03/17 18:42 Dose: 500 mls/hr Sodium Chloride (Normal Saline) 250 mls @ 250 mls/hr IV ASDIRECTED [facility] Last Admin: 09/04/17 08:27 Dose: 250 mls/hr Magnesium Sulfate 2 gm/ Premix 50 mls @ 25 mls/hr IV Q6H [facility] Stop: 09/04/17 22:59 Last Admin: 09/04/17 21:20 Dose: 25 mls/hr Sodium Chloride (Normal Saline) 1,000 mls @ 175 mls/hr IV ASDIRECTED [facility] Last Admin: 09/05/17 12:06 Dose: 175 mls/hr Sodium Chloride (Normal Saline) 500 mls @ 500 mls/hr IV BOLUS ONE Stop: 09/04/17 12:59 Last Admin: 09/05/17 17:29 Dose: 500 mls/hr Lactated Ringer's (Ringers, Lactated) 250 mls @ 250 mls/hr IV BOLUS [facility] Last Admin: 09/05/17 02:25 Dose: 250 mls/hr Sodium Chloride (Normal Saline) 1,000 mls @ 150 mls/hr IV ASDIRECTED [facility] Last Admin: 09/06/17 03:47 Dose: 150 mls/hr Lactated Ringer's (Ringers, Lactated) 500 mls @ 250 mls/hr IV .BOLUS [facility] Last Admin: 09/06/17 00:30 Dose: 250 mls/hr Iopamidol (Isovue-300 (61%)) 86 ml IV . DIRECTED [facility] Stop: 09/03/17 06:42 Last Admin: 09/03/17 07:21 Dose: 86 ml Lidocaine HCl (Xylocaine 4% Top Soln) 0 ml TOP ONETIME ONE Stop: 09/03/17 09:01 Last Admin: 09/03/17 08:29 Dose: 2 ml Neostigmine Methylsulfate (Neostigmine) Confirm Administered Dose 5 mg .ROUTE .STK-MED ONE Stop: 09/03/17 11:32 Ondansetron HCl (Zofran) Confirm Administered Dose 4 mg .ROUTE .STK-MED ONE Stop: 09/03/17 11:32 Pantoprazole Sodium (Protonix Iv) 40 mg IVPUSH Q24H [facility] Stop: 09/05/17 11:45 Last Admin: 09/05/17 11:15 Dose: 40 mg Phenylephrine HCl (Rito-Synephrine) Confirm Administered Dose 10 mg .ROUTE .STK- MED ONE Stop: 09/03/17 13:15 Propofol (Diprivan 20 Ml) Confirm Administered Dose 200 mg .ROUTE .STK-MED ONE Stop: 09/03/17 11:32 Rocuronium [place] (Zemuron) Confirm Administered Dose 50 mg .ROUTE .STK-MED ONE Stop: 09/03/17 11:32 Succinylcholine Chloride (Quelicin) Confirm Administered Dose 200 mg .ROUTE .STK -MED ONE Stop: 09/03/17 11:32 - Exam Quality Assessment: Supplemental Oxygen General: Alert, Oriented, Cooperative, No Acute Distress HEENT: Other (white plaques on tongue) Neck: Supple Lungs: Normal Respiratory Effort, Decreased Breath Sounds (mild at bases). No: Crackles Cardiovascular: Regular Rate, Regular Rhythm GI/Abdominal Exam: Normal Bowel Sounds, Soft, No Distention, Tender Extremities: Pedal Edema Skin: Warm, Dry Psy/Mental Status: Alert, Normal Affect - Problem List Review Problem List Initiated/Reviewed/Updated: Yes - My Orders Last 24 Hours: My Active Orders 09/06/17 14:25 Sodium Chloride 0.9% [Normal Saline] 1,000 ml IV ASDIRECTED 09/06/17 14:29 Potassium Chloride [Klor-Con M20] 40 meq PO ONETIME ONE 09/06/17 16:00 Nystatin [Mycostatin] 5 ml PO QID 09/06/17 21:00 Gabapentin [Neurontin] 600 mg PO BID Primidone [Primidone] 125 mg PO BID Propranolol [Inderal LA] 60 mg PO BID 09/07/17 05:00 BASIC METABOLIC PANEL,BMP [CHEM] Timed CBC W/O DIFF,HEMOGRAM [HEME] Timed (1) 09/07/17 09:00 Aspirin [Halfprin] 81 mg PO DAILY Escitalopram [Lexapro] 10 mg PO DAILY - Plan Plan:: ASSESSMENT AND PLAN MECHANICAL SMALL BOWEL OBSTRUCTION - status post exploratory laparotomy. Upper GI series pending. She is passing gas and has good bowel sounds. -Follow-up upper GI imaging -Clear liquids -Regular use of incentive spirometry -Decrease IV rate to 50 mL per hour -PPI -Postoperative care per Dr. Alford HYPOMAGNESEMIA - resolved after replacement BORDERLINE HYPOXIA - likely secondary to sedation and hypoventilation related to surgery with possible mild volume overload with perioperative versus sedation. -Reassess volume status regularly -supplemental oxygen as needed -Ambulate 4 times a day -Incentive spirometer every hour CORONARY ARTERY DISEASE - currently asymptomatic ESSENTIAL TREMOR - significant difficulty with ADLs because of severe tremor. -Restart home meds MAINTENANCE ISSUES -DVT prophylaxis; SCUDs, hold on anticoagulation because of possible surgery -GI prophylaxis; PPI -Montes catheter; not indicated -Nutrition; clear liquids DISPOSITION - anticipate discharge to home after the hospital stay. Nic Valles M.D.
[2017-09-06] MEDS ORDERED: Potassium Chloride 20 MEQ Tab.ER PO ONE (15:00)
[2017-09-06] MEDS: Scopolamine 1.5 MG Transdermal Patch TRDERM SCH (16:04)
[2017-09-06] MEDS: Nystatin Susp 100,000 Unit/ML 5 ML UD Cup PO SCH ×2 (16:04→22:27)
[2017-09-06] MEDS ORDERED: Furosemide 40 MG/4 ML VIAL IVPUSH ONE (21:53)
[2017-09-06] MEDS: Gabapentin 300 MG Cap PO SCH (22:29)
[2017-09-06] MEDS: Propranolol 60 MG Cap.ER PO SCH (22:29)
[2017-09-06] MEDS: Primidone 50 MG Tab PO SCH (22:30)
[2017-09-07] MEDS: Magnesium Hydroxide 400 MG/5 ML Susp 30 ML Cup PO SCH ×3 (01:18→18:17)
[2017-09-07] MEDS: metroNIDAZOLE/Normal Saline 500 MG in Premix Bag 1 BAG IV SCH ×3 (05:22→21:39)
[2017-09-07] MEDS: Nystatin Susp 100,000 Unit/ML 5 ML UD Cup PO SCH ×4 (05:22→21:38)
[2017-09-07] MEDS: Pantoprazole 40 MG Tab.CR PO SCH (07:30)
[2017-09-07] MEDS ORDERED: Furosemide 40 MG/4 ML VIAL IVPUSH ONE (09:00)
--- NOTE | 2017-09-07 09:23 | CR ---
Small Bowel w Serial Film HISTORY: constipation FINDINGS: [employer] KUB demonstrates mild gaseous prominence of bowel loops diffusely. Midline skin stapl es are noted. Appearance may represent postoperative ileus. Following administration of a cup of thin barium serial images were obtained. Initially, barium empties from the stomach normally and passes i nto the duodenum and loops of ileum. At 4 hours, contrast passes as far as proximal loops of ileum in the left lower abdomen. Image obtained at 10 hours does not demonstrate further progression of the b arium. An image obtained at 24 hours demonstrates a small amount of contrast passing further distally into small bowel loops. Contrast is not definitely in the colon at 24 hours. IMPRESSION: Markedly delayed small bowel transit time. There is mild gaseous distention of loops of b owel diffusely. Postoperative changes are noted. Findings could represent postoperative ileus or part ial small bowel obstruction. Contrast has not passed into the colon at 24 hours.
[2017-09-07] MEDS: Aspirin 81 MG Tab.EC PO SCH (09:39)
[2017-09-07] MEDS: Lactulose Soln 10 GM/15 ML 15 ML UD Cup PO SCH ×2 (09:39→21:36)
[2017-09-07] MEDS: Gabapentin 300 MG Cap PO SCH ×2 (09:39→21:38)
[2017-09-07] MEDS: Escitalopram 10 MG Tab PO SCH (09:39)
[2017-09-07] MEDS: Primidone 50 MG Tab PO SCH ×2 (09:40→21:36)
[2017-09-07] MEDS: Enoxaparin 40 MG/0.4 ML Syringe SUBCUT SCH (09:41)
[2017-09-07] MEDS: Propranolol 60 MG Cap.ER PO SCH ×2 (09:42→21:36)
[2017-09-07] MEDS: SCOPOLAMINE PATCH CHECK TOP SCH (09:52)
--- NOTE | 2017-09-07 15:01 | PCM.PN ---
- General Info Date of Service: 09/07/17 Functional Status: Reports: Pain Controlled, Tolerating Diet - Review of Systems General: Denies: Fever Gastrointestinal: Reports: Abdominal Pain Systems Review Comment:: Patient had difficulty with mild increase in shortness of breath and increasing supplemental oxygen requirements overnight. This did respond well to a dose of furosemide. She reports mild, tolerable abdominal pain this morning and she does not have nausea. Abdomen does feel somewhat distended. Edema of hands and feet is better but not resolved. She has not had any fevers. - Patient Data Vitals - Most Recent: Last Vital Signs Temp 36.1 C 09/07/17 14:33 Pulse 87 09/07/17 14:33 Resp 16 09/07/17 14:33 BP 138/69 09/07/17 14:33 Pulse Ox 95 09/07/17 14:33 Weight - Most Recent: 64.637 kg I&O - Last 24 Hours: Intake & Output 09/06/17 09/07/17 09/07/17 22:59 06:59 14:59 Intake Total 904 625 490 Output Total 367 013 2593 Balance 204 -180 -1235 Lab Results Last 24 Hours: Laboratory Results - last 24 hr 09/07/17 09/07/17 Range/Units 05:00 05:00 WBC 9.9 (4.5-11.0) K/uL RBC 3.38 (3.30-5.50) M/uL Hgb 11.4 L (12.0-15.0) g/dL Hct 34.7 L (36.0-48.0) % MCV 103 H (80-98) fL MCH 34 H (27-31) pg MCHC 33 (32-36) % Plt Count 198 (150-400) K/uL Sodium 144 (140-148) mmol/L Potassium 4.3 (3.6-5.2) mmol/L Chloride 112 H (100-108) mmol/L Carbon Dioxide 18 L (21-32) mmol/L Anion Gap 18.3 H (5.0-14.0) mmol/L BUN 20 H (7-18) mg/dL Creatinine 1.3 H (0.6-1.0) mg/dL Est Cr Clr Drug Dosing 36.39 mL/min Estimated GFR (MDRD) 40 L (>60) Glucose 90 (74-106) mg/dL Calcium 7.8 L (8.5-10.1) mg/dL Spike Results Last 24 Hours: Microbiology 09/03/17 13:30 Gram Stain - Final Abdominal Fluid - Drainage Wound Culture - Preliminary Anaerobic Culture - Final NO GROWTH AFTER 3 DAYS Med Orders - Current: Current Medications Acetaminophen (Tylenol) 650 mg PO Q4H PRN PRN Reason: Pain Last Admin: 09/06/17 19:34 Dose: 650 mg Albuterol (Ventolin Hfa) 2 gm INH Q4H PRN PRN Reason: Wheezing Albuterol (Proventil Neb Soln) 2.5 mg NEB Q4H PRN PRN Reason: Shortness Of Breath/wheezing Albuterol/Ipratropium (Duoneb 3.0-0.5 Mg/3 Ml) 3 ml NEB Q4H PRN PRN Reason: wheeze/SOB Last Admin: 09/06/17 21:47 Dose: 3 ml Aspirin (Halfprin) 81 mg PO DAILY [facility] Last Admin: 09/07/17 09:39 Dose: 81 mg Benzocaine/Menthol (Cepacol Sore Throat) 1 lozenge MUCMEM Q1H PRN PRN Reason: Sore Throat Diphenhydramine HCl (Benadryl) 50 mg IVPUSH Q4H PRN PRN Reason: Itching Last Admin: 09/06/17 03:53 Dose: 50 mg Enoxaparin Sodium (Lovenox) 40 mg SUBCUT DAILY [facility] Last Admin: 09/07/17 09:41 Dose: 40 mg Escitalopram Oxalate (Lexapro) 10 mg PO DAILY [facility] Last Admin: 09/07/17 09:39 Dose: 10 mg Gabapentin (Neurontin) 600 mg PO BID [facility] Last Admin: 09/07/17 09:39 Dose: 600 mg Hydromorphone HCl (Dilaudid) 0.25 mg IVPUSH Q2H PRN PRN Reason: Pain Last Admin: 09/05/17 23:11 Dose: 0.25 mg Hydroxyzine HCl (Vistaril) 50 mg IM Q4H PRN PRN Reason: Nausea Last Admin: 09/03/17 15:41 Dose: 50 mg Metronidazole 500 mg/ Premix 100 mls @ 100 mls/hr IV Q8H [facility] Last Admin: 09/07/17 14:11 Dose: 100 mls/hr Sodium Chloride (Normal Saline) 1,000 mls @ 50 mls/hr IV ASDIRECTED [facility] Last Admin: 09/06/17 15:17 Dose: 50 mls/hr Ibuprofen (Motrin) 600 mg PO Q8H PRN PRN Reason: Pain Last Admin: 09/06/17 12:59 Dose: 600 mg Lactulose (Chronulac) 10 gm PO BID [facility] Last Admin: 09/07/17 09:39 Dose: 10 gm Magnesium Hydroxide (Milk Of Magnesia) 30 ml PO Q8H [facility] Last Admin: 09/07/17 09:39 Dose: 30 ml Scopolamine Patch (Check) 1 each TOP DAILY [facility] Last Admin: 09/07/17 09:52 Dose: Not Given Nystatin (Mycostatin) 5 ml PO QID [facility] Last Admin: 09/07/17 09:39 Dose: 5 ml Ondansetron HCl (Zofran) 4 mg IV Q4H PRN PRN Reason: Nausea/Vomiting Last Admin: 09/06/17 13:39 Dose: 4 mg Oxycodone/Acetaminophen (Percocet 325-10 Mg) 2 tab PO Q4H PRN PRN Reason: Pain (moderate 4-6) Last Admin: 09/04/17 21:05 Dose: 1 tab Pantoprazole Sodium (Protonix) 40 mg PO ACBREAKFAST [facility] Last Admin: 09/07/17 07:30 Dose: 40 mg Primidone (Mysoline) 125 mg PO BID [facility] Last Admin: 09/07/17 09:40 Dose: 125 mg Propranolol HCl (Inderal La) 60 mg PO BID [facility] Last Admin: 09/07/17 09:42 Dose: 60 mg Scopolamine (Transderm-Scop) 1.5 mg TRDERM Q72H [facility] Last Admin: 09/06/17 16:04 Dose: 1.5 mg Senna/Docusate Sodium (Senna Plus) 1 tab PO BID PRN PRN Reason: Constipation Last Admin: 09/05/17 21:13 Dose: 1 tab Sodium Chloride (Saline Flush) 10 ml FLUSH ASDIRECTED PRN PRN Reason: Keep Vein Open Last Admin: 09/04/17 08:17 Dose: 10 ml Trolamine Salicylate (Aspercreme 10%) 1 gm TOP Q1H PRN PRN Reason: knee pain Zolpidem Tartrate (Ambien) 5 mg PO BEDTIME PRN PRN Reason: Insomnia Discontinued Medications Barium Sulfate (E-Z-Hd) 340 gm PO . DIRECTED [facility] Stop: 09/07/17 09:31 Ropivacaine 28 ml/Dexamethasone 8 mg/Epinephrine HCl 0.4 mg/ Sodium Chloride 49.6 ml 0 ml NERVRT ASDIRECTED [facility] Last Admin: 09/03/17 13:05 Dose: 80 syringe Dexamethasone (Dexamethasone) Confirm Administered Dose 4 mg .ROUTE .STK-MED ONE Stop: 09/03/17 11:32 Ephedrine Sulfate (Ephedrine Sulfate) Confirm Administered Dose 50 mg .ROUTE .STK-MED ONE Stop: 09/03/17 13:15 Fentanyl (Sublimaze) Confirm Administered Dose 250 mcg .ROUTE .STK-MED ONE Stop: 09/03/17 11:32 Furosemide (Lasix) 20 mg IVPUSH ONETIME ONE Stop: 09/05/17 06:31 Last Admin: 09/05/17 06:52 Dose: 20 mg Furosemide (Lasix) 20 mg IVPUSH ONETIME ONE Stop: 09/06/17 03:33 Last Admin: 09/06/17 03:40 Dose: 20 mg Furosemide (Lasix) 40 mg IVPUSH ONETIME ONE Stop: 09/06/17 21:54 Last Admin: 09/06/17 22:03 Dose: 40 mg Furosemide (Lasix) 40 mg IVPUSH ONETIME ONE Stop: 09/07/17 09:01 Last Admin: 09/07/17 09:30 Dose: 40 mg Glycopyrrolate (Robinul) Confirm Administered Dose 1 mg .ROUTE .STK-MED ONE Stop: 09/03/17 11:32 Hydromorphone HCl (Dilaudid) 0.5 mg IVPUSH ONETIME ONE Stop: 09/03/17 05:31 Last Admin: 09/03/17 05:36 Dose: 0.5 mg Sodium Chloride (Normal Saline) 1,000 mls @ 500 mls/hr IV ASDIRECTED [facility] Last Admin: 09/03/17 05:36 Dose: 500 mls/hr Sodium Chloride (Normal Saline) 70 mls @ 3 mls/sec IV ASDIRECTED [facility] Stop: 09/03/17 06:43 Last Admin: 09/03/17 07:20 Dose: 3 mls/sec Lactated Ringer's (Ringers, Lactated) 1,000 mls @ 125 mls/hr IV BOLUS ONE Stop: 09/03/17 16:07 Last Admin: 09/03/17 08:11 Dose: 125 mls/hr Sodium Chloride (Normal Saline) 1,000 mls @ 125 mls/hr IV ASDIRECTED [facility] Last Infusion: 09/04/17 10:06 Dose: 175 mls/hr Lactated Ringer's (Ringers, Lactated) Confirm Administered Dose 1,000 mls @ as directed .ROUTE .STK-MED ONE Stop: 09/03/17 12:59 Acetaminophen 1,000 mg/ Premix 100 mls @ 400 mls/hr IV Q6H PRN PRN Reason: Pain (severe 7-10) Stop: 09/04/17 14:10 Last Admin: 09/04/17 11:27 Dose: 400 mls/hr Cefazolin Sodium/Dextrose 2 gm (/ Premix) 50 mls @ 100 mls/hr IV Q8H [facility] Stop: 09/03/17 23:59 Last Admin: 09/04/17 00:41 Dose: 100 mls/hr Sodium Chloride (Normal Saline) 500 mls @ 500 mls/hr IV .BOLUS ONE Stop: 09/03/17 19:17 Last Admin: 09/03/17 18:42 Dose: 500 mls/hr Sodium Chloride (Normal Saline) 250 mls @ 250 mls/hr IV ASDIRECTED [facility] Last Admin: 09/04/17 08:27 Dose: 250 mls/hr Magnesium Sulfate 2 gm/ Premix 50 mls @ 25 mls/hr IV Q6H [facility] Stop: 09/04/17 22:59 Last Admin: 09/04/17 21:20 Dose: 25 mls/hr Sodium Chloride (Normal Saline) 1,000 mls @ 175 mls/hr IV ASDIRECTED [facility] Last Admin: 09/05/17 12:06 Dose: 175 mls/hr Sodium Chloride (Normal Saline) 500 mls @ 500 mls/hr IV BOLUS ONE Stop: 09/04/17 12:59 Last Admin: 09/05/17 17:29 Dose: 500 mls/hr Lactated Ringer's (Ringers, Lactated) 250 mls @ 250 mls/hr IV BOLUS [facility] Last Admin: 09/05/17 02:25 Dose: 250 mls/hr Sodium Chloride (Normal Saline) 1,000 mls @ 150 mls/hr IV ASDIRECTED [facility] Last Admin: 09/06/17 03:47 Dose: 150 mls/hr Lactated Ringer's (Ringers, Lactated) 500 mls @ 250 mls/hr IV .BOLUS [facility] Last Admin: 09/06/17 00:30 Dose: 250 mls/hr Iopamidol (Isovue-300 (61%)) 86 ml IV . DIRECTED [facility] Stop: 09/03/17 06:42 Last Admin: 09/03/17 07:21 Dose: 86 ml Lidocaine HCl (Xylocaine 4% Top Soln) 0 ml TOP ONETIME ONE Stop: 09/03/17 09:01 Last Admin: 09/03/17 08:29 Dose: 2 ml Neostigmine Methylsulfate (Neostigmine) Confirm Administered Dose 5 mg .ROUTE .STK-MED ONE Stop: 09/03/17 11:32 Ondansetron HCl (Zofran) Confirm Administered Dose 4 mg .ROUTE .STK-MED ONE Stop: 09/03/17 11:32 Pantoprazole Sodium (Protonix Iv) 40 mg IVPUSH Q24H [facility] Stop: 09/05/17 11:45 Last Admin: 09/05/17 11:15 Dose: 40 mg Phenylephrine HCl (Rito-Synephrine) Confirm Administered Dose 10 mg .ROUTE .STK- MED ONE Stop: 09/03/17 13:15 Potassium Chloride (Klor-Con M20) 40 meq PO ONETIME ONE Stop: 09/06/17 15:01 Last Admin: 09/06/17 16:04 Dose: 40 meq Propofol (Diprivan 20 Ml) Confirm Administered Dose 200 mg .ROUTE .STK-MED ONE Stop: 09/03/17 11:32 Rocuronium [place] (Zemuron) Confirm Administered Dose 50 mg .ROUTE .STK-MED ONE Stop: 09/03/17 11:32 Succinylcholine Chloride (Quelicin) Confirm Administered Dose 200 mg .ROUTE .STK -MED ONE Stop: 09/03/17 11:32 - Exam Quality Assessment: Supplemental Oxygen General: Alert, Oriented, Cooperative, No Acute Distress Neck: Supple Lungs: Normal Respiratory Effort, Crackles (Both bases) Cardiovascular: Regular Rate, Regular Rhythm GI/Abdominal Exam: Normal Bowel Sounds, Soft, No Distention, Tender Extremities: Pedal Edema Skin: Warm, Dry Psy/Mental Status: Alert, Normal Affect - Problem List Review Problem List Initiated/Reviewed/Updated: Yes - My Orders Last 24 Hours: My Active Orders 09/06/17 14:25 Sodium Chloride 0.9% [Normal Saline] 1,000 ml IV ASDIRECTED 09/06/17 16:00 Nystatin [Mycostatin] 5 ml PO QID 09/06/17 21:00 Gabapentin [Neurontin] 600 mg PO BID Primidone [Mysoline] 125 mg PO BID Propranolol [Inderal LA] 60 mg PO BID 09/07/17 09:00 Aspirin [Halfprin] 81 mg PO DAILY Escitalopram [Lexapro] 10 mg PO DAILY 09/08/17 05:00 BASIC METABOLIC PANEL,BMP [CHEM] Timed - Plan Plan:: ASSESSMENT AND PLAN MECHANICAL SMALL BOWEL OBSTRUCTION - status post exploratory laparotomy. Upper GI series could not distinguish between ileus and persistent small bowel obstruction. Patient is having bowel movements. -Clear liquids -Regular use of incentive spirometry -Decrease IV rate to 50 mL per hour -PPI -Postoperative care per Dr. Alford BORDERLINE HYPOXIA - likely secondary to sedation and hypoventilation related to surgery with possible mild volume overload. -Furosemide this morning -Reassess volume status regularly -supplemental oxygen as needed -Ambulate 4 times a day -Incentive spirometer every hour CORONARY ARTERY DISEASE - currently asymptomatic ESSENTIAL TREMOR - significant difficulty with ADLs because of severe tremor. -Continue home meds MAINTENANCE ISSUES -DVT prophylaxis; SCUDs, hold on anticoagulation because of possible surgery -GI prophylaxis; PPI -Montes catheter; not indicated -Nutrition; clear liquids DISPOSITION - anticipate discharge to home versus possibly the [facility] after the hospital stay. Nic Valles M.D.
[2017-09-07] MEDS: Ondansetron 4 MG/2 ML SDV IV PRN (17:31)
--- NOTE | 2017-09-07 19:29 | PN ---
DATE OF SERVICE: 09/07/2017 SUBJECTIVE: The patient continues to slowly improve. No more nausea, vomiting, shortness of breath, or chest pain. OBJECTIVE: VITAL SIGNS: Stable. She is afebrile. CARDIOVASCULAR: Regular rhythm and rate. RESPIRATORY: Lungs clear to auscultation. ABDOMEN: Penz-eg-lmipozbrsm distended. ASSESSMENT: Status post small bowel resection. PLAN: The patient's upper GI with small-bowel follow-through showed ileus versus obstruction. However, the patient for example this morning had 2 large bowel movements and has a bowel movement on a daily basis. There is an obvious concern for bowel obstruction at any point. However, the patient's pain is minimal. She is having bowel movements which are multiple daily and passing large amount of gas. Therefore, at this time, we will just continue to observe this and await to see if this ileus resolves. Immanuel Alford MD /[id number]
[2017-09-08] MEDS: Magnesium Hydroxide 400 MG/5 ML Susp 30 ML Cup PO SCH ×3 (04:53→18:38)
[2017-09-08] MEDS: metroNIDAZOLE/Normal Saline 500 MG in Premix Bag 1 BAG IV SCH (05:19)
[2017-09-08] MEDS: Nystatin Susp 100,000 Unit/ML 5 ML UD Cup PO SCH ×4 (05:19→22:02)
[2017-09-08] MEDS: Pantoprazole 40 MG Tab.CR PO SCH (08:00)
[2017-09-08] MEDS: Lactulose Soln 10 GM/15 ML 15 ML UD Cup PO SCH ×2 (08:32→22:02)
[2017-09-08] MEDS: Propranolol 60 MG Cap.ER PO SCH ×2 (08:33→22:07)
[2017-09-08] MEDS: Primidone 50 MG Tab PO SCH ×2 (08:33→22:03)
[2017-09-08] MEDS: Enoxaparin 40 MG/0.4 ML Syringe SUBCUT SCH (08:33)
[2017-09-08] MEDS: Aspirin 81 MG Tab.EC PO SCH (08:33)
[2017-09-08] MEDS: Escitalopram 10 MG Tab PO SCH (08:33)
[2017-09-08] MEDS: Gabapentin 300 MG Cap PO SCH ×2 (08:34→22:02)
[2017-09-08] MEDS: SCOPOLAMINE PATCH CHECK TOP SCH (08:34)
--- NOTE | 2017-09-08 08:37 | CR ---
Abdomen 2V AP Flat Upright HISTORY: f/u sbo FINDINGS: There is scattered residual contrast in loops of small bowel and colon. There is gaseous di stention of multiple small bowel loops which could represent ileus or partial obstruction. No mass or ganomegaly is seen. No free air can be seen. IMPRESSION: Scattered very remains in loops of small bowel and colon. Gaseous distention of small bow el loops could represent ileus or partial small bowel obstruction.
--- NOTE | 2017-09-08 08:39 | PN ---
DATE OF SERVICE: 09/08/2017 SUBJECTIVE: The patient is doing better today. The patient had significant large and multiple bowel movements yesterday. No nausea, vomiting, shortness of breath, or chest pain. She is tolerating her diet. OBJECTIVE: VITAL SIGNS: Stable. CARDIOVASCULAR: Regular rhythm and rate. RESPIRATORY: Lungs are clear to auscultation bilaterally. ABDOMEN: Bowel sounds positive, distended moderately. No rebound. No guarding. ASSESSMENT: Status post small bowel resection. PLAN: The flat and upright films are pending for this morning. However, the patient continues to have significant bowel movements. Therefore, at this time, I will start to continue to advance her diet. Have Discharge Planning see her. Continue to work on activity. Reassess tomorrow. Immanuel Alford MD /[id number]
--- NOTE | 2017-09-08 10:24 | PCM.PN ---
- General Info Date of Service: 09/08/17 Functional Status: Reports: Pain Controlled, Tolerating Diet - Review of Systems General: Denies: Fever Gastrointestinal: Reports: Abdominal Pain. Denies: Nausea Systems Review Comment:: there were no acute events overnight. She is now off supplemental oxygen. She complains of mild abdominal pain at times but in general has minimal if any pain. She has been having multiple bowel movements. She does not feel short of breath. She has not had any fevers. - Patient Data Vitals - Most Recent: Last Vital Signs Temp 35.5 C 09/08/17 08:22 Pulse 61 09/08/17 08:22 Resp 16 09/08/17 08:22 BP 123/61 09/08/17 08:22 Pulse Ox 97 09/08/17 08:22 Weight - Most Recent: 64.41 kg I&O - Last 24 Hours: Intake & Output 09/07/17 09/08/17 09/08/17 22:59 06:59 14:59 Intake Total 1500 1046 Output Total 175 100 Balance 1325 946 Lab Results Last 24 Hours: Laboratory Results - last 24 hr 09/08/17 09/08/17 Range/Units 04:28 04:28 WBC 7.7 (4.5-11.0) K/uL RBC 3.46 (3.30-5.50) M/uL Hgb 11.3 L (12.0-15.0) g/dL Hct 35.5 L (36.0-48.0) % MCV 103 H (80-98) fL MCH 33 H (27-31) pg MCHC 32 (32-36) % Plt Count 253 (150-400) K/uL Sodium 146 (140-148) mmol/L Potassium 3.8 (3.6-5.2) mmol/L Chloride 113 H (100-108) mmol/L Carbon Dioxide 23 (21-32) mmol/L Anion Gap 13.8 (5.0-14.0) mmol/L BUN 24 H (7-18) mg/dL Creatinine 1.3 H (0.6-1.0) mg/dL Est Cr Clr Drug Dosing 36.39 mL/min Estimated GFR (MDRD) 40 L (>60) Glucose 130 H (74-106) mg/dL Calcium 7.7 L (8.5-10.1) mg/dL Spike Results Last 24 Hours: Microbiology 09/03/17 13:30 Gram Stain - Final Abdominal Fluid - Drainage Wound Culture - Final Staphylococcus Coagulase Neg Anaerobic Culture - Final NO GROWTH AFTER 3 DAYS Med Orders - Current: Current Medications Acetaminophen (Tylenol) 650 mg PO Q4H PRN PRN Reason: Pain Last Admin: 09/06/17 19:34 Dose: 650 mg Albuterol (Ventolin Hfa) 2 gm INH Q4H PRN PRN Reason: Wheezing Albuterol (Proventil Neb Soln) 2.5 mg NEB Q4H PRN PRN Reason: Shortness Of Breath/wheezing Albuterol/Ipratropium (Duoneb 3.0-0.5 Mg/3 Ml) 3 ml NEB Q4H PRN PRN Reason: wheeze/SOB Last Admin: 09/06/17 21:47 Dose: 3 ml Aspirin (Halfprin) 81 mg PO DAILY [facility] Last Admin: 09/08/17 08:33 Dose: 81 mg Benzocaine/Menthol (Cepacol Sore Throat) 1 lozenge MUCMEM Q1H PRN PRN Reason: Sore Throat Enoxaparin Sodium (Lovenox) 40 mg SUBCUT DAILY [facility] Last Admin: 09/08/17 08:33 Dose: 40 mg Escitalopram Oxalate (Lexapro) 10 mg PO DAILY [facility] Last Admin: 09/08/17 08:33 Dose: 10 mg Gabapentin (Neurontin) 600 mg PO BID [facility] Last Admin: 09/08/17 08:34 Dose: 600 mg Hydromorphone HCl (Dilaudid) 0.25 mg IVPUSH Q2H PRN PRN Reason: Pain Last Admin: 09/05/17 23:11 Dose: 0.25 mg Hydroxyzine HCl (Vistaril) 50 mg IM Q4H PRN PRN Reason: Nausea Last Admin: 09/03/17 15:41 Dose: 50 mg Ibuprofen (Motrin) 600 mg PO Q8H PRN PRN Reason: Pain Last Admin: 09/06/17 12:59 Dose: 600 mg Lactulose (Chronulac) 10 gm PO BID [facility] Last Admin: 09/08/17 08:32 Dose: 10 gm Magnesium Hydroxide (Milk Of Magnesia) 30 ml PO Q8H [facility] Last Admin: 09/08/17 04:53 Dose: Not Given Scopolamine Patch (Check) 1 each TOP DAILY [facility] Last Admin: 09/08/17 08:34 Dose: Not Given Nystatin (Mycostatin) 5 ml PO QID [facility] Last Admin: 09/08/17 05:19 Dose: 5 ml Ondansetron HCl (Zofran) 4 mg IV Q4H PRN PRN Reason: Nausea/Vomiting Last Admin: 09/07/17 17:31 Dose: 4 mg Oxycodone/Acetaminophen (Percocet 325-10 Mg) 2 tab PO Q4H PRN PRN Reason: Pain (moderate 4-6) Last Admin: 09/04/17 21:05 Dose: 1 tab Pantoprazole Sodium (Protonix) 40 mg PO ACBREAKFAST [facility] Last Admin: 09/08/17 08:00 Dose: 40 mg Primidone (Mysoline) 125 mg PO BID [facility] Last Admin: 09/08/17 08:33 Dose: 125 mg Propranolol HCl (Inderal La) 60 mg PO BID [facility] Last Admin: 09/08/17 08:33 Dose: 60 mg Scopolamine (Transderm-Scop) 1.5 mg TRDERM Q72H [facility] Last Admin: 09/06/17 16:04 Dose: 1.5 mg Senna/Docusate Sodium (Senna Plus) 1 tab PO BID PRN PRN Reason: Constipation Last Admin: 09/05/17 21:13 Dose: 1 tab Sodium Chloride (Saline Flush) 10 ml FLUSH ASDIRECTED PRN PRN Reason: Keep Vein Open Last Admin: 09/04/17 08:17 Dose: 10 ml Trolamine Salicylate (Aspercreme 10%) 1 gm TOP Q1H PRN PRN Reason: knee pain Zolpidem Tartrate (Ambien) 5 mg PO BEDTIME PRN PRN Reason: Insomnia Discontinued Medications Barium Sulfate (E-Z-Hd) 340 gm PO . DIRECTED [facility] Stop: 09/07/17 09:31 Ropivacaine 28 ml/Dexamethasone 8 mg/Epinephrine HCl 0.4 mg/ Sodium Chloride 49.6 ml 0 ml NERVRT ASDIRECTED [facility] Last Admin: 09/03/17 13:05 Dose: 80 syringe Dexamethasone (Dexamethasone) Confirm Administered Dose 4 mg .ROUTE .STK-MED ONE Stop: 09/03/17 11:32 Diphenhydramine HCl (Benadryl) 50 mg IVPUSH Q4H PRN PRN Reason: Itching Last Admin: 09/06/17 03:53 Dose: 50 mg Ephedrine Sulfate (Ephedrine Sulfate) Confirm Administered Dose 50 mg .ROUTE .STK-MED ONE Stop: 09/03/17 13:15 Fentanyl (Sublimaze) Confirm Administered Dose 250 mcg .ROUTE .STK-MED ONE Stop: 09/03/17 11:32 Furosemide (Lasix) 20 mg IVPUSH ONETIME ONE Stop: 09/05/17 06:31 Last Admin: 09/05/17 06:52 Dose: 20 mg Furosemide (Lasix) 20 mg IVPUSH ONETIME ONE Stop: 09/06/17 03:33 Last Admin: 09/06/17 03:40 Dose: 20 mg Furosemide (Lasix) 40 mg IVPUSH ONETIME ONE Stop: 09/06/17 21:54 Last Admin: 09/06/17 22:03 Dose: 40 mg Furosemide (Lasix) 40 mg IVPUSH ONETIME ONE Stop: 09/07/17 09:01 Last Admin: 09/07/17 09:30 Dose: 40 mg Glycopyrrolate (Robinul) Confirm Administered Dose 1 mg .ROUTE .STK-MED ONE Stop: 09/03/17 11:32 Hydromorphone HCl (Dilaudid) 0.5 mg IVPUSH ONETIME ONE Stop: 09/03/17 05:31 Last Admin: 09/03/17 05:36 Dose: 0.5 mg Sodium Chloride (Normal Saline) 1,000 mls @ 500 mls/hr IV ASDIRECTED [facility] Last Admin: 09/03/17 05:36 Dose: 500 mls/hr Sodium Chloride (Normal Saline) 70 mls @ 3 mls/sec IV ASDIRECTED [facility] Stop: 09/03/17 06:43 Last Admin: 09/03/17 07:20 Dose: 3 mls/sec Lactated Ringer's (Ringers, Lactated) 1,000 mls @ 125 mls/hr IV BOLUS ONE Stop: 09/03/17 16:07 Last Admin: 09/03/17 08:11 Dose: 125 mls/hr Sodium Chloride (Normal Saline) 1,000 mls @ 125 mls/hr IV ASDIRECTED [facility] Last Infusion: 09/04/17 10:06 Dose: 175 mls/hr Lactated Ringer's (Ringers, Lactated) Confirm Administered Dose 1,000 mls @ as directed .ROUTE .STK-MED ONE Stop: 09/03/17 12:59 Acetaminophen 1,000 mg/ Premix 100 mls @ 400 mls/hr IV Q6H PRN PRN Reason: Pain (severe 7-10) Stop: 09/04/17 14:10 Last Admin: 09/04/17 11:27 Dose: 400 mls/hr Cefazolin Sodium/Dextrose 2 gm (/ Premix) 50 mls @ 100 mls/hr IV Q8H [facility] Stop: 09/03/17 23:59 Last Admin: 09/04/17 00:41 Dose: 100 mls/hr Sodium Chloride (Normal Saline) 500 mls @ 500 mls/hr IV .BOLUS ONE Stop: 09/03/17 19:17 Last Admin: 09/03/17 18:42 Dose: 500 mls/hr Sodium Chloride (Normal Saline) 250 mls @ 250 mls/hr IV ASDIRECTED [facility] Last Admin: 09/04/17 08:27 Dose: 250 mls/hr Metronidazole 500 mg/ Premix 100 mls @ 100 mls/hr IV Q8H [facility] Last Admin: 09/08/17 05:19 Dose: 100 mls/hr Magnesium Sulfate 2 gm/ Premix 50 mls @ 25 mls/hr IV Q6H [facility] Stop: 09/04/17 22:59 Last Admin: 09/04/17 21:20 Dose: 25 mls/hr Sodium Chloride (Normal Saline) 1,000 mls @ 175 mls/hr IV ASDIRECTED [facility] Last Admin: 09/05/17 12:06 Dose: 175 mls/hr Sodium Chloride (Normal Saline) 500 mls @ 500 mls/hr IV BOLUS ONE Stop: 09/04/17 12:59 Last Admin: 09/05/17 17:29 Dose: 500 mls/hr Lactated Ringer's (Ringers, Lactated) 250 mls @ 250 mls/hr IV BOLUS [facility] Last Admin: 09/05/17 02:25 Dose: 250 mls/hr Sodium Chloride (Normal Saline) 1,000 mls @ 150 mls/hr IV ASDIRECTED [facility] Last Admin: 09/06/17 03:47 Dose: 150 mls/hr Lactated Ringer's (Ringers, Lactated) 500 mls @ 250 mls/hr IV .BOLUS [facility] Last Admin: 09/06/17 00:30 Dose: 250 mls/hr Sodium Chloride (Normal Saline) 1,000 mls @ 50 mls/hr IV ASDIRECTED [facility] Last Admin: 09/06/17 15:17 Dose: 50 mls/hr Iopamidol (Isovue-300 (61%)) 86 ml IV . DIRECTED [facility] Stop: 09/03/17 06:42 Last Admin: 09/03/17 07:21 Dose: 86 ml Lidocaine HCl (Xylocaine 4% Top Soln) 0 ml TOP ONETIME ONE Stop: 09/03/17 09:01 Last Admin: 09/03/17 08:29 Dose: 2 ml Neostigmine Methylsulfate (Neostigmine) Confirm Administered Dose 5 mg .ROUTE .STK-MED ONE Stop: 09/03/17 11:32 Ondansetron HCl (Zofran) Confirm Administered Dose 4 mg .ROUTE .STK-MED ONE Stop: 09/03/17 11:32 Pantoprazole Sodium (Protonix Iv) 40 mg IVPUSH Q24H [facility] Stop: 09/05/17 11:45 Last Admin: 09/05/17 11:15 Dose: 40 mg Phenylephrine HCl (Rito-Synephrine) Confirm Administered Dose 10 mg .ROUTE .STK- MED ONE Stop: 09/03/17 13:15 Potassium Chloride (Klor-Con M20) 40 meq PO ONETIME ONE Stop: 09/06/17 15:01 Last Admin: 09/06/17 16:04 Dose: 40 meq Propofol (Diprivan 20 Ml) Confirm Administered Dose 200 mg .ROUTE .STK-MED ONE Stop: 09/03/17 11:32 Rocuronium [place] (Zemuron) Confirm Administered Dose 50 mg .ROUTE .STK-MED ONE Stop: 09/03/17 11:32 Succinylcholine Chloride (Quelicin) Confirm Administered Dose 200 mg .ROUTE .STK -MED ONE Stop: 09/03/17 11:32 - Exam Quality Assessment: No: Supplemental Oxygen General: Alert, Oriented, Cooperative, No Acute Distress Neck: Supple Lungs: Clear to Auscultation, Normal Respiratory Effort, Crackles (rare left lung base) Cardiovascular: Regular Rate, Regular Rhythm GI/Abdominal Exam: Normal Bowel Sounds, Soft, Non-Tender, No Distention Extremities: No Pedal Edema Psy/Mental Status: Alert, Normal Affect - Problem List Review Problem List Initiated/Reviewed/Updated: Yes - My Orders Last 24 Hours: My Active Orders 09/07/17 16:44 DC Montes Catheter [Urinary Catheter Removal] [RC] Per Unit Routine 09/08/17 10:22 Convert IV to Saline Lock [OM.PC] Routine 09/08/17 10:30 Furosemide [Lasix] 20 mg PO DAILY 09/09/17 05:00 BASIC METABOLIC PANEL,BMP [CHEM] Timed HGB [HEMOGLOBIN] [HEME] Timed - Plan Plan:: ASSESSMENT AND PLAN MECHANICAL SMALL BOWEL OBSTRUCTION - status post exploratory laparotomy. some residual abdominal distention but having regular loose bowel movements. Pain is well-controlled. She is tolerating her diet well. -full liquids -Regular use of incentive spirometry -saline lock IV -PPI -Postoperative care per Dr. Alford BORDERLINE HYPOXIA - she is now off supplemental oxygen following diuresis. -oral Furosemide this daily -supplemental oxygen as needed -Ambulate 4 times a day -Incentive spirometer every hour CORONARY ARTERY DISEASE - currently asymptomatic ESSENTIAL TREMOR - significant difficulty with ADLs because of severe tremor. -Continue home meds MAINTENANCE ISSUES -DVT prophylaxis; SCUDs -GI prophylaxis; PPI -Montes catheter; not indicated -Nutrition; full liquids DISPOSITION - anticipate discharge to home versus possibly the fpc after the hospital stay, probably 1 or 2 more days. Nic Valles M.D.
[2017-09-08] MEDS: Furosemide 20 MG Tab PO SCH (11:07)
[2017-09-09] MEDS: Magnesium Hydroxide 400 MG/5 ML Susp 30 ML Cup PO SCH (02:12)
[2017-09-09] MEDS: Nystatin Susp 100,000 Unit/ML 5 ML UD Cup PO SCH ×4 (05:08→21:50)
[2017-09-09] MEDS: Gabapentin 300 MG Cap PO SCH ×2 (08:18→21:50)
[2017-09-09] MEDS: Propranolol 60 MG Cap.ER PO SCH ×2 (08:18→21:50)
[2017-09-09] MEDS: Primidone 50 MG Tab PO SCH ×2 (08:18→21:49)
[2017-09-09] MEDS: Escitalopram 10 MG Tab PO SCH (08:19)
[2017-09-09] MEDS: Pantoprazole 40 MG Tab.CR PO SCH (08:19)
[2017-09-09] MEDS: Enoxaparin 40 MG/0.4 ML Syringe SUBCUT SCH (08:19)
[2017-09-09] MEDS: Furosemide 20 MG Tab PO SCH (08:19)
[2017-09-09] MEDS: Lactulose Soln 10 GM/15 ML 15 ML UD Cup PO SCH (08:19)
[2017-09-09] MEDS: Aspirin 81 MG Tab.EC PO SCH (08:19)
[2017-09-09] MEDS: SCOPOLAMINE PATCH CHECK TOP SCH (08:36)
[2017-09-09] MEDS ORDERED: Magnesium Hydroxide 400 MG/5 ML Susp 30 ML Cup PO PRN (09:13)
--- NOTE | 2017-09-09 09:55 | PN ---
DATE OF SERVICE: 09/09/2017 SUBJECTIVE: The patient continues to improve. Pain is absent now. No nausea, vomiting, shortness of breath, or chest pain. She is having multiple bowel movements per day. OBJECTIVE: VITAL SIGNS: Stable. CARDIOVASCULAR: Regular rhythm and rate. LUNGS: Clear to auscultation bilaterally. ABDOMEN: Less distended. ASSESSMENT: Status post small bowel resection. PLAN: The patient is on regular diet, saline lock. We will continue to advance her diet. She still does have some abdominal distention. However, the last 3 days have shown significant improvement daily with multiple bowel movements daily. We will have discharge reassessment and plan for probable discharge tomorrow if she continues this pathway. Immanuel Alford MD /[id number]
[2017-09-09] MEDS ORDERED: Zinc Oxide 20% Oint 56.7 GM Tube TOP PRN (11:14)
[2017-09-09] MEDS ORDERED: Dimethicone 20%/Zinc Oxide 25% 56 GM Spray Bottle TOP PRN (11:43)
--- NOTE | 2017-09-09 11:59 | PCM.PN ---
- General Info Date of Service: 09/09/17 Functional Status: Reports: Pain Controlled, Tolerating Diet - Review of Systems General: Reports: Weakness. Denies: Fever Pulmonary: Denies: Shortness of Breath Gastrointestinal: Reports: Diarrhea Systems Review Comment:: There were no acute events overnight. She has mild lower abdominal pain but this seems stable. She continues to have diarrhea. She has not had any fevers. Lower extremity edema is stable but not much improved. She does not feel short of breath and has not required supplemental oxygen. - Patient Data Vitals - Most Recent: Last Vital Signs Temp 35.6 C 09/09/17 07:29 Pulse 103 H 09/09/17 07:29 Resp 16 09/09/17 07:29 BP 110/52 L 09/09/17 07:29 Pulse Ox 90 L 09/09/17 07:29 Weight - Most Recent: 64.864 kg I&O - Last 24 Hours: Intake & Output 09/08/17 09/09/17 09/09/17 22:59 06:59 14:59 Intake Total 240 200 Output Total 300 150 Balance -60 -150 200 Lab Results Last 24 Hours: Laboratory Results - last 24 hr 09/09/17 09/09/17 Range/Units 04:45 04:45 Hgb 11.3 L (12.0-15.0) g/dL Sodium 145 (140-148) mmol/L Potassium 3.8 (3.6-5.2) mmol/L Chloride 112 H (100-108) mmol/L Carbon Dioxide 25 (21-32) mmol/L Anion Gap 11.8 (5.0-14.0) mmol/L BUN 28 H (7-18) mg/dL Creatinine 1.3 H (0.6-1.0) mg/dL Est Cr Clr Drug Dosing 36.29 mL/min Estimated GFR (MDRD) 40 L (>60) Glucose 105 (74-106) mg/dL Calcium 7.7 L (8.5-10.1) mg/dL Med Orders - Current: Current Medications Acetaminophen (Tylenol) 650 mg PO Q4H PRN PRN Reason: Pain Last Admin: 09/06/17 19:34 Dose: 650 mg Albuterol (Ventolin Hfa) 2 gm INH Q4H PRN PRN Reason: Wheezing Albuterol (Proventil Neb Soln) 2.5 mg NEB Q4H PRN PRN Reason: Shortness Of Breath/wheezing Albuterol/Ipratropium (Duoneb 3.0-0.5 Mg/3 Ml) 3 ml NEB Q4H PRN PRN Reason: wheeze/SOB Last Admin: 09/06/17 21:47 Dose: 3 ml Aspirin (Halfprin) 81 mg PO DAILY [facility] Last Admin: 09/09/17 08:19 Dose: 81 mg Benzocaine/Menthol (Cepacol Sore Throat) 1 lozenge MUCMEM Q1H PRN PRN Reason: Sore Throat Dimethicone/Zinc Oxide (Rash Relief-Zinc Oxide [place]) 1 gm TOP ASDIRECTED PRN PRN Reason: Rash Enoxaparin Sodium (Lovenox) 40 mg SUBCUT DAILY [facility] Last Admin: 09/09/17 08:19 Dose: 40 mg Escitalopram Oxalate (Lexapro) 10 mg PO DAILY [facility] Last Admin: 09/09/17 08:19 Dose: 10 mg Furosemide (Lasix) 20 mg PO DAILY [facility] Last Admin: 09/09/17 08:19 Dose: 20 mg Gabapentin (Neurontin) 600 mg PO BID [facility] Last Admin: 09/09/17 08:18 Dose: 600 mg Hydromorphone HCl (Dilaudid) 0.25 mg IVPUSH Q2H PRN PRN Reason: Pain Last Admin: 09/05/17 23:11 Dose: 0.25 mg Hydroxyzine HCl (Vistaril) 50 mg IM Q4H PRN PRN Reason: Nausea Last Admin: 09/03/17 15:41 Dose: 50 mg Ibuprofen (Motrin) 600 mg PO Q8H PRN PRN Reason: Pain Last Admin: 09/06/17 12:59 Dose: 600 mg Magnesium Hydroxide (Milk Of Magnesia) 30 ml PO Q8H PRN PRN Reason: Constipation Scopolamine Patch (Check) 1 each TOP DAILY [facility] Last Admin: 09/09/17 08:36 Dose: Not Given Nystatin (Mycostatin) 5 ml PO QID [facility] Last Admin: 09/09/17 10:47 Dose: 5 ml Ondansetron HCl (Zofran) 4 mg IV Q4H PRN PRN Reason: Nausea/Vomiting Last Admin: 09/07/17 17:31 Dose: 4 mg Oxycodone/Acetaminophen (Percocet 325-10 Mg) 2 tab PO Q4H PRN PRN Reason: Pain (moderate 4-6) Last Admin: 09/04/17 21:05 Dose: 1 tab Pantoprazole Sodium (Protonix) 40 mg PO ACBREAKFAST [facility] Last Admin: 09/09/17 08:19 Dose: 40 mg Primidone (Mysoline) 125 mg PO BID [facility] Last Admin: 09/09/17 08:18 Dose: 125 mg Propranolol HCl (Inderal La) 60 mg PO BID [facility] Last Admin: 09/09/17 08:18 Dose: 60 mg Scopolamine (Transderm-Scop) 1.5 mg TRDERM Q72H [facility] Last Admin: 09/06/17 16:04 Dose: 1.5 mg Senna/Docusate Sodium (Senna Plus) 1 tab PO BID PRN PRN Reason: Constipation Last Admin: 09/05/17 21:13 Dose: 1 tab Sodium Chloride (Saline Flush) 10 ml FLUSH ASDIRECTED PRN PRN Reason: Keep Vein Open Last Admin: 09/04/17 08:17 Dose: 10 ml Trolamine Salicylate (Aspercreme 10%) 1 gm TOP Q1H PRN PRN Reason: knee pain Zolpidem Tartrate (Ambien) 5 mg PO BEDTIME PRN PRN Reason: Insomnia Discontinued Medications Barium Sulfate (E-Z-Hd) 340 gm PO . DIRECTED [facility] Stop: 09/07/17 09:31 Ropivacaine 28 ml/Dexamethasone 8 mg/Epinephrine HCl 0.4 mg/ Sodium Chloride 49.6 ml 0 ml NERVRT ASDIRECTED [facility] Last Admin: 09/03/17 13:05 Dose: 80 syringe Dexamethasone (Dexamethasone) Confirm Administered Dose 4 mg .ROUTE .STK-MED ONE Stop: 09/03/17 11:32 Diphenhydramine HCl (Benadryl) 50 mg IVPUSH Q4H PRN PRN Reason: Itching Last Admin: 09/06/17 03:53 Dose: 50 mg Ephedrine Sulfate (Ephedrine Sulfate) Confirm Administered Dose 50 mg .ROUTE .STK-MED ONE Stop: 09/03/17 13:15 Fentanyl (Sublimaze) Confirm Administered Dose 250 mcg .ROUTE .STK-MED ONE Stop: 09/03/17 11:32 Furosemide (Lasix) 20 mg IVPUSH ONETIME ONE Stop: 09/05/17 06:31 Last Admin: 09/05/17 06:52 Dose: 20 mg Furosemide (Lasix) 20 mg IVPUSH ONETIME ONE Stop: 09/06/17 03:33 Last Admin: 09/06/17 03:40 Dose: 20 mg Furosemide (Lasix) 40 mg IVPUSH ONETIME ONE Stop: 09/06/17 21:54 Last Admin: 09/06/17 22:03 Dose: 40 mg Furosemide (Lasix) 40 mg IVPUSH ONETIME ONE Stop: 09/07/17 09:01 Last Admin: 09/07/17 09:30 Dose: 40 mg Glycopyrrolate (Robinul) Confirm Administered Dose 1 mg .ROUTE .STK-MED ONE Stop: 09/03/17 11:32 Hydromorphone HCl (Dilaudid) 0.5 mg IVPUSH ONETIME ONE Stop: 09/03/17 05:31 Last Admin: 09/03/17 05:36 Dose: 0.5 mg Sodium Chloride (Normal Saline) 1,000 mls @ 500 mls/hr IV ASDIRECTED [facility] Last Admin: 09/03/17 05:36 Dose: 500 mls/hr Sodium Chloride (Normal Saline) 70 mls @ 3 mls/sec IV ASDIRECTED [facility] Stop: 09/03/17 06:43 Last Admin: 09/03/17 07:20 Dose: 3 mls/sec Lactated Ringer's (Ringers, Lactated) 1,000 mls @ 125 mls/hr IV BOLUS ONE Stop: 09/03/17 16:07 Last Admin: 09/03/17 08:11 Dose: 125 mls/hr Sodium Chloride (Normal Saline) 1,000 mls @ 125 mls/hr IV ASDIRECTED [facility] Last Infusion: 09/04/17 10:06 Dose: 175 mls/hr Lactated Ringer's (Ringers, Lactated) Confirm Administered Dose 1,000 mls @ as directed .ROUTE .STK-MED ONE Stop: 09/03/17 12:59 Acetaminophen 1,000 mg/ Premix 100 mls @ 400 mls/hr IV Q6H PRN PRN Reason: Pain (severe 7-10) Stop: 04/21/18 14:10 Last Admin: 09/04/17 11:27 Dose: 400 mls/hr Cefazolin Sodium/Dextrose 2 gm (/ Premix) 50 mls @ 100 mls/hr IV Q8H [facility] Stop: 09/03/17 23:59 Last Admin: 09/04/17 00:41 Dose: 100 mls/hr Sodium Chloride (Normal Saline) 500 mls @ 500 mls/hr IV .BOLUS ONE Stop: 09/03/17 19:17 Last Admin: 09/03/17 18:42 Dose: 500 mls/hr Sodium Chloride (Normal Saline) 250 mls @ 250 mls/hr IV ASDIRECTED [facility] Last Admin: 09/04/17 08:27 Dose: 250 mls/hr Metronidazole 500 mg/ Premix 100 mls @ 100 mls/hr IV Q8H [facility] Last Admin: 09/08/17 05:19 Dose: 100 mls/hr Magnesium Sulfate 2 gm/ Premix 50 mls @ 25 mls/hr IV Q6H [facility] Stop: 09/04/17 22:59 Last Admin: 09/04/17 21:20 Dose: 25 mls/hr Sodium Chloride (Normal Saline) 1,000 mls @ 175 mls/hr IV ASDIRECTED [facility] Last Admin: 09/05/17 12:06 Dose: 175 mls/hr Sodium Chloride (Normal Saline) 500 mls @ 500 mls/hr IV BOLUS ONE Stop: 09/04/17 12:59 Last Admin: 09/05/17 17:29 Dose: 500 mls/hr Lactated Ringer's (Ringers, Lactated) 250 mls @ 250 mls/hr IV BOLUS [facility] Last Admin: 09/05/17 02:25 Dose: 250 mls/hr Sodium Chloride (Normal Saline) 1,000 mls @ 150 mls/hr IV ASDIRECTED [facility] Last Admin: 09/06/17 03:47 Dose: 150 mls/hr Lactated Ringer's (Ringers, Lactated) 500 mls @ 250 mls/hr IV .BOLUS [facility] Last Admin: 09/06/17 00:30 Dose: 250 mls/hr Sodium Chloride (Normal Saline) 1,000 mls @ 50 mls/hr IV ASDIRECTED [facility] Last Admin: 09/06/17 15:17 Dose: 50 mls/hr Iopamidol (Isovue-300 (61%)) 86 ml IV . DIRECTED [facility] Stop: 09/03/17 06:42 Last Admin: 09/03/17 07:21 Dose: 86 ml Lactulose (Chronulac) 10 gm PO BID [facility] Last Admin: 09/09/17 08:19 Dose: 10 gm Lidocaine HCl (Xylocaine 4% Top Soln) 0 ml TOP ONETIME ONE Stop: 09/03/17 09:01 Last Admin: 09/03/17 08:29 Dose: 2 ml Magnesium Hydroxide (Milk Of Magnesia) 30 ml PO Q8H [facility] Last Admin: 09/09/17 02:12 Dose: 30 ml Multi-Ingred Cream/Lotion/Oil/Oint (Zinc Oxide) 0 gm TOP Q1H PRN PRN Reason: Rash Neostigmine Methylsulfate (Neostigmine) Confirm Administered Dose 5 mg .ROUTE .STK-MED ONE Stop: 09/03/17 11:32 Ondansetron HCl (Zofran) Confirm Administered Dose 4 mg .ROUTE .STK-MED ONE Stop: 09/03/17 11:32 Pantoprazole Sodium (Protonix Iv) 40 mg IVPUSH Q24H [facility] Stop: 09/05/17 11:45 Last Admin: 09/05/17 11:15 Dose: 40 mg Phenylephrine HCl (Rito-Synephrine) Confirm Administered Dose 10 mg .ROUTE .STK- MED ONE Stop: 09/03/17 13:15 Potassium Chloride (Klor-Con M20) 40 meq PO ONETIME ONE Stop: 09/06/17 15:01 Last Admin: 09/06/17 16:04 Dose: 40 meq Propofol (Diprivan 20 Ml) Confirm Administered Dose 200 mg .ROUTE .STK-MED ONE Stop: 09/03/17 11:32 Rocuronium [place] (Zemuron) Confirm Administered Dose 50 mg .ROUTE .STK-MED ONE Stop: 09/03/17 11:32 Succinylcholine Chloride (Quelicin) Confirm Administered Dose 200 mg .ROUTE .STK -MED ONE Stop: 09/03/17 11:32 - Exam Quality Assessment: No: Supplemental Oxygen General: Alert, Oriented, Cooperative, No Acute Distress Neck: Supple Lungs: Clear to Auscultation, Normal Respiratory Effort, Decreased Breath Sounds (mild both bases) Cardiovascular: Regular Rate, Regular Rhythm GI/Abdominal Exam: Normal Bowel Sounds, Soft, Non-Tender, Distended Extremities: Pedal Edema Psy/Mental Status: Alert, Normal Affect - Problem List Review Problem List Initiated/Reviewed/Updated: Yes - Plan Plan:: ASSESSMENT AND PLAN MECHANICAL SMALL BOWEL OBSTRUCTION - status post exploratory laparotomy. some residual abdominal distention but having regular loose bowel movements. Pain is well-controlled. She is tolerating her diet well. -Advance diet per surgery -Regular use of incentive spirometry -saline lock IV -PPI -Postoperative care per Dr. Alford HYPOXIA - she is now off supplemental oxygen following diuresis. -oral Furosemide daily and again this afternoon -supplemental oxygen as needed -Ambulate 4 times a day -Incentive spirometer every hour CORONARY ARTERY DISEASE - currently asymptomatic ESSENTIAL TREMOR - significant difficulty with ADLs because of severe tremor but doing better now that she's back on her home medications. -Continue home meds MAINTENANCE ISSUES -DVT prophylaxis; SCUDs -GI prophylaxis; PPI -Montes catheter; not indicated -Nutrition; full liquids DISPOSITION - anticipate discharge to home versus possibly the senior care after the hospital stay, probably tomorrow if stable overnight Nic Valles M.D.
[2017-09-09] MEDS ORDERED: Furosemide 40 MG Tab PO ONE (15:00)
[2017-09-09] MEDS: Scopolamine 1.5 MG Transdermal Patch TRDERM SCH (15:57)
[2017-09-10] MEDS: Nystatin Susp 100,000 Unit/ML 5 ML UD Cup PO SCH (06:51)
[2017-09-10 07:23] VITALS: BP 110/62
[2017-09-10] MEDS: Propranolol 60 MG Cap.ER PO SCH (08:27)
[2017-09-10] MEDS: Primidone 50 MG Tab PO SCH (08:28)
[2017-09-10] MEDS: Aspirin 81 MG Tab.EC PO SCH (08:29)
[2017-09-10] MEDS: Escitalopram 10 MG Tab PO SCH (08:29)
[2017-09-10] MEDS: Pantoprazole 40 MG Tab.CR PO SCH (08:29)
[2017-09-10] MEDS: Furosemide 20 MG Tab PO SCH (08:29)
[2017-09-10] MEDS: Gabapentin 300 MG Cap PO SCH (08:30)
[2017-09-10] MEDS: SCOPOLAMINE PATCH CHECK TOP SCH (08:30)
[2017-09-10] MEDS: Enoxaparin 40 MG/0.4 ML Syringe SUBCUT SCH (08:30)
--- NOTE | 2017-09-10 15:27 | PN ---
DATE OF SERVICE: 09/10/2017 SUBJECTIVE: The patient continues to do well. Pain is well controlled. No nausea, vomiting, shortness of breath, or chest pain. The patient is having multiple bowel movements with no concern. OBJECTIVE: VITAL SIGNS: Stable. CARDIOVASCULAR: Regular rhythm and rate. RESPIRATORY: Lungs are clear to ausculation bilaterally. ABDOMEN: Mild distention, but continuing improving. ASSESSMENT AND PLAN: Status post small bowel resection. PLAN: The patient will be discharged today, please see discharge summary for further details. Immanuel Alford MD /[id number]
--- NOTE | 2017-09-10 21:08 | DISCH ---
DISCHARGE DIAGNOSIS: Status post small bowel resection/bowel obstruction. HOSPITAL COURSE: A 77-year-old female, who underwent an open bowel resection due to a bowel obstruction. The patient continued to do well postoperatively. She was originally admitted by the hospitalist service and they continued to follow throughout the entire hospitalization. The patient having multiple bowel movements today up to 5 to 6. This continued to slowly improve in her bowel movements daily. She does have some mild distention to her abdomen, but continues to improve on a daily basis. It is recommended that the patient be sent to a shelter facility for further treatment, which she has declined at this time. Therefore, we discussed the signs and symptoms, complications, and the role of the emergency room. The fact that she may contact me anytime with any problems. FOLLOWUP: Follow up with Surgery in 7 to 14 days. DISCHARGE MEDICATIONS: Please see MAR, but include ibuprofen for pain. The patient is given [place] prescription, however, she is instructed not only to fill for pain as needed and to destroy if not used.
== END 2017-09-10 11:00 | disposition home or self-care (01) | DRG 344 ==
LOC: JP.ED 04:50 → JP.2SS 08:53
PROVIDERS: ADMIT Hospitalist; ATTEND Internal Medicine
PROC: 0DBA0ZX Excision of Jejunum, Open Approach, Diagnostic (ICD-10-PCS; principal; 2017-09-03)
PROC: 0WJG0ZZ Inspection of Peritoneal Cavity, Open Approach (ICD-10-PCS; 2017-09-03)
DX: K56.609 Unspecified intestinal obstruction, unspecified as to partial versus complete obstruction (principal); I10 Essential (primary) hypertension; K65.9 Peritonitis, unspecified; G20 Parkinson's disease; K56.2 Volvulus; K46.9 Unspecified abdominal hernia without obstruction or gangrene; R09.02 Hypoxemia; R10.9 Unspecified abdominal pain; R14.0 Abdominal distension (gaseous); K56.7 Ileus, unspecified; E83.42 Hypomagnesemia; I11.0 Hypertensive heart disease with heart failure; I50.9 Heart failure, unspecified; J44.9 Chronic obstructive pulmonary disease, unspecified; F17.210 Nicotine dependence, cigarettes, uncomplicated; G25.0 Essential tremor; I25.10 Atherosclerotic heart disease of native coronary artery without angina pectoris; E53.8 Deficiency of other specified B group vitamins; F32.9 Major depressive disorder, single episode, unspecified; M54.9 Dorsalgia, unspecified; G89.29 Other chronic pain; M19.90 Unspecified osteoarthritis, unspecified site; K21.9 Gastro-esophageal reflux disease without esophagitis; Z87.01 Personal history of pneumonia (recurrent); H54.7 Unspecified visual loss; H91.90 Unspecified hearing loss, unspecified ear; Z96.659 Presence of unspecified artificial knee joint; Z79.82 Long term (current) use of aspirin; Z91.040 Latex allergy status
CPT/HCPCS: 36415; 74177; 80053; 82150; 83605; 83690; 85025; 85610; 96361; 96374; 99284; 99285; J1170; J7030; J7040; J7120; Q9967; 71045; 71045-26; 74019; 74019-26; 74250; 74250-26; 80048; 83735; 85018; 85027; 87070; 87075; 87205; 87493; 88307; 94640; 94762; 97110-GP; 97162-GP; 97530-GP; 97535-GP; A9270-GY; C9113; J0131; J0171; J0330; J0690; J1100; J1200; J1650; J1940; J2370; J2405; J2704; J2710; J2795; J3010; J3410; J3475; J7050; J7620

== ENCOUNTER 2017-09-23 13:33 | Inpatient (IN) | payer MEDICARE, OTHER ==
--- NOTE | 2017-09-23 14:06 | EDM.PDOC ---
ED HPI GENERAL MEDICAL PROBLEM - General Chief Complaint: Fever Stated Complaint: [facility] Time Seen by Provider: 09/23/17 13:45 Source of Information: Reports: Patient, Family History Limitations: Reports: No Limitations - History of Present Illness INITIAL COMMENTS - FREE TEXT/NARRATIVE: 77-year-old female with several significant medical problems, recent surgery who had a postoperative checked yesterday and had frank removed but last night had a very long night with chills, confusion, and today has significant weakness worse than her baseline. She has no fever currently, denies shortness of breath. Onset: Unknown/Unsure Location: Reports: Generalized Left Thoracic Pain Score (Numeric/FACES): 4 Abdomen Pain Score (Numeric/FACES): 5 - Related Data Allergies Allergy/AdvReac Type Severity Reaction Status Date / Time latex Allergy Rash Verified 09/23/17 13:40 Home Meds: Home Meds Albuterol [Proair HFA] 2 gm IN Q6HR PRN 06/26/16 [History] Aspirin [Ecotrin] 81 mg PO DAILY 06/26/16 [History] Cyanocobalamin (Vitamin B-12) [Vitamin B-12] 1,000 mcg INJECT ASDIRECTED [History] Furosemide [Lasix] 20 mg PO DAILY 06/26/16 [History] Gabapentin [Neurontin] 600 mg PO TID 06/26/16 [History] Omeprazole Magnesium [Prilosec Otc] 40 mg PO DAILY 06/26/16 [History] Oxybutynin 5 mg PO TID 06/26/16 [History] Primidone 125 mg PO BID 06/26/16 [History] Propranolol [Inderal LA] 60 mg PO BID 06/26/16 [History] Escitalopram [Lexapro] 10 mg PO DAILY 05/06/17 [History] Hydrocodone/Acetaminophen [Hydrocodon-Acetaminophen 5-325] 1 tab PO BID PRN [History] Past Medical History HEENT History: Reports: Cataract, Hard of Hearing, Impaired Vision Cardiovascular History: Reports: Afib, Arrhythmia, Heart Failure, Pulmonary Hypertension, Other (See Below) Other Cardiovascular History: edema bilaterally Respiratory History: Reports: Bronchitis, Recurrent, COPD, Pneumonia, Recurrent , Other (See Below) Other Respiratory History: panlobular emphysema Gastrointestinal History: Reports: Bowel Obstruction, GERD, Irritable Bowel Syndrome Genitourinary History: Reports: Urinary Incontinence 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 Psychiatric History: Reports: Depression Hematologic History: Reports: Anemia, B12 Deficiency - Infectious Disease History Infectious Disease History: Reports: Chicken Pox, Shingles - Past Surgical History HEENT Surgical History: Reports: Oral Surgery, Tonsillectomy Cardiovascular Surgical History: Reports: None Respiratory Surgical History: Reports: None GI Surgical History: Reports: Appendectomy, Cholecystectomy, Colon, Colonoscopy , EGD, Hernia Repair/Other, Other (See Below) Other GI Surgeries/Procedures: bowel resection Female Surgical History: Reports: Breast Biopsy, Section, Other ( See Below) Other Female Surgeries/Procedures: left side biopsy Neurological Surgical History: Reports: None Musculoskeletal Surgical History: Reports: Knee Replacement Oncologic Surgical History: Reports: Biopsy of Breast, Other (See Below) Other Oncologic Surgeries/Procedures: left side biopsy Social & Family History - Family History Family Medical History: Noncontributory - Tobacco Use Smoking Status *Q: Unknown Ever Smoked - Caffeine Use Caffeine Use: Reports: None ED ROS GENERAL - Review of Systems Review Of Systems: See Below Constitutional: Reports: Fever, Chills, Malaise, Weakness, Decreased Appetite Respiratory: Reports: Shortness of Breath. Denies: Cough Cardiovascular: Reports: Chest Pain (Left-sided, mostly from her fall last night ). Denies: Palpitations GI/Abdominal: Reports: Decreased Appetite, Nausea. Denies: Abdominal Pain, Diarrhea, Vomiting Skin: Reports: Bruising (Widespread bruising on her extremities) Neurological: Reports: Weakness. Denies: Paresthesia ED EXAM, GENERAL - Physical Exam Exam: See Below Exam Limited By: No Limitations General Appearance: Alert, Other (Appears very tired but answering questions appropriately, no current confusion) Eye Exam: Bilateral Eye: EOMI Respiratory/Chest: No Respiratory Distress, Lungs Clear Cardiovascular: Regular Rate, Rhythm GI/Abdominal: Normal Bowel Sounds, Tender (Some tenderness to palpation just to the right of the surgical incision, no guarding or distention) Neurological: Alert, Slow to Respond Psychiatric: Depressed Mood, Flat Affect Course - Vital Signs Last Recorded V/S: Last Vital Signs Temp 97.8 F 09/27/17 15:42 Pulse 57 L 09/27/17 15:42 Resp 20 09/27/17 15:42 BP 120/67 09/27/17 15:42 Pulse Ox 97 09/27/17 15:42 - Orders/Labs/Meds Orders: Medication Orders Acetaminophen (Tylenol) 650 mg PO Q4H PRN PRN Reason: Pain (Mild 1-3)/fever Hydrocodone Bitart/Acetaminophen ([place] 325-5 Mg) 1 tab PO BID PRN PRN Reason: Pain Last Admin: 09/27/17 15:46 Dose: 1 tab Admin: 09/26/17 18:40 Dose: 1 tab Admin: 09/25/17 21:37 Dose: 1 tab Admin: 09/24/17 21:10 Dose: 1 tab Albuterol (Proventil Neb Soln) 2.5 mg NEB Q4H PRN PRN Reason: Shortness Of Breath/wheezing Albuterol (Proventil Neb Soln) 2.5 mg NEB QIDRT [facility] Last Admin: 09/27/17 14:42 Dose: 2.5 mg Admin: 09/27/17 10:44 Dose: 2.5 mg Admin: 09/27/17 07:17 Dose: Not Given Admin: 09/26/17 21:56 Dose: 2.5 mg Admin: 09/26/17 14:54 Dose: 2.5 mg Admin: 09/26/17 11:33 Dose: 2.5 mg Aspirin (Halfprin) 81 mg PO DAILY [facility] Last Admin: 09/27/17 08:10 Dose: 81 mg Admin: 09/26/17 09:08 Dose: 81 mg Admin: 09/25/17 08:02 Dose: 81 mg Admin: 09/24/17 08:07 Dose: 81 mg Escitalopram Oxalate (Lexapro) 10 mg PO DAILY [facility] Last Admin: 09/27/17 08:08 Dose: 10 mg Admin: 09/26/17 09:09 Dose: 10 mg Admin: 09/25/17 08:02 Dose: 10 mg Admin: 09/24/17 08:13 Dose: 10 mg Gabapentin (Neurontin) 600 mg PO TID [facility] Last Admin: 09/27/17 13:10 Dose: 600 mg Admin: 09/27/17 08:08 Dose: 600 mg Admin: 09/26/17 21:39 Dose: 600 mg Admin: 09/26/17 13:23 Dose: 600 mg Admin: 09/26/17 09:10 Dose: 600 mg Admin: 09/25/17 21:25 Dose: 600 mg Admin: 09/25/17 15:47 Dose: 600 mg Admin: 09/25/17 08:04 Dose: 600 mg Admin: 09/24/17 21:09 Dose: 600 mg Admin: 09/24/17 14:25 Dose: 600 mg Admin: 09/24/17 08:09 Dose: 600 mg Admin: 09/23/17 20:59 Dose: 600 mg Guaifenesin/Dextromethorphan (Robitussin Dm) 10 ml PO TID [facility] Last Admin: 09/27/17 13:10 Dose: 10 ml Admin: 09/27/17 08:10 Dose: 10 ml Admin: 09/26/17 21:39 Dose: 10 ml Admin: 09/26/17 13:23 Dose: 10 ml Admin: 09/26/17 09:10 Dose: 10 ml Admin: 09/25/17 21:25 Dose: 10 ml Admin: 09/25/17 15:48 Dose: 10 ml Admin: 09/25/17 08:05 Dose: 10 ml Admin: 09/24/17 21:09 Dose: 10 ml Admin: 09/24/17 14:29 Dose: 10 ml Admin: 09/24/17 10:37 Dose: 10 ml Lactobacillus Rhamnosus (Culturelle) 2 cap PO BID [facility] Last Admin: 09/27/17 14:54 Dose: 2 cap Levofloxacin (Levaquin) 500 mg PO Q48H [facility] Levofloxacin (Levaquin) 250 mg PO Q48H [facility] Ondansetron HCl (Zofran Odt) 4 mg PO Q6H PRN PRN Reason: Nausea able to take PO Ondansetron HCl (Zofran) 4 mg IV Q6H PRN PRN Reason: Nausea/Vomiting Oxybutynin Chloride (Oxybutynin) 5 mg PO TID [facility] Last Admin: 09/27/17 13:10 Dose: 5 mg Admin: 09/27/17 08:10 Dose: 5 mg Admin: 09/26/17 21:39 Dose: 5 mg Admin: 09/26/17 13:23 Dose: 5 mg Admin: 09/26/17 09:10 Dose: 5 mg Admin: 09/25/17 21:25 Dose: 5 mg Admin: 09/25/17 15:48 Dose: 5 mg Admin: 09/25/17 08:04 Dose: 5 mg Admin: 09/24/17 21:10 Dose: 5 mg Admin: 09/24/17 14:25 Dose: 5 mg Admin: 09/24/17 08:10 Dose: 5 mg Admin: 09/23/17 20:59 Dose: 5 mg Pantoprazole Sodium (Protonix) 40 mg PO ACBREAKFAST [facility] Last Admin: 09/27/17 08:10 Dose: 40 mg Admin: 09/26/17 09:08 Dose: 40 mg Admin: 09/25/17 07:55 Dose: 40 mg Admin: 09/24/17 07:50 Dose: 40 mg Polyethylene Glycol (Miralax) 17 gm PO DAILY PRN PRN Reason: Constipation Primidone (Mysoline) 125 mg PO BID [facility] Last Admin: 09/27/17 08:08 Dose: 125 mg Admin: 09/26/17 21:39 Dose: 125 mg Admin: 09/26/17 09:09 Dose: 125 mg Admin: 09/25/17 21:25 Dose: 125 mg Admin: 09/25/17 08:03 Dose: 125 mg Admin: 09/24/17 21:10 Dose: 125 mg Admin: 09/24/17 08:14 Dose: 125 mg Admin: 09/23/17 20:59 Dose: 125 mg Propranolol HCl (Inderal La) 60 mg PO BID [facility] Last Admin: 09/27/17 13:10 Dose: 60 mg Admin: 09/26/17 09:09 Dose: 60 mg Admin: 09/25/17 21:25 Dose: 60 mg Admin: 09/25/17 08:02 Dose: 60 mg Admin: 09/24/17 21:10 Dose: 60 mg Admin: 09/24/17 08:08 Dose: 60 mg Admin: 09/23/17 21:00 Dose: 60 mg Senna/Docusate Sodium (Senna Plus) 1 tab PO BID PRN PRN Reason: Constipation Last Admin: 09/27/17 13:35 Dose: 1 tab Labs: Laboratory Tests 09/23/17 09/23/17 09/23/17 Range/Units 14:15 14:15 15:19 WBC 23.0 H (4.5-11.0) K/uL RBC 3.35 (3.30-5.50) M/uL Hgb 11.3 L (12.0-15.0) g/dL Hct 34.9 L (36.0-48.0) % MCV 104 H (80-98) fL MCH 34 H (27-31) pg MCHC 32 (32-36) % Plt Count 242 (150-400) K/uL Add Manual Diff Yes Neutrophils % (Manual) 67 H (36-66) % Band Neutrophils % 6 (5-11) % Lymphocytes % (Manual) 14 L (24-44) % Monocytes % (Manual) 13 H (2-6) % Sodium 142 (140-148) mmol/L Potassium 3.7 (3.6-5.2) mmol/L Chloride 100 (100-108) mmol/L Carbon Dioxide 35 H (21-32) mmol/L Anion Gap 10.7 (5.0-14.0) mmol/L BUN 19 H (7-18) mg/dL Creatinine 1.6 H (0.6-1.0) mg/dL Est Cr Clr Drug Dosing 23.86 mL/min Estimated GFR (MDRD) 31 L (>60) Glucose 113 H (74-106) mg/dL Calcium 9.5 D (8.5-10.1) mg/dL Total Bilirubin 1.1 H D (0.2-1.0) mg/dL AST 25 (15-37) U/L ALT 16 (12-78) U/L Alkaline Phosphatase 77 (46-116) U/L Total Protein 6.6 (6.4-8.2) g/dL Albumin 2.4 L (3.4-5.0) g/dL Globulin 4.2 H (2.3-3.5) g/dL Albumin/Globulin Ratio 0.6 L (1.2-2.2) Urine Color [place] Urine Appearance Cloudy Urine pH 5.0 (4.5-8.0) Ur Specific [place] 1.020 (1.008-1.030) Urine Protein Trace (NEGATIVE) mg/dL Urine Glucose (UA) Normal (NEGATIVE) mg/dL Urine Ketones Negative (NEGATIVE) mg/dL Urine Occult Blood Negative (NEGATIVE) Urine Nitrite Negative (NEGATIVE) Urine Bilirubin Small (NEGATIVE) Urine Urobilinogen 1 (NORMAL) mg/dL Ur Leukocyte Esterase Large (NEGATIVE) Urine RBC 0-5 (0-5) Urine WBC 20-30 H (0-5) Ur Epithelial Cells Few Amorphous Sediment Not seen Urine Bacteria Many Urine Mucus Not seen Meds: Medications Generic Name Dose Route Start Last Admin Trade Name Freq PRN Reason Stop Dose Admin Acetaminophen 650 mg 09/23/17 16:27 Tylenol PO Q4H PRN Pain (Mild 1-3)/fever Hydrocodone Bitart/Acetaminophen 1 tab 09/23/17 16:27 09/27/17 15:46 [place] 325-5 Mg PO 1 tab BID PRN Administration Pain Albuterol 2.5 mg 09/23/17 16:27 Proventil Neb Soln NEB Q4H PRN Shortness Of Breath/wheezing Albuterol 2.5 mg 09/26/17 11:00 09/27/17 14:42 Proventil Neb Soln NEB 2.5 mg QIDRT ASH Administration Aspirin 81 mg 09/24/17 09:00 09/27/17 08:10 Halfprin PO 81 mg DAILY ASH Administration Escitalopram Oxalate 10 mg 09/24/17 09:00 09/27/17 08:08 Lexapro PO 10 mg DAILY ASH Administration Gabapentin 600 mg 09/23/17 21:00 09/27/17 13:10 Neurontin PO 600 mg TID ASH Administration Guaifenesin/Dextromethorphan 10 ml 09/24/17 09:00 09/27/17 13:10 Robitussin Dm PO 10 ml TID ASH Administration Lactobacillus Rhamnosus 2 cap 09/27/17 12:45 09/27/17 14:54 Culturelle PO 2 cap BID ASH Administration Levofloxacin 500 mg 09/27/17 18:00 Levaquin PO Q48H ASH Levofloxacin 250 mg 09/27/17 18:00 Levaquin PO Q48H ASH Ondansetron HCl 4 mg 09/23/17 16:27 Zofran Odt PO Q6H PRN Nausea able to take PO Ondansetron HCl 4 mg 09/23/17 16:27 Zofran IV Q6H PRN Nausea/Vomiting Oxybutynin Chloride 5 mg 09/23/17 21:00 09/27/17 13:10 Oxybutynin PO 5 mg TID ASH Administration Pantoprazole Sodium 40 mg 09/24/17 07:30 09/27/17 08:10 Protonix PO 40 mg ACBREAKFAST ASH Administration Polyethylene Glycol 17 gm 09/23/17 16:27 Miralax PO DAILY PRN Constipation Primidone 125 mg 09/23/17 21:00 09/27/17 08:08 Mysoline PO 125 mg BID ASH Administration Propranolol HCl 60 mg 09/23/17 21:00 09/27/17 13:10 Inderal La PO 60 mg BID ASH Administration Senna/Docusate Sodium 1 tab 09/23/17 16:27 09/27/17 13:35 Senna Plus PO 1 tab BID PRN Administration Constipation Discontinued Medications Generic Name Dose Route Start Last Admin Trade Name Freq PRN Reason Stop Dose Admin Fentanyl 25 mcg 09/23/17 15:04 09/23/17 15:15 Sublimaze IVPUSH 09/23/17 15:05 25 mcg ONETIME ONE Administration Fentanyl 25 mcg 09/23/17 16:15 09/23/17 16:37 Sublimaze IVPUSH 09/23/17 16:16 25 mcg ONETIME ONE Administration Guaifenesin/Dextromethorphan 10 ml 09/23/17 16:27 Robitussin Dm PO Q6H PRN Cough Levofloxacin/Dextrose 750 mg/ 150 mls @ 100 mls/hr 09/23/17 15:49 09/23/17 16 :42 Premix IV 09/23/17 17:18 100 mls/hr ONETIME ONE Administration Sodium Chloride 1,000 mls @ 125 mls/hr 09/23/17 16:00 09/25/17 05:21 Normal Saline IV 125 mls/hr ASDIRECTED ASH Administration Lactated Ringer's 500 mls @ 500 mls/hr 09/23/17 22:45 09/23/17 22:47 Ringers, Lactated IV 500 mls/hr ASDIRECTED ASH Administration Lactated Ringer's 500 mls @ 500 mls/hr 09/23/17 22:53 09/23/17 22:55 Ringers, Lactated IV 09/23/17 23:52 Not Given ONETIME ONE Lactated Ringer's 500 mls @ 500 mls/hr 09/24/17 00:22 09/24/17 00:28 Ringers, Lactated IV 09/24/17 01:21 500 mls/hr ONETIME ONE Administration Lactated Ringer's 500 mls @ 500 mls/hr 09/24/17 03:11 09/24/17 10:57 Ringers, Lactated IV 09/24/17 04:10 500 mls/hr ONETIME ONE Administration Lactated Ringer's 500 mls @ 500 mls/hr 09/24/17 10:45 Ringers, Lactated IV 09/24/17 11:46 .BOLUS ASH Levofloxacin/Dextrose 750 mg/ 150 mls @ 100 mls/hr 09/25/17 18:00 09/25/17 17 :03 Premix IV 100 mls/hr Q48H ASH Administration Potassium Chloride 40 meq 09/26/17 11:00 09/26/17 13:23 Klor-Con M20 PO 09/26/17 11:01 40 meq ONETIME ONE Administration - Re-Assessments/Exams Free Text/Narrative Re-Assessment/Exam: 09/23/17 15:06 Chest x-ray shows a left pleural effusion, as is called "stable" by radiology but I do not see it appeared on an older x-ray. White count is 24,000. I also do not see a rib fracture on the x-ray. 09/23/17 16:16 No fever redeveloped while in the emergency room but the patient was so profoundly weak that I asked the hospitalist service to evaluate for admission. She needed pain medication twice because of the left chest wall pain, a subtle rib fracture is possible. Departure - Departure Time of Disposition: 16:47 Disposition: Admitted As Inpatient 65 Condition: Poor Clinical Impression: Generalized weakness, Contusion of left chest wall, Pleural effusion on left - Discharge Information
--- NOTE | 2017-09-23 14:57 | CR ---
Chest 1V Frontal INDICATION: cough,weakness COMPARISON: 09/05/2017 FINDINGS: AP portable chest. Cardiomegaly unchanged. Stimulator device wires extending superiorly in the neck again noted. Probabl e small left pleural effusion unchanged. Mild vascular congestion unchanged.
[2017-09-23] MEDS ORDERED: fentaNYL 100 MCG/2 ML SDV IVPUSH ONE ×2 (15:04→16:15)
[2017-09-23] MEDS ORDERED: Levofloxacin/Dextrose 5%-Water 750 MG in Premix Bag 1 BAG IV ONE (15:49)
--- NOTE | 2017-09-23 15:59 | PCM.HP ---
H&P History of Present Illness - General Date of Service: 09/23/17 Admit Problem/Dx: Admission Diagnosis/Problem Admission Diagnosis/Problem Generalized weakness following poliomyelitis Source of Information: Patient, Family, Provider History Limitations: Reports: No Limitations - History of Present Illness Initial Comments - Free Text/Narative: Kelly presents to the emergency room today with generalized weakness as well as confusion. Symptoms started yesterday and were initially mild during the day but progressed throughout the day and into the night. She had a fall at home last night striking the left side of her chest. Confusion seems a little bit better today. She is very weak and lethargic. She reports a loose but nonproductive cough that is about the same as it has been for the past couple of weeks. She reports very mild lower abdominal pain that is slowly improving from her surgery. She reports increased urinary frequency and urgency but does not think this is any worse than it has been for the past few weeks. She has had subjective fevers and chills at home. Appetite has not been great. She has been able to make some improvement with her home care physical therapy. No change in bowel habits. No complaints of shortness of breath beyond baseline. Workup in the emergency room revealed a leukocytosis at 23,000. Kidney function is not quite as good as usual but is near baseline. Chest x-ray did not show definitive pneumonia. Urine sample is pending. Given her profound weakness and suspected bacterial infection she will be admitted for inpatient management. Left Thoracic Pain Score (Numeric/FACES): 4 - Related Data Allergies/Adverse Reactions: Allergies Allergy/AdvReac Type Severity Reaction Status Date / Time latex Allergy Rash Verified 09/23/17 13:40 Home Medications: Home Meds Albuterol [Proair HFA] 2 gm IN Q6HR PRN 06/26/16 [History] Aspirin [Ecotrin] 81 mg PO DAILY 06/26/16 [History] Cyanocobalamin (Vitamin B-12) [Vitamin B-12] 1,000 mcg INJECT ASDIRECTED [History] Furosemide [Lasix] 20 mg PO DAILY 06/26/16 [History] Gabapentin [Neurontin] 600 mg PO TID 06/26/16 [History] Omeprazole Magnesium [Prilosec Otc] 40 mg PO DAILY 06/26/16 [History] Oxybutynin 5 mg PO TID 06/26/16 [History] Primidone 125 mg PO BID 06/26/16 [History] Propranolol [Inderal LA] 60 mg PO BID 06/26/16 [History] Escitalopram [Lexapro] 10 mg PO DAILY 05/06/17 [History] Hydrocodone/Acetaminophen [Hydrocodon-Acetaminophen 5-325] 1 tab PO BID PRN [History] Past Medical History HEENT History: Reports: Cataract, Hard of Hearing, Impaired Vision Cardiovascular History: Reports: Afib, Arrhythmia, Heart Failure, Pulmonary Hypertension, Other (See Below) Other Cardiovascular History: edema bilaterally Respiratory History: Reports: Bronchitis, Recurrent, COPD, Pneumonia, Recurrent , Other (See Below) Other Respiratory History: panlobular emphysema Gastrointestinal History: Reports: Bowel Obstruction, GERD, Irritable Bowel Syndrome Genitourinary History: Reports: Urinary Incontinence [employer]GRAM [employer]ION 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 Psychiatric History: Reports: Depression Hematologic History: Reports: Anemia, B12 Deficiency - Infectious Disease History Infectious Disease History: Reports: Chicken Pox, Shingles - Past Surgical History HEENT Surgical History: Reports: Oral Surgery, Tonsillectomy Cardiovascular Surgical History: Reports: None Respiratory Surgical History: Reports: None GI Surgical History: Reports: Appendectomy, Cholecystectomy, Colon, Colonoscopy , EGD, Hernia Repair/Other, Other (See Below) Other GI Surgeries/Procedures: bowel resection Female Surgical History: Reports: Breast Biopsy, Section, Other ( See Below) Other Female Surgeries/Procedures: left side biopsy Neurological Surgical History: Reports: None Musculoskeletal Surgical History: Reports: Knee Replacement Oncologic Surgical History: Reports: Biopsy of Breast, Other (See Below) Other Oncologic Surgeries/Procedures: left side biopsy Social & Family History - Family History Family Medical History: Noncontributory - Tobacco Use Smoking Status *Q: Unknown Ever Smoked - Caffeine Use Caffeine Use: Reports: None - Alcohol Use Alcohol Use History: No H&P Review of Systems - Review of Systems: Review Of Systems: See Below Free Text/Narrative: A complete 12 point review of systems was obtained. Pertinent positives and negatives are noted in the history of present illness. All other systems were reviewed and were negative except as noted. Exam - Exam Exam: See Below - Vital Signs Vital Signs: Last Vital Signs Temp 37.1 C 09/23/17 13:35 Pulse 86 09/23/17 15:38 Resp 16 09/23/17 13:35 BP 99/56 L 09/23/17 15:38 Pulse Ox 91 L 09/23/17 15:38 Weight: 52.163 kg - Exam Quality Assessment: Supplemental Oxygen General: Alert, Oriented, Cooperative, Mild Distress HEENT: Conjunctiva Clear. No: Mucosa Moist & [place] (dry), Scleral Icterus Neck: Supple, Trachea Midline. No: Lymphadenopathy Lungs: Normal Respiratory Effort, Crackles (few left lung base). No: Wheezing Cardiovascular: Regular Rate, Regular Rhythm. No: Systolic Murmur GI/Abdominal Exam: Normal Bowel Sounds, Soft, Non-Tender, No Distention, Other ( healing midline surgical scar secured with steri strips) Extremities: Pedal Edema (mild bilateral ankle edema). No: Increased Warmth Skin: Warm, Dry Neuro Extensive - Mental Status: Alert, Oriented x3, Nl Response to Commands Neuro Extensive - Motor, Sensory, Reflexes: CN II-XII Intact, Tremor. No: Dysarthria, Abnormal Motor Psychiatric: Alert, Normal Affect - Patient Data Lab Results Last 24 hrs: Laboratory Results - last 24 hr 09/23/17 09/23/17 Range/Units 14:15 14:15 WBC 23.0 H (4.5-11.0) K/uL RBC 3.35 (3.30-5.50) M/uL Hgb 11.3 L (12.0-15.0) g/dL Hct 34.9 L (36.0-48.0) % MCV 104 H (80-98) fL MCH 34 H (27-31) pg MCHC 32 (32-36) % Plt Count 242 (150-400) K/uL Add Manual Diff Yes Neutrophils % (Manual) 67 H (36-66) % Band Neutrophils % 6 (5-11) % Lymphocytes % (Manual) 14 L (24-44) % Monocytes % (Manual) 13 H (2-6) % Sodium 142 (140-148) mmol/L Potassium 3.7 (3.6-5.2) mmol/L Chloride 100 (100-108) mmol/L Carbon Dioxide 35 H (21-32) mmol/L Anion Gap 10.7 (5.0-14.0) mmol/L BUN 19 H (7-18) mg/dL Creatinine 1.6 H (0.6-1.0) mg/dL Est Cr Clr Drug Dosing 23.86 mL/min Estimated GFR (MDRD) 31 L (>60) Glucose 113 H (74-106) mg/dL Calcium 9.5 D (8.5-10.1) mg/dL Total Bilirubin 1.1 H D (0.2-1.0) mg/dL AST 25 (15-37) U/L ALT 16 (12-78) U/L Alkaline Phosphatase 77 (46-116) U/L Total Protein 6.6 (6.4-8.2) g/dL Albumin 2.4 L (3.4-5.0) g/dL Globulin 4.2 H (2.3-3.5) g/dL Albumin/Globulin Ratio 0.6 L (1.2-2.2) Result Diagrams: 09/23/17 14:15 09/23/17 14:15 Imaging Impressions Last 24 hrs: CXR - images personally reviewed - possible small left pleural effusion, heart size is mildly enlarged. No mass. No obvious infiltrate. *Q Meaningful Use (ADM) - VTE Risk Assess *Q Each Risk Factor Represents 1 Point: Swollen Legs, Current, Abnormal Pulmonary Function (COPD) Total Score 1 Point Risk Factors: 2 Each Risk Factor Represents 2 Points: None Total Score 2 Point Risk Factors: 0 Each Risk Factor Represents 3 Points: Age 75 Years or Greater Total Score 3 Point Risk Factors: 3 Each Risk Factor Represents 5 Points: None Total Score 5 Point Risk Factors: 0 Venous Thromboembolism Risk Factor Score *Q: 5 - Problem List (1) Generalized weakness SNOMED Code(s): 18953824 ICD Code: R53.1 - WEAKNESS Status: Acute Current Visit: Yes (2) CKD (chronic kidney disease), stage III SNOMED Code(s): 236292661 ICD Code: N18.3 - CHRONIC KIDNEY DISEASE, STAGE 3 (MODERATE) Status: Chronic Current Visit: No (3) Essential tremor SNOMED Code(s): 572521515 ICD Code: G25.0 - ESSENTIAL TREMOR Status: Chronic Current Visit: No (4) Pulmonary hypertension due to chronic obstructive pulmonary disease SNOMED Code(s): 370550934 ICD Code: I27.23 - PULMONARY HYPERTENSION DUE TO LUNG DISEASES AND HYPOXIA; J44.9 - CHRONIC OBSTRUCTIVE PULMONARY DISEASE, UNSPECIFIED Status: Chronic Current Visit: No Problem List Initiated/Reviewed/Updated: Yes Orders Last 24hrs: Active Orders 24 hr Category Date Time Status Patient Status Manage Transfer [TRANSFER] Routine ADT 09/23/17 15:49 Active UA W/MICROSCOPIC [URIN] Stat Lab 09/23/17 15:19 Ordered Levofloxacin/Dextrose 5%-Water [Levaquin in D5W 750 MG/ Med 09/23/17 15:49 Active 150 ML] 750 mg Premix Bag 1 bag IV ONETIME Sodium Chloride 0.9% [Normal Saline] 1,000 ml Med 09/23/17 16:00 Active IV ASDIRECTED Resuscitation Status Routine Resus Stat 09/23/17 15:51 Ordered Medication Orders Levofloxacin/Dextrose 750 mg/ (Premix) 150 mls @ 100 mls/hr IV ONETIME ONE Stop: 09/23/17 17:18 Sodium Chloride (Normal Saline) 1,000 mls @ 125 mls/hr IV ASDIRECTED ASH Assessment/Plan Comment:: ASSESSMENT AND PLAN - Generalized weakness - bacterial infection suspected with possibilities including acute cystitis versus smoldering bronchitis. She has a significant leukocytosis but no strong evidence for sepsis. Urine sample is still pending. Blood pressure and heart rate are stable. She has not had antibiotics since hospital discharge. -Empiric antibiotic coverage with levofloxacin for both respiratory and urinary sources -Follow-up urinalysis, culture if indicated -Gentle IV fluids -Physical therapy starting in the morning Stage III chronic kidney disease - creatinine slightly elevated from baseline but does not meet criteria for acute renal failure. -Hydration as above Essential tremor - significant disability because of her tremor but does well while she's on medications. -Continue home medications Pulmonary hypertension - oxygen dependent at home. She thinks that her symptoms are near baseline at this time. -Supplement oxygen as indicated Maintenance issues - - DVT prophylaxis - ASA stockings - GI prophylaxis - PPI - Nutrition - regular diet as tolerated including supplements - Montes catheter - not indicated CODE STATUS - DNR/DNI Admission justification - This patient will be admitted for inpatient services and is medically appropriate meeting medical necessity for inpatient admission as outlined in my documentation. I reasonably expect the patient will require inpatient services that span a period time over 2 midnights. I reasonably expect this patient to be discharged or transferred within 96 hours after admission to the [facility]. Disposition - anticipate discharge to home after the hospital stay Primary care physician - Dr Mitchell Valles M.D.
[2017-09-23] MEDS ORDERED: Ondansetron 4 MG/2 ML SDV IV PRN (16:27)
[2017-09-23] MEDS ORDERED: Albuterol 0.083% 2.5 MG/3 ML Neb Soln NEB PRN (16:27)
[2017-09-23] MEDS ORDERED: Acetaminophen 325 MG Tab PO PRN (16:27)
[2017-09-23] MEDS ORDERED: guaiFENesin/Dextromethorphan 100-10 MG/5 ML Soln 10 ML Cup PO PRN (16:27)
[2017-09-23] MEDS ORDERED: Ondansetron 4 MG Tab.DIS PO PRN (16:27)
[2017-09-23] MEDS ORDERED: Polyethylene Glycol 3350 Powder 17 GM Packet PO PRN (16:27)
[2017-09-23] MEDS: Sodium Chloride 0.9% 1,000 ML IV SCH (16:37)
[2017-09-23] MEDS: Gabapentin 300 MG Cap PO SCH (20:59)
[2017-09-23] MEDS: Primidone 50 MG Tab PO SCH (20:59)
[2017-09-23] MEDS: Oxybutynin 5 MG Tab PO SCH (20:59)
[2017-09-23] MEDS: Propranolol 60 MG Cap.ER PO SCH (21:00)
[2017-09-23] MEDS ORDERED: PRIMIDONE 125 MG PO SCH (21:00)
[2017-09-23] MEDS ORDERED: Lactated Ringers 500 ML IV SCH (22:45)
[2017-09-23] MEDS ORDERED: Lactated Ringers 500 ML IV ONE (22:53)
[2017-09-24] MEDS ORDERED: Lactated Ringers 500 ML IV ONE (00:22)
[2017-09-24] MEDS: Lactated Ringers 500 ML IV ONE ×2 (03:18→10:57)
[2017-09-24] MEDS: Sodium Chloride 0.9% 1,000 ML IV SCH ×3 (04:45→21:24)
[2017-09-24] MEDS: Pantoprazole 40 MG Tab.CR PO SCH (07:50)
[2017-09-24] MEDS: Aspirin 81 MG Tab.EC PO SCH (08:07)
[2017-09-24] MEDS: Propranolol 60 MG Cap.ER PO SCH ×2 (08:08→21:10)
[2017-09-24] MEDS: Gabapentin 300 MG Cap PO SCH ×3 (08:09→21:09)
[2017-09-24] MEDS: Oxybutynin 5 MG Tab PO SCH ×3 (08:10→21:10)
[2017-09-24] MEDS: Escitalopram 10 MG Tab PO SCH (08:13)
[2017-09-24] MEDS: Primidone 50 MG Tab PO SCH ×2 (08:14→21:10)
--- NOTE | 2017-09-24 08:57 | PCM.PN ---
- General Info Date of Service: 09/24/17 Functional Status: Reports: Pain Controlled - Review of Systems General: Reports: Weakness Pulmonary: Reports: Cough Gastrointestinal: Reports: Abdominal Pain Systems Review Comment:: No acute events overnight but patient did have mild intermittent hypotension. This did respond to IV fluids. She feels a little better this morning but still feels very weak and very tired. Urine sample was suggestive of infection and urine culture has been set up. Still requiring supplemental oxygen. No significant abdominal pain. - Patient Data Vitals - Most Recent: Last Vital Signs Temp 37.0 C 09/24/17 08:00 Pulse 84 09/24/17 08:00 Resp 22 H 09/24/17 08:00 BP 95/52 L 09/24/17 08:00 Pulse Ox 92 L 09/24/17 08:00 Weight - Most Recent: 58.9 kg I&O - Last 24 Hours: Intake & Output 09/23/17 09/24/17 09/24/17 22:59 06:59 14:59 Intake Total 120 3028 Output Total 110 Balance 10 3028 Lab Results Last 24 Hours: Laboratory Results - last 24 hr 09/23/17 09/23/17 09/23/17 Range/Units 14:15 14:15 15:19 WBC 23.0 H (4.5-11.0) K/uL RBC 3.35 (3.30-5.50) M/uL Hgb 11.3 L (12.0-15.0) g/dL Hct 34.9 L (36.0-48.0) % MCV 104 H (80-98) fL MCH 34 H (27-31) pg MCHC 32 (32-36) % Plt Count 242 (150-400) K/uL Add Manual Diff Yes Neutrophils % (Manual) 67 H (36-66) % Band Neutrophils % 6 (5-11) % Lymphocytes % (Manual) 14 L (24-44) % Monocytes % (Manual) 13 H (2-6) % Sodium 142 (140-148) mmol/L Potassium 3.7 (3.6-5.2) mmol/L Chloride 100 (100-108) mmol/L Carbon Dioxide 35 H (21-32) mmol/L Anion Gap 10.7 (5.0-14.0) mmol/L BUN 19 H (7-18) mg/dL Creatinine 1.6 H (0.6-1.0) mg/dL Est Cr Clr Drug Dosing 23.86 mL/min Estimated GFR (MDRD) 31 L (>60) Glucose 113 H (74-106) mg/dL Calcium 9.5 D (8.5-10.1) mg/dL Total Bilirubin 1.1 H D (0.2-1.0) mg/dL AST 25 (15-37) U/L ALT 16 (12-78) U/L Alkaline Phosphatase 77 (46-116) U/L Total Protein 6.6 (6.4-8.2) g/dL Albumin 2.4 L (3.4-5.0) g/dL Globulin 4.2 H (2.3-3.5) g/dL Albumin/Globulin Ratio 0.6 L (1.2-2.2) Urine Color [place] Urine Appearance Cloudy Urine pH 5.0 (4.5-8.0) Ur Specific [place] 1.020 (1.008-1.030) Urine Protein Trace (NEGATIVE) mg/dL Urine Glucose (UA) Normal (NEGATIVE) mg/dL Urine Ketones Negative (NEGATIVE) mg/dL Urine Occult Blood Negative (NEGATIVE) Urine Nitrite Negative (NEGATIVE) Urine Bilirubin Small (NEGATIVE) Urine Urobilinogen 1 (NORMAL) mg/dL Ur Leukocyte Esterase Large (NEGATIVE) Urine RBC 0-5 (0-5) Urine WBC 20-30 H (0-5) Ur Epithelial Cells Few Amorphous Sediment Not seen Urine Bacteria Many Urine Mucus Not seen 09/24/17 09/24/17 Range/Units 05:39 05:39 WBC 18.4 H (4.5-11.0) K/uL RBC 3.15 L (3.30-5.50) M/uL Hgb 10.2 L (12.0-15.0) g/dL Hct 33.3 L (36.0-48.0) % MCV 106 H (80-98) fL MCH 32 H (27-31) pg MCHC 31 L (32-36) % Plt Count 176 (150-400) K/uL Add Manual Diff Neutrophils % (Manual) (36-66) % Band Neutrophils % (5-11) % Lymphocytes % (Manual) (24-44) % Monocytes % (Manual) (2-6) % Sodium 139 L (140-148) mmol/L Potassium 3.8 (3.6-5.2) mmol/L Chloride 101 (100-108) mmol/L Carbon Dioxide 34 H (21-32) mmol/L Anion Gap 7.8 (5.0-14.0) mmol/L BUN 23 H (7-18) mg/dL Creatinine 1.5 H (0.6-1.0) mg/dL Est Cr Clr Drug Dosing 28.74 mL/min Estimated GFR (MDRD) 34 L (>60) Glucose 114 H (74-106) mg/dL Calcium 8.6 (8.5-10.1) mg/dL Total Bilirubin (0.2-1.0) mg/dL AST (15-37) U/L ALT (12-78) U/L Alkaline Phosphatase (46-116) U/L Total Protein (6.4-8.2) g/dL Albumin (3.4-5.0) g/dL Globulin (2.3-3.5) g/dL Albumin/Globulin Ratio (1.2-2.2) Urine Color Urine Appearance Urine pH (4.5-8.0) Ur Specific [place] (1.008-1.030) Urine Protein (NEGATIVE) mg/dL Urine Glucose (UA) (NEGATIVE) mg/dL Urine Ketones (NEGATIVE) mg/dL Urine Occult Blood (NEGATIVE) Urine Nitrite (NEGATIVE) Urine Bilirubin (NEGATIVE) Urine Urobilinogen (NORMAL) mg/dL Ur Leukocyte Esterase (NEGATIVE) Urine RBC (0-5) Urine WBC (0-5) Ur Epithelial Cells Amorphous Sediment Urine Bacteria Urine Mucus Med Orders - Current: Current Medications Acetaminophen (Tylenol) 650 mg PO Q4H PRN PRN Reason: Pain (Mild 1-3)/fever Hydrocodone Bitart/Acetaminophen ([place] 325-5 Mg) 1 tab PO BID PRN PRN Reason: Pain Albuterol (Proventil Neb Soln) 2.5 mg NEB Q4H PRN PRN Reason: Shortness Of Breath/wheezing Aspirin (Halfprin) 81 mg PO DAILY [facility] Last Admin: 09/24/17 08:07 Dose: 81 mg Escitalopram Oxalate (Lexapro) 10 mg PO DAILY [facility] Last Admin: 09/24/17 08:13 Dose: 10 mg Gabapentin (Neurontin) 600 mg PO TID [facility] Last Admin: 09/24/17 08:09 Dose: 600 mg Guaifenesin/Dextromethorphan (Robitussin Dm) 10 ml PO TID [facility] Sodium Chloride (Normal Saline) 1,000 mls @ 125 mls/hr IV ASDIRECTED [facility] Last Admin: 09/24/17 04:45 Dose: 125 mls/hr Ondansetron HCl (Zofran Odt) 4 mg PO Q6H PRN PRN Reason: Nausea able to take PO Ondansetron HCl (Zofran) 4 mg IV Q6H PRN PRN Reason: Nausea/Vomiting Oxybutynin Chloride (Oxybutynin) 5 mg PO TID [facility] Last Admin: 09/24/17 08:10 Dose: 5 mg Pantoprazole Sodium (Protonix) 40 mg PO ACBREAKFAST [facility] Last Admin: 09/24/17 07:50 Dose: 40 mg Polyethylene Glycol (Miralax) 17 gm PO DAILY PRN PRN Reason: Constipation Primidone (Mysoline) 125 mg PO BID [facility] Last Admin: 09/24/17 08:14 Dose: 125 mg Propranolol HCl (Inderal La) 60 mg PO BID [facility] Last Admin: 09/24/17 08:08 Dose: 60 mg Senna/Docusate Sodium (Senna Plus) 1 tab PO BID PRN PRN Reason: Constipation Discontinued Medications Fentanyl (Sublimaze) 25 mcg IVPUSH ONETIME ONE Stop: 09/23/17 15:05 Last Admin: 09/23/17 15:15 Dose: 25 mcg Fentanyl (Sublimaze) 25 mcg IVPUSH ONETIME ONE Stop: 09/23/17 16:16 Last Admin: 09/23/17 16:37 Dose: 25 mcg Guaifenesin/Dextromethorphan (Robitussin Dm) 10 ml PO Q6H PRN PRN Reason: Cough Levofloxacin/Dextrose 750 mg/ (Premix) 150 mls @ 100 mls/hr IV ONETIME ONE Stop: 09/23/17 17:18 Last Admin: 09/23/17 16:42 Dose: 100 mls/hr Lactated Ringer's (Ringers, Lactated) 500 mls @ 500 mls/hr IV ASDIRECTED [facility] Last Admin: 09/23/17 22:47 Dose: 500 mls/hr Lactated Ringer's (Ringers, Lactated) 500 mls @ 500 mls/hr IV ONETIME ONE Stop: 09/23/17 23:52 Last Admin: 09/23/17 22:55 Dose: Not Given Lactated Ringer's (Ringers, Lactated) 500 mls @ 500 mls/hr IV ONETIME ONE Stop: 09/24/17 01:21 Last Admin: 09/24/17 00:28 Dose: 500 mls/hr Lactated Ringer's (Ringers, Lactated) 500 mls @ 500 mls/hr IV ONETIME ONE Stop: 09/24/17 04:10 Last Admin: 09/24/17 03:18 Dose: 500 mls/hr - Exam Quality Assessment: Supplemental Oxygen General: Alert, Oriented, Cooperative, No Acute Distress Neck: Supple Lungs: Normal Respiratory Effort, Crackles (both bases, R>L) Cardiovascular: Regular Rate, Regular Rhythm GI/Abdominal Exam: Normal Bowel Sounds, Soft, No Distention, Tender Extremities: Pedal Edema Neurological: Other (essential tremor) Psy/Mental Status: Alert, Normal Affect - Problem List & Annotations (1) Generalized weakness SNOMED Code(s): 23467879 Code(s): R53.1 - WEAKNESS Status: Acute Current Visit: Yes (2) CKD (chronic kidney disease), stage III SNOMED Code(s): 811383384 Code(s): N18.3 - CHRONIC KIDNEY DISEASE, STAGE 3 (MODERATE) Status: Chronic Current Visit: No (3) Essential tremor SNOMED Code(s): 457411441 Code(s): G25.0 - ESSENTIAL TREMOR Status: Chronic Current Visit: No (4) Pulmonary hypertension due to chronic obstructive pulmonary disease SNOMED Code(s): 767420721 Code(s): I27.23 - PULMONARY HYPERTENSION DUE TO LUNG DISEASES AND HYPOXIA; J44.9 - CHRONIC OBSTRUCTIVE PULMONARY DISEASE, UNSPECIFIED Status: Chronic Current Visit: No - Problem List Review Problem List Initiated/Reviewed/Updated: Yes - My Orders Last 24 Hours: My Active Orders 09/23/17 15:19 UA W/MICROSCOPIC [URIN] Stat 09/23/17 15:51 Resuscitation Status Routine 09/23/17 16:00 Sodium Chloride 0.9% [Normal Saline] 1,000 ml IV ASDIRECTED 05/10/18 16:27 Patient Status [ADT] Routine Intake and Output [RC] QSHIFT Notify Provider Vital Signs [RC] ASDIRECTED Oxygen Therapy [RC] PRN RT Aerosol Therapy [RC] ASDIRECTED Up With Assistance [RC] ASDIRECTED VTE/DVT Education [RC] Per Unit Routine Vital Signs [RC] Q4H Acetaminophen [Tylenol] 650 mg PO Q4H PRN Acetaminophen/HYDROcodone [[place] 325-5 MG] 1 tab PO BID PRN Albuterol [Proventil Neb Soln] 2.5 mg NEB Q4H PRN Docusate Sodium/Sennosides [Senna Plus] 1 tab PO BID PRN Ondansetron [Zofran ODT] 4 mg PO Q6H PRN Ondansetron [Zofran] 4 mg IV Q6H PRN Polyethylene Glycol 3350 [MiraLAX] 17 gm PO DAILY PRN Antiembolic Hose [OM.PC] Per Unit Routine 09/23/17 17:00 Dietary Supplements [RC] TIDMEALS 09/23/17 21:00 Gabapentin [Neurontin] 600 mg PO TID Oxybutynin 5 mg PO TID Primidone [Mysoline] 125 mg PO BID Propranolol [Inderal LA] 60 mg PO BID 09/23/17 Dinner Regular Diet [DIET] 09/24/17 07:00 PT Evaluation and Treatment [CONS] Routine 09/24/17 07:30 Pantoprazole [ProTONIX] 40 mg PO ACBREAKFAST 09/24/17 09:00 Aspirin [Halfprin] 81 mg PO DAILY Dextromethorphan/guaiFENesin [Robitussin DM] 10 ml PO TID Escitalopram [Lexapro] 10 mg PO DAILY 09/25/17 05:00 BASIC METABOLIC PANEL,BMP [CHEM] Timed CBC W/O DIFF,HEMOGRAM [HEME] Timed (1) - Plan Plan:: ASSESSMENT AND PLAN - Acute cystitis with sepsis - urine sample suggestive of infection and culture has been set up. Urinary tract infection likely source for generalized weakness and confusion. Confusion, tachypnea and hypotension suggestive of sepsis. -Empiric antibiotic coverage with levofloxacin for both respiratory and urinary sources -Follow-up urine culture -Gentle IV fluids -Physical therapy Possible bronchitis - chest x-ray did not suggest pneumonia but patient has hypoxia and loose cough. Should have adequate coverage from levofloxacin as discussed above. -Cough suppressant -Antibiotics as above -Supplement oxygen as needed Stage III chronic kidney disease - creatinine slightly elevated from baseline and is improving with fluids. -Hydration as above Essential tremor - significant disability because of her tremor but does well while she's on medications. -Continue home medications Pulmonary hypertension - oxygen dependent at home. She thinks that her symptoms are near baseline at this time. -Supplement oxygen as indicated Maintenance issues - - DVT prophylaxis - ASA stockings - GI prophylaxis - PPI - Nutrition - regular diet as tolerated including supplements - Montes catheter - not indicated Disposition - anticipate discharge to home after the hospital stay Nic Valles M.D.
[2017-09-24] MEDS: guaiFENesin/Dextromethorphan 100-10 MG/5 ML Soln 10 ML Cup PO SCH ×3 (10:37→21:09)
[2017-09-24] MEDS ORDERED: Lactated Ringers 500 ML IV SCH (10:45)
[2017-09-24] MEDS: Acetaminophen/HYDROcodone 325-5 MG Tab PO PRN (21:10)
[2017-09-25] MEDS: Sodium Chloride 0.9% 1,000 ML IV SCH (05:21)
[2017-09-25] MEDS: Pantoprazole 40 MG Tab.CR PO SCH (07:55)
[2017-09-25] MEDS: Propranolol 60 MG Cap.ER PO SCH ×2 (08:02→21:25)
[2017-09-25] MEDS: Aspirin 81 MG Tab.EC PO SCH (08:02)
[2017-09-25] MEDS: Escitalopram 10 MG Tab PO SCH (08:02)
[2017-09-25] MEDS: Primidone 50 MG Tab PO SCH ×2 (08:03→21:25)
[2017-09-25] MEDS: Oxybutynin 5 MG Tab PO SCH ×3 (08:04→21:25)
[2017-09-25] MEDS: Gabapentin 300 MG Cap PO SCH ×3 (08:04→21:25)
[2017-09-25] MEDS: guaiFENesin/Dextromethorphan 100-10 MG/5 ML Soln 10 ML Cup PO SCH ×3 (08:05→21:25)
--- NOTE | 2017-09-25 09:31 | PCM.PN ---
- General Info Date of Service: 09/25/17 Functional Status: Reports: Pain Controlled, Tolerating Diet - Review of Systems General: Reports: Weakness. Denies: Fever Pulmonary: Reports: Cough Gastrointestinal: Reports: Abdominal Pain Systems Review Comment:: There were no acute events overnight. A shunt has not had any fevers. She continues on her usual 2 L of supplemental oxygen. Mild but stable abdominal pain. Urine culture growing mixed jose manuel so far. Still has a loose cough. Weak and requiring a fair amount of assistance to stand. - Patient Data Vitals - Most Recent: Last Vital Signs Temp 36.4 C 09/25/17 08:00 Pulse 86 09/25/17 08:00 Resp 20 09/25/17 08:00 BP 110/68 09/25/17 08:00 Pulse Ox 93 L 09/25/17 08:00 Weight - Most Recent: 58.9 kg I&O - Last 24 Hours: Intake & Output 09/24/17 09/25/17 09/25/17 22:59 06:59 14:59 Intake Total 2009 1509 120 Output Total 300 Balance 2009 1509 -180 Lab Results Last 24 Hours: Laboratory Results - last 24 hr 09/25/17 09/25/17 Range/Units 05:33 05:33 WBC 16.7 H (4.5-11.0) K/uL RBC 3.06 L (3.30-5.50) M/uL Hgb 10.0 L (12.0-15.0) g/dL Hct 32.6 L (36.0-48.0) % MCV 107 H (80-98) fL MCH 33 H (27-31) pg MCHC 31 L (32-36) % Plt Count 148 L (150-400) K/uL Sodium 140 (140-148) mmol/L Potassium 3.9 (3.6-5.2) mmol/L Chloride 104 (100-108) mmol/L Carbon Dioxide 31 (21-32) mmol/L Anion Gap 4.6 L (5.0-14.0) mmol/L BUN 25 H (7-18) mg/dL Creatinine 1.3 H (0.6-1.0) mg/dL Est Cr Clr Drug Dosing 33.16 mL/min Estimated GFR (MDRD) 40 L (>60) Glucose 104 (74-106) mg/dL Calcium 7.9 L (8.5-10.1) mg/dL Spike Results Last 24 Hours: Microbiology 09/23/17 Unknown Urine Culture - Preliminary Urine, Clean Catch MIXED JOSE MANUEL DAY 1 Med Orders - Current: Current Medications Acetaminophen (Tylenol) 650 mg PO Q4H PRN PRN Reason: Pain (Mild 1-3)/fever Hydrocodone Bitart/Acetaminophen ([place] 325-5 Mg) 1 tab PO BID PRN PRN Reason: Pain Last Admin: 09/24/17 21:10 Dose: 1 tab Albuterol (Proventil Neb Soln) 2.5 mg NEB Q4H PRN PRN Reason: Shortness Of Breath/wheezing Aspirin (Halfprin) 81 mg PO DAILY [facility] Last Admin: 09/25/17 08:02 Dose: 81 mg Escitalopram Oxalate (Lexapro) 10 mg PO DAILY [facility] Last Admin: 09/25/17 08:02 Dose: 10 mg Gabapentin (Neurontin) 600 mg PO TID [facility] Last Admin: 09/25/17 08:04 Dose: 600 mg Guaifenesin/Dextromethorphan (Robitussin Dm) 10 ml PO TID [facility] Last Admin: 09/25/17 08:05 Dose: 10 ml Levofloxacin/Dextrose 750 mg/ (Premix) 150 mls @ 100 mls/hr IV Q48H [facility] Ondansetron HCl (Zofran Odt) 4 mg PO Q6H PRN PRN Reason: Nausea able to take PO Ondansetron HCl (Zofran) 4 mg IV Q6H PRN PRN Reason: Nausea/Vomiting Oxybutynin Chloride (Oxybutynin) 5 mg PO TID [facility] Last Admin: 09/25/17 08:04 Dose: 5 mg Pantoprazole Sodium (Protonix) 40 mg PO ACBREAKFAST [facility] Last Admin: 09/25/17 07:55 Dose: 40 mg Polyethylene Glycol (Miralax) 17 gm PO DAILY PRN PRN Reason: Constipation Primidone (Mysoline) 125 mg PO BID [facility] Last Admin: 09/25/17 08:03 Dose: 125 mg Propranolol HCl (Inderal La) 60 mg PO BID [facility] Last Admin: 09/25/17 08:02 Dose: 60 mg Senna/Docusate Sodium (Senna Plus) 1 tab PO BID PRN PRN Reason: Constipation Discontinued Medications Fentanyl (Sublimaze) 25 mcg IVPUSH ONETIME ONE Stop: 09/23/17 15:05 Last Admin: 09/23/17 15:15 Dose: 25 mcg Fentanyl (Sublimaze) 25 mcg IVPUSH ONETIME ONE Stop: 09/23/17 16:16 Last Admin: 09/23/17 16:37 Dose: 25 mcg Guaifenesin/Dextromethorphan (Robitussin Dm) 10 ml PO Q6H PRN PRN Reason: Cough Levofloxacin/Dextrose 750 mg/ (Premix) 150 mls @ 100 mls/hr IV ONETIME ONE Stop: 09/23/17 17:18 Last Admin: 09/23/17 16:42 Dose: 100 mls/hr Sodium Chloride (Normal Saline) 1,000 mls @ 125 mls/hr IV ASDIRECTED [facility] Last Admin: 09/25/17 05:21 Dose: 125 mls/hr Lactated Ringer's (Ringers, Lactated) 500 mls @ 500 mls/hr IV ASDIRECTED [facility] Last Admin: 09/23/17 22:47 Dose: 500 mls/hr Lactated Ringer's (Ringers, Lactated) 500 mls @ 500 mls/hr IV ONETIME ONE Stop: 09/23/17 23:52 Last Admin: 09/23/17 22:55 Dose: Not Given Lactated Ringer's (Ringers, Lactated) 500 mls @ 500 mls/hr IV ONETIME ONE Stop: 09/24/17 01:21 Last Admin: 09/24/17 00:28 Dose: 500 mls/hr Lactated Ringer's (Ringers, Lactated) 500 mls @ 500 mls/hr IV ONETIME ONE Stop: 09/24/17 04:10 Last Admin: 09/24/17 10:57 Dose: 500 mls/hr Lactated Ringer's (Ringers, Lactated) 500 mls @ 500 mls/hr IV .BOLUS [facility] Stop: 09/24/17 11:46 - Exam Quality Assessment: Supplemental Oxygen General: Alert, Oriented, Cooperative, No Acute Distress Neck: Supple Lungs: Clear to Auscultation, Normal Respiratory Effort, Decreased Breath Sounds (mild right lung base) Cardiovascular: Regular Rate, Regular Rhythm GI/Abdominal Exam: Soft, No Distention, Tender (mild right lower abdomen ) Extremities: No Pedal Edema Skin: Warm, Dry Neurological: Other (essential tremor) Psy/Mental Status: Alert, Normal Affect - Problem List & Annotations (1) Generalized weakness SNOMED Code(s): 66559263 Code(s): R53.1 - WEAKNESS Status: Acute Current Visit: Yes (2) CKD (chronic kidney disease), stage III SNOMED Code(s): 091723928 Code(s): N18.3 - CHRONIC KIDNEY DISEASE, STAGE 3 (MODERATE) Status: Chronic Current Visit: No (3) Essential tremor SNOMED Code(s): 263233814 Code(s): G25.0 - ESSENTIAL TREMOR Status: Chronic Current Visit: No (4) Pulmonary hypertension due to chronic obstructive pulmonary disease SNOMED Code(s): 289075293 Code(s): I27.23 - PULMONARY HYPERTENSION DUE TO LUNG DISEASES AND HYPOXIA; J44.9 - CHRONIC OBSTRUCTIVE PULMONARY DISEASE, UNSPECIFIED Status: Chronic Current Visit: No (5) Acute cystitis without hematuria SNOMED Code(s): 12737549 Code(s): N30.00 - ACUTE CYSTITIS WITHOUT HEMATURIA Status: Acute Current Visit: Yes - Problem List Review Problem List Initiated/Reviewed/Updated: Yes - My Orders Last 24 Hours: My Active Orders 09/24/17 09:00 Aspirin [Halfprin] 81 mg PO DAILY Dextromethorphan/guaiFENesin [Robitussin DM] 10 ml PO TID Escitalopram [Lexapro] 10 mg PO DAILY 09/25/17 09:29 Convert IV to Saline Lock [OM.PC] Routine 09/25/17 18:00 Levofloxacin/Dextrose 5%-Water [Levaquin in D5W 750 MG/150 ML] 750 mg Premix Bag 1 bag IV Q48H 09/26/17 05:00 BASIC METABOLIC PANEL,BMP [CHEM] Timed CBC W/O DIFF,HEMOGRAM [HEME] Timed (1) - Plan Plan:: ASSESSMENT AND PLAN - Acute cystitis with sepsis - urine sample suggestive of infection and culture has been set up. Sepsis has resolved. Urine culture growing only mixed jose manuel so far. Weak but otherwise doing well. -Empiric antibiotic coverage with levofloxacin for both respiratory and urinary sources -Follow-up urine culture -Saline lock IV -Physical therapy Possible bronchitis - chest x-ray did not suggest pneumonia but patient has hypoxia and loose cough. Should have adequate coverage from levofloxacin as discussed above. -Cough suppressant -Antibiotics as above -Supplement oxygen as needed Stage III chronic kidney disease - creatinine slightly elevated from baseline and continues slow improvement with IV fluids. -Hydration as above Essential tremor - significant disability because of her tremor but does well while she's on medications. -Continue home medications Pulmonary hypertension - oxygen dependent at home. She thinks that her symptoms are near baseline at this time. -Supplement oxygen as indicated Maintenance issues - - DVT prophylaxis - ASA stockings - GI prophylaxis - PPI - Nutrition - regular diet as tolerated including supplements - Montes catheter - not indicated Disposition - anticipate discharge to [facility] after the hospital stay Nic Valles M.D.
[2017-09-25] MEDS ORDERED: Levofloxacin/Dextrose 5%-Water 750 MG in Premix Bag 1 BAG IV SCH (18:00)
[2017-09-25] MEDS: Acetaminophen/HYDROcodone 325-5 MG Tab PO PRN (21:37)
[2017-09-26] MEDS: Aspirin 81 MG Tab.EC PO SCH (09:08)
[2017-09-26] MEDS: Pantoprazole 40 MG Tab.CR PO SCH (09:08)
[2017-09-26] MEDS: Propranolol 60 MG Cap.ER PO SCH (09:09)
[2017-09-26] MEDS: Escitalopram 10 MG Tab PO SCH (09:09)
[2017-09-26] MEDS: Primidone 50 MG Tab PO SCH ×2 (09:09→21:39)
[2017-09-26] MEDS: Oxybutynin 5 MG Tab PO SCH ×3 (09:10→21:39)
[2017-09-26] MEDS: Gabapentin 300 MG Cap PO SCH ×3 (09:10→21:39)
[2017-09-26] MEDS: guaiFENesin/Dextromethorphan 100-10 MG/5 ML Soln 10 ML Cup PO SCH ×3 (09:10→21:39)
--- NOTE | 2017-09-26 10:17 | PCM.PN ---
- General Info Date of Service: 09/26/17 Functional Status: Reports: Pain Controlled, Tolerating Diet - Review of Systems General: Reports: Weakness Pulmonary: Reports: Shortness of Breath, Cough Gastrointestinal: Denies: Abdominal Pain Systems Review Comment:: no acute events overnight. Patient still has a loose cough. She remains on 2 L of supplemental oxygen. No fevers overnight. Urine culture growing mixed jose manuel. Patient remains very weak and requires significant assistance. - Patient Data Vitals - Most Recent: Last Vital Signs Temp 36.3 C 09/26/17 08:00 Pulse 88 09/26/17 08:00 Resp 22 H 09/26/17 08:00 BP 111/58 L 09/26/17 08:00 Pulse Ox 95 09/26/17 08:00 Weight - Most Recent: 58.9 kg I&O - Last 24 Hours: Intake & Output 09/25/17 09/26/17 09/26/17 22:59 06:59 14:59 Intake Total 690 Output Total 475 125 Balance 215 -125 Lab Results Last 24 Hours: Laboratory Results - last 24 hr 09/26/17 09/26/17 Range/Units 04:48 04:48 WBC 13.9 H (4.5-11.0) K/uL RBC 3.00 L (3.30-5.50) M/uL Hgb 9.7 L (12.0-15.0) g/dL Hct 31.6 L (36.0-48.0) % MCV 105 H (80-98) fL MCH 32 H (27-31) pg MCHC 31 L (32-36) % Plt Count 130 L (150-400) K/uL Sodium 139 L (140-148) mmol/L Potassium 3.6 (3.6-5.2) mmol/L Chloride 104 (100-108) mmol/L Carbon Dioxide 27 (21-32) mmol/L Anion Gap 11.6 (5.0-14.0) mmol/L BUN 23 H (7-18) mg/dL Creatinine 1.2 H (0.6-1.0) mg/dL Est Cr Clr Drug Dosing 35.93 mL/min Estimated GFR (MDRD) 43 L (>60) Glucose 106 (74-106) mg/dL Calcium 8.0 L (8.5-10.1) mg/dL Spike Results Last 24 Hours: Microbiology 05/10/18 Unknown Urine Culture - Final Urine, Clean Catch MIXED JOSE MANUEL DAY 2 Med Orders - Current: Current Medications Acetaminophen (Tylenol) 650 mg PO Q4H PRN PRN Reason: Pain (Mild 1-3)/fever Hydrocodone Bitart/Acetaminophen ([place] 325-5 Mg) 1 tab PO BID PRN PRN Reason: Pain Last Admin: 09/25/17 21:37 Dose: 1 tab Albuterol (Proventil Neb Soln) 2.5 mg NEB Q4H PRN PRN Reason: Shortness Of Breath/wheezing Aspirin (Halfprin) 81 mg PO DAILY [facility] Last Admin: 09/26/17 09:08 Dose: 81 mg Escitalopram Oxalate (Lexapro) 10 mg PO DAILY [facility] Last Admin: 09/26/17 09:09 Dose: 10 mg Gabapentin (Neurontin) 600 mg PO TID [facility] Last Admin: 09/26/17 09:10 Dose: 600 mg Guaifenesin/Dextromethorphan (Robitussin Dm) 10 ml PO TID [facility] Last Admin: 09/26/17 09:10 Dose: 10 ml Levofloxacin/Dextrose 750 mg/ (Premix) 150 mls @ 100 mls/hr IV Q48H [facility] Last Admin: 09/25/17 17:03 Dose: 100 mls/hr Ondansetron HCl (Zofran Odt) 4 mg PO Q6H PRN PRN Reason: Nausea able to take PO Ondansetron HCl (Zofran) 4 mg IV Q6H PRN PRN Reason: Nausea/Vomiting Oxybutynin Chloride (Oxybutynin) 5 mg PO TID [facility] Last Admin: 09/26/17 09:10 Dose: 5 mg Pantoprazole Sodium (Protonix) 40 mg PO ACBREAKFAST [facility] Last Admin: 09/26/17 09:08 Dose: 40 mg Polyethylene Glycol (Miralax) 17 gm PO DAILY PRN PRN Reason: Constipation Primidone (Mysoline) 125 mg PO BID [facility] Last Admin: 09/26/17 09:09 Dose: 125 mg Propranolol HCl (Inderal La) 60 mg PO BID [facility] Last Admin: 09/26/17 09:09 Dose: 60 mg Senna/Docusate Sodium (Senna Plus) 1 tab PO BID PRN PRN Reason: Constipation Discontinued Medications Fentanyl (Sublimaze) 25 mcg IVPUSH ONETIME ONE Stop: 09/23/17 15:05 Last Admin: 09/23/17 15:15 Dose: 25 mcg Fentanyl (Sublimaze) 25 mcg IVPUSH ONETIME ONE Stop: 09/23/17 16:16 Last Admin: 09/23/17 16:37 Dose: 25 mcg Guaifenesin/Dextromethorphan (Robitussin Dm) 10 ml PO Q6H PRN PRN Reason: Cough Levofloxacin/Dextrose 750 mg/ (Premix) 150 mls @ 100 mls/hr IV ONETIME ONE Stop: 09/23/17 17:18 Last Admin: 09/23/17 16:42 Dose: 100 mls/hr Sodium Chloride (Normal Saline) 1,000 mls @ 125 mls/hr IV ASDIRECTED [facility] Last Admin: 09/25/17 05:21 Dose: 125 mls/hr Lactated Ringer's (Ringers, Lactated) 500 mls @ 500 mls/hr IV ASDIRECTED [facility] Last Admin: 09/23/17 22:47 Dose: 500 mls/hr Lactated Ringer's (Ringers, Lactated) 500 mls @ 500 mls/hr IV ONETIME ONE Stop: 09/23/17 23:52 Last Admin: 09/23/17 22:55 Dose: Not Given Lactated Ringer's (Ringers, Lactated) 500 mls @ 500 mls/hr IV ONETIME ONE Stop: 09/24/17 01:21 Last Admin: 09/24/17 00:28 Dose: 500 mls/hr Lactated Ringer's (Ringers, Lactated) 500 mls @ 500 mls/hr IV ONETIME ONE Stop: 09/24/17 04:10 Last Admin: 09/24/17 10:57 Dose: 500 mls/hr Lactated Ringer's (Ringers, Lactated) 500 mls @ 500 mls/hr IV .BOLUS [facility] Stop: 09/24/17 11:46 - Exam Quality Assessment: Supplemental Oxygen General: Alert, Oriented, Cooperative, No Acute Distress Neck: Supple Lungs: Clear to Auscultation, Normal Respiratory Effort, Other (loose sounding cough ) Cardiovascular: Regular Rate, Regular Rhythm GI/Abdominal Exam: Soft, No Distention Extremities: Pedal Edema (mild left ankle edema) Skin: Warm, Dry Neurological: Other (essential tremor) Psy/Mental Status: Alert, Normal Affect - Problem List & Annotations (1) Generalized weakness SNOMED Code(s): 80593040 Code(s): R53.1 - WEAKNESS Status: Acute Current Visit: Yes (2) CKD (chronic kidney disease), stage III SNOMED Code(s): 997233384 Code(s): N18.3 - CHRONIC KIDNEY DISEASE, STAGE 3 (MODERATE) Status: Chronic Current Visit: No (3) Essential tremor SNOMED Code(s): 669263830 Code(s): G25.0 - ESSENTIAL TREMOR Status: Chronic Current Visit: No (4) Pulmonary hypertension due to chronic obstructive pulmonary disease SNOMED Code(s): 516934500 Code(s): I27.23 - PULMONARY HYPERTENSION DUE TO LUNG DISEASES AND HYPOXIA; J44.9 - CHRONIC OBSTRUCTIVE PULMONARY DISEASE, UNSPECIFIED Status: Chronic Current Visit: No (5) Acute cystitis without hematuria SNOMED Code(s): 46124824 Code(s): N30.00 - ACUTE CYSTITIS WITHOUT HEMATURIA Status: Acute Current Visit: Yes - Problem List Review Problem List Initiated/Reviewed/Updated: Yes - My Orders Last 24 Hours: My Active Orders 09/25/17 09:29 Convert IV to Saline Lock [OM.PC] Routine 09/25/17 18:00 Levofloxacin/Dextrose 5%-Water [Levaquin in D5W 750 MG/150 ML] 750 mg Premix Bag 1 bag IV Q48H 09/26/17 10:14 RT Aerosol Therapy [RC] ASDIRECTED 09/26/17 10:16 Potassium Chloride [Klor-Con M20] 40 meq PO ONETIME ONE 09/26/17 11:00 Albuterol [Proventil Neb Soln] 2.5 mg NEB QIDRT 09/27/17 05:00 BASIC METABOLIC PANEL,BMP [CHEM] Timed CBC W/O DIFF,HEMOGRAM [HEME] Timed (1) 09/27/17 07:00 CERTIFIED PEER SPECIALIST Eval and Treat [CERTIFIED PEER SPECIALIST Evaluation and Treatment] [CONS] Routine 09/27/17 18:00 Levofloxacin [Levaquin] 250 mg PO Q48H Levofloxacin [Levaquin] 500 mg PO Q48H - Plan Plan:: ASSESSMENT AND PLAN - Acute cystitis with sepsis - sepsis has resolved. Urine culture only growing mixed jose manuel at this time. Patient remains very weak. No longer running fevers. -Empiric antibiotic coverage with levofloxacin for both respiratory and urinary sources -Follow-up urine culture -Saline lock IV -Physical therapy Possible bronchitis - chest x-ray did not suggest pneumonia but patient has hypoxia and loose cough. Should have adequate coverage from levofloxacin as discussed above. some concern for aspiration. -Cough suppressant -Antibiotics as above -Supplement oxygen as needed -speech pathology evaluation Stage III chronic kidney disease - creatinine slightly elevated from baseline and continues slow improvement. -Hydration as above Essential tremor - significant disability because of her tremor but does well while she's on medications. -Continue home medications Pulmonary hypertension - oxygen dependent at home. She thinks that her symptoms are near baseline at this time. -Supplement oxygen as indicated Maintenance issues - - DVT prophylaxis - SAA stockings - GI prophylaxis - PPI - Nutrition - regular diet as tolerated including supplements - Montes catheter - not indicated Disposition - anticipate discharge to residential after the hospital stay, should be ready for discharge in 1 or maybe 2 days Nic Valles M.D.
[2017-09-26] MEDS ORDERED: Potassium Chloride 20 MEQ Tab.ER PO ONE (11:00)
[2017-09-26] MEDS: Albuterol 0.083% 2.5 MG/3 ML Neb Soln NEB SCH ×3 (11:33→21:56)
[2017-09-26] MEDS: Acetaminophen/HYDROcodone 325-5 MG Tab PO PRN (18:40)
[2017-09-27] MEDS: Albuterol 0.083% 2.5 MG/3 ML Neb Soln NEB SCH ×4 (07:17→21:33)
[2017-09-27] MEDS: Escitalopram 10 MG Tab PO SCH (08:08)
[2017-09-27] MEDS: Gabapentin 300 MG Cap PO SCH ×3 (08:08→21:32)
[2017-09-27] MEDS: Primidone 50 MG Tab PO SCH ×2 (08:08→21:32)
[2017-09-27] MEDS: guaiFENesin/Dextromethorphan 100-10 MG/5 ML Soln 10 ML Cup PO SCH ×3 (08:10→21:29)
[2017-09-27] MEDS: Oxybutynin 5 MG Tab PO SCH ×3 (08:10→21:33)
[2017-09-27] MEDS: Aspirin 81 MG Tab.EC PO SCH (08:10)
[2017-09-27] MEDS: Pantoprazole 40 MG Tab.CR PO SCH (08:10)
--- NOTE | 2017-09-27 12:40 | PCM.PN ---
- General Info Date of Service: 09/27/17 Subjective Update: Ms. Delgado has been stable over the past 24 hours, with no evidence or recurrent fever. Remains fairly weak and at this point patient and her do not feel that she be able to safely function at home. Current plan is to proceed with [facility] placement for restorative physical therapy and occupational therapy. Functional Status: Reports: Pain Controlled, Ambulating, Urinating - Review of Systems General: Reports: Weakness. Denies: Fever, Chills Pulmonary: Reports: No Symptoms Cardiovascular: Reports: No Symptoms Gastrointestinal: Reports: No Symptoms Genitourinary: Reports: No Symptoms - Patient Data Vitals - Most Recent: Last Vital Signs Temp 99.0 F 09/27/17 11:00 Pulse 74 09/27/17 11:00 Resp 18 09/27/17 11:00 BP 101/61 09/27/17 11:00 Pulse Ox 93 L 09/27/17 11:00 Weight - Most Recent: 137 lb I&O - Last 24 Hours: Intake & Output 09/26/17 09/27/17 09/27/17 22:59 06:59 14:59 Intake Total 250 240 500 Output Total 325 100 200 Balance -75 140 300 Lab Results Last 24 Hours: Laboratory Results - last 24 hr 09/27/17 09/27/17 Range/Units 06:00 06:00 WBC 13.8 H (4.5-11.0) K/uL RBC 3.17 L (3.30-5.50) M/uL Hgb 10.5 L (12.0-15.0) g/dL Hct 33.0 L (36.0-48.0) % MCV 104 H (80-98) fL MCH 33 H (27-31) pg MCHC 32 (32-36) % Plt Count 136 L (150-400) K/uL Sodium 139 L (140-148) mmol/L Potassium 4.2 (3.6-5.2) mmol/L Chloride 103 (100-108) mmol/L Carbon Dioxide 27 (21-32) mmol/L Anion Gap 13.2 (5.0-14.0) mmol/L BUN 25 H (7-18) mg/dL Creatinine 1.2 H (0.6-1.0) mg/dL Est Cr Clr Drug Dosing 37.90 mL/min Estimated GFR (MDRD) 43 L (>60) Glucose 107 H (74-106) mg/dL Calcium 7.9 L (8.5-10.1) mg/dL Med Orders - Current: Current Medications Acetaminophen (Tylenol) 650 mg PO Q4H PRN PRN Reason: Pain (Mild 1-3)/fever Hydrocodone Bitart/Acetaminophen ([place] 325-5 Mg) 1 tab PO BID PRN PRN Reason: Pain Last Admin: 09/26/17 18:40 Dose: 1 tab Albuterol (Proventil Neb Soln) 2.5 mg NEB Q4H PRN PRN Reason: Shortness Of Breath/wheezing Albuterol (Proventil Neb Soln) 2.5 mg NEB QIDRT [facility] Last Admin: 09/27/17 10:44 Dose: 2.5 mg Aspirin (Halfprin) 81 mg PO DAILY [facility] Last Admin: 09/27/17 08:10 Dose: 81 mg Escitalopram Oxalate (Lexapro) 10 mg PO DAILY [facility] Last Admin: 09/27/17 08:08 Dose: 10 mg Gabapentin (Neurontin) 600 mg PO TID [facility] Last Admin: 09/27/17 08:08 Dose: 600 mg Guaifenesin/Dextromethorphan (Robitussin Dm) 10 ml PO TID [facility] Last Admin: 09/27/17 08:10 Dose: 10 ml Levofloxacin (Levaquin) 500 mg PO Q48H [facility] Levofloxacin (Levaquin) 250 mg PO Q48H [facility] Ondansetron HCl (Zofran Odt) 4 mg PO Q6H PRN PRN Reason: Nausea able to take PO Ondansetron HCl (Zofran) 4 mg IV Q6H PRN PRN Reason: Nausea/Vomiting Oxybutynin Chloride (Oxybutynin) 5 mg PO TID [facility] Last Admin: 09/27/17 08:10 Dose: 5 mg Pantoprazole Sodium (Protonix) 40 mg PO ACBREAKFAST [facility] Last Admin: 09/27/17 08:10 Dose: 40 mg Polyethylene Glycol (Miralax) 17 gm PO DAILY PRN PRN Reason: Constipation Primidone (Mysoline) 125 mg PO BID [facility] Last Admin: 09/27/17 08:08 Dose: 125 mg Propranolol HCl (Inderal La) 60 mg PO BID [facility] Last Admin: 09/26/17 09:09 Dose: 60 mg Senna/Docusate Sodium (Senna Plus) 1 tab PO BID PRN PRN Reason: Constipation Discontinued Medications Fentanyl (Sublimaze) 25 mcg IVPUSH ONETIME ONE Stop: 09/23/17 15:05 Last Admin: 09/23/17 15:15 Dose: 25 mcg Fentanyl (Sublimaze) 25 mcg IVPUSH ONETIME ONE Stop: 09/23/17 16:16 Last Admin: 09/23/17 16:37 Dose: 25 mcg Guaifenesin/Dextromethorphan (Robitussin Dm) 10 ml PO Q6H PRN PRN Reason: Cough Levofloxacin/Dextrose 750 mg/ (Premix) 150 mls @ 100 mls/hr IV ONETIME ONE Stop: 09/23/17 17:18 Last Admin: 09/23/17 16:42 Dose: 100 mls/hr Sodium Chloride (Normal Saline) 1,000 mls @ 125 mls/hr IV ASDIRECTED [facility] Last Admin: 09/25/17 05:21 Dose: 125 mls/hr Lactated Ringer's (Ringers, Lactated) 500 mls @ 500 mls/hr IV ASDIRECTED [facility] Last Admin: 09/23/17 22:47 Dose: 500 mls/hr Lactated Ringer's (Ringers, Lactated) 500 mls @ 500 mls/hr IV ONETIME ONE Stop: 09/23/17 23:52 Last Admin: 09/23/17 22:55 Dose: Not Given Lactated Ringer's (Ringers, Lactated) 500 mls @ 500 mls/hr IV ONETIME ONE Stop: 09/24/17 01:21 Last Admin: 09/24/17 00:28 Dose: 500 mls/hr Lactated Ringer's (Ringers, Lactated) 500 mls @ 500 mls/hr IV ONETIME ONE Stop: 09/24/17 04:10 Last Admin: 09/24/17 10:57 Dose: 500 mls/hr Lactated Ringer's (Ringers, Lactated) 500 mls @ 500 mls/hr IV .BOLUS [facility] Stop: 09/24/17 11:46 Levofloxacin/Dextrose 750 mg/ (Premix) 150 mls @ 100 mls/hr IV Q48H [facility] Last Admin: 09/25/17 17:03 Dose: 100 mls/hr Potassium Chloride (Klor-Con M20) 40 meq PO ONETIME ONE Stop: 09/26/17 11:01 Last Admin: 09/26/17 13:23 Dose: 40 meq - Exam Quality Assessment: Supplemental Oxygen, DVT Prophylaxis General: Alert, Oriented, Cooperative, Mild Distress Lungs: Clear to Auscultation, Normal Respiratory Effort Cardiovascular: Regular Rate, Regular Rhythm, No Murmurs GI/Abdominal Exam: Soft, Non-Tender, No Organomegaly, No Distention Extremities: Non-Tender, No Pedal Edema Skin: Warm, Dry, Intact - Problem List Review Problem List Initiated/Reviewed/Updated: Yes - My Orders Last 24 Hours: My Active Orders 09/28/17 05:00 BASIC METABOLIC PANEL,BMP [CHEM] Timed CBC WITH AUTO DIFF [HEME] Timed - Plan Plan:: ASSESSMENT AND PLAN - Acute cystitis with sepsis - sepsis has resolved. Urine culture only growing mixed jose manuel at this time, afebrile over the past 24 hours -Empiric antibiotic coverage with levofloxacin for both respiratory and urinary sources -Saline lock IV -Physical therapy Possible bronchitis - chest x-ray did not suggest pneumonia but patient has hypoxia and loose cough. Should have adequate coverage from levofloxacin as discussed above. some concern for aspiration. -Cough suppressant -Antibiotics as above -Supplement oxygen as needed -speech pathology evaluation pending Stage III chronic kidney disease - creatinine slightly elevated from baseline and continues slow improvement. -Hydration as above Essential tremor - significant disability because of her tremor but does well while she's on medications. -Continue home medications Pulmonary hypertension - oxygen dependent at home. She thinks that her symptoms are near baseline at this time. -Supplement oxygen as indicated Maintenance issues - - DVT prophylaxis - ASA stockings - GI prophylaxis - PPI - Nutrition - regular diet as tolerated including supplements - Montes catheter - not indicated Disposition - anticipate discharge to [facility] after the hospital stay, should be ready for discharge in 1 or maybe 2 days
[2017-09-27] MEDS: Propranolol 60 MG Cap.ER PO SCH ×2 (13:10→21:31)
[2017-09-27] MEDS: Lactobacillus Rhamnosus GG (Probiotic) Cap PO SCH ×2 (14:54→21:31)
[2017-09-27] MEDS: Acetaminophen/HYDROcodone 325-5 MG Tab PO PRN (15:46)
[2017-09-27] MEDS ORDERED: Levofloxacin 500 MG Tab PO SCH (18:00)
[2017-09-27] MEDS ORDERED: Levofloxacin 250 MG Tab PO SCH (18:00)
[2017-09-27] MEDS ORDERED: Bisacodyl 10 MG Supp RECTAL ONE (19:53)
[2017-09-27] MEDS ORDERED: Sodium Phosphate,Monobasic/Sodium Phosphate,Dibasic Enema 133 ML Bottle RECTAL ONE (19:53)
[2017-09-28] MEDS: Albuterol 0.083% 2.5 MG/3 ML Neb Soln NEB SCH ×2 (07:20→10:44)
[2017-09-28] MEDS: Pantoprazole 40 MG Tab.CR PO SCH (08:04)
[2017-09-28] MEDS: guaiFENesin/Dextromethorphan 100-10 MG/5 ML Soln 10 ML Cup PO SCH (09:29)
[2017-09-28] MEDS: Lactobacillus Rhamnosus GG (Probiotic) Cap PO SCH (09:29)
[2017-09-28] MEDS: Gabapentin 300 MG Cap PO SCH (09:29)
[2017-09-28] MEDS: Oxybutynin 5 MG Tab PO SCH (09:30)
[2017-09-28] MEDS: Propranolol 60 MG Cap.ER PO SCH (09:30)
[2017-09-28] MEDS: Primidone 50 MG Tab PO SCH (09:30)
[2017-09-28] MEDS: Aspirin 81 MG Tab.EC PO SCH (09:30)
[2017-09-28] MEDS: Escitalopram 10 MG Tab PO SCH (09:30)
[2017-09-28 11:24] VITALS: BP 98/53
--- NOTE | 2017-09-28 11:42 | PCM.DCSUM1 ---
Discharge Summary - Hospital Course Brief History: Ms. gasca is a 77-year-old woman who was admitted through the emergency department with weakness and confusion thought secondary to urinary tract infection with sepsis. - Discharge Data Discharge Date: 09/28/17 Discharge Disposition: DC/Tfer to SNF 03 Condition: Fair - Discharge Diagnosis/Problem(s) (1) Sepsis SNOMED Code(s): 56801840 ICD Code: A41.9 - SEPSIS, UNSPECIFIED ORGANISM Status: Acute Current Visit: Yes (2) Bronchitis SNOMED Code(s): 99733574 ICD Code: J40 - BRONCHITIS, NOT SPECIFIED ACUTE OR CHRONIC Status: Acute Current Visit: Yes (3) Generalized weakness SNOMED Code(s): 51938863 ICD Code: R53.1 - WEAKNESS Status: Acute Current Visit: Yes (4) Acute cystitis without hematuria SNOMED Code(s): 21856973 ICD Code: N30.00 - ACUTE CYSTITIS WITHOUT HEMATURIA Status: Acute Current Visit: Yes (5) CKD (chronic kidney disease), stage III SNOMED Code(s): 484654449 ICD Code: N18.3 - CHRONIC KIDNEY DISEASE, STAGE 3 (MODERATE) Status: Chronic Current Visit: No - Patient Summary/Data Consults: Consultations 09/24/17 07:00 PT Evaluation and Treatment [CONS] Routine Please Evaluate and Treat. PT Reason for Consult: Strengthening This query below is only for informational purposes and is not editable. 09/27/17 07:00 ASSEMBLER BODY Eval and Treat [ASSEMBLER BODY Evaluation and Treatment] [CONS] Routine Please Evaluate and Treat ASSEMBLER BODY Reason for Consult: Swallow This query below is only for informational purposes and is not editable. Admission Diagnosis/Problem: Generalized weakness following poliomyelitis Hospital Course: Kelly presented to the emergency room with generalized weakness as well as confusion. Symptoms started on the day prior to admission and were initially mild during the day but progressed throughout the day and into the night. She had a fall at home on the evening prior to admission striking the left side of her chest. Confusion seems a little bit better today. She is very weak and lethargic. She reports a loose but nonproductive cough that is about the same as it has been for the past couple of weeks. She reports very mild lower abdominal pain that is slowly improving from her surgery. She reports increased urinary frequency and urgency but does not think this is any worse than it has been for the past few weeks. She has had subjective fevers and chills at home. Appetite has not been great. She has been able to make some improvement with her home care physical therapy. No change in bowel habits. No complaints of shortness of breath beyond baseline.Workup in the emergency room revealed a leukocytosis at 23,000. Kidney function is not quite as good as usual but is near baseline. Chest x-ray did not show definitive pneumonia. Urine sample is pending. Given her profound weakness and suspected bacterial infection she was admitted for inpatient management. Urinalysis returned and showed evidence of underlying infection so urine culture was obtained. She was felt to have sepsis and was treated with IV fluids per sepsis protocol. There was also question of some ongoing bronchitis, she was started on IV antibiotic therapy with levofloxacin which was felt to be able to cover both urinary and respiratory pathogens. She gradually improved during the hospital stay and was taken off of IV fluids and converted to oral antibiotic therapy with oral levofloxacin. Renal function improved following hydration. She remained very weak and was not felt to be safe for discharge to home. Urine culture returned showing only mixed jose manuel with no specific bacteria identified. She will be discharged with an additional 2 doses of oral levofloxacin. Daily physical therapy and occupational therapy will be ordered for prison stay. Follow-up appointments will be as needed. Activity will be as tolerated and she will resume her usual diet. - Patient Instructions Diet: Usual Diet as Tolerated Activity: As Tolerated Other/Special Instructions: Daily physical therapy and occupational therapy while at the prison. Oxygen 2 L/m via nasal cannula as needed. - Discharge Plan Prescriptions/Med Rec: Levofloxacin [Levaquin] 500 mg PO Q48H #2 tablet Home Medications: Home Meds Albuterol [Proair HFA] 2 gm IN Q6HR PRN 06/26/16 [History] Aspirin [Ecotrin] 81 mg PO DAILY 06/26/16 [History] Cyanocobalamin (Vitamin B-12) [Vitamin B-12] 1,000 mcg INJECT ASDIRECTED [History] Furosemide [Lasix] 20 mg PO DAILY 06/26/16 [History] Gabapentin [Neurontin] 600 mg PO TID 06/26/16 [History] Omeprazole Magnesium [Prilosec Otc] 40 mg PO DAILY 06/26/16 [History] Oxybutynin 5 mg PO TID 06/26/16 [History] Primidone 125 mg PO BID 06/26/16 [History] Propranolol [Inderal LA] 60 mg PO BID 06/26/16 [History] Escitalopram [Lexapro] 10 mg PO DAILY 05/06/17 [History] Hydrocodone/Acetaminophen [Hydrocodon-Acetaminophen 5-325] 1 tab PO BID PRN [History] Levofloxacin [Levaquin] 500 mg PO Q48H #2 tablet 09/28/17 [Rx] Referrals: PCP,None [Primary Care Provider] - - Discharge Summary/Plan Comment DC Time >30 min.: No - Patient Data Vitals - Most Recent: Last Vital Signs Temp 97.6 F 09/28/17 11:21 Pulse 76 09/28/17 11:21 Resp 16 09/28/17 11:21 BP 98/53 L 09/28/17 11:21 Pulse Ox 93 L 09/28/17 11:21 Weight - Most Recent: 137 lb I&O - Last 24 hours: Intake & Output 09/27/17 09/28/17 09/28/17 22:59 06:59 14:59 Intake Total 240 500 Output Total 150 100 200 Balance 90 -100 300 Lab Results - Last 24 hrs: Laboratory Results - last 24 hr 09/28/17 09/28/17 Range/Units 05:00 05:00 WBC 12.1 H (4.5-11.0) K/uL RBC 3.01 L (3.30-5.50) M/uL Hgb 9.9 L (12.0-15.0) g/dL Hct 31.3 L (36.0-48.0) % MCV 104 H (80-98) fL MCH 33 H (27-31) pg MCHC 32 (32-36) % Plt Count 149 L (150-400) K/uL Neut % (Auto) 67 H (36-66) % Lymph % (Auto) 12 L (24-44) % [place] % (Auto) 20 H (2-6) % Eos % (Auto) 1 L (2-4) % Baso % (Auto) 0 (0-1) % Sodium 137 L (140-148) mmol/L Potassium 4.2 (3.6-5.2) mmol/L Chloride 102 (100-108) mmol/L Carbon Dioxide 25 (21-32) mmol/L Anion Gap 14.2 H (5.0-14.0) mmol/L BUN 23 H (7-18) mg/dL Creatinine 1.2 H (0.6-1.0) mg/dL Est Cr Clr Drug Dosing 37.90 mL/min Estimated GFR (MDRD) 43 L (>60) Glucose 119 H (74-106) mg/dL Calcium 7.8 L (8.5-10.1) mg/dL Med Orders - Current: Current Medications Acetaminophen (Tylenol) 650 mg PO Q4H PRN PRN Reason: Pain (Mild 1-3)/fever Hydrocodone Bitart/Acetaminophen (Ralls 325-5 Mg) 1 tab PO BID PRN PRN Reason: Pain Last Admin: 09/27/17 15:46 Dose: 1 tab Albuterol (Proventil Neb Soln) 2.5 mg NEB Q4H PRN PRN Reason: Shortness Of Breath/wheezing Albuterol (Proventil Neb Soln) 2.5 mg NEB QIDRT [facility] Last Admin: 09/28/17 10:44 Dose: 2.5 mg Aspirin (Halfprin) 81 mg PO DAILY [facility] Last Admin: 09/28/17 09:30 Dose: 81 mg Escitalopram Oxalate (Lexapro) 10 mg PO DAILY [facility] Last Admin: 09/28/17 09:30 Dose: 10 mg Gabapentin (Neurontin) 600 mg PO TID [facility] Last Admin: 09/28/17 09:29 Dose: 600 mg Guaifenesin/Dextromethorphan (Robitussin Dm) 10 ml PO TID [facility] Last Admin: 09/28/17 09:29 Dose: 10 ml Lactobacillus Rhamnosus (Culturelle) 2 cap PO BID [facility] Last Admin: 09/28/17 09:29 Dose: 2 cap Levofloxacin (Levaquin) 500 mg PO Q48H [facility] Last Admin: 09/27/17 18:04 Dose: 500 mg Levofloxacin (Levaquin) 250 mg PO Q48H [facility] Last Admin: 09/27/17 18:04 Dose: 250 mg Ondansetron HCl (Zofran Odt) 4 mg PO Q6H PRN PRN Reason: Nausea able to take PO Ondansetron HCl (Zofran) 4 mg IV Q6H PRN PRN Reason: Nausea/Vomiting Oxybutynin Chloride (Oxybutynin) 5 mg PO TID [facility] Last Admin: 09/28/17 09:30 Dose: 5 mg Pantoprazole Sodium (Protonix) 40 mg PO ACBREAKFAST [facility] Last Admin: 09/28/17 08:04 Dose: 40 mg Polyethylene Glycol (Miralax) 17 gm PO DAILY PRN PRN Reason: Constipation Primidone (Mysoline) 125 mg PO BID [facility] Last Admin: 09/28/17 09:30 Dose: 125 mg Propranolol HCl (Inderal La) 60 mg PO BID [facility] Last Admin: 09/28/17 09:30 Dose: 60 mg Senna/Docusate Sodium (Senna Plus) 1 tab PO BID PRN PRN Reason: Constipation Last Admin: 09/27/17 13:35 Dose: 1 tab Discontinued Medications Bisacodyl (Dulcolax) 10 mg RECTAL ONETIME ONE Stop: 09/27/17 19:54 Last Admin: 09/27/17 21:23 Dose: 10 mg Fentanyl (Sublimaze) 25 mcg IVPUSH ONETIME ONE Stop: 09/23/17 15:05 Last Admin: 09/23/17 15:15 Dose: 25 mcg Fentanyl (Sublimaze) 25 mcg IVPUSH ONETIME ONE Stop: 09/23/17 16:16 Last Admin: 09/23/17 16:37 Dose: 25 mcg Guaifenesin/Dextromethorphan (Robitussin Dm) 10 ml PO Q6H PRN PRN Reason: Cough Levofloxacin/Dextrose 750 mg/ (Premix) 150 mls @ 100 mls/hr IV ONETIME ONE Stop: 09/23/17 17:18 Last Admin: 09/23/17 16:42 Dose: 100 mls/hr Sodium Chloride (Normal Saline) 1,000 mls @ 125 mls/hr IV ASDIRECTED [facility] Last Admin: 09/25/17 05:21 Dose: 125 mls/hr Lactated Ringer's (Ringers, Lactated) 500 mls @ 500 mls/hr IV ASDIRECTED [facility] Last Admin: 09/23/17 22:47 Dose: 500 mls/hr Lactated Ringer's (Ringers, Lactated) 500 mls @ 500 mls/hr IV ONETIME ONE Stop: 09/23/17 23:52 Last Admin: 09/23/17 22:55 Dose: Not Given Lactated Ringer's (Ringers, Lactated) 500 mls @ 500 mls/hr IV ONETIME ONE Stop: 09/24/17 01:21 Last Admin: 09/24/17 00:28 Dose: 500 mls/hr Lactated Ringer's (Ringers, Lactated) 500 mls @ 500 mls/hr IV ONETIME ONE Stop: 09/24/17 04:10 Last Admin: 09/24/17 10:57 Dose: 500 mls/hr Lactated Ringer's (Ringers, Lactated) 500 mls @ 500 mls/hr IV .BOLUS ASH Stop: 09/24/17 11:46 Levofloxacin/Dextrose 750 mg/ (Premix) 150 mls @ 100 mls/hr IV Q48H [facility] Last Admin: 09/25/17 17:03 Dose: 100 mls/hr Potassium Chloride (Klor-Con M20) 40 meq PO ONETIME ONE Stop: 09/26/17 11:01 Last Admin: 09/26/17 13:23 Dose: 40 meq Sodium Biphosphate/Sodium Phosphate (Fleet Enema) 133 ml RECTAL ONETIME ONE Stop: 09/27/17 19:54 Last Admin: 09/28/17 01:26 Dose: Not Given - Exam Quality Assessment: Reports: Supplemental Oxygen, DVT Prophylaxis General: Reports: Alert, Oriented, Cooperative, No Acute Distress Lungs: Reports: Clear to Auscultation, Decreased Breath Sounds. Denies: Rales, Rhonchi, Wheezing Cardiovascular: Reports: Regular Rate, Regular Rhythm, No Murmurs GI/Abdominal Exam: Soft, Non-Tender, No Organomegaly, No Distention Extremities: Non-Tender, No Pedal Edema Skin: Reports: Warm, Dry, Intact
== END 2017-09-28 12:45 | DRG 872 ==
LOC: JP.ED 13:33 → JP.ICU 15:49 → JP.MS 18:32 → JP.ICU 18:35 → JP.2SS 09-26 11:10
PROVIDERS: ADMIT Internal Medicine; ATTEND Hospitalist
DX: A41.9 Sepsis, unspecified organism (principal); N30.00 Acute cystitis without hematuria; J44.0 Chronic obstructive pulmonary disease with (acute) lower respiratory infection; R53.1 Weakness; Z66 Do not resuscitate; I48.91 Unspecified atrial fibrillation; I27.23 Pulmonary hypertension due to lung diseases and hypoxia; J40 Bronchitis, not specified as acute or chronic; G25.0 Essential tremor; N18.3 Chronic kidney disease, stage 3 (moderate); Z99.81 Dependence on supplemental oxygen; W19.XXXA Unspecified fall, initial encounter; Y92.009 Unspecified place in unspecified non-institutional (private) residence as the place of occurrence of the external cause; R41.0 Disorientation, unspecified; S20.212A Contusion of left front wall of thorax, initial encounter; E53.8 Deficiency of other specified B group vitamins; F32.9 Major depressive disorder, single episode, unspecified; K21.9 Gastro-esophageal reflux disease without esophagitis; Z87.01 Personal history of pneumonia (recurrent); H54.7 Unspecified visual loss; H91.90 Unspecified hearing loss, unspecified ear; Z96.659 Presence of unspecified artificial knee joint; Z91.040 Latex allergy status; Z79.82 Long term (current) use of aspirin
CPT/HCPCS: 36415; 71045 ×2; 80053; 81001; 85025; 96374; 99285; J3010; 80048; 85027; 87086; 92610-GN; 94640; 97110-GP; 97163-GP; 97530-GP; A9270-GY; J1956; J7040; J7120

== ENCOUNTER 2017-09-30 12:03 | Inpatient (IN) | payer MEDICARE, OTHER ==
--- NOTE | 2017-09-30 13:09 | EDM.PDOC ---
ED HPI GENERAL MEDICAL PROBLEM - General Chief Complaint: General Stated Complaint: FEVER, HIGH TEMP Time Seen by Provider: 09/30/17 12:54 Source of Information: Reports: Patient, Family, Old Records, RN Notes Reviewed History Limitations: Reports: No Limitations - History of Present Illness INITIAL COMMENTS - FREE TEXT/NARRATIVE: 77-year-old female presents to the emergency department today with complaint of fever and weakness, she has a fairly complex medical history but around September 03 ended up with a volvulus small intestine time underwent surgical operation admitted to hospital discharged subsequently admitted to hospital september 25 4 sepsis thought to be initiated from a urinary tract infection, discharge from the hospital on September 28. Returns today with complaint of weakness and fever while in the residential for rehabilitation. Denies any particular complaints Lower Abdominal Pain Score (Numeric/FACES): 5 - Related Data Allergies Allergy/AdvReac Type Severity Reaction Status Date / Time latex Allergy Rash Verified 09/30/17 12:25 Home Meds: Home Meds Albuterol [Proair HFA] 2 gm IN Q6HR PRN 06/26/16 [History] Aspirin [Ecotrin] 81 mg PO DAILY 06/26/16 [History] Cyanocobalamin (Vitamin B-12) [Vitamin B-12] 1,000 mcg INJECT ASDIRECTED [History] Furosemide [Lasix] 20 mg PO DAILY 06/26/16 [History] Gabapentin [Neurontin] 600 mg PO TID 06/26/16 [History] Omeprazole Magnesium [Prilosec Otc] 40 mg PO DAILY 06/26/16 [History] Oxybutynin 5 mg PO TID 06/26/16 [History] Primidone 125 mg PO BID 06/26/16 [History] Propranolol [Inderal LA] 60 mg PO BID 06/26/16 [History] Escitalopram [Lexapro] 10 mg PO DAILY 05/06/17 [History] Hydrocodone/Acetaminophen [Hydrocodon-Acetaminophen 5-325] 1 tab PO BID PRN [History] Levofloxacin [Levaquin] 500 mg PO Q48H #2 tablet 09/28/17 [Rx] Past Medical History HEENT History: Reports: Cataract, Hard of Hearing, Impaired Vision Cardiovascular History: Reports: Afib, Arrhythmia, Heart Failure, Pulmonary Hypertension, Other (See Below) Other Cardiovascular History: edema bilaterally Respiratory History: Reports: Bronchitis, Recurrent, COPD, Pneumonia, Recurrent , Other (See Below) Other Respiratory History: panlobular emphysema Gastrointestinal History: Reports: Bowel Obstruction, GERD, Irritable Bowel Syndrome Genitourinary History: Reports: Urinary Incontinence FENCE ERECTOR 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 Psychiatric History: Reports: Depression Hematologic History: Reports: Anemia, B12 Deficiency - Infectious Disease History Infectious Disease History: Reports: Chicken Pox, Shingles - Past Surgical History HEENT Surgical History: Reports: Oral Surgery, Tonsillectomy Cardiovascular Surgical History: Reports: None Respiratory Surgical History: Reports: None GI Surgical History: Reports: Appendectomy, Cholecystectomy, Colon, Colonoscopy , EGD, Hernia Repair/Other, Other (See Below) Other GI Surgeries/Procedures: bowel resection Female Surgical History: Reports: Breast Biopsy, Section, Other ( See Below) Other Female Surgeries/Procedures: left side biopsy Neurological Surgical History: Reports: None Musculoskeletal Surgical History: Reports: Knee Replacement Oncologic Surgical History: Reports: Biopsy of Breast, Other (See Below) Other Oncologic Surgeries/Procedures: left side biopsy Social & Family History - Family History Family Medical History: Noncontributory - Tobacco Use Smoking Status *Q: Never Smoker - Caffeine Use Caffeine Use: Reports: Coffee - Recreational Drug Use Recreational Drug Use: No ED ROS GENERAL - Review of Systems Review Of Systems: See Below Constitutional: Reports: Fever, Chills, Weakness HEENT: Reports: Other (Dry mouth) Respiratory: Reports: No Symptoms Cardiovascular: Reports: No Symptoms GI/Abdominal: Reports: Abdominal Pain (Generalized). Denies: Nausea, Vomiting Musculoskeletal: Reports: No Symptoms Skin: Reports: No Symptoms Neurological: Reports: No Symptoms Psychiatric: Reports: No Symptoms ED EXAM, GENERAL - Physical Exam Exam: See Below Free Text/Narrative:: General: Elderly female, ill-appearing, alert and oriented x3 HEENT: head is atraumatic normocephalic, eyes pupils equal round reactive to light, sclera clear no conjunctivitis appreciated. Ears tympanic membranes clear and corrigan landmarks and light reflex are present bilaterally canals are clear. Nose no septal deviation, nares are clear, no blood present. Mouth mucosa is dry and red no erythema or exudate noted in soft palate, tongue is midline uvula is midline, dentition is intact. Neck: Supple no thyromegaly no tracheal deviation. Nodes: Cervical nodes subclavicular nodes nontender no palpable lymphadenopathy noted. Lungs: clear to auscultation bilaterally with symmetrical respirations, no adventitious noise appreciated. CV: Regular rate and rhythm S1 and S2 appreciated no murmurs rubs or gallops noted. Abdomen: Soft, nontender, no palpable masses or organomegaly appreciated, mild distention no guarding bowel sounds are present, surgical scar is clean dry and intact. Neuro: Cranial nerves II through XII grossly intact Skin: Warm and dry, intact Extremities: +1 pitting edema bilaterally, pedal pulse is +2. Course - Vital Signs Last Recorded V/S: Last Vital Signs Temp 98.9 F 09/30/17 13:59 Pulse 83 09/30/17 13:59 Resp 15 09/30/17 13:59 BP 100/55 L 09/30/17 13:59 Pulse Ox 96 09/30/17 13:59 - Orders/Labs/Meds Orders: Active Orders 24 hr Category Date Time Status Vital Signs [RC] Q1H Care 09/30/17 13:03 Active Abdomen Pelvis wo Cont [CT] Stat Exams 09/30/17 15:01 Ordered CULTURE BLOOD [BC] Urgent Lab 09/30/17 13:40 Received CULTURE BLOOD [BC] Urgent Lab 09/30/17 13:50 Received UA W/MICROSCOPIC [URIN] Urgent Lab 09/30/17 13:03 Ordered Lactated Ringers [Ringers, Lactated] 1,000 ml Med 09/30/17 13:15 Active IV ASDIRECTED Vancomycin 1,000 mg Med 09/30/17 15:02 Active Dextrose 5% in Water 250 ml IV ONETIME Blood Culture x2 Reflex Set [OM.PC] Urgent Oth 09/30/17 13:03 Ordered Medication Orders Lactated Ringer's (Ringers, Lactated) 1,000 mls @ 999 mls/hr IV ASDIRECTED ASH Last Admin: 09/30/17 13:16 Dose: 999 mls/hr Vancomycin HCl 1,000 mg/ (Dextrose/Water) 250 mls @ 167 mls/hr IV ONETIME ONE Stop: 09/30/17 16:31 Labs: Laboratory Tests 09/30/17 09/30/17 09/30/17 Range/Units 13:03 13:03 13:03 WBC 31.0 H* (4.5-11.0) K/uL RBC 3.61 (3.30-5.50) M/uL Hgb 12.2 D (12.0-15.0) g/dL Hct 36.4 (36.0-48.0) % MCV 101 H (80-98) fL MCH 34 H (27-31) pg MCHC 34 (32-36) % Plt Count 253 (150-400) K/uL Neut % (Auto) 82 H (36-66) % Lymph % (Auto) 7 L (24-44) % [place] % (Auto) 11 H (2-6) % Eos % (Auto) 0 L (2-4) % Baso % (Auto) 0 (0-1) % Sodium 136 L (140-148) mmol/L Potassium 4.5 (3.6-5.2) mmol/L Chloride 101 (100-108) mmol/L Carbon Dioxide 26 (21-32) mmol/L Anion Gap 13.5 (5.0-14.0) mmol/L BUN 21 H (7-18) mg/dL Creatinine 1.3 H (0.6-1.0) mg/dL Est Cr Clr Drug Dosing 31.41 mL/min Estimated GFR (MDRD) 40 L (>60) Glucose 120 H (74-106) mg/dL Lactic Acid 2.4 H (0.4-2.0) mmol/L Calcium 7.9 L (8.5-10.1) mg/dL Total Bilirubin 0.8 (0.2-1.0) mg/dL AST 18 (15-37) U/L ALT 11 L (12-78) U/L Alkaline Phosphatase 96 (46-116) U/L C-Reactive Protein 21.35 H (0.0-0.3) mg/dL Total Protein 6.0 L (6.4-8.2) g/dL Albumin 1.7 L (3.4-5.0) g/dL Globulin 4.3 H (2.3-3.5) g/dL Albumin/Globulin Ratio 0.4 L (1.2-2.2) Meds: Medications Generic Name Dose Route Start Last Admin Trade Name Freq PRN Reason Stop Dose Admin Lactated Ringer's 1,000 mls @ 999 mls/hr 09/30/17 13:15 09/30/17 13:16 Ringers, Lactated IV 999 mls/hr ASDIRECTED ASH Administration Vancomycin HCl 1,000 mg/ 250 mls @ 167 mls/hr 09/30/17 15:02 Dextrose/Water IV 09/30/17 16:31 ONETIME ONE Discontinued Medications Generic Name Dose Route Start Last Admin Trade Name Freq PRN Reason Stop Dose Admin Piperacillin/Tazobactam/ 100 mls @ 200 mls/hr 09/30/17 14:00 09/30/17 13:56 Dextrose 4.5 gm/ Premix IV 09/30/17 14:29 200 mls/hr ONETIME ONE Administration Departure - Departure Time of Disposition: 15:18 Disposition: Admitted As Inpatient 65 Condition: Fair Clinical Impression: Sepsis Qualifiers: Sepsis type: sepsis due to unspecified organism Qualified Code(s): A41.9 - Sepsis, unspecified organism - Discharge Information Referrals: Harley Medrano MD [Primary Care Provider] - Forms: ED Department Discharge Critical Care Note - Critical Care Note Total Time (mins): 15 - My Orders Last 24 Hours: My Active Orders 09/30/17 13:03 Vital Signs [RC] Q1H UA W/MICROSCOPIC [URIN] Urgent Blood Culture x2 Reflex Set [OM.PC] Urgent 09/30/17 13:15 Lactated Ringers [Ringers, Lactated] 1,000 ml IV ASDIRECTED 09/30/17 13:40 CULTURE BLOOD [BC] Urgent 09/30/17 13:50 CULTURE BLOOD [BC] Urgent 09/30/17 15:01 Abdomen Pelvis wo Cont [CT] Stat 09/30/17 15:02 Vancomycin 1,000 mg Dextrose 5% in Water 250 ml IV ONETIME - Assessment/Plan Last 24 Hours: My Active Orders 09/30/17 13:03 Vital Signs [RC] Q1H UA W/MICROSCOPIC [URIN] Urgent Blood Culture x2 Reflex Set [OM.PC] Urgent 09/30/17 13:15 Lactated Ringers [Ringers, Lactated] 1,000 ml IV ASDIRECTED 09/30/17 13:40 CULTURE BLOOD [BC] Urgent 09/30/17 13:50 CULTURE BLOOD [BC] Urgent 09/30/17 15:01 Abdomen Pelvis wo Cont [CT] Stat 09/30/17 15:02 Vancomycin 1,000 mg Dextrose 5% in Water 250 ml IV ONETIME Plan: Assessment Acuity = acute Site and laterality = early sepsis complicated patient with history of recent abdominal surgery as well as recent sepsis thought to be related to urinary tract infection and hospitalization Etiology = unclear etiology Manifestations = fever, hypertension, hypoxia Location of injury = Home Lab values = WBC elevated at 31.0 consistent leukocytosis, sodium low at 136 consistent hyponatremia creatinine elevated at 1.3 consistent with chronic renal failure stage G IIIB lactic acid mildly elevated at 2.4 consistent lactic acidosis, CRP elevated at 21.35 albumin low at 1.7 consistent hypoalbuminemia chest x-ray consistent with congestive heart failure type pattern urinalysis pending CT abdomen pending Plan Called discussed case hospitalist front end software engineer he agreed to come and evaluate the patient emergency department she has been given 1 L of lactated Ringer's, antibiotics of Zosyn and vancomycin initiated in the emergency department This note was dictated using [employer] voice recognition software please call with any questions on syntax or grammar.
[2017-09-30] MEDS ORDERED: Lactated Ringers 1,000 ML IV SCH ×2 (13:15→16:49)
[2017-09-30] MEDS ORDERED: Piperacillin/Tazobactam 4.5 GM in Sodium Chloride 0.9% 100 ML IV SCH (13:15)
[2017-09-30] MEDS ORDERED: Piperacillin/Tazobactam/Dext 4.5 GM in Premix Bag 1 BAG IV ONE (14:00)
--- NOTE | 2017-09-30 14:26 | CR ---
Portable chest Comparison: 23 Sep 2017. There is a stimulator device overlying the left chest. There is cardiac enlargement with vascular eng orgement. There has been development of small pleural effusions bilaterally. There are no alveolar in filtrates. Impression: 1. CHF.
--- NOTE | 2017-09-30 15:35 | PCM.HP ---
H&P History of Present Illness - General Date of Service: 09/30/17 Admit Problem/Dx: Admission Diagnosis/Problem Admission Diagnosis/Problem Sepsis Source of Information: Patient, Family, Old Records, Provider, RN Notes Reviewed History Limitations: Reports: No Limitations - History of Present Illness Initial Comments - Free Text/Narative: Ms. Delgado is a 77-year-old woman who is admitted through the emergency department with recurrent fever and sepsis. She was hospitalized at this facility in August and underwent surgical repair of a mechanical small bowel obstruction with lysis of adhesions. She was discharged to the long-term and returned last week with a febrile illness and early sepsis. Urinalysis was suspicious for infection she also had cough but no obvious infiltrates. She was treated with IV levofloxacin, urine culture later returned positive for mixed jose manuel. White blood cell count normalized and her fever resolved. She was discharged back to the long-term 2 days ago and did well until early this morning when she developed recurrent fever and progressive weakness. On evaluation in emergency department urinalysis shows no obvious evidence of infection, chest x-ray shows no infiltrates. White blood cell count is markedly elevated at 30,000 and lactic acid level is mildly elevated. Blood pressure and heart rate are both order line consistent with developing sepsis. CT scan of the abdomen was obtained without contrast because of acute kidney injury. CT scan shows evidence of bowel obstruction with no obvious transition point, but no other obvious abnormalities. Review of history as well as exam show no other obvious source of infection. Lower Abdominal Pain Score (Numeric/FACES): 5 - Related Data Allergies/Adverse Reactions: Allergies Allergy/AdvReac Type Severity Reaction Status Date / Time latex Allergy Rash Verified 09/30/17 12:25 Home Medications: Home Meds Albuterol [Proair HFA] 2 gm IN Q6HR PRN 06/26/16 [History] Aspirin [Ecotrin] 81 mg PO DAILY 06/26/16 [History] Cyanocobalamin (Vitamin B-12) [Vitamin B-12] 1,000 mcg INJECT ASDIRECTED [History] Furosemide [Lasix] 20 mg PO DAILY 06/26/16 [History] Gabapentin [Neurontin] 600 mg PO TID 06/26/16 [History] Omeprazole Magnesium [Prilosec Otc] 40 mg PO DAILY 06/26/16 [History] Oxybutynin 5 mg PO TID 06/26/16 [History] Primidone 125 mg PO BID 06/26/16 [History] Propranolol [Inderal LA] 60 mg PO BID 06/26/16 [History] Escitalopram [Lexapro] 10 mg PO DAILY 05/06/17 [History] Hydrocodone/Acetaminophen [Hydrocodon-Acetaminophen 5-325] 1 tab PO BID PRN [History] Levofloxacin [Levaquin] 500 mg PO Q48H #2 tablet 09/28/17 [Rx] Past Medical History HEENT History: Reports: Cataract, Hard of Hearing, Impaired Vision Cardiovascular History: Reports: Afib, Arrhythmia, Heart Failure, Pulmonary Hypertension, Other (See Below) Other Cardiovascular History: edema bilaterally Respiratory History: Reports: Bronchitis, Recurrent, COPD, Pneumonia, Recurrent , Other (See Below) Other Respiratory History: panlobular emphysema Gastrointestinal History: Reports: Bowel Obstruction, GERD, Irritable Bowel Syndrome Genitourinary History: Reports: Urinary Incontinence 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 Psychiatric History: Reports: Depression Hematologic History: Reports: Anemia, B12 Deficiency - Infectious Disease History Infectious Disease History: Reports: Chicken Pox, Shingles - Past Surgical History HEENT Surgical History: Reports: Oral Surgery, Tonsillectomy Cardiovascular Surgical History: Reports: None Respiratory Surgical History: Reports: None GI Surgical History: Reports: Appendectomy, Cholecystectomy, Colon, Colonoscopy , EGD, Hernia Repair/Other, Other (See Below) Other GI Surgeries/Procedures: bowel resection Female Surgical History: Reports: Breast Biopsy, Section, Other ( See Below) Other Female Surgeries/Procedures: left side biopsy Neurological Surgical History: Reports: None Musculoskeletal Surgical History: Reports: Knee Replacement Oncologic Surgical History: Reports: Biopsy of Breast, Other (See Below) Other Oncologic Surgeries/Procedures: left side biopsy Social & Family History - Family History Family Medical History: Noncontributory - Tobacco Use Smoking Status *Q: Never Smoker - Caffeine Use Caffeine Use: Reports: Coffee - Recreational Drug Use Recreational Drug Use: No H&P Review of Systems - Review of Systems: Review Of Systems: See Below General: Reports: Fever, Chills, Weakness, Fatigue, Decreased Appetite HEENT: Reports: No Symptoms Pulmonary: Reports: Cough. Denies: Shortness of Breath, Wheezing, Pleuritic Chest Pain, Sputum Cardiovascular: Reports: Dyspnea on Exertion, Edema. Denies: Chest Pain, Palpitations, Orthopnea, PND, Lightheadedness Gastrointestinal: Reports: Abdominal Pain, Decreased Appetite, Distension, Nausea. Denies: Constipation, Diarrhea, Difficulty Swallowing, Vomiting Genitourinary: Reports: No Symptoms Musculoskeletal: Reports: No Symptoms Skin: Reports: No Symptoms Psychiatric: Reports: No Symptoms Neurological: Reports: No Symptoms Hematologic/Lymphatic: Reports: No Symptoms Immunologic: Reports: No Symptoms Exam - Exam Exam: See Below - Vital Signs Vital Signs: Last Vital Signs Temp 98.9 F 09/30/17 13:59 Pulse 83 09/30/17 13:59 Resp 15 09/30/17 13:59 BP 100/55 L 09/30/17 13:59 Pulse Ox 96 09/30/17 13:59 Weight: 123 lb - Exam Quality Assessment: Supplemental Oxygen, DVT Prophylaxis General: Alert, Oriented, Cooperative, Moderate Distress, Lethargic HEENT: Conjunctiva Clear, Hearing Intact, Normal Nasal Septum, Posterior Pharynx Clear, Pupils Equal. No: Mucosa Moist & [place] Neck: Supple, Trachea Midline, +2 Carotid Pulse wo Bruit Lungs: Clear to Auscultation Cardiovascular: Regular Rate, Regular Rhythm, Normal S1, Normal S2. No: Systolic Murmur, Diastolic Murmur GI/Abdominal Exam: Soft, No Organomegaly, Distended, Tender. No: Guarding, Rigid, Rebound Back Exam: Normal Inspection, Full Range of Motion Extremities: Non-Tender, Pedal Edema Skin: Warm, Dry, Intact Neurological: Cranial Nerves Intact, Strength Equal Bilateral, Normal Speech, Normal Tone, Sensation Intact. No: Focal Deficit Neuro Extensive - Mental Status: Alert, Oriented x3, Normal Mood/Affect, Normal Cognition, Memory Intact - Patient Data Lab Results Last 24 hrs: Laboratory Results - last 24 hr 09/30/17 09/30/17 09/30/17 Range/Units 13:03 13:03 13:03 WBC 31.0 H* (4.5-11.0) K/uL RBC 3.61 (3.30-5.50) M/uL Hgb 12.2 D (12.0-15.0) g/dL Hct 36.4 (36.0-48.0) % MCV 101 H (80-98) fL MCH 34 H (27-31) pg MCHC 34 (32-36) % Plt Count 253 (150-400) K/uL Neut % (Auto) 82 H (36-66) % Lymph % (Auto) 7 L (24-44) % [place] % (Auto) 11 H (2-6) % Eos % (Auto) 0 L (2-4) % Baso % (Auto) 0 (0-1) % Sodium 136 L (140-148) mmol/L Potassium 4.5 (3.6-5.2) mmol/L Chloride 101 (100-108) mmol/L Carbon Dioxide 26 (21-32) mmol/L Anion Gap 13.5 (5.0-14.0) mmol/L BUN 21 H (7-18) mg/dL Creatinine 1.3 H (0.6-1.0) mg/dL Est Cr Clr Drug Dosing 31.41 mL/min Estimated GFR (MDRD) 40 L (>60) Glucose 120 H (74-106) mg/dL Lactic Acid 2.4 H (0.4-2.0) mmol/L Calcium 7.9 L (8.5-10.1) mg/dL Total Bilirubin 0.8 (0.2-1.0) mg/dL AST 18 (15-37) U/L ALT 11 L (12-78) U/L Alkaline Phosphatase 96 (46-116) U/L C-Reactive Protein 21.35 H (0.0-0.3) mg/dL Total Protein 6.0 L (6.4-8.2) g/dL Albumin 1.7 L (3.4-5.0) g/dL Globulin 4.3 H (2.3-3.5) g/dL Albumin/Globulin Ratio 0.4 L (1.2-2.2) Result Diagrams: 09/30/17 13:03 09/30/17 13:03 *Q Meaningful Use (ADM) - VTE *Q VTE Pharmacological Contraindications *Q: Patient Scheduled Surgery - VTE Risk Assess *Q Each Risk Factor Represents 1 Point: History of prior major surgery less than 1 month, Swollen Legs, Current, Congestive heart failure (CHF), Sepsis Total Score 1 Point Risk Factors: 4 Each Risk Factor Represents 2 Points: None Total Score 2 Point Risk Factors: 0 Each Risk Factor Represents 3 Points: Age 75 Years or Greater Total Score 3 Point Risk Factors: 3 Each Risk Factor Represents 5 Points: None Total Score 5 Point Risk Factors: 0 Venous Thromboembolism Risk Factor Score *Q: 7 Problem List Initiated/Reviewed/Updated: Yes Orders Last 24hrs: Active Orders 24 hr Category Date Time Status Patient Status Manage Transfer [TRANSFER] Routine ADT 09/30/17 15:24 Ordered Vital Signs [RC] Q1H Care 09/30/17 13:03 Active Abdomen Pelvis wo Cont [CT] Stat Exams 09/30/17 15:01 Ordered CULTURE BLOOD [BC] Urgent Lab 09/30/17 13:40 Received CULTURE BLOOD [BC] Urgent Lab 09/30/17 13:50 Received UA W/MICROSCOPIC [URIN] Urgent Lab 09/30/17 13:03 Ordered Lactated Ringers [Ringers, Lactated] 1,000 ml Med 09/30/17 13:15 Active IV ASDIRECTED Vancomycin 1,000 mg Med 09/30/17 15:02 Active Dextrose 5% in Water 250 ml IV ONETIME Blood Culture x2 Reflex Set [OM.PC] Urgent Oth 09/30/17 13:03 Ordered Resuscitation Status Routine Resus Stat 09/30/17 15:27 Ordered Medication Orders Lactated Ringer's (Ringers, Lactated) 1,000 mls @ 999 mls/hr IV ASDIRECTED ASH Last Admin: 09/30/17 13:16 Dose: 999 mls/hr Vancomycin HCl 1,000 mg/ (Dextrose/Water) 250 mls @ 167 mls/hr IV ONETIME ONE Stop: 09/30/17 16:31 Last Admin: 09/30/17 15:23 Dose: 167 mls/hr Assessment/Plan Comment:: ASSESSMENT AND PLAN SEPSIS-no obvious source identified despite extensive evaluation in the emergency department. Given her recent abdominal surgery as well as evidence of bowel obstruction noted on CT scan, concern is that there is an intra-abdominal source causing current findings. -Aggressive IV fluid replacement per sepsis protocol -Follow-up lactic acid level later today and in a.m. -Surgical consult, Dr. Rocío, current plan is for exploratory laparotomy this evening -Blood and urine cultures pending -Empiric IV antibiotic therapy; vancomycin, Zosyn, Azactam SMALL BOWEL OBSTRUCTION-noted on CT scan -NG tube to low intermittent suction ACUTE KIDNEY INJURY-likely secondary to intravascular volume depletion secondary to sepsis -IV fluids as above -Closely monitor urine output and renal function CONGESTIVE HEART FAILURE-evidence of fluid overload noted on evaluation today, in the short-term will require IV fluids for management of sepsis -CVP monitoring after surgery MAINTENANCE ISSUES -DVT prophylaxis; SCUDs, hold on anticoagulation until after surgery -GI prophylaxis; Protonix 40 mg IV every 24 hours -Montes catheter; -Nutrition; nothing by mouth -Nicotine dependence; not required CODE STATUS-FULL CODE ADMISSION STATUS-patient will be admitted to inpatient status, expect at least a 2 night hospital stay for evaluation and management of problems as outlined above. At the time of this admission I do not reasonably expected evaluation and management of this problem will require more than a 96 hour hospital stay. DISPOSITION-anticipate discharge to home after the hospital stay. PRIMARY CARE PROVIDER-Dr. Medrano
[2017-09-30] MEDS ORDERED: Vancomycin 1 GM SDV IV SCH (16:49)
[2017-09-30] MEDS ORDERED: Acetaminophen 325 MG Tab PO PRN (16:49)
[2017-09-30] MEDS ORDERED: Sodium Chloride 0.9% 10 ML Syringe FLUSH PRN (16:49)
[2017-09-30] MEDS ORDERED: Acetaminophen/HYDROcodone 325-5 MG Tab PO PRN (16:49)
[2017-09-30] MEDS ORDERED: Ondansetron 4 MG/2 ML SDV IV PRN (16:49)
[2017-09-30] MEDS ORDERED: Albuterol/Ipratropium 3.0-0.5 MG/3 ML Neb Soln NEB ONE (17:55)
[2017-09-30] MEDS ORDERED: Neostigmine Methylsulfate 1 MG/ML 5 ML Syringe ONE (18:10)
[2017-09-30] MEDS ORDERED: Dexamethasone 4 MG/ML SDV ONE (18:10)
[2017-09-30] MEDS ORDERED: Propofol 200 MG/20 ML SDV ONE (18:10)
[2017-09-30] MEDS ORDERED: Glycopyrrolate 0.2 MG/ML 5 ML MDV ONE (18:10)
[2017-09-30] MEDS ORDERED: fentaNYL 250 MCG/5 ML SDV ONE (18:10)
[2017-09-30] MEDS ORDERED: Rocuronium 50 MG/5 ML Vial ONE (18:10)
[2017-09-30] MEDS ORDERED: Ondansetron 4 MG/2 ML SDV ONE (18:10)
[2017-09-30] MEDS: Aztreonam/Dextrose-Water 1 GM in Premix Bag 1 BAG IV SCH (18:14)
[2017-09-30] MEDS ORDERED: Bupivacaine 0.5% 50 ML MDV ONE (19:43)
[2017-09-30] MEDS ORDERED: Lidocaine 1% with EPINEPHrine 1:100,000 50 ML MDV ONE (19:43)
[2017-09-30] MEDS ORDERED: Vit E/Lidocaine/Aloe/Collagen 14 GM TUBE TP ONE (19:45)
[2017-09-30] MEDS ORDERED: Naloxone 0.4 MG/ML SDV IVPUSH PRN (19:54)
[2017-09-30] MEDS ORDERED: fentaNYL/Normal Saline 600 MCG/30 ML PCA Vial IV SCH (20:00)
[2017-09-30] MEDS: Lactated Ringers 1,000 ML IV SCH (20:31)
[2017-09-30] MEDS: Piperacillin/Tazobactam/Dext 3.375 GM in Premix Bag 1 BAG IV SCH (21:02)
[2017-09-30] MEDS ORDERED: Lactated Ringers 500 ML IV SCH (21:45)
[2017-09-30] MEDS ORDERED: Heparin Sodium 5,000 UNITS in Sodium Chloride 0.9% 500 ML IV SCH (22:00)
[2017-09-30] MEDS ORDERED: Heparin Sodium 5,000 Units/ML Vial ONE (22:04)
[2017-09-30] MEDS: Primidone 50 MG Tab PO SCH (22:32)
[2017-09-30] MEDS: Propranolol 60 MG Cap.ER PO SCH (22:33)
[2017-09-30] MEDS: Gabapentin 300 MG Cap PO SCH (22:33)
[2017-09-30] MEDS: Oxybutynin 5 MG Tab PO SCH (22:34)
[2017-09-30] MEDS: Norepinephrine 4 MG in Dextrose 5% in Water 246 ML IV SCH ×2 (23:15)
[2017-10-01] MEDS: Piperacillin/Tazobactam/Dext 3.375 GM in Premix Bag 1 BAG IV SCH ×4 (01:19→19:31)
[2017-10-01] MEDS: Aztreonam/Dextrose-Water 1 GM in Premix Bag 1 BAG IV SCH ×3 (02:13→17:53)
[2017-10-01] MEDS: Lactated Ringers 1,000 ML IV SCH ×3 (04:38→20:26)
[2017-10-01] MEDS ORDERED: Naloxone 0.4 MG/ML SDV IV PRN (07:13)
[2017-10-01] MEDS: Norepinephrine 4 MG in Dextrose 5% in Water 246 ML IV SCH ×6 (07:18→20:23)
[2017-10-01] MEDS: Pantoprazole 40 MG Tab.CR PO SCH (08:23)
[2017-10-01] MEDS: Primidone 50 MG Tab PO SCH ×2 (08:23→20:30)
[2017-10-01] MEDS: Aspirin 81 MG Tab.EC PO SCH (08:24)
[2017-10-01] MEDS: Oxybutynin 5 MG Tab PO SCH ×3 (08:24→20:30)
[2017-10-01] MEDS: Propranolol 60 MG Cap.ER PO SCH ×3 (08:24→20:32)
[2017-10-01] MEDS: Gabapentin 300 MG Cap PO SCH ×3 (08:24→20:30)
[2017-10-01] MEDS: Escitalopram 10 MG Tab PO SCH (08:24)
--- NOTE | 2017-10-01 08:28 | OR ---
DATE OF PROCEDURE: 09/30/2017 PROCEDURE PERFORMED: Central line placement. PREPROCEDURE DIAGNOSIS: Requirement for central line access. POSTPROCEDURE DIAGNOSIS: Requirement for central line access. COMPLICATIONS: None. MUSIC THERAPIST: None. ANESTHESIA: Local. RISKS: Risks, benefits, alternatives, and limitations including, but not limited to infection, bleeding, and pneumothorax were explained to the patient and their family and they wished to proceed. PROCEDURE IN DETAIL: The patient was placed in supine position. A micropuncture needle kit was used to access the right subclavian vein. This was accessed on the first pass and that was subsequently exchanged for a standard wire. The wire was advanced, ectopy was noted, and subsequently withdrawn. The dilator has been used after anesthetizing with lidocaine. The incision line was then advanced and sutured into place. This was then cleaned with chlorhexidine the second time. A Tegaderm was placed. The patient tolerated the procedure well. Immanuel Alford MD /[id number]
--- NOTE | 2017-10-01 09:22 | CR ---
Portable chest Comparison: Earlier same day. There has been interval placement of a right central venous catheter. The catheter is near the juncti on of the right atrium and SVC. There is cardiac enlargement with vascular engorgement. Bilateral ple ural effusions are again present. Impression: 1. Successful placement of right subclavian catheter. 2. Continued findings of CHF.
--- NOTE | 2017-10-01 09:40 | PCM.PN ---
- General Info Date of Service: 10/01/17 Subjective Update: Ms. Delgado underwent exploratory laparotomy last night, no significant source of infection was identified within the abdomen. Surgery she has had ongoing hypotension and has been given IV fluids as well as IV norepinephrine. Lactic acidosis has resolved and she denies significant pain this morning other than related to her abdominal incision. Remains on broad-spectrum IV antibiotic therapy pending culture results. Functional Status: Reports: Pain Controlled, Urinating - Review of Systems General: Reports: Fever, Weakness, Chills Pulmonary: Reports: No Symptoms Cardiovascular: Reports: No Symptoms Gastrointestinal: Reports: Abdominal Pain. Denies: Constipation, Diarrhea, Nausea, Vomiting Genitourinary: Reports: No Symptoms - Patient Data Vitals - Most Recent: Last Vital Signs Temp 97.7 F 10/01/17 07:00 Pulse 70 10/01/17 04:00 Resp 14 10/01/17 08:00 BP 107/55 L 10/01/17 08:00 Pulse Ox 95 10/01/17 08:00 Weight - Most Recent: 153 lb 14.122 oz I&O - Last 24 Hours: Intake & Output 09/30/17 10/01/17 10/01/17 22:59 06:59 14:59 Intake Total 50 2684 Output Total 133 105 28 Balance -83 2579 -28 Lab Results Last 24 Hours: Laboratory Results - last 24 hr 09/30/17 09/30/17 09/30/17 Range/Units 13:03 13:03 13:03 WBC 31.0 H* (4.5-11.0) K/uL RBC 3.61 (3.30-5.50) M/uL Hgb 12.2 D (12.0-15.0) g/dL Hct 36.4 (36.0-48.0) % MCV 101 H (80-98) fL MCH 34 H (27-31) pg MCHC 34 (32-36) % Plt Count 253 (150-400) K/uL Neut % (Auto) 82 H (36-66) % Lymph % (Auto) 7 L (24-44) % Harrison % (Auto) 11 H (2-6) % Eos % (Auto) 0 L (2-4) % Baso % (Auto) 0 (0-1) % Add Manual Diff Neutrophils % (Manual) (36-66) % Band Neutrophils % (5-11) % Lymphocytes % (Manual) (24-44) % Monocytes % (Manual) (2-6) % Sodium 136 L (140-148) mmol/L Potassium 4.5 (3.6-5.2) mmol/L Chloride 101 (100-108) mmol/L Carbon Dioxide 26 (21-32) mmol/L Anion Gap 13.5 (5.0-14.0) mmol/L BUN 21 H (7-18) mg/dL Creatinine 1.3 H (0.6-1.0) mg/dL Est Cr Clr Drug Dosing 31.41 mL/min Estimated GFR (MDRD) 40 L (>60) Glucose 120 H (74-106) mg/dL Lactic Acid (0.4-2.0) mmol/L Calcium 7.9 L (8.5-10.1) mg/dL Magnesium (1.8-2.4) mg/dL Total Bilirubin 0.8 (0.2-1.0) mg/dL AST 18 (15-37) U/L ALT 11 L (12-78) U/L Alkaline Phosphatase 96 (46-116) U/L C-Reactive Protein 21.35 H (0.0-0.3) mg/dL Total Protein 6.0 L (6.4-8.2) g/dL Albumin 1.7 L (3.4-5.0) g/dL Globulin 4.3 H (2.3-3.5) g/dL Albumin/Globulin Ratio 0.4 L (1.2-2.2) Urine Color Yellow Urine Appearance Clear Urine pH 5.0 (4.5-8.0) Ur Specific [place] 1.015 (1.008-1.030) Urine Protein Negative (NEGATIVE) mg/dL Urine Glucose (UA) Normal (NEGATIVE) mg/dL Urine Ketones Negative (NEGATIVE) mg/dL Urine Occult Blood Negative (NEGATIVE) Urine Nitrite Negative (NEGATIVE) Urine Bilirubin Small (NEGATIVE) Urine Urobilinogen 1 (NORMAL) mg/dL Ur Leukocyte Esterase Negative (NEGATIVE) Urine RBC 0-5 (0-5) Urine WBC 5-10 H (0-5) Ur Epithelial Cells Few Amorphous Sediment Rare Urine Bacteria Moderate Urine Other 09/30/17 09/30/17 10/01/17 Range/Units 13:03 20:00 05:11 WBC (4.5-11.0) K/uL RBC (3.30-5.50) M/uL Hgb (12.0-15.0) g/dL Hct (36.0-48.0) % MCV (80-98) fL MCH (27-31) pg MCHC (32-36) % Plt Count (150-400) K/uL Neut % (Auto) (36-66) % Lymph % (Auto) (24-44) % Harrison % (Auto) (2-6) % Eos % (Auto) (2-4) % Baso % (Auto) (0-1) % Add Manual Diff Neutrophils % (Manual) (36-66) % Band Neutrophils % (5-11) % Lymphocytes % (Manual) (24-44) % Monocytes % (Manual) (2-6) % Sodium (140-148) mmol/L Potassium (3.6-5.2) mmol/L Chloride (100-108) mmol/L Carbon Dioxide (21-32) mmol/L Anion Gap (5.0-14.0) mmol/L BUN (7-18) mg/dL Creatinine (0.6-1.0) mg/dL Est Cr Clr Drug Dosing mL/min Estimated GFR (MDRD) (>60) Glucose (74-106) mg/dL Lactic Acid 2.4 H 2.3 H 1.8 (0.4-2.0) mmol/L Calcium (8.5-10.1) mg/dL Magnesium (1.8-2.4) mg/dL Total Bilirubin (0.2-1.0) mg/dL AST (15-37) U/L ALT (12-78) U/L Alkaline Phosphatase (46-116) U/L C-Reactive Protein (0.0-0.3) mg/dL Total Protein (6.4-8.2) g/dL Albumin (3.4-5.0) g/dL Globulin (2.3-3.5) g/dL Albumin/Globulin Ratio (1.2-2.2) Urine Color Urine Appearance Urine pH (4.5-8.0) Ur Specific [place] (1.008-1.030) Urine Protein (NEGATIVE) mg/dL Urine Glucose (UA) (NEGATIVE) mg/dL Urine Ketones (NEGATIVE) mg/dL Urine Occult Blood (NEGATIVE) Urine Nitrite (NEGATIVE) Urine Bilirubin (NEGATIVE) Urine Urobilinogen (NORMAL) mg/dL Ur Leukocyte Esterase (NEGATIVE) Urine RBC (0-5) Urine WBC (0-5) Ur Epithelial Cells Amorphous Sediment Urine Bacteria Urine Other 10/01/17 10/01/17 Range/Units 05:11 05:11 WBC 35.8 H* (4.5-11.0) K/uL RBC 3.65 (3.30-5.50) M/uL Hgb 12.0 (12.0-15.0) g/dL Hct 37.0 (36.0-48.0) % MCV 101 H (80-98) fL MCH 33 H (27-31) pg MCHC 32 (32-36) % Plt Count 320 (150-400) K/uL Neut % (Auto) (36-66) % Lymph % (Auto) (24-44) % Harrison % (Auto) (2-6) % Eos % (Auto) (2-4) % Baso % (Auto) (0-1) % Add Manual Diff Yes Neutrophils % (Manual) 83 H (36-66) % Band Neutrophils % 2 L (5-11) % Lymphocytes % (Manual) 9 L (24-44) % Monocytes % (Manual) 6 (2-6) % Sodium 133 L (140-148) mmol/L Potassium 4.8 (3.6-5.2) mmol/L Chloride 99 L (100-108) mmol/L Carbon Dioxide 27 (21-32) mmol/L Anion Gap 11.8 (5.0-14.0) mmol/L BUN 22 H (7-18) mg/dL Creatinine 1.4 H (0.6-1.0) mg/dL Est Cr Clr Drug Dosing 29.17 mL/min Estimated GFR (MDRD) 36 L (>60) Glucose 144 H (74-106) mg/dL Lactic Acid (0.4-2.0) mmol/L Calcium 7.5 L (8.5-10.1) mg/dL Magnesium 1.0 L D (1.8-2.4) mg/dL Total Bilirubin 0.8 (0.2-1.0) mg/dL AST 16 (15-37) U/L ALT 9 L (12-78) U/L Alkaline Phosphatase 87 (46-116) U/L C-Reactive Protein (0.0-0.3) mg/dL Total Protein 5.0 L (6.4-8.2) g/dL Albumin 1.2 L (3.4-5.0) g/dL Globulin 3.8 H (2.3-3.5) g/dL Albumin/Globulin Ratio 0.3 L (1.2-2.2) Urine Color Urine Appearance Urine pH (4.5-8.0) Ur Specific [place] (1.008-1.030) Urine Protein (NEGATIVE) mg/dL Urine Glucose (UA) (NEGATIVE) mg/dL Urine Ketones (NEGATIVE) mg/dL Urine Occult Blood (NEGATIVE) Urine Nitrite (NEGATIVE) Urine Bilirubin (NEGATIVE) Urine Urobilinogen (NORMAL) mg/dL Ur Leukocyte Esterase (NEGATIVE) Urine RBC (0-5) Urine WBC (0-5) Ur Epithelial Cells Amorphous Sediment Urine Bacteria Urine Other Spike Results Last 24 Hours: Microbiology 09/30/17 19:16 Gram Stain - Final Peritoneal Fluid Med Orders - Current: Current Medications Acetaminophen (Tylenol) 650 mg PO Q4H PRN PRN Reason: Pain (Mild 1-3)/fever Hydrocodone Bitart/Acetaminophen (Bryan 325-5 Mg) 1 tab PO BID PRN PRN Reason: Pain Albuterol (Proventil Neb Soln) 2.5 mg NEB Q4H PRN PRN Reason: Shortness Of Breath/wheezing Aspirin (Halfprin) 81 mg PO DAILY [facility] Last Admin: 10/01/17 08:24 Dose: 81 mg Escitalopram Oxalate (Lexapro) 10 mg PO DAILY [facility] Last Admin: 10/01/17 08:24 Dose: 10 mg Fentanyl Citrate (Fentanyl In Ns 20 Mcg/Ml 30 Ml [employer]) 0 mcg IV ASDIRECTED PRN; Protocol PRN Reason: Pain Gabapentin (Neurontin) 600 mg PO TID [facility] Last Admin: 10/01/17 08:24 Dose: 600 mg Lactated Ringer's (Ringers, Lactated) 1,000 mls @ 125 mls/hr IV ASDIRECTED [facility] Last Admin: 10/01/17 04:38 Dose: 125 mls/hr Piperacillin/Tazobactam/ (Dextrose 3.375 gm/ Premix) 50 mls @ 100 mls/hr IV Q6H [facility] Last Admin: 10/01/17 08:23 Dose: 100 mls/hr Vancomycin HCl 1 gm/ Sodium (Chloride) 250 mls @ 167 mls/hr IV Q24H [facility] Aztreonam/Dextrose 1 gm/ (Premix) 50 mls @ 100 mls/hr IV Q8H [facility] Last Admin: 10/01/17 09:33 Dose: 100 mls/hr Heparin Sodium (Porcine) 5,000 (units/ Sodium Chloride) 501 mls @ 0 mls/hr IV ASDIRECTED [facility] Norepinephrine Bitartrate 4 mg (/ Dextrose/Water) 250 mls @ 7.5 mls/hr IV TITRATE [facility]; Protocol Last Admin: 10/01/17 07:18 Dose: 9 mcg/min, 33.75 mls/hr Magnesium Sulfate 2 gm/ Premix 50 mls @ 25 mls/hr IV Q6H [facility] Stop: 10/01/17 23:59 Lactated Ringer's (Ringers, Lactated) 1,000 mls @ 500 mls/hr IV ASDIRECTED [facility] Stop: 10/01/17 10:46 Naloxone HCl (Narcan) 0.1 mg IV ASDIRECTED PRN PRN Reason: decreased respiratory rate Ondansetron HCl (Zofran) 4 mg IV Q4H PRN PRN Reason: Nausea/Vomiting Oxybutynin Chloride (Oxybutynin) 5 mg PO TID [facility] Last Admin: 10/01/17 08:24 Dose: 5 mg Pantoprazole Sodium (Protonix) 40 mg PO ACBREAKFAST [facility] Last Admin: 10/01/17 08:23 Dose: 40 mg Primidone (Mysoline) 125 mg PO BID [facility] Last Admin: 10/01/17 08:23 Dose: 125 mg Propranolol HCl (Inderal La) 60 mg PO BID [facility] Last Admin: 10/01/17 09:14 Dose: Not Given Sodium Chloride (Saline Flush) 10 ml FLUSH ASDIRECTED PRN PRN Reason: Keep Vein Open Discontinued Medications Albuterol/Ipratropium (Duoneb 3.0-0.5 Mg/3 Ml) 3 ml NEB ONETIME ONE Stop: 09/30/17 17:56 Last Admin: 09/30/17 18:11 Dose: 3 ml Bupivacaine HCl (Marcaine 0.5%) Confirm Administered Dose 50 ml .ROUTE .STK-MED ONE Stop: 09/30/17 19:44 Last Admin: 09/30/17 19:30 Dose: 20 ml Dexamethasone (Dexamethasone) Confirm Administered Dose 4 mg .ROUTE .STK-[facility] ONE Stop: 09/30/17 18:11 Fentanyl (Sublimaze) Confirm Administered Dose 250 mcg .ROUTE .STK-MED ONE Stop: 09/30/17 18:11 Fentanyl Citrate (Fentanyl In Ns 20 Mcg/Ml 30 Ml [employer]) 10 mcg IV ASDIRECTED [facility] ; Protocol Last Admin: 09/30/17 20:35 Dose: 10 mcg Glycopyrrolate (Robinul) Confirm Administered Dose 1 mg .ROUTE .K-[facility] ONE Stop: 09/30/17 18:11 Heparin Sodium (Porcine) (Heparin Lock Flush 100 Units/Ml) Confirm Administered Dose 1,000 units .ROUTE .STK-MED ONE Stop: 09/30/17 18:17 Last Admin: 09/30/17 19:29 Dose: 1,000 units Heparin Sodium (Porcine) (Heparin Sodium) Confirm Administered Dose 5,000 units .ROUTE .[facility] ONE Stop: 09/30/17 22:05 Last Admin: 09/30/17 22:29 Dose: Not Given Lactated Ringer's (Ringers, Lactated) 1,000 mls @ 999 mls/hr IV ASDIRECTED [facility] Last Admin: 09/30/17 13:16 Dose: 999 mls/hr Piperacillin/Tazobactam/ (Dextrose 4.5 gm/ Premix) 100 mls @ 200 mls/hr IV ONETIME ONE Stop: 09/30/17 14:29 Last Admin: 09/30/17 13:56 Dose: 200 mls/hr Vancomycin HCl 1,000 mg/ (Dextrose/Water) 250 mls @ 167 mls/hr IV ONETIME ONE Stop: 09/30/17 16:31 Last Admin: 09/30/17 15:23 Dose: 167 mls/hr Lactated Ringer's (Ringers, Lactated) 1,000 mls @ 250 mls/hr IV ASDIRECTED [facility] Stop: 09/30/17 20:50 Last Admin: 09/30/17 17:13 Dose: 250 mls/hr Lactated Ringer's (Ringers, Lactated) 500 mls @ 500 mls/hr IV BOLUS [facility] Stop: 09/30/17 22:44 Last Admin: 10/01/17 07:17 Dose: Not Given Lidocaine/Epinephrine (Xylocaine 1% With Epinephrine 1:100,000) Confirm Administered Dose 50 ml .ROUTE .STK-MED ONE Stop: 09/30/17 19:44 Last Admin: 09/30/17 19:30 Dose: 20 ml Neostigmine Methylsulfate (Neostigmine) Confirm Administered Dose 5 mg .ROUTE .STK-MED ONE Stop: 09/30/17 18:11 Ondansetron HCl (Zofran) Confirm Administered Dose 4 mg .ROUTE .STK-MED ONE Stop: 09/30/17 18:11 Propofol (Diprivan 20 Ml) Confirm Administered Dose 200 mg .ROUTE .STK-MED ONE Stop: 09/30/17 18:11 Rocuronium [place] (Zemuron) Confirm Administered Dose 50 mg .ROUTE .STK-MED ONE Stop: 09/30/17 18:11 Vancomycin HCl (Vancomycin) 1 gm IV .PHARMACY TO DOSE ASH Stop: 09/30/17 18:00 - Exam Quality Assessment: Supplemental Oxygen, Central Line/PICC, Urine Catheter, DVT Prophylaxis General: Alert, Oriented, Cooperative, Mild Distress Lungs: Clear to Auscultation, Normal Respiratory Effort Cardiovascular: Regular Rate, Regular Rhythm, No Murmurs GI/Abdominal Exam: Soft, Tender. No: No Organomegaly, Distended, Guarding, Rigid, Rebound Extremities: Non-Tender, Pedal Edema Skin: Warm, Dry - Problem List Review Problem List Initiated/Reviewed/Updated: Yes - My Orders Last 24 Hours: My Active Orders 09/30/17 15:27 Resuscitation Status Routine 09/30/17 16:49 Patient Status [ADT] Routine Ambulate [RC] QID Cardiac Monitoring [RC] Q6HR Height and Weight [RC] DAILY Intake and Output [RC] QSHIFT Notify Provider Vital Signs [RC] ASDIRECTED Oxygen Therapy [RC] PRN Peripheral IV Care [RC] Q12H Pulse Oximetry [RC] CONTINUOUS Up With Assistance [RC] ASDIRECTED Up to Chair [RC] QID VTE/DVT Education [RC] Per Unit Routine Acetaminophen [Tylenol] 650 mg PO Q4H PRN Acetaminophen/HYDROcodone [Bryan 325-5 MG] 1 tab PO BID PRN Albuterol [Proventil Neb Soln] 2.5 mg NEB Q4H PRN Ondansetron [Zofran] 4 mg IV Q4H PRN Sodium Chloride 0.9% [Saline Flush] 10 ml FLUSH ASDIRECTED PRN Peripheral IV Insertion Adult [OM.PC] Routine Sequential Compression Device [OM.PC] Per Unit Routine VTE Pharmacological Contraindications [AST] Per Unit Routine 09/30/17 17:08 Nasogastric Orogastric Tube Insertion [OM.PC] Routine 09/30/17 17:25 Notify Provider Consults [RC] ASDIRECTED Consult to Physician [CONS] Routine 09/30/17 17:56 RT Aerosol Therapy [RC] ASDIRECTED 09/30/17 18:00 Aztreonam/Dextrose-Water [Azactam in Dextrose,Iso-Osmotic 1 GM/50 ML] 1 gm Premix Bag 1 bag IV Q8H 09/30/17 19:16 CULTURE ANAEROBIC [RM] Routine CULTURE WOUND + SMEAR [RM] Routine 09/30/17 19:45 Lactated Ringers [Ringers, Lactated] 1,000 ml IV ASDIRECTED 09/30/17 20:00 Piperacillin/Tazobactam/Dext [Zosyn in Dextrose Iso-Osmotic 3.375 GM] 3.375 gm Premix Bag 1 bag IV Q6H 09/30/17 21:00 Gabapentin [Neurontin] 600 mg PO TID Oxybutynin 5 mg PO TID Primidone [Mysoline] 125 mg PO BID Propranolol [Inderal LA] 60 mg PO BID 09/30/17 21:59 CVP Monitoring [Monitor Central Venous Pressure] [OM.PC] Routine 09/30/17 22:00 Heparin Sodium 5,000 units Sodium Chloride 0.9% [Normal Saline] 500 ml IV ASDIRECTED 09/30/17 23:00 Norepinephrine [Levophed] 4 mg Dextrose 5% in Water 246 ml IV TITRATE 09/30/17 Lunch Nothing per Oral Now Diet [DIET] 10/01/17 07:30 Pantoprazole [ProTONIX] 40 mg PO ACBREAKFAST 10/01/17 09:00 Aspirin [Halfprin] 81 mg PO DAILY Escitalopram [Lexapro] 10 mg PO DAILY 10/01/17 09:45 Lactated Ringers [Ringers, Lactated] 1,000 ml IV ASDIRECTED 10/01/17 10:00 Magnesium Sulfate/Water [Magnesium Sulfate 2 GM in Water 50 ML] 2 gm Premix Bag 1 bag IV Q6H 10/01/17 16:00 Vancomycin 1 gm Sodium Chloride 0.9% [Normal Saline] 250 ml IV Q24H 10/02/17 05:00 CBC WITH AUTO DIFF [HEME] Timed COMPREHENSIVE METABOLIC PN,CMP [CHEM] Timed MAGNESIUM [CHEM] Timed - Plan Plan:: ASSESSMENT AND PLAN SEPTIC SHOCK-no obvious source of infection has been identified thus far despite aggressive evaluation including exploratory laparotomy. She has required aggressive IV fluid replacement as well as use of IV norepinephrine to maintain adequate blood pressures. -Aggressive IV fluid replacement per sepsis protocol -IV norepinephrine as needed to maintain adequate blood pressure -CVP monitoring -Surgical follow-up per Dr. Alford -Blood and urine cultures pending -Empiric IV antibiotic therapy; vancomycin, Zosyn, Azactam pending culture results SMALL BOWEL OBSTRUCTION-no significant obstruction identified at the time of exploratory laparotomy ACUTE KIDNEY INJURY- urine output has been marginal -IV fluids as above -Closely monitor urine output and renal function CONGESTIVE HEART FAILURE-evidence of fluid overload noted on evaluation today, in the short-term will require IV fluids for management of sepsis -CVP monitoring MAINTENANCE ISSUES -DVT prophylaxis; SCUDs, hold on anticoagulation until after surgery -GI prophylaxis; Protonix 40 mg IV every 24 hours -Montes catheter; -Nutrition; nothing by mouth -Nicotine dependence; not required CODE STATUS-FULL CODE ADMISSION STATUS-patient will be admitted to inpatient status, expect at least a 2 night hospital stay for evaluation and management of problems as outlined above. At the time of this admission I do not reasonably expected evaluation and management of this problem will require more than a 96 hour hospital stay. DISPOSITION-anticipate discharge to home after the hospital stay. PRIMARY CARE PROVIDER-Dr. Medrano
[2017-10-01] MEDS ORDERED: Lactated Ringers 1,000 ML IV SCH (09:45)
[2017-10-01] MEDS: Magnesium Sulfate/Water 2 GM in Premix Bag 1 BAG IV SCH ×3 (10:42→22:09)
--- NOTE | 2017-10-01 11:29 | OR ---
DATE OF PROCEDURE: 09/30/2017 PROCEDURE: Reopening of recent laparotomy. FINDINGS: No abnormalities. COMPLICATIONS: None. LABORER STORES: None. ANESTHESIA: General/local. INDICATIONS: A pleasant 77-year-old female with ongoing multiple health issues including sepsis, requiring exploratory laparotomy with possible obstruction and/or infection. Risks, benefits, alternatives, and limitations including, but not limited to, infection, bleeding, perforation, enterotomy, septic shock, , respiratory or cardiovascular collapse were all explained to the patient and they wished to proceed. PROCEDURE IN DETAIL: The patient was prepped and draped in supine position. The previous midline abdominal incision was opened with a 15 blade. The incision was opened 4 cm superior to enterotomy. Humberto was used to elevate the abdomen and this was entered sharply. The abdomen was then opened through the previous incision, thus connecting the incision to the . The bowel was inspected. The bowel was healthy and viable without any evidence of ischemia or concern. Immediately after entering the abdomen, inspected for fluid and none was noted, nonetheless this was cultured. The bowel was run in its entirety, it appeared the patient has had multiple bowel anastomoses; however, there was no definitive transition point. No definite area that definitely appeared to be distended . The exploratory laparotomy was continued to inspect liver. Gallbladder was noted to be absent with clips. The exploratory laparotomy was continued. The abdomen was explored. The liver was noted to have no abnormalities. There was no abscess associated with this. The spleen was inspected. The small and large bowel was again inspected by running in an antegrade fashion from the small bowel. The anastomoses were noted without abnormality. There was no internal hernia. The pelvis was inspected without abnormality. Essentially no abnormalities to explain the concern for sepsis could be identified. The abdomen was irrigated with 1 L of irritation, which was subsequently removed. The fascia was then closed with 0 Vicryl in a running fashion x2, the skin was closed, frank and dressings were applied. Local anesthetic of approximately . The patient tolerated the procedure well. Immanuel Alford MD /[id number]
[2017-10-01] MEDS ORDERED: Lactated Ringers 500 ML IV ONE (15:00)
[2017-10-01] MEDS ORDERED: Dextrose 5% in Water 250 ML ONE (21:58)
[2017-10-01] MEDS ORDERED: Vasopressin 20 Units/1 ML MDV ONE (21:59)
[2017-10-01] MEDS ORDERED: Vasopressin 100 UNITS in Dextrose 5% in Water 250 ML IV SCH ×2 (22:00)
[2017-10-02] MEDS: Piperacillin/Tazobactam/Dext 3.375 GM in Premix Bag 1 BAG IV SCH ×4 (01:34→19:56)
[2017-10-02] MEDS: Aztreonam/Dextrose-Water 1 GM in Premix Bag 1 BAG IV SCH ×2 (01:37→09:39)
[2017-10-02] MEDS: Norepinephrine 4 MG in Dextrose 5% in Water 246 ML IV SCH ×2 (02:25)
[2017-10-02] MEDS: Lactated Ringers 1,000 ML IV SCH ×3 (04:17→19:58)
[2017-10-02] MEDS: Pantoprazole 40 MG Tab.CR PO SCH (08:13)
[2017-10-02] MEDS: Aspirin 81 MG Tab.EC PO SCH (08:13)
[2017-10-02] MEDS: Escitalopram 10 MG Tab PO SCH (08:13)
[2017-10-02] MEDS: Oxybutynin 5 MG Tab PO SCH ×3 (08:13→20:50)
[2017-10-02] MEDS: Primidone 50 MG Tab PO SCH ×2 (08:13→20:49)
[2017-10-02] MEDS: Gabapentin 300 MG Cap PO SCH ×3 (08:13→20:49)
[2017-10-02] MEDS: Propranolol 60 MG Cap.ER PO SCH ×2 (08:14→20:50)
--- NOTE | 2017-10-02 10:02 | PCM.PN ---
- General Info Date of Service: 10/02/17 Subjective Update: Ms. Delgado has continued to show evidence of ongoing sepsis, she was started on vasopressin low-dose yesterday. Urine output seems to slat pickler over the past 24 hours and renal function has remained fairly stable. No significant temperature elevations since yesterday but white blood cell count is further elevated at 38, 000. No obvious source of infection identified yet, will proceed with further evaluation today. She did have small bowel movement last night, other than being weak she reports that she is fairly comfortable. - Patient Data Vitals - Most Recent: Last Vital Signs Temp 95.5 F 10/02/17 08:00 Pulse 70 10/02/17 05:51 Resp 15 10/02/17 09:00 BP 98/50 L 10/02/17 09:39 Pulse Ox 95 10/02/17 09:00 Weight - Most Recent: 165 lb 2.02 oz I&O - Last 24 Hours: Intake & Output 10/01/17 10/02/17 10/02/17 22:59 06:59 14:59 Intake Total 3106 1887 Output Total 128 175 30 Balance 2978 1712 -30 Lab Results Last 24 Hours: Laboratory Results - last 24 hr 10/02/17 10/02/17 Range/Units 05:40 05:40 WBC 38.5 H* (4.5-11.0) K/uL RBC 3.34 (3.30-5.50) M/uL Hgb 10.9 L (12.0-15.0) g/dL Hct 33.7 L (36.0-48.0) % MCV 101 H (80-98) fL MCH 33 H (27-31) pg MCHC 32 (32-36) % Plt Count 284 (150-400) K/uL Add Manual Diff Yes Neutrophils % (Manual) 71 H (36-66) % Band Neutrophils % 17 H (5-11) % Lymphocytes % (Manual) 5 L (24-44) % Monocytes % (Manual) 7 H (2-6) % Sodium 131 L (140-148) mmol/L Potassium 4.5 (3.6-5.2) mmol/L Chloride 98 L (100-108) mmol/L Carbon Dioxide 26 (21-32) mmol/L Anion Gap 11.5 (5.0-14.0) mmol/L BUN 24 H (7-18) mg/dL Creatinine 1.4 H (0.6-1.0) mg/dL Est Cr Clr Drug Dosing 33.54 mL/min Estimated GFR (MDRD) 36 L (>60) Glucose 141 H (74-106) mg/dL Calcium 7.7 L (8.5-10.1) mg/dL Magnesium 2.1 D (1.8-2.4) mg/dL Total Bilirubin 0.6 (0.2-1.0) mg/dL AST 18 (15-37) U/L ALT 10 L (12-78) U/L Alkaline Phosphatase 84 (46-116) U/L Total Protein 4.9 L (6.4-8.2) g/dL Albumin 1.1 L (3.4-5.0) g/dL Globulin 3.8 H (2.3-3.5) g/dL Albumin/Globulin Ratio 0.3 L (1.2-2.2) Spike Results Last 24 Hours: Microbiology 09/30/17 19:16 Gram Stain - Final Peritoneal Fluid Wound Culture - Preliminary NO GROWTH AFTER 1 DAY Anaerobic Culture - Preliminary NO GROWTH AFTER 1 DAY 09/30/17 13:50 Aerobic Blood Culture - Preliminary Blood - Venous - Lab Draw NO GROWTH AFTER 1 DAY Anaerobic Blood Culture - Preliminary NO GROWTH AFTER 1 DAY 09/30/17 13:40 Aerobic Blood Culture - Preliminary Blood - Venous NO GROWTH AFTER 1 DAY Anaerobic Blood Culture - Preliminary NO GROWTH AFTER 1 DAY Med Orders - Current: Current Medications Acetaminophen (Tylenol) 650 mg PO Q4H PRN PRN Reason: Pain (Mild 1-3)/fever Hydrocodone Bitart/Acetaminophen ([place] 325-5 Mg) 1 tab PO BID PRN PRN Reason: Pain Albuterol (Proventil Neb Soln) 2.5 mg NEB Q4H PRN PRN Reason: Shortness Of Breath/wheezing Aspirin (Halfprin) 81 mg PO DAILY [facility] Last Admin: 10/02/17 08:13 Dose: 81 mg Escitalopram Oxalate (Lexapro) 10 mg PO DAILY [facility] Last Admin: 10/02/17 08:13 Dose: 10 mg Fentanyl Citrate (Fentanyl In Ns 20 Mcg/Ml 30 Ml Double Bottom Driver) 0 mcg IV ASDIRECTED PRN; Protocol PRN Reason: Pain Gabapentin (Neurontin) 600 mg PO TID [facility] Last Admin: 10/02/17 08:13 Dose: 600 mg Lactated Ringer's (Ringers, Lactated) 1,000 mls @ 125 mls/hr IV ASDIRECTED [facility] Last Admin: 10/02/17 04:17 Dose: 125 mls/hr Piperacillin/Tazobactam/ (Dextrose 3.375 gm/ Premix) 50 mls @ 100 mls/hr IV Q6H [facility] Last Admin: 10/02/17 08:14 Dose: 100 mls/hr Vancomycin HCl 1 gm/ Sodium (Chloride) 250 mls @ 167 mls/hr IV Q24H [facility] Last Admin: 10/01/17 15:57 Dose: 167 mls/hr Aztreonam/Dextrose 1 gm/ (Premix) 50 mls @ 100 mls/hr IV Q8H [facility] Last Admin: 10/02/17 09:39 Dose: 100 mls/hr Heparin Sodium (Porcine) 5,000 (units/ Sodium Chloride) 501 mls @ 0 mls/hr IV ASDIRECTED [facility] Vasopressin 100 units/ (Dextrose/Water) 255 mls @ 1.53 mls/hr IV TITRATE [facility]; Protocol Last Admin: 10/01/17 22:21 Dose: 0.01 units/min, 1.53 mls/hr Norepinephrine Bitartrate 8 mg (/ Dextrose/Water) 500 mls @ 7.5 mls/hr IV TITRATE [facility]; Protocol Last Admin: 10/02/17 09:39 Dose: 10 mcg/min, 37.5 mls/hr Naloxone HCl (Narcan) 0.1 mg IV ASDIRECTED PRN PRN Reason: decreased respiratory rate Ondansetron HCl (Zofran) 4 mg IV Q4H PRN PRN Reason: Nausea/Vomiting Oxybutynin Chloride (Oxybutynin) 5 mg PO TID [facility] Last Admin: 10/02/17 08:13 Dose: 5 mg Pantoprazole Sodium (Protonix) 40 mg PO ACBREAKFAST [facility] Last Admin: 10/02/17 08:13 Dose: 40 mg Primidone (Mysoline) 125 mg PO BID [facility] Last Admin: 10/02/17 08:13 Dose: 125 mg Propranolol HCl (Inderal La) 60 mg PO BID [facility] Last Admin: 10/02/17 08:14 Dose: Not Given Sodium Chloride (Saline Flush) 10 ml FLUSH ASDIRECTED PRN PRN Reason: Keep Vein Open Discontinued Medications Albuterol/Ipratropium (Duoneb 3.0-0.5 Mg/3 Ml) 3 ml NEB ONETIME ONE Stop: 09/30/17 17:56 Last Admin: 09/30/17 18:11 Dose: 3 ml Bupivacaine HCl (Marcaine 0.5%) Confirm Administered Dose 50 ml .ROUTE .STK-MED ONE Stop: 09/30/17 19:44 Last Admin: 09/30/17 19:30 Dose: 20 ml Dexamethasone (Dexamethasone) Confirm Administered Dose 4 mg .ROUTE .STK-MED ONE Stop: 09/30/17 18:11 Fentanyl (Sublimaze) Confirm Administered Dose 250 mcg .ROUTE .STK-MED ONE Stop: 09/30/17 18:11 Fentanyl Citrate (Fentanyl In Ns 20 Mcg/Ml 30 Ml Double Bottom Driver) 10 mcg IV ASDIRECTED [facility] ; Protocol Last Admin: 09/30/17 20:35 Dose: 10 mcg Glycopyrrolate (Robinul) Confirm Administered Dose 1 mg .ROUTE .STK-MED ONE Stop: 09/30/17 18:11 Heparin Sodium (Porcine) (Heparin Lock Flush 100 Units/Ml) Confirm Administered Dose 1,000 units .ROUTE .STK-MED ONE Stop: 09/30/17 18:17 Last Admin: 09/30/17 19:29 Dose: 1,000 units Heparin Sodium (Porcine) (Heparin Sodium) Confirm Administered Dose 5,000 units .ROUTE .STK-MED ONE Stop: 09/30/17 22:05 Last Admin: 09/30/17 22:29 Dose: Not Given Lactated Ringer's (Ringers, Lactated) 1,000 mls @ 999 mls/hr IV ASDIRECTED [facility] Last Admin: 09/30/17 13:16 Dose: 999 mls/hr Piperacillin/Tazobactam/ (Dextrose 4.5 gm/ Premix) 100 mls @ 200 mls/hr IV ONETIME ONE Stop: 09/30/17 14:29 Last Admin: 09/30/17 13:56 Dose: 200 mls/hr Vancomycin HCl 1,000 mg/ (Dextrose/Water) 250 mls @ 167 mls/hr IV ONETIME ONE Stop: 09/30/17 16:31 Last Admin: 09/30/17 15:23 Dose: 167 mls/hr Lactated Ringer's (Ringers, Lactated) 1,000 mls @ 250 mls/hr IV ASDIRECTED [facility] Stop: 09/30/17 20:50 Last Admin: 09/30/17 17:13 Dose: 250 mls/hr Lactated Ringer's (Ringers, Lactated) 500 mls @ 500 mls/hr IV BOLUS [facility] Stop: 09/30/17 22:44 Last Admin: 10/01/17 07:17 Dose: Not Given Norepinephrine Bitartrate 4 mg (/ Dextrose/Water) 250 mls @ 7.5 mls/hr IV TITRATE [facility]; Protocol Last Admin: 10/02/17 02:25 Dose: 10 mcg/min, 37.5 mls/hr Magnesium Sulfate 2 gm/ Premix 50 mls @ 25 mls/hr IV Q6H [facility] Stop: 10/01/17 23:59 Last Admin: 10/01/17 22:09 Dose: 25 mls/hr Lactated Ringer's (Ringers, Lactated) 1,000 mls @ 500 mls/hr IV ASDIRECTED [facility] Stop: 10/01/17 10:46 Last Admin: 10/01/17 09:43 Dose: 500 mls/hr Lactated Ringer's (Ringers, Lactated) 500 mls @ 500 mls/hr IV ONETIME ONE Stop: 10/01/17 15:59 Last Admin: 10/01/17 15:00 Dose: 500 mls/hr Dextrose/Water (Dextrose 5% In Water) Confirm Administered Dose 250 mls @ as directed .ROUTE .STK-MED ONE Stop: 10/01/17 21:59 Last Admin: 10/01/17 22:25 Dose: Not Given Lidocaine/Epinephrine (Xylocaine 1% With Epinephrine 1:100,000) Confirm Administered Dose 50 ml .ROUTE .STK-MED ONE Stop: 09/30/17 19:44 Last Admin: 09/30/17 19:30 Dose: 20 ml Neostigmine Methylsulfate (Neostigmine) Confirm Administered Dose 5 mg .ROUTE .STK-MED ONE Stop: 09/30/17 18:11 Ondansetron HCl (Zofran) Confirm Administered Dose 4 mg .ROUTE .STK-MED ONE Stop: 09/30/17 18:11 Propofol (Diprivan 20 Ml) Confirm Administered Dose 200 mg .ROUTE .STK-MED ONE Stop: 09/30/17 18:11 Rocuronium [place] (Zemuron) Confirm Administered Dose 50 mg .ROUTE .STK-MED ONE Stop: 09/30/17 18:11 Vancomycin HCl (Vancomycin) 1 gm IV .PHARMACY TO DOSE [facility] Stop: 09/30/17 18:00 Vasopressin (Vasopressin) Confirm Administered Dose 100 units .ROUTE .STK-MED ONE Stop: 10/01/17 22:00 Last Admin: 10/01/17 22:25 Dose: Not Given - Exam Quality Assessment: Supplemental Oxygen, Central Line/PICC, Urine Catheter, DVT Prophylaxis General: Alert, Oriented, Cooperative, Moderate Distress Lungs: Clear to Auscultation, Normal Respiratory Effort Cardiovascular: Regular Rate, Regular Rhythm, No Murmurs GI/Abdominal Exam: Soft, No Organomegaly, Tender. No: Distended, Guarding, Rigid, Rebound Extremities: Non-Tender, Pedal Edema Skin: Warm, Dry, Intact - Problem List Review Problem List Initiated/Reviewed/Updated: Yes - My Orders Last 24 Hours: My Active Orders 10/01/17 09:00 Aspirin [Halfprin] 81 mg PO DAILY Escitalopram [Lexapro] 10 mg PO DAILY 10/01/17 16:00 Vancomycin 1 gm Sodium Chloride 0.9% [Normal Saline] 250 ml IV Q24H 10/01/17 22:00 Vasopressin 100 units Dextrose 5% in Water 250 ml IV TITRATE 10/02/17 08:30 Norepinephrine [Levophed] 8 mg Dextrose 5% in Water 492 ml IV TITRATE 10/02/17 09:43 Chest wo Cont [CT] Stat Head wo Cont [CT] Stat 10/02/17 09:56 CLOSTRIDIUM DIFFICILE BY PCR [RM] Stat 10/03/17 05:00 CBC WITH AUTO DIFF [HEME] Timed COMPREHENSIVE METABOLIC PN,CMP [CHEM] Timed LACTIC ACID [CHEM] Timed MAGNESIUM [CHEM] Timed - Plan Plan:: ASSESSMENT AND PLAN SEPTIC SHOCK-no obvious source of infection has been identified thus far despite aggressive evaluation including exploratory laparotomy. She has required aggressive IV fluid replacement as well as use of IV norepinephrine and vasopressin to maintain adequate blood pressures. Cultures remain negative thus far, she is been afebrile, white count elevated to 38,000 this morning -Fluid replacement per CVP monitoring -CT scan of chest and head to look for other potential source of infection -IV norepinephrine and vasopressin as needed to maintain adequate blood pressure -CVP monitoring -Surgical follow-up per Dr. Alford -Blood and urine cultures pending -Empiric IV antibiotic therapy; vancomycin, Zosyn, Azactam pending culture results SMALL BOWEL OBSTRUCTION-no significant obstruction identified at the time of exploratory laparotomy ACUTE KIDNEY INJURY- urine output has improved over the past 24 hours, creatinine and GFR have remained relatively stable -IV fluids as above -Closely monitor urine output and renal function CONGESTIVE HEART FAILURE-evidence of fluid overload noted on evaluation today, in the short-term will require IV fluids for management of sepsis -CVP monitoring MAINTENANCE ISSUES -DVT prophylaxis; SCUDs, hold on anticoagulation until after surgery -GI prophylaxis; Protonix 40 mg IV every 24 hours -Montes catheter; -Nutrition; nothing by mouth -Nicotine dependence; not required CODE STATUS-FULL CODE ADMISSION STATUS-patient will be admitted to inpatient status, expect at least a 2 night hospital stay for evaluation and management of problems as outlined above. At the time of this admission I do not reasonably expected evaluation and management of this problem will require more than a 96 hour hospital stay. DISPOSITION-anticipate discharge to home after the hospital stay. PRIMARY CARE PROVIDER-Dr. Medrano
--- NOTE | 2017-10-02 13:43 | PN ---
DATE OF SERVICE: 10/01/2017 SUBJECTIVE: The patient continues to do well with respect to surgery, but continues to have challenges with respect to the infectious etiology. OBJECTIVE: VITAL SIGNS: Temperature 96.0, blood pressure 110/56, pulse 75, respirations 15, and 97% on room air. CARDIOVASCULAR: Regular rhythm and rate. RESPIRATORY: Lungs are clear to auscultation bilaterally. ABDOMEN: Bowel sounds positive. Nontender. Nondistended. No rebound. No guarding. Dressings are intact. ASSESSMENT AND PLAN: Status post exploratory laparotomy, negative. PLAN: Continue to follow along with hospitalist service. She does not show any evidence of abdominal infection or problem at this point. We will await a GI function. Immanuel Alford MD /[id number]
[2017-10-02] MEDS ORDERED: Vasopressin 40 UNITS in Dextrose 5% in Water 98 ML IV SCH ×2 (16:00)
[2017-10-02] MEDS: fentaNYL/Normal Saline 600 MCG/30 ML PCA Vial IV PRN (16:06)
[2017-10-02] MEDS ORDERED: Vancomycin 1.3 GM in Sodium Chloride 0.9% 250 ML IV SCH ×2 (16:30→17:00)
[2017-10-02] MEDS: Vancomycin 1.3 GM in Sodium Chloride 0.9% 250 ML IV SCH (16:58)
[2017-10-02] MEDS: Levofloxacin/Dextrose 5%-Water 750 MG in Premix Bag 1 BAG IV SCH (17:04)
[2017-10-03] MEDS: Piperacillin/Tazobactam/Dext 3.375 GM in Premix Bag 1 BAG IV SCH ×4 (02:02→20:08)
[2017-10-03] MEDS: Lactated Ringers 1,000 ML IV SCH (03:50)
[2017-10-03] MEDS: Pantoprazole 40 MG Tab.CR PO SCH (07:28)
[2017-10-03] MEDS: Aspirin 81 MG Tab.EC PO SCH (08:28)
[2017-10-03] MEDS: Escitalopram 10 MG Tab PO SCH (08:28)
[2017-10-03] MEDS: Oxybutynin 5 MG Tab PO SCH ×3 (08:28→21:00)
[2017-10-03] MEDS: Gabapentin 300 MG Cap PO SCH ×3 (08:29→21:00)
[2017-10-03] MEDS: Primidone 50 MG Tab PO SCH ×2 (08:29→21:00)
[2017-10-03] MEDS: Propranolol 60 MG Cap.ER PO SCH ×2 (08:31→23:51)
[2017-10-03] MEDS ORDERED: Furosemide 20 MG/2 ML VIAL IVPUSH ONE (09:00)
[2017-10-03] MEDS ORDERED: Magnesium Sulfate/Water 2 GM in Premix Bag 1 BAG IV ONE (09:00)
--- NOTE | 2017-10-03 10:25 | PCM.PN ---
- General Info Date of Service: 10/03/17 Subjective Update: Ms. Delgado has had further improvement over the past 24 hours, she is off of IV vasopressin and norepinephrine is down to 5. Renal function and urine output have improved, unfortunately she has significant fluid retention and fluid overload. During the night has experienced increased shortness of breath with borderline oxygen saturations, requiring increase in supplemental oxygen. CT scan yesterday showed bilateral pleural effusions as well as evidence of pulmonary and significant peripheral edema. She has remained afebrile and her white blood cell count has finally shown some improvement down to 32,000. Functional Status: Reports: Pain Controlled - Review of Systems General: Reports: Weakness. Denies: Fever, Chills Pulmonary: Reports: Shortness of Breath, Cough, Wheezing. Denies: Sputum, Hemoptysis Cardiovascular: Reports: Dyspnea on Exertion, Edema. Denies: Chest Pain, Palpitations, Orthopnea, PND, Lightheadedness Gastrointestinal: Reports: Abdominal Pain. Denies: Constipation, Diarrhea, Difficulty Swallowing, Nausea, Vomiting - Patient Data Vitals - Most Recent: Last Vital Signs Temp 95.9 F 10/03/17 08:00 Pulse 78 10/03/17 05:55 Resp 18 10/03/17 08:00 BP 122/67 10/03/17 08:00 Pulse Ox 93 L 10/03/17 08:00 Weight - Most Recent: 178 lb 9.191 oz I&O - Last 24 Hours: Intake & Output 10/02/17 10/03/17 10/03/17 22:59 06:59 14:59 Intake Total 2515 2080 Output Total 220 135 Balance 2295 1945 Lab Results Last 24 Hours: Laboratory Results - last 24 hr 10/02/17 10/03/17 10/03/17 Range/Units 16:03 06:00 06:00 WBC 32.0 H* (4.5-11.0) K/uL RBC 3.17 L (3.30-5.50) M/uL Hgb 10.6 L (12.0-15.0) g/dL Hct 32.0 L (36.0-48.0) % MCV 101 H (80-98) fL MCH 33 H (27-31) pg MCHC 33 (32-36) % Plt Count 265 (150-400) K/uL Add Manual Diff Yes Neutrophils % (Manual) 87 H (36-66) % Band Neutrophils % 4 L (5-11) % Lymphocytes % (Manual) 3 L (24-44) % Monocytes % (Manual) 6 (2-6) % Eosinophils % (Manual) (2-4) % Basophils % (Manual) (0-1) % Metamyelocytes % % Myelocytes % % Promyelocytes % % Blast Cells % % Plasma Cell % (Manual) 0 Nucleated RBCs 0 Sodium 127 L (140-148) mmol/L Potassium 4.1 (3.6-5.2) mmol/L Chloride 94 L (100-108) mmol/L Carbon Dioxide 25 (21-32) mmol/L Anion Gap 12.1 (5.0-14.0) mmol/L BUN 25 H (7-18) mg/dL Creatinine 1.2 H (0.6-1.0) mg/dL Est Cr Clr Drug Dosing 39.13 mL/min Estimated GFR (MDRD) 43 L (>60) Glucose 123 H (74-106) mg/dL Lactic Acid (0.4-2.0) mmol/L Calcium 7.6 L (8.5-10.1) mg/dL Magnesium 1.7 L (1.8-2.4) mg/dL Total Bilirubin 0.5 (0.2-1.0) mg/dL AST 14 L (15-37) U/L ALT 12 (12-78) U/L Alkaline Phosphatase 81 (46-116) U/L Total Protein 5.2 L (6.4-8.2) g/dL Albumin 1.1 L (3.4-5.0) g/dL Globulin 4.1 H (2.3-3.5) g/dL Albumin/Globulin Ratio 0.3 L (1.2-2.2) Vancomycin Trough 13.1 (10.0-20.0) ug/mL 10/03/17 Range/Units 06:00 WBC (4.5-11.0) K/uL RBC (3.30-5.50) M/uL Hgb (12.0-15.0) g/dL Hct (36.0-48.0) % MCV (80-98) fL MCH (27-31) pg MCHC (32-36) % Plt Count (150-400) K/uL Add Manual Diff Neutrophils % (Manual) (36-66) % Band Neutrophils % (5-11) % Lymphocytes % (Manual) (24-44) % Monocytes % (Manual) (2-6) % Eosinophils % (Manual) (2-4) % Basophils % (Manual) (0-1) % Metamyelocytes % % Myelocytes % % Promyelocytes % % Blast Cells % % Plasma Cell % (Manual) Nucleated RBCs Sodium (140-148) mmol/L Potassium (3.6-5.2) mmol/L Chloride (100-108) mmol/L Carbon Dioxide (21-32) mmol/L Anion Gap (5.0-14.0) mmol/L BUN (7-18) mg/dL Creatinine (0.6-1.0) mg/dL Est Cr Clr Drug Dosing mL/min Estimated GFR (MDRD) (>60) Glucose (74-106) mg/dL Lactic Acid 1.6 (0.4-2.0) mmol/L Calcium (8.5-10.1) mg/dL Magnesium (1.8-2.4) mg/dL Total Bilirubin (0.2-1.0) mg/dL AST (15-37) U/L ALT (12-78) U/L Alkaline Phosphatase (46-116) U/L Total Protein (6.4-8.2) g/dL Albumin (3.4-5.0) g/dL Globulin (2.3-3.5) g/dL Albumin/Globulin Ratio (1.2-2.2) Vancomycin Trough (10.0-20.0) ug/mL Spike Results Last 24 Hours: Microbiology 09/30/17 19:16 Gram Stain - Final Peritoneal Fluid Wound Culture - Preliminary NO GROWTH AFTER 2 DAYS Anaerobic Culture - Preliminary NO GROWTH AFTER 2 DAYS 09/30/17 13:50 Aerobic Blood Culture - Preliminary Blood - Venous - Lab Draw NO GROWTH AFTER 2 DAYS Anaerobic Blood Culture - Preliminary NO GROWTH AFTER 2 DAYS 09/30/17 13:40 Aerobic Blood Culture - Preliminary Blood - Venous NO GROWTH AFTER 2 DAYS Anaerobic Blood Culture - Preliminary NO GROWTH AFTER 2 DAYS Med Orders - Current: Current Medications Acetaminophen (Tylenol) 650 mg PO Q4H PRN PRN Reason: Pain (Mild 1-3)/fever Hydrocodone Bitart/Acetaminophen ([place] 325-5 Mg) 1 tab PO BID PRN PRN Reason: Pain Albuterol (Proventil Neb Soln) 2.5 mg NEB Q4H PRN PRN Reason: Shortness Of Breath/wheezing Aspirin (Halfprin) 81 mg PO DAILY [facility] Last Admin: 10/03/17 08:28 Dose: 81 mg Docusate Sodium (Colace 50 Mg/5 Ml Liquid) 100 mg PO BID [facility] Escitalopram Oxalate (Lexapro) 10 mg PO DAILY [facility] Last Admin: 10/03/17 08:28 Dose: 10 mg Fentanyl Citrate (Fentanyl In Ns 20 Mcg/Ml 30 Ml Provider Relations Consultant) 0 mcg IV ASDIRECTED PRN; Protocol PRN Reason: Pain Last Admin: 10/02/17 16:06 Dose: 600 mcg Furosemide (Lasix) 20 mg IVPUSH Q8H [facility] Gabapentin (Neurontin) 600 mg PO TID [facility] Last Admin: 10/03/17 08:29 Dose: 600 mg Piperacillin/Tazobactam/ (Dextrose 3.375 gm/ Premix) 50 mls @ 100 mls/hr IV Q6H [facility] Last Admin: 10/03/17 08:28 Dose: 100 mls/hr Heparin Sodium (Porcine) 5,000 (units/ Sodium Chloride) 501 mls @ 0 mls/hr IV ASDIRECTED [facility] Norepinephrine Bitartrate 8 mg (/ Dextrose/Water) 500 mls @ 7.5 mls/hr IV TITRATE [facility]; Protocol Last Titration: 10/03/17 08:42 Dose: 5 mcg/min, 18.75 mls/hr Vasopressin 40 units/ Dextrose (/Water) 100 mls @ 1.5 mls/hr IV TITRATE [facility]; Protocol Last Titration: 10/03/17 06:19 Dose: 0 units/min, 0 mls/hr Vancomycin HCl 1.3 gm/ Sodium (Chloride) 250 mls @ 167 mls/hr IV Q24H [facility] Last Admin: 10/02/17 16:58 Dose: 167 mls/hr Levofloxacin/Dextrose 750 mg/ (Premix) 150 mls @ 100 mls/hr IV Q48H [facility] Last Admin: 10/02/17 17:04 Dose: 100 mls/hr Magnesium Sulfate 2 gm/ Premix 50 mls @ 25 mls/hr IV ONETIME ONE Stop: 10/03/17 10:59 Last Admin: 10/03/17 08:36 Dose: 25 mls/hr Magnesium Hydroxide (Milk Of Magnesia) 30 ml PO DAILY [facility] Naloxone HCl (Narcan) 0.1 mg IV ASDIRECTED PRN PRN Reason: decreased respiratory rate Ondansetron HCl (Zofran) 4 mg IV Q4H PRN PRN Reason: Nausea/Vomiting Oxybutynin Chloride (Oxybutynin) 5 mg PO TID [facility] Last Admin: 10/03/17 08:28 Dose: 5 mg Pantoprazole Sodium (Protonix) 40 mg PO ACBREAKFAST [facility] Last Admin: 10/03/17 07:28 Dose: 40 mg Primidone (Mysoline) 125 mg PO BID [facility] Last Admin: 10/03/17 08:29 Dose: 125 mg Propranolol HCl (Inderal La) 60 mg PO BID [facility] Last Admin: 10/03/17 08:31 Dose: Not Given Sodium Chloride (Saline Flush) 10 ml FLUSH ASDIRECTED PRN PRN Reason: Keep Vein Open Discontinued Medications Albuterol/Ipratropium (Duoneb 3.0-0.5 Mg/3 Ml) 3 ml NEB ONETIME ONE Stop: 09/30/17 17:56 Last Admin: 09/30/17 18:11 Dose: 3 ml Bupivacaine HCl (Marcaine 0.5%) Confirm Administered Dose 50 ml .ROUTE .STK-MED ONE Stop: 09/30/17 19:44 Last Admin: 09/30/17 19:30 Dose: 20 ml Dexamethasone (Dexamethasone) Confirm Administered Dose 4 mg .ROUTE .STK-MED ONE Stop: 09/30/17 18:11 Fentanyl (Sublimaze) Confirm Administered Dose 250 mcg .ROUTE .STK-MED ONE Stop: 09/30/17 18:11 Fentanyl Citrate (Fentanyl In Ns 20 Mcg/Ml 30 Ml Provider Relations Consultant) 10 mcg IV ASDIRECTED [facility] ; Protocol Last Admin: 09/30/17 20:35 Dose: 10 mcg Furosemide (Lasix) 20 mg IVPUSH ONETIME ONE Stop: 10/03/17 09:01 Last Admin: 10/03/17 09:12 Dose: 20 mg Glycopyrrolate (Robinul) Confirm Administered Dose 1 mg .ROUTE .STK-MED ONE Stop: 09/30/17 18:11 Heparin Sodium (Porcine) (Heparin Lock Flush 100 Units/Ml) Confirm Administered Dose 1,000 units .ROUTE .STK-MED ONE Stop: 09/30/17 18:17 Last Admin: 09/30/17 19:29 Dose: 1,000 units Heparin Sodium (Porcine) (Heparin Sodium) Confirm Administered Dose 5,000 units .ROUTE .K-MED ONE Stop: 09/30/17 22:05 Last Admin: 09/30/17 22:29 Dose: Not Given Lactated Ringer's (Ringers, Lactated) 1,000 mls @ 999 mls/hr IV ASDIRECTED [facility] Last Admin: 09/30/17 13:16 Dose: 999 mls/hr Piperacillin/Tazobactam/ (Dextrose 4.5 gm/ Premix) 100 mls @ 200 mls/hr IV ONETIME ONE Stop: 09/30/17 14:29 Last Admin: 09/30/17 13:56 Dose: 200 mls/hr Vancomycin HCl 1,000 mg/ (Dextrose/Water) 250 mls @ 167 mls/hr IV ONETIME ONE Stop: 09/30/17 16:31 Last Admin: 09/30/17 15:23 Dose: 167 mls/hr Lactated Ringer's (Ringers, Lactated) 1,000 mls @ 250 mls/hr IV ASDIRECTED [facility] Stop: 09/30/17 20:50 Last Admin: 09/30/17 17:13 Dose: 250 mls/hr Lactated Ringer's (Ringers, Lactated) 1,000 mls @ 125 mls/hr IV ASDIRECTED [facility] Last Admin: 10/03/17 03:50 Dose: 125 mls/hr Vancomycin HCl 1 gm/ Sodium (Chloride) 250 mls @ 167 mls/hr IV Q24H [facility] Last Admin: 10/01/17 15:57 Dose: 167 mls/hr Aztreonam/Dextrose 1 gm/ (Premix) 50 mls @ 100 mls/hr IV Q8H [facility] Last Admin: 10/02/17 09:39 Dose: 100 mls/hr Lactated Ringer's (Ringers, Lactated) 500 mls @ 500 mls/hr IV BOLUS [facility] Stop: 09/30/17 22:44 Last Admin: 10/01/17 07:17 Dose: Not Given Norepinephrine Bitartrate 4 mg (/ Dextrose/Water) 250 mls @ 7.5 mls/hr IV TITRATE [facility]; Protocol Last Admin: 10/02/17 02:25 Dose: 10 mcg/min, 37.5 mls/hr Magnesium Sulfate 2 gm/ Premix 50 mls @ 25 mls/hr IV Q6H [facility] Stop: 10/01/17 23:59 Last Admin: 10/01/17 22:09 Dose: 25 mls/hr Lactated Ringer's (Ringers, Lactated) 1,000 mls @ 500 mls/hr IV ASDIRECTED [facility] Stop: 10/01/17 10:46 Last Admin: 10/01/17 09:43 Dose: 500 mls/hr Lactated Ringer's (Ringers, Lactated) 500 mls @ 500 mls/hr IV ONETIME ONE Stop: 10/01/17 15:59 Last Admin: 10/01/17 15:00 Dose: 500 mls/hr Vasopressin 100 units/ (Dextrose/Water) 255 mls @ 1.53 mls/hr IV TITRATE [facility]; Protocol Stop: 10/02/17 15:55 Last Admin: 10/01/17 22:21 Dose: 0.01 units/min, 1.53 mls/hr Dextrose/Water (Dextrose 5% In Water) Confirm Administered Dose 250 mls @ as directed .ROUTE .STK-MED ONE Stop: 10/01/17 21:59 Last Admin: 10/01/17 22:25 Dose: Not Given Lidocaine/Epinephrine (Xylocaine 1% With Epinephrine 1:100,000) Confirm Administered Dose 50 ml .ROUTE .STK-MED ONE Stop: 09/30/17 19:44 Last Admin: 09/30/17 19:30 Dose: 20 ml Neostigmine Methylsulfate (Neostigmine) Confirm Administered Dose 5 mg .ROUTE .STK-MED ONE Stop: 09/30/17 18:11 Ondansetron HCl (Zofran) Confirm Administered Dose 4 mg .ROUTE .STK-MED ONE Stop: 09/30/17 18:11 Propofol (Diprivan 20 Ml) Confirm Administered Dose 200 mg .ROUTE .STK-MED ONE Stop: 09/30/17 18:11 Rocuronium [place] (Zemuron) Confirm Administered Dose 50 mg .ROUTE .STK-MED ONE Stop: 09/30/17 18:11 Vancomycin HCl (Vancomycin) 1 gm IV .PHARMACY TO DOSE [facility] Stop: 09/30/17 18:00 Vasopressin (Vasopressin) Confirm Administered Dose 100 units .ROUTE .STK-MED ONE Stop: 10/01/17 22:00 Last Admin: 10/01/17 22:25 Dose: Not Given - Exam Quality Assessment: Supplemental Oxygen, DVT Prophylaxis General: Alert, Oriented, Cooperative, Moderate Distress Lungs: Rales, Wheezing. No: Decreased Breath Sounds, Rhonchi Cardiovascular: Regular Rate, Regular Rhythm, No Murmurs GI/Abdominal Exam: Soft, Tender. No: Distended, Guarding, Rigid, Rebound Extremities: Non-Tender, Pedal Edema Skin: Warm, Dry - Problem List Review Problem List Initiated/Reviewed/Updated: Yes - My Orders Last 24 Hours: My Active Orders 10/02/17 09:43 Chest wo Cont [CT] Stat Head wo Cont [CT] Stat 10/02/17 09:56 CLOSTRIDIUM DIFFICILE BY PCR [RM] Stat 10/02/17 16:00 Vasopressin 40 units Dextrose 5% in Water 98 ml IV TITRATE 10/02/17 17:00 Levofloxacin/Dextrose 5%-Water [Levaquin in D5W 750 MG/150 ML] 750 mg Premix Bag 1 bag IV Q48H Vancomycin 1.3 gm Sodium Chloride 0.9% [Normal Saline] 250 ml IV Q24H 10/03/17 09:00 Magnesium Sulfate/Water [Magnesium Sulfate 2 GM in Water 50 ML] 2 gm Premix Bag 1 bag IV ONETIME 10/03/17 10:14 Convert IV to Saline Lock [OM.PC] Routine 10/03/17 16:30 Furosemide [Lasix] 20 mg IVPUSH Q8H 10/04/17 05:00 CBC WITH AUTO DIFF [HEME] Timed COMPREHENSIVE METABOLIC PN,CMP [CHEM] Timed MAGNESIUM [CHEM] Timed - Plan Plan:: ASSESSMENT AND PLAN SEPTIC SHOCK-no obvious source of infection has been identified thus far despite aggressive evaluation including exploratory laparotomy. White blood cell count has improved to 32,000, she has remained afebrile. CT scan of the head and chest obtained yesterday with no obvious source of infection other than possible patchy infiltrates in the upper lung delgado. She has been more hemodynamically stable over the past 24 hours, off of IV vasopressin and dose of norepinephrine is down to 5. Blood cultures and cultures from surgery remain negative -IV norepinephrine -Surgical follow-up per Dr. Alford and Dr. Schwartz -Blood and urine cultures pending -Empiric IV antibiotic therapy; vancomycin, Zosyn, ofloxacin pending culture results -Cardiogram in a.m. to evaluate for valvular vegetations SMALL BOWEL OBSTRUCTION-no significant obstruction identified at the time of exploratory laparotomy ACUTE KIDNEY INJURY- urine output has improved over the past 24 hours, creatinine and GFR have improved -Saline lock IV -Closely monitor urine output and renal function FLUID OVERLOAD-bilateral pleural effusions, pulmonary edema, and extensive soft tissue edema -Furosemide 20 mg IV every 8 hours MAINTENANCE ISSUES -DVT prophylaxis; SCUDs, Lovenox 40 mg subcutaneous daily -GI prophylaxis; Protonix 40 mg IV every 24 hours -Montes catheter; -Nutrition; nothing by mouth -Nicotine dependence; not required CODE STATUS-FULL CODE ADMISSION STATUS-patient will be admitted to inpatient status, expect at least a 2 night hospital stay for evaluation and management of problems as outlined above. At the time of this admission I do not reasonably expected evaluation and management of this problem will require more than a 96 hour hospital stay. DISPOSITION-anticipate discharge to home after the hospital stay. PRIMARY CARE PROVIDER-Dr. Medrano
[2017-10-03] MEDS: Magnesium Hydroxide 400 MG/5 ML Susp 30 ML Cup PO SCH (11:33)
[2017-10-03] MEDS: Docusate Sodium Liquid 100 MG/10 ML UD Cup PO SCH ×2 (11:33→21:00)
--- NOTE | 2017-10-03 11:59 | PN ---
DATE OF SERVICE: 10/03/2017 SUBJECTIVE: The patient continues to slowly improve. She is passing a small amount of gas. No bowel movement today, however, bowel movement yesterday. No nausea, vomiting, shortness of breath, or chest pain. No chest tube. OBJECTIVE: VITAL SIGNS: Vital signs are stable. She is afebrile. Blood pressure shows stability with 122/67, and temperature 95.9. CARDIOVASCULAR: Regular rhythm and rate. RESPIRATORY: Lungs clear to auscultation bilaterally. ABDOMEN: Incision healing well. No signs of infection. LABORATORY RESULTS: Elevated white blood cell count of 31,000. ASSESSMENT: Status post exploratory laparotomy. PLAN: The patient did grow out small amount of Staph from her abdominal culture. However, she continues to slowly improve with the help of the hospital service. As far as her GI activity, we will start her on clear liquid diet today, add milk of mag and Colace. Continue to follow the patient. Immanuel Alford MD /[id number]
[2017-10-03] MEDS: Enoxaparin 40 MG/0.4 ML Syringe SUBCUT SCH (15:57)
[2017-10-03] MEDS: Furosemide 40 MG/4 ML VIAL IV SCH (15:57)
[2017-10-03] MEDS: Vancomycin 1.3 GM in Sodium Chloride 0.9% 250 ML IV SCH (16:02)
[2017-10-03] MEDS ORDERED: Furosemide 20 MG/2 ML VIAL IVPUSH SCH (16:30)
[2017-10-03] MEDS ORDERED: Norepinephrine 4 MG in Dextrose 5% in Water 246 ML IV SCH ×2 (18:00)
[2017-10-04] MEDS: Furosemide 40 MG/4 ML VIAL IV SCH ×3 (00:57→19:57)
[2017-10-04] MEDS: Piperacillin/Tazobactam/Dext 3.375 GM in Premix Bag 1 BAG IV SCH ×4 (01:46→19:57)
[2017-10-04] MEDS: Pantoprazole 40 MG Tab.CR PO SCH (08:39)
--- NOTE | 2017-10-04 09:18 | PN ---
DATE OF SERVICE: 10/04/2017 The patient has been hemodynamically more stable. She is off the norepinephrine at this point and has been afebrile. Oral intake remains quite poor but she has not moved her bowels as of yet postoperatively. We will probably add some Megace once her GI tract returns. Will discontinue Colace and give her Dulcolax oral tablets two b.i.d. until she has a bowel movement. At some point, we may need to consider the need of feeding tube or TPN or a combination of both. We will have Physical Therapy see the patient. Otherwise, continue management with the assistance of the hospitalist. Her labs are not yet available this morning. Thaddeus Schwartz MD /[id number]
--- NOTE | 2017-10-04 09:46 | PCM.PN ---
- General Info Date of Service: 10/04/17 Functional Status: Reports: Pain Controlled - Review of Systems General: Reports: Weakness. Denies: Fever Systems Review Comment:: There were no acute events overnight. The patient has been weaned off of her norepinephrine drip. Blood pressures are on the low side of normal but stable. She remains very lethargic and will open her eyes to voice but does not interact. White blood cell count has been trending down. Urine output has been slowly improving. Kidney function is stable. No positive culture results. She remains on broad-spectrum antibiotics. - Patient Data Vitals - Most Recent: Last Vital Signs Temp 35.5 C 10/04/17 07:00 Pulse 85 10/04/17 08:00 Resp 11 L 10/04/17 08:00 BP 104/52 L 10/04/17 08:41 Pulse Ox 92 L 10/04/17 08:00 Weight - Most Recent: 81.4 kg I&O - Last 24 Hours: Intake & Output 10/03/17 10/04/17 10/04/17 22:59 06:59 14:59 Intake Total 651 127 50 Output Total 355 300 75 Balance 296 -173 -25 Lab Results Last 24 Hours: Laboratory Results - last 24 hr 10/04/17 10/04/17 Range/Units 05:30 05:30 WBC 29.4 H (4.5-11.0) K/uL RBC 3.76 (3.30-5.50) M/uL Hgb 12.6 D (12.0-15.0) g/dL Hct 37.5 (36.0-48.0) % MCV 100 H (80-98) fL MCH 34 H (27-31) pg MCHC 34 (32-36) % Plt Count 293 (150-400) K/uL Add Manual Diff Yes Neutrophils % (Manual) 81 H (36-66) % Band Neutrophils % 5 (5-11) % Lymphocytes % (Manual) 7 L (24-44) % Monocytes % (Manual) 6 (2-6) % Eosinophils % (Manual) 1 L (2-4) % Sodium 130 L (140-148) mmol/L Potassium 4.0 (3.6-5.2) mmol/L Chloride 96 L (100-108) mmol/L Carbon Dioxide 27 (21-32) mmol/L Anion Gap 11.0 (5.0-14.0) mmol/L BUN 24 H (7-18) mg/dL Creatinine 1.3 H (0.6-1.0) mg/dL Est Cr Clr Drug Dosing 36.12 mL/min Estimated GFR (MDRD) 40 L (>60) Glucose 106 (74-106) mg/dL Calcium 7.8 L (8.5-10.1) mg/dL Magnesium 1.9 (1.8-2.4) mg/dL Total Bilirubin 0.5 (0.2-1.0) mg/dL AST 13 L (15-37) U/L ALT 10 L (12-78) U/L Alkaline Phosphatase 70 (46-116) U/L Total Protein 5.0 L (6.4-8.2) g/dL Albumin 1.1 L (3.4-5.0) g/dL Globulin 3.9 H (2.3-3.5) g/dL Albumin/Globulin Ratio 0.3 L (1.2-2.2) Spike Results Last 24 Hours: Microbiology 09/30/17 19:16 Gram Stain - Final Peritoneal Fluid Wound Culture - Final NO GROWTH AFTER 3 DAYS Anaerobic Culture - Final NO GROWTH AFTER 3 DAYS 09/30/17 13:50 Aerobic Blood Culture - Preliminary Blood - Venous - Lab Draw NO GROWTH AFTER 3 DAYS Anaerobic Blood Culture - Preliminary NO GROWTH AFTER 3 DAYS 09/30/17 13:40 Aerobic Blood Culture - Preliminary Blood - Venous NO GROWTH AFTER 3 DAYS Anaerobic Blood Culture - Preliminary NO GROWTH AFTER 3 DAYS Med Orders - Current: Current Medications Acetaminophen (Tylenol) 650 mg PO Q4H PRN PRN Reason: Pain (Mild 1-3)/fever Hydrocodone Bitart/Acetaminophen ([place] 325-5 Mg) 1 tab PO BID PRN PRN Reason: Pain Albuterol (Proventil Neb Soln) 2.5 mg NEB Q4H PRN PRN Reason: Shortness Of Breath/wheezing Aspirin (Halfprin) 81 mg PO DAILY [facility] Last Admin: 10/03/17 08:28 Dose: 81 mg Bisacodyl (Dulcolax) 10 mg PO BID [facility] Docusate Sodium (Colace 50 Mg/5 Ml Liquid) 100 mg PO BID [facility] Last Admin: 10/03/17 21:00 Dose: 100 mg Enoxaparin Sodium (Lovenox) 40 mg SUBCUT Q24H [facility] Last Admin: 10/03/17 15:57 Dose: 40 mg Escitalopram Oxalate (Lexapro) 10 mg PO DAILY [facility] Last Admin: 10/03/17 08:28 Dose: 10 mg Fentanyl Citrate (Fentanyl In Ns 20 Mcg/Ml 30 Ml Edge Stainer) 0 mcg IV ASDIRECTED PRN; Protocol PRN Reason: Pain Last Admin: 10/02/17 16:06 Dose: 600 mcg Furosemide (Lasix) 40 mg IV Q8H [facility] Last Admin: 10/04/17 08:41 Dose: 40 mg Gabapentin (Neurontin) 600 mg PO TID [facility] Last Admin: 10/03/17 21:00 Dose: 600 mg Heparin Sodium (Porcine) (Heparin Lock Flush 100 Units/Ml) 500 units FLUSH ASDIRECTED PRN PRN Reason: flush [facility] Last Admin: 10/04/17 06:09 Dose: 500 units Piperacillin/Tazobactam/ (Dextrose 3.375 gm/ Premix) 50 mls @ 100 mls/hr IV Q6H [facility] Last Admin: 10/04/17 08:23 Dose: 100 mls/hr Heparin Sodium (Porcine) 5,000 (units/ Sodium Chloride) 501 mls @ 0 mls/hr IV ASDIRECTED [facility] Vancomycin HCl 1.3 gm/ Sodium (Chloride) 250 mls @ 167 mls/hr IV Q24H [facility] Last Admin: 10/03/17 16:02 Dose: 167 mls/hr Levofloxacin/Dextrose 750 mg/ (Premix) 150 mls @ 100 mls/hr IV Q48H [facility] Last Admin: 10/02/17 17:04 Dose: 100 mls/hr Magnesium Hydroxide (Milk Of Magnesia) 30 ml PO DAILY [facility] Last Admin: 10/03/17 11:33 Dose: 30 ml Naloxone HCl (Narcan) 0.1 mg IV ASDIRECTED PRN PRN Reason: decreased respiratory rate Ondansetron HCl (Zofran) 4 mg IV Q4H PRN PRN Reason: Nausea/Vomiting Oxybutynin Chloride (Oxybutynin) 5 mg PO TID [facility] Last Admin: 10/03/17 21:00 Dose: 5 mg Pantoprazole Sodium (Protonix) 40 mg PO ACBREAKFAST [facility] Last Admin: 10/04/17 08:39 Dose: 40 mg Primidone (Mysoline) 125 mg PO BID [facility] Last Admin: 10/03/17 21:00 Dose: 125 mg Propranolol HCl (Inderal La) 60 mg PO BID [facility] Last Admin: 10/03/17 23:51 Dose: Not Given Sodium Chloride (Saline Flush) 10 ml FLUSH ASDIRECTED PRN PRN Reason: Keep Vein Open Last Admin: 10/04/17 06:10 Dose: 10 ml Discontinued Medications Albuterol/Ipratropium (Duoneb 3.0-0.5 Mg/3 Ml) 3 ml NEB ONETIME ONE Stop: 09/30/17 17:56 Last Admin: 09/30/17 18:11 Dose: 3 ml Bupivacaine HCl (Marcaine 0.5%) Confirm Administered Dose 50 ml .ROUTE .STK-MED ONE Stop: 09/30/17 19:44 Last Admin: 09/30/17 19:30 Dose: 20 ml Dexamethasone (Dexamethasone) Confirm Administered Dose 4 mg .ROUTE .STK-MED ONE Stop: 09/30/17 18:11 Fentanyl (Sublimaze) Confirm Administered Dose 250 mcg .ROUTE .STK-MED ONE Stop: 09/30/17 18:11 Fentanyl Citrate (Fentanyl In Ns 20 Mcg/Ml 30 Ml Edge Stainer) 10 mcg IV ASDIRECTED [facility] ; Protocol Last Admin: 09/30/17 20:35 Dose: 10 mcg Furosemide (Lasix) 20 mg IVPUSH ONETIME ONE Stop: 10/03/17 09:01 Last Admin: 10/03/17 09:12 Dose: 20 mg Furosemide (Lasix) 20 mg IVPUSH Q8H [facility] Glycopyrrolate (Robinul) Confirm Administered Dose 1 mg .ROUTE .STK-MED ONE Stop: 09/30/17 18:11 Heparin Sodium (Porcine) (Heparin Lock Flush 100 Units/Ml) Confirm Administered Dose 1,000 units .ROUTE .STK-MED ONE Stop: 09/30/17 18:17 Last Admin: 09/30/17 19:29 Dose: 1,000 units Heparin Sodium (Porcine) (Heparin Sodium) Confirm Administered Dose 5,000 units .ROUTE .STK-MED ONE Stop: 09/30/17 22:05 Last Admin: 09/30/17 22:29 Dose: Not Given Heparin Sodium (Porcine) (Heparin Lock Flush 100 Units/Ml) Confirm Administered Dose 500 units .ROUTE .STK-MED ONE Stop: 10/04/17 05:56 Last Admin: 10/04/17 06:40 Dose: Not Given Lactated Ringer's (Ringers, Lactated) 1,000 mls @ 999 mls/hr IV ASDIRECTED [facility] Last Admin: 09/30/17 13:16 Dose: 999 mls/hr Piperacillin/Tazobactam/ (Dextrose 4.5 gm/ Premix) 100 mls @ 200 mls/hr IV ONETIME ONE Stop: 09/30/17 14:29 Last Admin: 09/30/17 13:56 Dose: 200 mls/hr Vancomycin HCl 1,000 mg/ (Dextrose/Water) 250 mls @ 167 mls/hr IV ONETIME ONE Stop: 09/30/17 16:31 Last Admin: 09/30/17 15:23 Dose: 167 mls/hr Lactated Ringer's (Ringers, Lactated) 1,000 mls @ 250 mls/hr IV ASDIRECTED [facility] Stop: 09/30/17 20:50 Last Admin: 09/30/17 17:13 Dose: 250 mls/hr Lactated Ringer's (Ringers, Lactated) 1,000 mls @ 125 mls/hr IV ASDIRECTED [facility] Last Admin: 10/03/17 03:50 Dose: 125 mls/hr Vancomycin HCl 1 gm/ Sodium (Chloride) 250 mls @ 167 mls/hr IV Q24H [facility] Last Admin: 10/01/17 15:57 Dose: 167 mls/hr Aztreonam/Dextrose 1 gm/ (Premix) 50 mls @ 100 mls/hr IV Q8H [facility] Last Admin: 10/02/17 09:39 Dose: 100 mls/hr Lactated Ringer's (Ringers, Lactated) 500 mls @ 500 mls/hr IV BOLUS [facility] Stop: 09/30/17 22:44 Last Admin: 10/01/17 07:17 Dose: Not Given Norepinephrine Bitartrate 4 mg (/ Dextrose/Water) 250 mls @ 7.5 mls/hr IV TITRATE [facility]; Protocol Last Admin: 10/02/17 02:25 Dose: 10 mcg/min, 37.5 mls/hr Magnesium Sulfate 2 gm/ Premix 50 mls @ 25 mls/hr IV Q6H [facility] Stop: 10/01/17 23:59 Last Admin: 10/01/17 22:09 Dose: 25 mls/hr Lactated Ringer's (Ringers, Lactated) 1,000 mls @ 500 mls/hr IV ASDIRECTED [facility] Stop: 10/01/17 10:46 Last Admin: 10/01/17 09:43 Dose: 500 mls/hr Lactated Ringer's (Ringers, Lactated) 500 mls @ 500 mls/hr IV ONETIME ONE Stop: 10/01/17 15:59 Last Admin: 10/01/17 15:00 Dose: 500 mls/hr Vasopressin 100 units/ (Dextrose/Water) 255 mls @ 1.53 mls/hr IV TITRATE [facility]; Protocol Stop: 10/02/17 15:55 Last Admin: 10/01/17 22:21 Dose: 0.01 units/min, 1.53 mls/hr Dextrose/Water (Dextrose 5% In Water) Confirm Administered Dose 250 mls @ as directed .ROUTE [email or web address] ONE Stop: 10/01/17 21:59 Last Admin: 10/01/17 22:25 Dose: Not Given Norepinephrine Bitartrate 8 mg (/ Dextrose/Water) 500 mls @ 7.5 mls/hr IV TITRATE [facility]; Protocol Stop: 10/03/17 17:55 Last Titration: 10/03/17 13:54 Dose: 2 mcg/min, 7.5 mls/hr Vasopressin 40 units/ Dextrose (/Water) 100 mls @ 1.5 mls/hr IV TITRATE [facility]; Protocol Last Titration: 10/03/17 06:19 Dose: 0 units/min, 0 mls/hr Magnesium Sulfate 2 gm/ Premix 50 mls @ 25 mls/hr IV ONETIME ONE Stop: 10/03/17 10:59 Last Admin: 10/03/17 08:36 Dose: 25 mls/hr Norepinephrine Bitartrate 4 mg (/ Dextrose/Water) 250 mls @ 7.5 mls/hr IV TITRATE [facility]; Protocol Last Titration: 10/04/17 05:09 Dose: 0 mcg/min, 0 mls/hr Lidocaine/Epinephrine (Xylocaine 1% With Epinephrine 1:100,000) Confirm Administered Dose 50 ml .ROUTE .STK-MED ONE Stop: 09/30/17 19:44 Last Admin: 09/30/17 19:30 Dose: 20 ml Neostigmine Methylsulfate (Neostigmine) Confirm Administered Dose 5 mg .ROUTE .STK-MED ONE Stop: 09/30/17 18:11 Ondansetron HCl (Zofran) Confirm Administered Dose 4 mg .ROUTE .STK-MED ONE Stop: 09/30/17 18:11 Propofol (Diprivan 20 Ml) Confirm Administered Dose 200 mg .ROUTE .STK-MED ONE Stop: 09/30/17 18:11 Rocuronium [place] (Zemuron) Confirm Administered Dose 50 mg .ROUTE .STK-MED ONE Stop: 09/30/17 18:11 Vancomycin HCl (Vancomycin) 1 gm IV .PHARMACY TO DOSE ASH Stop: 09/30/17 18:00 Vasopressin (Vasopressin) Confirm Administered Dose 100 units .ROUTE .STK-MED ONE Stop: 10/01/17 22:00 Last Admin: 10/01/17 22:25 Dose: Not Given - Exam Quality Assessment: Supplemental Oxygen General: No Acute Distress, Lethargic. No: Alert, Oriented HEENT: Pupils Equal Neck: Trachea Midline Lungs: Normal Respiratory Effort, Crackles (rare, right lung base) Cardiovascular: Regular Rate, Regular Rhythm, No Murmurs GI/Abdominal Exam: Soft, No Distention, Abnormal Bowel Sounds (hypoactive) Extremities: Pedal Edema. No: Increased Warmth Skin: Warm, Dry Psy/Mental Status: No: Alert, Anxious - Problem List Review Problem List Initiated/Reviewed/Updated: Yes - Plan Plan:: ASSESSMENT AND PLAN SEPTIC SHOCK - no obvious source of infection has been identified thus far despite aggressive evaluation including exploratory laparotomy. White blood cell count continues to trend down. She is now off vasopressors. She remains very lethargic. Echocardiogram did not show obvious evidence for vegetation but final interpretation is pending. -Surgical follow-up per Dr. Alford and Dr. Schwartz -Blood and urine cultures pending -Empiric IV antibiotic therapy with Pip/Tazo and levofloxacin -Follow-up formal echocardiogram report POSSIBLE SMALL BOWEL OBSTRUCTION - no significant obstruction identified at the time of exploratory laparotomy ACUTE KIDNEY INJURY - urine output has continued to improve, creatinine and GFR are stable. -Saline lock IV -Closely monitor urine output and renal function FLUID OVERLOAD - bilateral pleural effusions, pulmonary edema, and extensive soft tissue edema.Slowly diuresing. -Furosemide 40 mg IV every 12 hours MAINTENANCE ISSUES -DVT prophylaxis; initiate ASA stockings, Vioxx. 40 mg subcutaneous daily -GI prophylaxis; PPI -Montes catheter; -Nutrition; clear liquids -Nicotine dependence; not required DISPOSITION - anticipate discharge to [facility] after the hospital stay. Nic Valles M.D.
[2017-10-04] MEDS: Gabapentin 300 MG Cap PO SCH ×3 (09:49→20:53)
[2017-10-04] MEDS: Escitalopram 10 MG Tab PO SCH (09:49)
[2017-10-04] MEDS: Primidone 50 MG Tab PO SCH ×2 (09:49→20:53)
[2017-10-04] MEDS: Aspirin 81 MG Tab.EC PO SCH (09:49)
[2017-10-04] MEDS: Bisacodyl 5 MG Tab PO SCH ×2 (09:49→20:53)
[2017-10-04] MEDS: Oxybutynin 5 MG Tab PO SCH ×3 (09:49→20:53)
[2017-10-04] MEDS: Magnesium Hydroxide 400 MG/5 ML Susp 30 ML Cup PO SCH (09:50)
[2017-10-04] MEDS: Docusate Sodium Liquid 100 MG/10 ML UD Cup PO SCH ×2 (09:50→20:53)
[2017-10-04] MEDS: Propranolol 60 MG Cap.ER PO SCH ×2 (11:19→20:47)
--- NOTE | 2017-10-04 13:27 | PN ---
DATE OF SERVICE: 10/02/2017 SUBJECTIVE: The patient continues to improve. No nausea, vomiting, shortness of breath, or chest pain. She is passing gas and having bowel movements. OBJECTIVE: VITAL SIGNS: Temperature 96.4, blood pressure 104/58, pulse 74, respirations 20, 92% on 2 L. CARDIOVASCULAR: Regular rhythm and rate. RESPIRATORY: Lungs are clear to auscultation bilaterally. SKIN: Incision is healing well. ASSESSMENT/PLAN: Status post exploratory laparotomy, negative. With respect to surgery, the patient continues to improve. She is now having bowel movements. We will consider diet soon. With respect to infection, the etiology remains unknown as white blood cell count remains elevated. However, the patient does appear to be subjectively improving with respect to that. We will continue to manage the patient along with hospitalist service. Immanuel Alford MD /[phone]
[2017-10-04] MEDS: Enoxaparin 40 MG/0.4 ML Syringe SUBCUT SCH (15:48)
[2017-10-04] MEDS: Levofloxacin/Dextrose 5%-Water 750 MG in Premix Bag 1 BAG IV SCH (16:37)
[2017-10-05] MEDS: Piperacillin/Tazobactam/Dext 3.375 GM in Premix Bag 1 BAG IV SCH ×4 (01:49→21:06)
[2017-10-05] MEDS: Furosemide 40 MG/4 ML VIAL IV SCH ×2 (07:49→21:05)
[2017-10-05] MEDS: Pantoprazole 40 MG Tab.CR PO SCH (07:50)
[2017-10-05] MEDS: Bisacodyl 5 MG Tab PO SCH (09:07)
[2017-10-05] MEDS: Docusate Sodium Liquid 100 MG/10 ML UD Cup PO SCH (09:07)
[2017-10-05] MEDS: Magnesium Hydroxide 400 MG/5 ML Susp 30 ML Cup PO SCH (09:07)
[2017-10-05] MEDS: Propranolol 60 MG Cap.ER PO SCH (09:16)
[2017-10-05] MEDS: Oxybutynin 5 MG Tab PO SCH (09:16)
[2017-10-05] MEDS: Gabapentin 300 MG Cap PO SCH (09:17)
[2017-10-05] MEDS: Primidone 50 MG Tab PO SCH ×2 (09:21→21:05)
[2017-10-05] MEDS: Aspirin 81 MG Tab.EC PO SCH (09:23)
[2017-10-05] MEDS: Escitalopram 10 MG Tab PO SCH (09:23)
--- NOTE | 2017-10-05 10:43 | PCM.PN ---
- General Info Date of Service: 10/05/17 Functional Status: Reports: Pain Controlled - Review of Systems General: Reports: Weakness Pulmonary: Reports: Cough Neurological: Reports: Confusion Systems Review Comment:: There were no acute events overnight. Blood pressures have remained on the low side but have been stable. Patient is a little bit more alert and interactive today but still very lethargic. Urine output has improved with the diuresis and lower extremity and upper extremity edema are both improving. Still has not had much in the way of oral intake and there does appear to be some coughing but does okay with applesauce and thicker liquids. She reports mild abdominal pain this morning. She does not feel short of breath at this time. Cultures remain negative. White blood cell count is trending down. - Patient Data Vitals - Most Recent: Last Vital Signs Temp 36.4 C 10/05/17 08:00 Pulse 94 10/05/17 08:00 Resp 15 10/05/17 08:00 BP 97/70 10/05/17 08:00 Pulse Ox 90 L 10/05/17 08:00 Weight - Most Recent: 81.4 kg I&O - Last 24 Hours: Intake & Output 10/04/17 10/05/17 10/05/17 22:59 06:59 14:59 Intake Total 390 Output Total 215 265 Balance 175 -265 Lab Results Last 24 Hours: Laboratory Results - last 24 hr 10/05/17 10/05/17 Range/Units 04:00 04:00 WBC 23.7 H (4.5-11.0) K/uL RBC 3.37 (3.30-5.50) M/uL Hgb 11.3 L (12.0-15.0) g/dL Hct 33.2 L (36.0-48.0) % MCV 99 H (80-98) fL MCH 34 H (27-31) pg MCHC 34 (32-36) % Plt Count 333 (150-400) K/uL Sodium 131 L (140-148) mmol/L Potassium 3.7 (3.6-5.2) mmol/L Chloride 95 L (100-108) mmol/L Carbon Dioxide 27 (21-32) mmol/L Anion Gap 12.7 (5.0-14.0) mmol/L BUN 28 H (7-18) mg/dL Creatinine 1.3 H (0.6-1.0) mg/dL Est Cr Clr Drug Dosing 36.12 mL/min Estimated GFR (MDRD) 40 L (>60) Glucose 95 (74-106) mg/dL Calcium 7.6 L (8.5-10.1) mg/dL Phosphorus 3.6 (2.5-4.9) mg/dL Magnesium 2.0 (1.8-2.4) mg/dL Total Bilirubin 0.5 (0.2-1.0) mg/dL AST 14 L (15-37) U/L ALT 11 L (12-78) U/L Alkaline Phosphatase 63 (46-116) U/L NT-Pro-B Natriuret Pep 82491 H (5-450) pg/mL Total Protein 5.0 L (6.4-8.2) g/dL Albumin 1.1 L (3.4-5.0) g/dL Globulin 3.9 H (2.3-3.5) g/dL Albumin/Globulin Ratio 0.3 L (1.2-2.2) Spike Results Last 24 Hours: Microbiology 09/30/17 13:50 Aerobic Blood Culture - Preliminary Blood - Venous - Lab Draw NO GROWTH AFTER 4 DAYS Anaerobic Blood Culture - Preliminary NO GROWTH AFTER 4 DAYS 09/30/17 13:40 Aerobic Blood Culture - Preliminary Blood - Venous NO GROWTH AFTER 4 DAYS Anaerobic Blood Culture - Preliminary NO GROWTH AFTER 4 DAYS 09/30/17 19:16 Gram Stain - Final Peritoneal Fluid Wound Culture - Final NO GROWTH AFTER 3 DAYS Anaerobic Culture - Final NO GROWTH AFTER 3 DAYS Med Orders - Current: Current Medications Acetaminophen (Tylenol) 650 mg PO Q4H PRN PRN Reason: Pain (Mild 1-3)/fever Hydrocodone Bitart/Acetaminophen ([place] 325-5 Mg) 1 tab PO BID PRN PRN Reason: Pain Albuterol (Proventil Neb Soln) 2.5 mg NEB Q4H PRN PRN Reason: Shortness Of Breath/wheezing Aspirin (Halfprin) 81 mg PO DAILY [facility] Last Admin: 10/05/17 09:23 Dose: 81 mg Enoxaparin Sodium (Lovenox) 40 mg SUBCUT Q24H [facility] Last Admin: 10/04/17 15:48 Dose: 40 mg Escitalopram Oxalate (Lexapro) 10 mg PO DAILY [facility] Last Admin: 10/05/17 09:23 Dose: 10 mg Fentanyl Citrate (Fentanyl In Ns 20 Mcg/Ml 30 Ml [place]) 0 mcg IV ASDIRECTED PRN; Protocol PRN Reason: Pain Last Admin: 10/02/17 16:06 Dose: 600 mcg Furosemide (Lasix) 40 mg IV Q12H [facility] Last Admin: 10/05/17 07:49 Dose: 40 mg Heparin Sodium (Porcine) (Heparin Lock Flush 100 Units/Ml) 500 units FLUSH ASDIRECTED PRN PRN Reason: flush tls Last Admin: 10/04/17 06:09 Dose: 500 units Piperacillin/Tazobactam/ (Dextrose 3.375 gm/ Premix) 50 mls @ 100 mls/hr IV Q6H [facility] Last Admin: 10/05/17 07:49 Dose: 100 mls/hr Heparin Sodium (Porcine) 5,000 (units/ Sodium Chloride) 501 mls @ 0 mls/hr IV ASDIRECTED [facility] Last Admin: 10/04/17 16:46 Dose: 1 mls/hr Levofloxacin/Dextrose 750 mg/ (Premix) 150 mls @ 100 mls/hr IV Q48H [facility] Last Admin: 10/04/17 16:37 Dose: 100 mls/hr Multivitamins/Minerals 10 ml/Chromium/Copper/Manganese/Seleni/Zn 1 ml/ Amino Ac/ Electrol/Dextrose/Calcium 1,011 mls @ 60 mls/hr IV .BY DURATION [facility] Amino Ac/Electrol/Dextrose/Calcium (Clinimix E 5/15) 1,000 mls @ 60 mls/hr IV .BY DURATION [facility] Naloxone HCl (Narcan) 0.1 mg IV ASDIRECTED PRN PRN Reason: decreased respiratory rate Ondansetron HCl (Zofran) 4 mg IV Q4H PRN PRN Reason: Nausea/Vomiting Oxybutynin Chloride (Oxybutynin) 5 mg PO TID [facility] Last Admin: 10/05/17 09:16 Dose: Not Given Primidone (Mysoline) 125 mg PO BID [facility] Last Admin: 10/05/17 09:21 Dose: 125 mg Propranolol HCl (Inderal La) 60 mg PO BID [facility] Last Admin: 10/05/17 09:16 Dose: Not Given Sodium Chloride (Saline Flush) 10 ml FLUSH ASDIRECTED PRN PRN Reason: Keep Vein Open Last Admin: 10/04/17 06:10 Dose: 10 ml Discontinued Medications Albuterol/Ipratropium (Duoneb 3.0-0.5 Mg/3 Ml) 3 ml NEB ONETIME ONE Stop: 09/30/17 17:56 Last Admin: 09/30/17 18:11 Dose: 3 ml Bisacodyl (Dulcolax) 10 mg PO BID [facility] Last Admin: 10/05/17 09:07 Dose: Not Given Bupivacaine HCl (Marcaine 0.5%) Confirm Administered Dose 50 ml .ROUTE .STK-MED ONE Stop: 09/30/17 19:44 Last Admin: 09/30/17 19:30 Dose: 20 ml Dexamethasone (Dexamethasone) Confirm Administered Dose 4 mg .ROUTE .STK-MED ONE Stop: 09/30/17 18:11 Docusate Sodium (Colace 50 Mg/5 Ml Liquid) 100 mg PO BID [facility] Last Admin: 10/05/17 09:07 Dose: Not Given Fentanyl (Sublimaze) Confirm Administered Dose 250 mcg .ROUTE .STK-MED ONE Stop: 09/30/17 18:11 Fentanyl Citrate (Fentanyl In Ns 20 Mcg/Ml 30 Ml [place]) 10 mcg IV ASDIRECTED [facility] ; Protocol Last Admin: 09/30/17 20:35 Dose: 10 mcg Furosemide (Lasix) 20 mg IVPUSH ONETIME ONE Stop: 10/03/17 09:01 Last Admin: 10/03/17 09:12 Dose: 20 mg Furosemide (Lasix) 20 mg IVPUSH Q8H [facility] Furosemide (Lasix) 40 mg IV Q8H [facility] Last Admin: 10/04/17 08:41 Dose: 40 mg Gabapentin (Neurontin) 600 mg PO TID [facility] Last Admin: 10/05/17 09:17 Dose: Not Given Glycopyrrolate (Robinul) Confirm Administered Dose 1 mg .ROUTE .STK-MED ONE Stop: 09/30/17 18:11 Heparin Sodium (Porcine) (Heparin Lock Flush 100 Units/Ml) Confirm Administered Dose 1,000 units .ROUTE .STK-MED ONE Stop: 09/30/17 18:17 Last Admin: 09/30/17 19:29 Dose: 1,000 units Heparin Sodium (Porcine) (Heparin Sodium) Confirm Administered Dose 5,000 units .ROUTE .STK-MED ONE Stop: 09/30/17 22:05 Last Admin: 09/30/17 22:29 Dose: Not Given Heparin Sodium (Porcine) (Heparin Lock Flush 100 Units/Ml) Confirm Administered Dose 500 units .ROUTE .STK-MED ONE Stop: 10/04/17 05:56 Last Admin: 10/04/17 06:40 Dose: Not Given Lactated Ringer's (Ringers, Lactated) 1,000 mls @ 999 mls/hr IV ASDIRECTED [facility] Last Admin: 09/30/17 13:16 Dose: 999 mls/hr Piperacillin/Tazobactam/ (Dextrose 4.5 gm/ Premix) 100 mls @ 200 mls/hr IV ONETIME ONE Stop: 09/30/17 14:29 Last Admin: 09/30/17 13:56 Dose: 200 mls/hr Vancomycin HCl 1,000 mg/ (Dextrose/Water) 250 mls @ 167 mls/hr IV ONETIME ONE Stop: 09/30/17 16:31 Last Admin: 09/30/17 15:23 Dose: 167 mls/hr Lactated Ringer's (Ringers, Lactated) 1,000 mls @ 250 mls/hr IV ASDIRECTED [facility] Stop: 09/30/17 20:50 Last Admin: 09/30/17 17:13 Dose: 250 mls/hr Lactated Ringer's (Ringers, Lactated) 1,000 mls @ 125 mls/hr IV ASDIRECTED [facility] Last Admin: 10/03/17 03:50 Dose: 125 mls/hr Vancomycin HCl 1 gm/ Sodium (Chloride) 250 mls @ 167 mls/hr IV Q24H [facility] Last Admin: 10/01/17 15:57 Dose: 167 mls/hr Aztreonam/Dextrose 1 gm/ (Premix) 50 mls @ 100 mls/hr IV Q8H [facility] Last Admin: 10/02/17 09:39 Dose: 100 mls/hr Lactated Ringer's (Ringers, Lactated) 500 mls @ 500 mls/hr IV BOLUS [facility] Stop: 09/30/17 22:44 Last Admin: 10/01/17 07:17 Dose: Not Given Norepinephrine Bitartrate 4 mg (/ Dextrose/Water) 250 mls @ 7.5 mls/hr IV TITRATE [facility]; Protocol Last Admin: 10/02/17 02:25 Dose: 10 mcg/min, 37.5 mls/hr Magnesium Sulfate 2 gm/ Premix 50 mls @ 25 mls/hr IV Q6H [facility] Stop: 10/01/17 23:59 Last Admin: 10/01/17 22:09 Dose: 25 mls/hr Lactated Ringer's (Ringers, Lactated) 1,000 mls @ 500 mls/hr IV ASDIRECTED [facility] Stop: 10/01/17 10:46 Last Admin: 10/01/17 09:43 Dose: 500 mls/hr Lactated Ringer's (Ringers, Lactated) 500 mls @ 500 mls/hr IV ONETIME ONE Stop: 10/01/17 15:59 Last Admin: 10/01/17 15:00 Dose: 500 mls/hr Vasopressin 100 units/ (Dextrose/Water) 255 mls @ 1.53 mls/hr IV TITRATE [facility]; Protocol Stop: 10/02/17 15:55 Last Admin: 10/01/17 22:21 Dose: 0.01 units/min, 1.53 mls/hr Dextrose/Water (Dextrose 5% In Water) Confirm Administered Dose 250 mls @ as directed .ROUTE .STK-MED ONE Stop: 10/01/17 21:59 Last Admin: 10/01/17 22:25 Dose: Not Given Norepinephrine Bitartrate 8 mg (/ Dextrose/Water) 500 mls @ 7.5 mls/hr IV TITRATE [facility]; Protocol Stop: 10/03/17 17:55 Last Titration: 10/03/17 13:54 Dose: 2 mcg/min, 7.5 mls/hr Vasopressin 40 units/ Dextrose (/Water) 100 mls @ 1.5 mls/hr IV TITRATE [facility]; Protocol Last Titration: 10/03/17 06:19 Dose: 0 units/min, 0 mls/hr Vancomycin HCl 1.3 gm/ Sodium (Chloride) 250 mls @ 167 mls/hr IV Q24H [facility] Last Admin: 10/03/17 16:02 Dose: 167 mls/hr Magnesium Sulfate 2 gm/ Premix 50 mls @ 25 mls/hr IV ONETIME ONE Stop: 10/03/17 10:59 Last Admin: 05/20/18 08:36 Dose: 25 mls/hr Norepinephrine Bitartrate 4 mg (/ Dextrose/Water) 250 mls @ 7.5 mls/hr IV TITRATE [facility]; Protocol Last Titration: 10/04/17 05:09 Dose: 0 mcg/min, 0 mls/hr Lidocaine/Epinephrine (Xylocaine 1% With Epinephrine 1:100,000) Confirm Administered Dose 50 ml .ROUTE .STK-MED ONE Stop: 09/30/17 19:44 Last Admin: 09/30/17 19:30 Dose: 20 ml Magnesium Hydroxide (Milk Of Magnesia) 30 ml PO DAILY [facility] Last Admin: 10/05/17 09:07 Dose: Not Given Neostigmine Methylsulfate (Neostigmine) Confirm Administered Dose 5 mg .ROUTE .STK-MED ONE Stop: 09/30/17 18:11 Ondansetron HCl (Zofran) Confirm Administered Dose 4 mg .ROUTE .STK-MED ONE Stop: 09/30/17 18:11 Pantoprazole Sodium (Protonix) 40 mg PO ACBREAKFAST [facility] Last Admin: 10/05/17 07:50 Dose: 40 mg Propofol (Diprivan 20 Ml) Confirm Administered Dose 200 mg .ROUTE .STK-MED ONE Stop: 09/30/17 18:11 Rocuronium [place] (Zemuron) Confirm Administered Dose 50 mg .ROUTE .STK-MED ONE Stop: 09/30/17 18:11 Vancomycin HCl (Vancomycin) 1 gm IV .PHARMACY TO DOSE [facility] Stop: 09/30/17 18:00 Vasopressin (Vasopressin) Confirm Administered Dose 100 units .ROUTE .STK-MED ONE Stop: 10/01/17 22:00 Last Admin: 10/01/17 22:25 Dose: Not Given - Exam Quality Assessment: Supplemental Oxygen General: Alert, Cooperative, No Acute Distress, Lethargic. No: Oriented HEENT: Pupils Equal Neck: Supple Lungs: Normal Respiratory Effort, Decreased Breath Sounds (both bases), Crackles (both bases) Cardiovascular: Regular Rate, Regular Rhythm GI/Abdominal Exam: Normal Bowel Sounds, Soft, No Distention, Tender Extremities: Pedal Edema, Other (edema of both arms ) Skin: Warm, Dry Psy/Mental Status: Alert. No: Anxious - Problem List Review Problem List Initiated/Reviewed/Updated: Yes - My Orders Last 24 Hours: My Active Orders 10/04/17 16:42 ASA Hose [Antiembolic Hose] [OM.PC] Routine 10/04/17 20:00 Furosemide [Lasix] 40 mg IV Q12H - Plan Plan:: ASSESSMENT AND PLAN SEPTIC SHOCK - still no obvious source despite aggressive workup and surgical exploration. Clinically she continues to improve though she is still very lethargic. White blood cell count trending down. Continues to get better even after vancomycin was discontinued yesterday. -Surgical follow-up per Dr. Schwartz -Follow-up cultures which are negative to date -Empiric IV antibiotic therapy with Pip/Tazo and levofloxacin -Follow-up formal echocardiogram report POSSIBLE SMALL BOWEL OBSTRUCTION - no significant obstruction identified at the time of exploratory laparotomy. She is having regular bowel movements. Patient has had very poor oral intake and supplemental nutrition such as tube feedings may need to be considered. Discussions will be held with the family when they are available. ACUTE KIDNEY INJURY - urine output has continued to improve and she is responding well to diuresis. -Saline lock IV -Closely monitor urine output and renal function FLUID OVERLOAD - slow improvement in volume status with diuresis. Blood pressures are borderline low at this does hamper diuresis some. -Hold blood pressure lowering medications including propranolol -Furosemide 40 mg IV every 12 hours MAINTENANCE ISSUES -DVT prophylaxis; initiate ASA stockings, enoxaparin 40 mg subcutaneous daily -GI prophylaxis; PPI -Montes catheter; -Nutrition; clear liquids DISPOSITION - anticipate discharge to intermediate after the hospital stay. Nic Valles M.D.
[2017-10-05] MEDS: 1: AA 5%/Calcium/D15W/Lytes 1,000 ML with MVI, Adult with Vitamin K 10 ML, Chromium/Copp IV SCH ×3 (11:42)
[2017-10-05] MEDS: Albuterol 0.083% 2.5 MG/3 ML Neb Soln NEB PRN (13:15)
[2017-10-05] MEDS: Enoxaparin 40 MG/0.4 ML Syringe SUBCUT SCH (16:26)
[2017-10-05] MEDS: fentaNYL/Normal Saline 600 MCG/30 ML PCA Vial IV PRN (18:57)
[2017-10-06] MEDS: Albuterol 0.083% 2.5 MG/3 ML Neb Soln NEB PRN (00:13)
[2017-10-06] MEDS: Piperacillin/Tazobactam/Dext 3.375 GM in Premix Bag 1 BAG IV SCH ×4 (02:02→19:36)
[2017-10-06] MEDS: 1: AA 5%/Calcium/D15W/Lytes 1,000 ML with MVI, Adult with Vitamin K 10 ML, Chromium/Copp IV SCH ×12 (03:10→21:00)
[2017-10-06] MEDS ORDERED: Potassium Chloride 40 MEQ in Premix Bag 1 BAG IV ONE (08:00)
--- NOTE | 2017-10-06 08:45 | PCM.PN ---
- General Info Date of Service: 10/06/17 Functional Status: Denies: Ambulating - Review of Systems General: Reports: Weakness Pulmonary: Reports: Shortness of Breath, Cough Systems Review Comment:: Overnight the patient had difficulty with ongoing lethargy as well as a slow decline in her respiratory status. Respiratory rate did increase slightly and oxygenation decreased with increasing supplemental oxygen requirements. She remains very lethargic this morning. She has intermittently been complaining of pain and has received a few doses of pain medication. Pain is located in her abdomen. She is not able to further characterize her pain this morning. Blood pressure is slightly better today. She did have a good response to diuresis but continues to show signs of volume overload. Chest x-ray this morning shows patchy infiltrates on the right side of her chest as well as a large right- sided pleural effusion. Blood gases show mild acidosis with a PCO2 of 55. - Patient Data Vitals - Most Recent: Last Vital Signs Temp 36.6 C 10/06/17 00:00 Pulse 87 10/05/17 18:37 Resp 23 H 10/06/17 06:00 BP 115/58 L 10/06/17 06:00 Pulse Ox 85 L 10/06/17 06:00 Weight - Most Recent: 81.4 kg I&O - Last 24 Hours: Intake & Output 10/05/17 10/06/17 10/06/17 22:59 06:59 14:59 Intake Total 737 804 Output Total 540 795 Balance 197 9 Lab Results Last 24 Hours: Laboratory Results - last 24 hr 10/06/17 10/06/17 10/06/17 Range/Units 04:00 04:47 08:25 WBC 22.1 H (4.5-11.0) K/uL RBC 3.38 (3.30-5.50) M/uL Hgb 11.0 L (12.0-15.0) g/dL Hct 33.5 L (36.0-48.0) % MCV 99 H (80-98) fL MCH 33 H (27-31) pg MCHC 33 (32-36) % Plt Count 349 (150-400) K/uL Add Manual Diff Yes Neutrophils % (Manual) 79 H (36-66) % Band Neutrophils % 8 (5-11) % Lymphocytes % (Manual) 5 L (24-44) % Monocytes % (Manual) 8 H (2-6) % Puncture Site ABG pH (7.350-7.450) ABG pCO2 (35.0-42.0) mmHg ABG pO2 (75.0-100.0) mmHg ABG HCO3 (22.0-26.0) mmol/L ABG Total CO2 (21.0-25.0) mmol/L ABG O2 Saturation (95.0-98.0) % ABG O2 Content (15.0-23.0) %vol ABG Base Excess mm/L ABG Hemoglobin (12.0-16.0) g/dL ABG Oxyhemoglobin % ABG Carboxyhemoglobin (0.0-1.6) % ABG Methemoglobin % Odilon Test O2 Delivery Device Oxygen Flow Rate L Sodium 136 L (140-148) mmol/L Potassium 3.3 L (3.6-5.2) mmol/L Chloride 99 L (100-108) mmol/L Carbon Dioxide 29 (21-32) mmol/L Anion Gap 11.3 (5.0-14.0) mmol/L BUN 31 H (7-18) mg/dL Creatinine 1.4 H (0.6-1.0) mg/dL Est Cr Clr Drug Dosing 33.54 mL/min Estimated GFR (MDRD) 36 L (>60) Glucose 181 H (74-106) mg/dL Lactic Acid 1.3 (0.4-2.0) mmol/L Calcium 7.7 L (8.5-10.1) mg/dL Phosphorus 3.0 (2.5-4.9) mg/dL Magnesium 2.0 (1.8-2.4) mg/dL Total Bilirubin 0.4 (0.2-1.0) mg/dL AST 14 L (15-37) U/L ALT 9 L (12-78) U/L Alkaline Phosphatase 58 (46-116) U/L NT-Pro-B Natriuret Pep 8565 H (5-450) pg/mL Total Protein 5.2 L (6.4-8.2) g/dL Albumin 1.1 L (3.4-5.0) g/dL Globulin 4.1 H (2.3-3.5) g/dL Albumin/Globulin Ratio 0.3 L (1.2-2.2) 10/06/17 Range/Units 08:38 WBC (4.5-11.0) K/uL RBC (3.30-5.50) M/uL Hgb (12.0-15.0) g/dL Hct (36.0-48.0) % MCV (80-98) fL MCH (27-31) pg MCHC (32-36) % Plt Count (150-400) K/uL Add Manual Diff Neutrophils % (Manual) (36-66) % Band Neutrophils % (5-11) % Lymphocytes % (Manual) (24-44) % Monocytes % (Manual) (2-6) % Puncture Site Rt radial ABG pH 7.320 L (7.350-7.450) ABG pCO2 55.6 H (35.0-42.0) mmHg ABG pO2 52.9 L (75.0-100.0) mmHg ABG HCO3 27.8 H (22.0-26.0) mmol/L ABG Total CO2 25.9 H (21.0-25.0) mmol/L ABG O2 Saturation 83.7 L (95.0-98.0) % ABG O2 Content 13.2 L (15.0-23.0) %vol ABG Base Excess 1.4 mm/L ABG Hemoglobin 11.3 L (12.0-16.0) g/dL ABG Oxyhemoglobin 82.4 % ABG Carboxyhemoglobin 1.0 (0.0-1.6) % ABG Methemoglobin 0.5 % Odilon Test Pass O2 Delivery Device Nasal cannula Oxygen Flow Rate 9 L Sodium (140-148) mmol/L Potassium (3.6-5.2) mmol/L Chloride (100-108) mmol/L Carbon Dioxide (21-32) mmol/L Anion Gap (5.0-14.0) mmol/L BUN (7-18) mg/dL Creatinine (0.6-1.0) mg/dL Est Cr Clr Drug Dosing mL/min Estimated GFR (MDRD) (>60) Glucose (74-106) mg/dL Lactic Acid (0.4-2.0) mmol/L Calcium (8.5-10.1) mg/dL Phosphorus (2.5-4.9) mg/dL Magnesium (1.8-2.4) mg/dL Total Bilirubin (0.2-1.0) mg/dL AST (15-37) U/L ALT (12-78) U/L Alkaline Phosphatase (46-116) U/L NT-Pro-B Natriuret Pep (5-450) pg/mL Total Protein (6.4-8.2) g/dL Albumin (3.4-5.0) g/dL Globulin (2.3-3.5) g/dL Albumin/Globulin Ratio (1.2-2.2) Spike Results Last 24 Hours: Microbiology 09/30/17 13:50 Aerobic Blood Culture - Final Blood - Venous - Lab Draw NO GROWTH AFTER 5 DAYS Anaerobic Blood Culture - Final NO GROWTH AFTER 5 DAYS 09/30/17 13:40 Aerobic Blood Culture - Final Blood - Venous NO GROWTH AFTER 5 DAYS Anaerobic Blood Culture - Final NO GROWTH AFTER 5 DAYS Med Orders - Current: Current Medications Acetaminophen (Tylenol) 650 mg PO Q4H PRN PRN Reason: Pain (Mild 1-3)/fever Hydrocodone Bitart/Acetaminophen ([place] 325-5 Mg) 1 tab PO BID PRN PRN Reason: Pain Albuterol (Proventil Neb Soln) 2.5 mg NEB Q4H PRN PRN Reason: Shortness Of Breath/wheezing Last Admin: 10/06/17 00:13 Dose: 2.5 mg Aspirin (Halfprin) 81 mg PO DAILY [facility] Last Admin: 10/05/17 09:23 Dose: 81 mg Enoxaparin Sodium (Lovenox) 40 mg SUBCUT Q24H [facility] Last Admin: 10/05/17 16:26 Dose: 40 mg Escitalopram Oxalate (Lexapro) 10 mg PO DAILY [facility] Last Admin: 10/05/17 09:23 Dose: 10 mg Fentanyl Citrate (Fentanyl In Ns 20 Mcg/Ml 30 Ml Emblem Cutter) 0 mcg IV ASDIRECTED PRN; Protocol PRN Reason: Pain Last Admin: 10/05/17 18:57 Dose: 600 mcg Furosemide (Lasix) 60 mg IV Q12H [facility] Gabapentin (Neurontin) 300 mg PO BID [facility] Heparin Sodium (Porcine) (Heparin Lock Flush 100 Units/Ml) 500 units FLUSH ASDIRECTED PRN PRN Reason: flush tlsc Last Admin: 10/04/17 06:09 Dose: 500 units Piperacillin/Tazobactam/ (Dextrose 3.375 gm/ Premix) 50 mls @ 100 mls/hr IV Q6H [facility] Last Admin: 10/06/17 02:02 Dose: 100 mls/hr Heparin Sodium (Porcine) 5,000 (units/ Sodium Chloride) 501 mls @ 0 mls/hr IV ASDIRECTED [facility] Last Admin: 10/04/17 16:46 Dose: 1 mls/hr Levofloxacin/Dextrose 750 mg/ (Premix) 150 mls @ 100 mls/hr IV Q48H [facility] Last Admin: 10/04/17 16:37 Dose: 100 mls/hr Multivitamins/Minerals 10 ml/Chromium/Copper/Manganese/Seleni/Zn 1 ml/ Amino Ac/ Electrol/Dextrose/Calcium 1,011 mls @ 60 mls/hr IV .BY DURATION [facility] Last Admin: 10/05/17 11:42 Dose: 60 mls/hr Amino Ac/Electrol/Dextrose/Calcium (Clinimix E 5/15) 1,000 mls @ 60 mls/hr IV .BY DURATION [facility] Last Admin: 10/06/17 05:53 Dose: Not Given Potassium Chloride 40 meq/ (Premix) 100 mls @ 25 mls/hr IV ONETIME ONE Stop: 10/06/17 11:59 Potassium Chloride 20 meq/ (Sodium Chloride) 60 mls @ 30 mls/hr IV ONETIME ONE Stop: 10/06/17 13:59 Naloxone HCl (Narcan) 0.1 mg IV ASDIRECTED PRN PRN Reason: decreased respiratory rate Ondansetron HCl (Zofran) 4 mg IV Q4H PRN PRN Reason: Nausea/Vomiting Oxybutynin Chloride (Oxybutynin) 5 mg PO TID [facility] Last Admin: 10/05/17 09:16 Dose: Not Given Primidone (Mysoline) 125 mg PO BID [facility] Last Admin: 10/05/17 21:05 Dose: 125 mg Propranolol HCl (Inderal La) 60 mg PO BID [facility] Last Admin: 10/05/17 09:16 Dose: Not Given Sodium Chloride (Saline Flush) 10 ml FLUSH ASDIRECTED PRN PRN Reason: Keep Vein Open Last Admin: 10/04/17 06:10 Dose: 10 ml Discontinued Medications Albuterol/Ipratropium (Duoneb 3.0-0.5 Mg/3 Ml) 3 ml NEB ONETIME ONE Stop: 09/30/17 17:56 Last Admin: 09/30/17 18:11 Dose: 3 ml Bisacodyl (Dulcolax) 10 mg PO BID [facility] Last Admin: 10/05/17 09:07 Dose: Not Given Bupivacaine HCl (Marcaine 0.5%) Confirm Administered Dose 50 ml .ROUTE .STK-MED ONE Stop: 09/30/17 19:44 Last Admin: 09/30/17 19:30 Dose: 20 ml Dexamethasone (Dexamethasone) Confirm Administered Dose 4 mg .ROUTE .STK-MED ONE Stop: 09/30/17 18:11 Docusate Sodium (Colace 50 Mg/5 Ml Liquid) 100 mg PO BID [facility] Last Admin: 10/05/17 09:07 Dose: Not Given Fentanyl (Sublimaze) Confirm Administered Dose 250 mcg .ROUTE .STK-MED ONE Stop: 09/30/17 18:11 Fentanyl Citrate (Fentanyl In Ns 20 Mcg/Ml 30 Ml Emblem Cutter) 10 mcg IV ASDIRECTED [facility] ; Protocol Last Admin: 09/30/17 20:35 Dose: 10 mcg Furosemide (Lasix) 20 mg IVPUSH ONETIME ONE Stop: 10/03/17 09:01 Last Admin: 10/03/17 09:12 Dose: 20 mg Furosemide (Lasix) 20 mg IVPUSH Q8H [facility] Furosemide (Lasix) 40 mg IV Q8H [facility] Last Admin: 10/04/17 08:41 Dose: 40 mg Furosemide (Lasix) 40 mg IV Q12H [facility] Last Admin: 10/05/17 21:05 Dose: 40 mg Gabapentin (Neurontin) 600 mg PO TID [facility] Last Admin: 10/05/17 09:17 Dose: Not Given Glycopyrrolate (Robinul) Confirm Administered Dose 1 mg .ROUTE .STK-MED ONE Stop: 09/30/17 18:11 Heparin Sodium (Porcine) (Heparin Lock Flush 100 Units/Ml) Confirm Administered Dose 1,000 units .ROUTE .STK-MED ONE Stop: 09/30/17 18:17 Last Admin: 09/30/17 19:29 Dose: 1,000 units Heparin Sodium (Porcine) (Heparin Sodium) Confirm Administered Dose 5,000 units .ROUTE .STK-MED ONE Stop: 09/30/17 22:05 Last Admin: 09/30/17 22:29 Dose: Not Given Heparin Sodium (Porcine) (Heparin Lock Flush 100 Units/Ml) Confirm Administered Dose 500 units .ROUTE .STK-MED ONE Stop: 10/04/17 05:56 Last Admin: 10/04/17 06:40 Dose: Not Given Lactated Ringer's (Ringers, Lactated) 1,000 mls @ 999 mls/hr IV ASDIRECTED [facility] Last Admin: 09/30/17 13:16 Dose: 999 mls/hr Piperacillin/Tazobactam/ (Dextrose 4.5 gm/ Premix) 100 mls @ 200 mls/hr IV ONETIME ONE Stop: 09/30/17 14:29 Last Admin: 09/30/17 13:56 Dose: 200 mls/hr Vancomycin HCl 1,000 mg/ (Dextrose/Water) 250 mls @ 167 mls/hr IV ONETIME ONE Stop: 09/30/17 16:31 Last Admin: 09/30/17 15:23 Dose: 167 mls/hr Lactated Ringer's (Ringers, Lactated) 1,000 mls @ 250 mls/hr IV ASDIRECTED [facility] Stop: 09/30/17 20:50 Last Admin: 09/30/17 17:13 Dose: 250 mls/hr Lactated Ringer's (Ringers, Lactated) 1,000 mls @ 125 mls/hr IV ASDIRECTED [facility] Last Admin: 10/03/17 03:50 Dose: 125 mls/hr Vancomycin HCl 1 gm/ Sodium (Chloride) 250 mls @ 167 mls/hr IV Q24H [facility] Last Admin: 10/01/17 15:57 Dose: 167 mls/hr Aztreonam/Dextrose 1 gm/ (Premix) 50 mls @ 100 mls/hr IV Q8H [facility] Last Admin: 10/02/17 09:39 Dose: 100 mls/hr Lactated Ringer's (Ringers, Lactated) 500 mls @ 500 mls/hr IV BOLUS [facility] Stop: 09/30/17 22:44 Last Admin: 10/01/17 07:17 Dose: Not Given Norepinephrine Bitartrate 4 mg (/ Dextrose/Water) 250 mls @ 7.5 mls/hr IV TITRATE [facility]; Protocol Last Admin: 10/02/17 02:25 Dose: 10 mcg/min, 37.5 mls/hr Magnesium Sulfate 2 gm/ Premix 50 mls @ 25 mls/hr IV Q6H [facility] Stop: 10/01/17 23:59 Last Admin: 10/01/17 22:09 Dose: 25 mls/hr Lactated Ringer's (Ringers, Lactated) 1,000 mls @ 500 mls/hr IV ASDIRECTED [facility] Stop: 10/01/17 10:46 Last Admin: 10/01/17 09:43 Dose: 500 mls/hr Lactated Ringer's (Ringers, Lactated) 500 mls @ 500 mls/hr IV ONETIME ONE Stop: 10/01/17 15:59 Last Admin: 10/01/17 15:00 Dose: 500 mls/hr Vasopressin 100 units/ (Dextrose/Water) 255 mls @ 1.53 mls/hr IV TITRATE [facility]; Protocol Stop: 10/02/17 15:55 Last Admin: 10/01/17 22:21 Dose: 0.01 units/min, 1.53 mls/hr Dextrose/Water (Dextrose 5% In Water) Confirm Administered Dose 250 mls @ as directed .ROUTE .STK-MED ONE Stop: 10/01/17 21:59 Last Admin: 10/01/17 22:25 Dose: Not Given Norepinephrine Bitartrate 8 mg (/ Dextrose/Water) 500 mls @ 7.5 mls/hr IV TITRATE [facility]; Protocol Stop: 10/03/17 17:55 Last Titration: 10/03/17 13:54 Dose: 2 mcg/min, 7.5 mls/hr Vasopressin 40 units/ Dextrose (/Water) 100 mls @ 1.5 mls/hr IV TITRATE [facility]; Protocol Last Titration: 10/03/17 06:19 Dose: 0 units/min, 0 mls/hr Vancomycin HCl 1.3 gm/ Sodium (Chloride) 250 mls @ 167 mls/hr IV Q24H [facility] Last Admin: 10/03/17 16:02 Dose: 167 mls/hr Magnesium Sulfate 2 gm/ Premix 50 mls @ 25 mls/hr IV ONETIME ONE Stop: 10/03/17 10:59 Last Admin: 10/03/17 08:36 Dose: 25 mls/hr Norepinephrine Bitartrate 4 mg (/ Dextrose/Water) 250 mls @ 7.5 mls/hr IV TITRATE [facility]; Protocol Last Titration: 10/04/17 05:09 Dose: 0 mcg/min, 0 mls/hr Lidocaine/Epinephrine (Xylocaine 1% With Epinephrine 1:100,000) Confirm Administered Dose 50 ml .ROUTE .STK-MED ONE Stop: 09/30/17 19:44 Last Admin: 09/30/17 19:30 Dose: 20 ml Magnesium Hydroxide (Milk Of Magnesia) 30 ml PO DAILY [facility] Last Admin: 10/05/17 09:07 Dose: Not Given Neostigmine Methylsulfate (Neostigmine) Confirm Administered Dose 5 mg .ROUTE .STK-MED ONE Stop: 09/30/17 18:11 Ondansetron HCl (Zofran) Confirm Administered Dose 4 mg .ROUTE .STK-MED ONE Stop: 09/30/17 18:11 Pantoprazole Sodium (Protonix) 40 mg PO ACBREAKFAST [facility] Last Admin: 10/05/17 07:50 Dose: 40 mg Propofol (Diprivan 20 Ml) Confirm Administered Dose 200 mg .ROUTE .STK-MED ONE Stop: 09/30/17 18:11 Rocuronium [place] (Zemuron) Confirm Administered Dose 50 mg .ROUTE .STK-MED ONE Stop: 09/30/17 18:11 Vancomycin HCl (Vancomycin) 1 gm IV .PHARMACY TO DOSE [facility] Stop: 09/30/17 18:00 Vasopressin (Vasopressin) Confirm Administered Dose 100 units .ROUTE .STK-MED ONE Stop: 10/01/17 22:00 Last Admin: 10/01/17 22:25 Dose: Not Given - Exam Quality Assessment: Supplemental Oxygen General: Alert, No Acute Distress, Lethargic. No: Oriented Neck: Supple Lungs: Decreased Breath Sounds (both bases R>L), Crackles (right mid and lower lung). No: Normal Respiratory Effort (increased work of breathing ), Wheezing Cardiovascular: Regular Rate, Regular Rhythm, No Murmurs GI/Abdominal Exam: Soft, No Distention, Abnormal Bowel Sounds (hypoactive) Extremities: Pedal Edema, Other (bilateral arm edema) Skin: Dry, Cool Psy/Mental Status: Alert. No: Anxious - Problem List Review Problem List Initiated/Reviewed/Updated: Yes - My Orders Last 24 Hours: My Active Orders 10/06/17 08:11 CXR [Chest 1V Frontal] [CR] Routine 10/06/17 08:25 AMMONIA VENOUS [CHEM] Routine 10/06/17 08:43 BIPAP Adult [RT BiPAP/CPAP] [RC] ASDIRECTED 10/06/17 09:00 Furosemide [Lasix] 60 mg IV Q12H Gabapentin [Neurontin] 300 mg PO BID - Plan Plan:: ASSESSMENT AND PLAN Acute respiratory failure with hypoxia and hypercapnia - progressive oxygen requirements over the past 24 hours and she is now initiated on noninvasive ventilation. Volume overload playing a significant role but pulmonary infection cannot be completely ruled out. She is not having fevers. -Continue noninvasive ventilation -Aggressive diuresis -Supplement oxygen -Consider repeat chest CT if not improving SEPTIC SHOCK - still no obvious source despite aggressive workup and surgical exploration but pulmonary source seems to be highest on the list. White blood cell count stable to slightly improved today. Oxygenation not as good today but it's not clear if this is related to volume overload orifices worsening of infection. Chest x-ray showed right-sided interstitial infiltrate as well as large effusion. She has not been having fevers. -Surgical follow-up per Dr. Schwartz -Follow-up cultures which are negative to date -Empiric IV antibiotic therapy with Pip/Tazo and levofloxacin FLUID OVERLOAD - slow improvement in volume status with diuresis but still has significant volume overload and respiratory compromise. Blood pressure is better today so hopefully we can push diuresis a little bit harder. -Hold blood pressure lowering medications including propranolol -Furosemide 60 mg IV every 12 hours Profound weakness and lethargy - arterial blood gases this morning showed a PCO2 of 55 and I suspect this is a large contributor. She has not been receiving much in the way of pain medications. Recent head CT was unremarkable. POSSIBLE SMALL BOWEL OBSTRUCTION - no significant obstruction identified at the time of exploratory laparotomy. She is having regular bowel movements. Patient has had very poor oral intake and supplemental nutrition such as tube feedings may need to be considered. Family is on board with feeding tube placement but at the current time the patient is too sick for this to be completed. -Consider feeding tube once condition has stabilized ACUTE KIDNEY INJURY - urine output has improved in the past 24 hours. Kidney function remains stable based on laboratory testing. -Saline lock IV -Closely monitor urine output and renal function MAINTENANCE ISSUES -DVT prophylaxis; ASA stockings, enoxaparin 40 mg subcutaneous daily -GI prophylaxis; PPI -Montes catheter; -Nutrition; clear liquids DISPOSITION - anticipate discharge [facility] after the hospital stay. Nic Valles M.D.
[2017-10-06] MEDS: Furosemide 100 MG/10 ML SDV IV SCH ×2 (09:00→20:56)
[2017-10-06] MEDS: Gabapentin 300 MG Cap PO SCH ×2 (11:37→21:00)
[2017-10-06] MEDS: Escitalopram 10 MG Tab PO SCH (11:37)
[2017-10-06] MEDS: Aspirin 81 MG Tab.EC PO SCH (11:37)
[2017-10-06] MEDS: Primidone 50 MG Tab PO SCH ×2 (11:37→21:00)
--- NOTE | 2017-10-06 13:07 | CR ---
Chest 1V Frontal INDICATION: worsening hypoxia FINDINGS: Comparison 09/30/2017. Right subclavian central line with tip in the RA. Cardiac enlargement with pulmonary venous hypertension. Interval worsening of the moderate right pleural effusion with i nfiltrate or atelectasis throughout the right lung. Stable small to moderate left pleural effusion. S timulator device in place with leads projecting over the left neck.
[2017-10-06] MEDS: Enoxaparin 40 MG/0.4 ML Syringe SUBCUT SCH (14:40)
[2017-10-06] MEDS: Levofloxacin/Dextrose 5%-Water 750 MG in Premix Bag 1 BAG IV SCH (16:59)
[2017-10-06] MEDS: Furosemide 40 MG/4 ML VIAL IV SCH (22:35)
[2017-10-07] MEDS: Piperacillin/Tazobactam/Dext 3.375 GM in Premix Bag 1 BAG IV SCH ×2 (02:07→08:17)
--- NOTE | 2017-10-07 09:47 | PCM.PN ---
- General Info Date of Service: 10/07/17 Functional Status: Reports: Pain Controlled. Denies: Ambulating - Review of Systems General: Reports: Weakness Pulmonary: Reports: Shortness of Breath Neurological: Reports: Confusion Systems Review Comment:: There were no acute events overnight. The patient remained stable with noninvasive ventilation. Heart rate has been around 100. Peripheral edema has been improving with diuresis. She remains very lethargic but does interact some. She is complaining of diffuse pains. She has not had fevers. - Patient Data Vitals - Most Recent: Last Vital Signs Temp 36.3 C 10/07/17 08:00 Pulse 103 H 10/07/17 08:00 Resp 21 H 10/07/17 08:00 BP 94/57 L 10/07/17 08:00 Pulse Ox 95 10/07/17 07:00 Weight - Most Recent: 80.9 kg I&O - Last 24 Hours: Intake & Output 10/06/17 10/07/17 10/07/17 22:59 06:59 14:59 Intake Total 1060 865 Output Total 1500 1645 Balance -440 -780 Lab Results Last 24 Hours: Laboratory Results - last 24 hr 10/07/17 10/07/17 10/07/17 Range/Units 04:15 04:15 05:00 WBC 23.7 H (4.5-11.0) K/uL RBC 3.37 (3.30-5.50) M/uL Hgb 11.1 L (12.0-15.0) g/dL Hct 33.7 L (36.0-48.0) % MCV 100 H (80-98) fL MCH 33 H (27-31) pg MCHC 33 (32-36) % Plt Count 326 (150-400) K/uL Puncture Site Lt radial ABG pH 7.353 (7.350-7.450) ABG pCO2 55.5 H (35.0-42.0) mmHg ABG pO2 67.7 L (75.0-100.0) mmHg ABG HCO3 30.1 H (22.0-26.0) mmol/L ABG Total CO2 27.8 H (21.0-25.0) mmol/L ABG O2 Saturation 92.5 L (95.0-98.0) % ABG O2 Content 14.3 L (15.0-23.0) %vol ABG Base Excess 4.0 mm/L ABG Hemoglobin 11.1 L (12.0-16.0) g/dL ABG Oxyhemoglobin 91.0 % ABG Carboxyhemoglobin 1.0 (0.0-1.6) % ABG Methemoglobin 0.6 % Odilon Test Passed O2 Delivery Device Bipap Oxygen Flow Rate L Sodium 138 L (140-148) mmol/L Potassium 3.5 L (3.6-5.2) mmol/L Chloride 101 (100-108) mmol/L Carbon Dioxide 32 (21-32) mmol/L Anion Gap 8.5 (5.0-14.0) mmol/L BUN 35 H (7-18) mg/dL Creatinine 1.3 H (0.6-1.0) mg/dL Est Cr Clr Drug Dosing 36.12 mL/min Estimated GFR (MDRD) 40 L (>60) Glucose 158 H (74-106) mg/dL Calcium 7.7 L (8.5-10.1) mg/dL Phosphorus 2.7 (2.5-4.9) mg/dL Magnesium 1.8 (1.8-2.4) mg/dL Total Bilirubin 0.4 (0.2-1.0) mg/dL AST 17 (15-37) U/L ALT 10 L (12-78) U/L Alkaline Phosphatase 57 (46-116) U/L NT-Pro-B Natriuret Pep 5754 H (5-450) pg/mL Total Protein 5.3 L (6.4-8.2) g/dL Albumin 1.0 L (3.4-5.0) g/dL Globulin 4.3 H (2.3-3.5) g/dL Albumin/Globulin Ratio 0.2 L (1.2-2.2) Med Orders - Current: Current Medications Acetaminophen (Tylenol) 650 mg PO Q4H PRN PRN Reason: Pain (Mild 1-3)/fever Hydrocodone Bitart/Acetaminophen (Gile 325-5 Mg) 1 tab PO BID PRN PRN Reason: Pain Albuterol (Proventil Neb Soln) 2.5 mg NEB Q4H PRN PRN Reason: Shortness Of Breath/wheezing Last Admin: 10/06/17 00:13 Dose: 2.5 mg Aspirin (Halfprin) 81 mg PO DAILY [facility] Last Admin: 10/06/17 11:37 Dose: Not Given Enoxaparin Sodium (Lovenox) 40 mg SUBCUT Q24H [facility] Last Admin: 10/06/17 14:40 Dose: 40 mg Escitalopram Oxalate (Lexapro) 10 mg PO DAILY [facility] Last Admin: 10/06/17 11:37 Dose: Not Given Fentanyl Citrate (Fentanyl In Ns 20 Mcg/Ml 30 Ml Certified Medical Transcriptionist) 0 mcg IV ASDIRECTED PRN; Protocol PRN Reason: Pain Last Admin: 10/05/17 18:57 Dose: 600 mcg Furosemide (Lasix) 60 mg IV Q12H [facility] Last Admin: 10/06/17 20:56 Dose: 60 mg Gabapentin (Neurontin) 300 mg PO BID [facility] Last Admin: 10/06/17 21:00 Dose: Not Given Heparin Sodium (Porcine) (Heparin Lock Flush 100 Units/Ml) 500 units FLUSH ASDIRECTED PRN PRN Reason: flush [facility] Last Admin: 10/04/17 06:09 Dose: 500 units Piperacillin/Tazobactam/ (Dextrose 3.375 gm/ Premix) 50 mls @ 100 mls/hr IV Q6H [facility] Last Admin: 10/07/17 08:17 Dose: 100 mls/hr Heparin Sodium (Porcine) 5,000 (units/ Sodium Chloride) 501 mls @ 0 mls/hr IV ASDIRECTED [facility] Last Admin: 10/04/17 16:46 Dose: 1 mls/hr Levofloxacin/Dextrose 750 mg/ (Premix) 150 mls @ 100 mls/hr IV Q48H [facility] Last Admin: 10/06/17 16:59 Dose: 100 mls/hr Multivitamins/Minerals 10 ml/Chromium/Copper/Manganese/Seleni/Zn 1 ml/ Amino Ac/ Electrol/Dextrose/Calcium 1,011 mls @ 60 mls/hr IV .BY DURATION [facility] Amino Ac/Electrol/Dextrose/Calcium (Clinimix E 09/28) 1,000 mls @ 60 mls/hr IV .BY DURATION [facility] Potassium Phosphate 20 mmole/ (Sodium Chloride) 106.6667 mls @ 36 mls/hr IV Q3H [facility] Stop: 10/07/17 18:58 Naloxone HCl (Narcan) 0.1 mg IV ASDIRECTED PRN PRN Reason: decreased respiratory rate Ondansetron HCl (Zofran) 4 mg IV Q4H PRN PRN Reason: Nausea/Vomiting Oxybutynin Chloride (Oxybutynin) 5 mg PO TID [facility] Last Admin: 10/05/17 09:16 Dose: Not Given Primidone (Mysoline) 125 mg PO BID [facility] Last Admin: 10/06/17 21:00 Dose: Not Given Propranolol HCl (Inderal La) 60 mg PO BID [facility] Last Admin: 10/05/17 09:16 Dose: Not Given Sodium Chloride (Saline Flush) 10 ml FLUSH ASDIRECTED PRN PRN Reason: Keep Vein Open Last Admin: 10/04/17 06:10 Dose: 10 ml Discontinued Medications Albuterol/Ipratropium (Duoneb 3.0-0.5 Mg/3 Ml) 3 ml NEB ONETIME ONE Stop: 09/30/17 17:56 Last Admin: 09/30/17 18:11 Dose: 3 ml Bisacodyl (Dulcolax) 10 mg PO BID [facility] Last Admin: 10/05/17 09:07 Dose: Not Given Bupivacaine HCl (Marcaine 0.5%) Confirm Administered Dose 50 ml .ROUTE .STK-MED ONE Stop: 09/30/17 19:44 Last Admin: 09/30/17 19:30 Dose: 20 ml Dexamethasone (Dexamethasone) Confirm Administered Dose 4 mg .ROUTE .STK-MED ONE Stop: 09/30/17 18:11 Docusate Sodium (Colace 50 Mg/5 Ml Liquid) 100 mg PO BID [facility] Last Admin: 10/05/17 09:07 Dose: Not Given Fentanyl (Sublimaze) Confirm Administered Dose 250 mcg .ROUTE .STK-MED ONE Stop: 09/30/17 18:11 Fentanyl Citrate (Fentanyl In Ns 20 Mcg/Ml 30 Ml Certified Medical Transcriptionist) 10 mcg IV ASDIRECTED [facility] ; Protocol Last Admin: 09/30/17 20:35 Dose: 10 mcg Furosemide (Lasix) 20 mg IVPUSH ONETIME ONE Stop: 10/03/17 09:01 Last Admin: 10/03/17 09:12 Dose: 20 mg Furosemide (Lasix) 20 mg IVPUSH Q8H [facility] Furosemide (Lasix) 40 mg IV Q8H [facility] Last Admin: 10/04/17 08:41 Dose: 40 mg Furosemide (Lasix) 40 mg IV Q12H [facility] Last Admin: 10/06/17 22:35 Dose: Not Given Gabapentin (Neurontin) 600 mg PO TID [facility] Last Admin: 10/05/17 09:17 Dose: Not Given Glycopyrrolate (Robinul) Confirm Administered Dose 1 mg .ROUTE .STK-MED ONE Stop: 09/30/17 18:11 Heparin Sodium (Porcine) (Heparin Lock Flush 100 Units/Ml) Confirm Administered Dose 1,000 units .ROUTE .STK-[facility] ONE Stop: 09/30/17 18:17 Last Admin: 09/30/17 19:29 Dose: 1,000 units Heparin Sodium (Porcine) (Heparin Sodium) Confirm Administered Dose 5,000 units .ROUTE .K-[facility] ONE Stop: 09/30/17 22:05 Last Admin: 09/30/17 22:29 Dose: Not Given Heparin Sodium (Porcine) (Heparin Lock Flush 100 Units/Ml) Confirm Administered Dose 500 units .ROUTE .[facility] ONE Stop: 10/04/17 05:56 Last Admin: 10/04/17 06:40 Dose: Not Given Lactated Ringer's (Ringers, Lactated) 1,000 mls @ 999 [facility] Last Admin: 09/30/17 13:16 Dose: 999 mls/hr Piperacillin/Tazobactam/ (Dextrose 4.5 gm/ Premix) 100 mls @ 200 mls/hr IV ONETIME ONE Stop: 09/30/17 14:29 Last Admin: 09/30/17 13:56 Dose: 200 mls/hr Vancomycin HCl 1,000 mg/ (Dextrose/Water) 250 mls @ 167 mls/hr IV ONETIME ONE Stop: 09/30/17 16:31 Last Admin: 09/30/17 15:23 Dose: 167 mls/hr Lactated Ringer's (Ringers, Lactated) 1,000 mls @ 250 [facility] Stop: 09/30/17 20:50 Last Admin: 09/30/17 17:13 Dose: 250 mls/hr Lactated Ringer's (Ringers, Lactated) 1,000 mls @ [facility] Admin: 10/03/17 03:50 Dose: 125 mls/hr Vancomycin HCl 1 gm/ Sodium (Chloride) 250 mls @ 167 mls/hr IV Q24H [facility] Last Admin: 10/01/17 15:57 Dose: 167 mls/hr Aztreonam/Dextrose 1 gm/ (Premix) 50 mls @ 100 mls/hr IV Q8H [facility] Last Admin: 10/02/17 09:39 Dose: 100 mls/hr Lactated Ringer's (Ringers, Lactated) 500 mls @ 500 mls/hr IV BOLUS [facility] Stop: 09/30/17 22:44 Last Admin: 10/01/17 07:17 Dose: Not Given Norepinephrine Bitartrate 4 mg (/ Dextrose/Water) 250 mls @ 7.5 mls/hr IV TITRATE [facility]; Protocol Last Admin: 10/02/17 02:25 Dose: 10 mcg/min, 37.5 mls/hr Magnesium Sulfate 2 gm/ Premix 50 mls @ 25 mls/hr IV Q6H [facility] Stop: 10/01/17 23:59 Last Admin: 10/01/17 22:09 Dose: 25 mls/hr Lactated Ringer's (Ringers, Lactated) 1,000 mls @ 500 mls/hr IV ASDIRECTED [facility] Stop: 10/01/17 10:46 Last Admin: 10/01/17 09:43 Dose: 500 mls/hr Lactated Ringer's (Ringers, Lactated) 500 mls @ 500 mls/hr IV ONETIME ONE Stop: 10/01/17 15:59 Last Admin: 10/01/17 15:00 Dose: 500 mls/hr Vasopressin 100 units/ (Dextrose/Water) 255 mls @ 1.53 mls/hr IV TITRATE [facility]; Protocol Stop: 10/02/17 15:55 Last Admin: 10/01/17 22:21 Dose: 0.01 units/min, 1.53 mls/hr Dextrose/Water (Dextrose 5% In Water) Confirm Administered Dose 250 mls @ as directed .ROUTE .STK-MED ONE Stop: 10/01/17 21:59 Last Admin: 10/01/17 22:25 Dose: Not Given Norepinephrine Bitartrate 8 mg (/ Dextrose/Water) 500 mls @ 7.5 mls/hr IV TITRATE [facility]; Protocol Stop: 10/03/17 17:55 Last Titration: 10/03/17 13:54 Dose: 2 mcg/min, 7.5 mls/hr Vasopressin 40 units/ Dextrose (/Water) 100 mls @ 1.5 mls/hr IV TITRATE [facility]; Protocol Last Titration: 10/03/17 06:19 Dose: 0 units/min, 0 mls/hr Vancomycin HCl 1.3 gm/ Sodium (Chloride) 250 mls @ 167 mls/hr IV Q24H [facility] Last Admin: 10/03/17 16:02 Dose: 167 mls/hr Magnesium Sulfate 2 gm/ Premix 50 mls @ 25 mls/hr IV ONETIME ONE Stop: 10/03/17 10:59 Last Admin: 10/03/17 08:36 Dose: 25 mls/hr Norepinephrine Bitartrate 4 mg (/ Dextrose/Water) 250 mls @ 7.5 mls/hr IV TITRATE [facility]; Protocol Last Titration: 10/04/17 05:09 Dose: 0 mcg/min, 0 mls/hr Multivitamins/Minerals 10 ml/Chromium/Copper/Manganese/Seleni/Zn 1 ml/ Amino Ac/ Electrol/Dextrose/Calcium 1,011 mls @ 60 mls/hr IV .BY DURATION [facility] Last Admin: 10/06/17 21:00 Dose: 60 mls/hr Amino Ac/Electrol/Dextrose/Calcium (Clinimix E 5/15) 1,000 mls @ 60 mls/hr IV .BY DURATION [facility] Last Admin: 10/06/17 05:53 Dose: Not Given Potassium Chloride 40 meq/ (Premix) 100 mls @ 25 mls/hr IV ONETIME ONE Stop: 10/06/17 11:59 Last Admin: 10/06/17 08:53 Dose: 25 mls/hr Potassium Chloride 20 meq/ (Sodium Chloride) 60 mls @ 30 mls/hr IV ONETIME ONE Stop: 10/06/17 13:59 Last Admin: 10/06/17 12:39 Dose: 30 mls/hr Lidocaine/Epinephrine (Xylocaine 1% With Epinephrine 1:100,000) Confirm Administered Dose 50 ml .ROUTE .STK-MED ONE Stop: 09/30/17 19:44 Last Admin: 09/30/17 19:30 Dose: 20 ml Magnesium Hydroxide (Milk Of Magnesia) 30 ml PO DAILY [facility] Last Admin: 10/05/17 09:07 Dose: Not Given Neostigmine Methylsulfate (Neostigmine) Confirm Administered Dose 5 mg .ROUTE .STK-MED ONE Stop: 09/30/17 18:11 Ondansetron HCl (Zofran) Confirm Administered Dose 4 mg .ROUTE .STK-MED ONE Stop: 09/30/17 18:11 Pantoprazole Sodium (Protonix) 40 mg PO ACBREAKFAST [facility] Last Admin: 10/05/17 07:50 Dose: 40 mg Propofol (Diprivan 20 Ml) Confirm Administered Dose 200 mg .ROUTE .STK-MED ONE Stop: 09/30/17 18:11 Rocuronium [place] (Zemuron) Confirm Administered Dose 50 mg .ROUTE .STK-MED ONE Stop: 09/30/17 18:11 Vancomycin HCl (Vancomycin) 1 gm IV .PHARMACY TO DOSE [facility] Stop: 09/30/17 18:00 Vasopressin (Vasopressin) Confirm Administered Dose 100 units .ROUTE .STK-MED ONE Stop: 10/01/17 22:00 Last Admin: 10/01/17 22:25 Dose: Not Given - Exam Quality Assessment: Supplemental Oxygen, Central Line/PICC, Urine Catheter General: Alert, No Acute Distress, Lethargic. No: Oriented Neck: Supple Lungs: Normal Respiratory Effort, Decreased Breath Sounds (right lower lung), Crackles (mild left lower and right mid lung). No: Wheezing Cardiovascular: Regular Rhythm, Tachycardia GI/Abdominal Exam: Soft, Non-Tender, No Distention, Abnormal Bowel Sounds ( hypoactive) Extremities: Pedal Edema, Other (bilateral arm edema right > left) Skin: Dry, Cool Psy/Mental Status: Alert. No: Anxious - Problem List Review Problem List Initiated/Reviewed/Updated: Yes - My Orders Last 24 Hours: My Active Orders 10/06/17 09:00 Furosemide [Lasix] 60 mg IV Q12H Gabapentin [Neurontin] 300 mg PO BID 10/07/17 09:46 Chest wo Cont [CT] Routine - Plan Plan:: ASSESSMENT AND PLAN Acute respiratory failure with hypoxia and hypercapnia - stable overnight with noninvasive ventilation. Chest x-ray shows large effusion, plan to further characterize with CT. Volume status seems to be slowly improving. -Continue noninvasive ventilation -Aggressive diuresis -Supplement oxygen -CT chest to assess pleural effusion and infiltrates SEPTIC SHOCK - still no obvious source despite aggressive workup and surgical exploration but pulmonary source seems to be highest on the list. White blood cell count slightly higher today. Blood pressures have been stable. -Surgical follow-up per Dr. Schwartz -Follow-up cultures which are negative to date -Empiric IV antibiotic therapy with Pip/Tazo and levofloxacin FLUID OVERLOAD - slow improvement in volume status with diuresis but still has significant volume overload and respiratory compromise. Blood pressure has remained stable as has her kidney function. -Hold blood pressure lowering medications including propranolol -Furosemide 60 mg IV every 12 hours Profound weakness and lethargy - arterial blood gases this morning showed a PCO2 of 55 and I suspect this is a large contributor. She has not been receiving much in the way of pain medications. Recent head CT was unremarkable. POSSIBLE SMALL BOWEL OBSTRUCTION - no significant obstruction identified at the time of exploratory laparotomy. She is having bowel movements. Patient has had very poor oral intake and supplemental nutrition such as tube feedings may need to be considered. Family is on board with feeding tube placement but at the current time the patient is too sick for this to be completed. -Consider feeding tube once condition has stabilized ACUTE KIDNEY INJURY - urine output has improved again in the past 24 hours. Kidney function remains stable based on laboratory testing. -Saline lock IV -Closely monitor urine output and renal function MAINTENANCE ISSUES -DVT prophylaxis; ASA stockings, enoxaparin 40 mg subcutaneous daily -GI prophylaxis; PPI -Montes catheter; -Nutrition; clear liquids DISPOSITION - anticipate discharge to correction after the hospital stay. Nic Valles M.D.
[2017-10-07] MEDS: Potassium Phosphates 20 MMOLE in Sodium Chloride 0.9% 100 ML IV SCH ×2 (10:01→13:25)
--- NOTE | 2017-10-07 10:02 | PN ---
DATE OF SERVICE: 10/06/2017 The patient has been afebrile with stable vital signs. Her neurologic status is still fairly poor in terms of alertness and such from a standpoint. Otherwise, no major problems appear to be present. She is moving her bowels. Oral intake remains minimal. The family is having an ongoing discussion with Dr. Valles regarding whether or not to place a feeding tube. Otherwise, we will continue TPN. Labs show significant elevation of the white count of 22,000, hemoglobin same at 11, potassium is low at 3.3 as is chloride. We will give some additional KCl today and otherwise continue the present TPN and management associated with Dr. Valles. Thaddeus Schwartz MD /[id number]
--- NOTE | 2017-10-07 10:05 | PN ---
DATE OF SERVICE: 10/07/2017 The patient has been clinically stable. Neurologically, things have not improved, however, to an extent and oral intake has been negligible. She continues on the TPN and I think the discussion needs to be held whether or not to place a gastrostomy tube and that hopefully will happen in the next day or so, per Dr. Valles and the family members, otherwise we will continue the TPN. Clinically, the patient is not having any acute surgical problems and we will continue management with assistance of Dr. Valles. Thaddeus Schwartz MD /[id number]
[2017-10-07] MEDS: Aspirin 81 MG Tab.EC PO SCH (10:25)
[2017-10-07] MEDS: Propranolol 60 MG Cap.ER PO SCH (10:27)
[2017-10-07] MEDS: Furosemide 100 MG/10 ML SDV IV SCH (10:27)
[2017-10-07] MEDS: Escitalopram 10 MG Tab PO SCH (10:29)
[2017-10-07] MEDS: Primidone 50 MG Tab PO SCH (10:29)
[2017-10-07] MEDS: Gabapentin 300 MG Cap PO SCH (10:30)
[2017-10-07] MEDS: Oxybutynin 5 MG Tab PO SCH (10:30)
[2017-10-07] MEDS: Albuterol 0.083% 2.5 MG/3 ML Neb Soln NEB PRN (10:55)
--- NOTE | 2017-10-07 12:02 | PN ---
DATE OF SERVICE: 10/05/2017 The patient is off any pressors at this point, she remains relatively lethargic. Blood pressure is around 80s to 90s over 40s to 50s and mean arterial pressure is generally in the mid 60s. Urine output has just been satisfactory. Does actually have a negative I&O for the day. A.M. labs once again are not available from around this morning. It will need to be reviewed later. Overall, the biggest issue in this case, I think is the nutritional issue. We will start some TPN today and ask Dr. Morrison to review the nutritional options with the patient and family regarding specifically whether or not feeding tube might be something they would want to have placed. Otherwise, continue the management with assistance of Dr. Morrison. Thaddeus Schwartz MD /[id number]
[2017-10-07 12:23] VITALS: BP 111/70
[2017-10-07] MEDS ORDERED: 1: AA 5%/Calcium/D15W/Lytes 1,000 ML with MVI, Adult with Vitamin K 10 ML, Chromium/Copp IV SCH ×3 (13:10)
--- NOTE | 2017-10-07 13:44 | CT ---
Chest wo Cont INDICATION: hyoxic resp failure, right sided effusion TECHNIQUE: CT images of the chest without IV contrast. Coronal reformatted images obtained. Dosage reduction and iterative reconstruction techniques employed. COMPARISON: CT chest 10/02/2017 FINDINGS:Patchy airspace disease in both lungs new since the prior study. This may be due to pulmonar y edema or pneumonia. Bilateral pleural effusions, right greater than left with associated compressiv e atelectasis in both lower lobes unchanged. Ascending aortic aneurysm 4.2 cm, unchanged. Neurostimul ator extending into the neck on the left. No significant mediastinal adenopathy. Ascites in the upper abdomen. Possible anasarca. IMPRESSION: 1. New airspace disease in both lungs which may represent pneumonia or pulmonary edema. 2. Bilateral pleural effusions unchanged. 3. Ascites. 4. Other nonacute stable incidental findings.
--- NOTE | 2017-10-07 14:54 | PCM.DCSUM1 ---
Discharge Summary - Hospital Course Brief History: 77 -year-old female with history of severe essential tremor, recent bowel obstruction requiring surgical intervention and recent episode of sepsis who presented with fever and increasing weakness. Workup in the emergency room was suggestive of sepsis and probable small bowel obstruction. She was admitted to the intensive care unit for further management. - Discharge Data Discharge Date: 10/07/17 Discharge Disposition: 20 Preliminary Cause of *Q: Respiratory Failure Condition: Serious - Patient Summary/Data Consults: Consultations 09/30/17 17:25 Consult to Physician [CONS] Routine Consulting Provider: Immanuel Alford Call Completed to Consulting Physician: Yes Reason for Consult: SBO 10/04/17 06:34 PT Evaluation and Treatment [CONS] Routine Please Evaluate and Treat. PT Reason for Consult: Strengthening Special Instructions: deconditioning This query below is only for informational purposes and is not editable. Admission Diagnosis/Problem: Sepsis 10/04/17 06:36 Consult to Physical Therapy [PT Evaluation and Treatment] [CONS] Routine Please Evaluate and Treat. PT Reason for Consult: Deconditioning This query below is only for informational purposes and is not editable. Admission Diagnosis/Problem: Sepsis Hospital Course: Kelly presented to the emergency room with weakness and fever. She had recently been admitted and treated with levofloxacin for presumed respiratory infection. Workup in the emergency room revealed tachycardia, hypotension as well as significant leukocytosis and lactic acidosis. CT scan of the abdomen and pelvis without contrast suggested a bowel obstruction without obvious transition point. She received IV fluids, run spectrum antibiotics and cultures were obtained. She was admitted to the intensive care unit. Dr. Alford was consult for surgical intervention given the recurrent bowel obstruction and concern for sepsis with no obvious source identified. The evening after admission she was taken to the operating room for exploratory laparotomy. This procedure did not reveal definite evidence for small bowel obstruction. There is no evidence for intra-abdominal abscess or source of infection. Postoperatively she returned to the intensive care unit. There was evidence for septic shock and she did require placement of a triple-lumen catheter and administration of initially norepinephrine followed by vasopressin. She received aggressive IV fluids. Over the next couple of days her white blood cell count which did initially rise started to trend down. Her vasopressor requirements decreased. Mental status did initially improve some. Kidney function slowly started to improve. 2 days after admission her cultures remained negative and there was still no obvious source for infection or her septic shock. A head CT was completed which was unremarkable. She had a CT scan of the chest, abdomen and pelvis which did not show any obvious acute pathology other than some very subtle upper lobe infiltrates. The broad-spectrum antibiotics were continued. Her vasopressor requirements continued to slowly decrease. Once her blood pressures stabilized aggressive diuresis was undertaken to help with the obvious of volume overload and peripheral edema acquired as a result of the volume resuscitation in the setting of sepsis. Over the next couple of days the patient had a slow decline with increasing supplemental oxygen requirements. Fortunately we were able to wean her off the vasopressors. Mental status remained troubled with a fair amount of lethargy and confusion. Her white blood cell count trended down. We were able to make some progress with diuresis. Her peripheral edema was showing some improvement. 2 nights before her passing, the patient had increasing supplemental oxygen requirements. She was transitioned to noninvasive ventilation and seemed to be tolerating this well. Repeat workup at that time revealed a large right-sided pleural effusion and diffuse interstitial infiltrates most consistent with volume overload. She was not having any fevers. We increase the aggressiveness of our diuresis since her blood pressures had improved at this point. Over the next 24 hours we saw stability versus some mild improvement in the respiratory status. Peripheral edema was improving. Vital signs have remained stable. On the morning of her passing we did complete a CT scan of the chest to further characterize the large right-sided pleural effusion in the infiltrates. The large effusion appeared to be a simple pleural effusion and thoracentesis was planned. After the CT scan we did discuss the severity of the situation including her profound weakness. I expressed my concerns about resuscitation should it become necessary given her profound weakness. Her Adal and her daughter Gianna both felt that aggressive resuscitation measures such as CPR would not be within her wishes at this time. She was transitioned to a DO NOT RESUSCITATE and DO NOT INTUBATE. They were agreeable to thoracentesis later in the afternoon and [place] considering having a feeding tube placed if her condition should stabilize. However before this procedure could be entertained the patient suddenly became apneic. Shortly after becoming apneic she developed asystole. No attempts at resuscitation were made per the family's recently expressed wishes. She passed peacefully around 2 PM. Cause of is thought to be respiratory arrest which would be multifactorial with large pleural effusions and volume overload occurring in the setting of recent septic shock with unclear source of infection. - Discharge Plan Home Medications: Home Meds Albuterol [Proair HFA] 2 gm IN Q6HR PRN 06/26/16 [History] Aspirin [Ecotrin] 81 mg PO DAILY 06/26/16 [History] Cyanocobalamin (Vitamin B-12) [Vitamin B-12] 1,000 mcg INJECT ASDIRECTED [History] Furosemide [Lasix] 20 mg PO DAILY 06/26/16 [History] Gabapentin [Neurontin] 600 mg PO TID 06/26/16 [History] Omeprazole Magnesium [Prilosec Otc] 40 mg PO DAILY 06/26/16 [History] Oxybutynin 5 mg PO TID 06/26/16 [History] Primidone 125 mg PO BID 06/26/16 [History] Propranolol [Inderal LA] 60 mg PO BID 06/26/16 [History] Escitalopram [Lexapro] 10 mg PO DAILY 05/06/17 [History] Hydrocodone/Acetaminophen [Hydrocodon-Acetaminophen 5-325] 1 tab PO BID PRN [History] Levofloxacin [Levaquin] 500 mg PO Q48H #2 tablet 09/28/17 [Rx] Referrals: Harley Medrano MD [Primary Care Provider] - - Discharge Summary/Plan Comment DC Time >30 min.: No (25) - Patient Data Vitals - Most Recent: Last Vital Signs Temp 36.3 C 10/07/17 08:00 Pulse 117 H 10/07/17 12:00 Resp 22 H 10/07/17 10:00 BP 115/62 10/07/17 10:27 Pulse Ox 95 10/07/17 10:00 Weight - Most Recent: 80.9 kg I&O - Last 24 hours: Intake & Output 10/06/17 10/07/17 10/07/17 22:59 06:59 14:59 Intake Total 1060 865 Output Total 1500 1645 700 Balance -803 -169 -908 Lab Results - Last 24 hrs: Laboratory Results - last 24 hr 10/07/17 10/07/17 10/07/17 Range/Units 04:15 04:15 05:00 WBC 23.7 H (4.5-11.0) K/uL RBC 3.37 (3.30-5.50) M/uL Hgb 11.1 L (12.0-15.0) g/dL Hct 33.7 L (36.0-48.0) % MCV 100 H (80-98) fL MCH 33 H (27-31) pg MCHC 33 (32-36) % Plt Count 326 (150-400) K/uL Puncture Site Lt radial ABG pH 7.353 (7.350-7.450) ABG pCO2 55.5 H (35.0-42.0) mmHg ABG pO2 67.7 L (75.0-100.0) mmHg ABG HCO3 30.1 H (22.0-26.0) mmol/L ABG Total CO2 27.8 H (21.0-25.0) mmol/L ABG O2 Saturation 92.5 L (95.0-98.0) % ABG O2 Content 14.3 L (15.0-23.0) %vol ABG Base Excess 4.0 mm/L ABG Hemoglobin 11.1 L (12.0-16.0) g/dL ABG Oxyhemoglobin 91.0 % ABG Carboxyhemoglobin 1.0 (0.0-1.6) % ABG Methemoglobin 0.6 % Odilon Test Passed O2 Delivery Device Bipap Oxygen Flow Rate L Sodium 138 L (140-148) mmol/L Potassium 3.5 L (3.6-5.2) mmol/L Chloride 101 (100-108) mmol/L Carbon Dioxide 32 (21-32) mmol/L Anion Gap 8.5 (5.0-14.0) mmol/L BUN 35 H (7-18) mg/dL Creatinine 1.3 H (0.6-1.0) mg/dL Est Cr Clr Drug Dosing 36.12 mL/min Estimated GFR (MDRD) 40 L (>60) Glucose 158 H (74-106) mg/dL Calcium 7.7 L (8.5-10.1) mg/dL Phosphorus 2.7 (2.5-4.9) mg/dL Magnesium 1.8 (1.8-2.4) mg/dL Total Bilirubin 0.4 (0.2-1.0) mg/dL AST 17 (15-37) U/L ALT 10 L (12-78) U/L Alkaline Phosphatase 57 (46-116) U/L NT-Pro-B Natriuret Pep 5754 H (5-450) pg/mL Total Protein 5.3 L (6.4-8.2) g/dL Albumin 1.0 L (3.4-5.0) g/dL Globulin 4.3 H (2.3-3.5) g/dL Albumin/Globulin Ratio 0.2 L (1.2-2.2) Med Orders - Current: Current Medications Acetaminophen (Tylenol) 650 mg PO Q4H PRN PRN Reason: Pain (Mild 1-3)/fever Hydrocodone Bitart/Acetaminophen ([place] 325-5 Mg) 1 tab PO BID PRN PRN Reason: Pain Albuterol (Proventil Neb Soln) 2.5 mg NEB Q4H PRN PRN Reason: Shortness Of Breath/wheezing Last Admin: 10/07/17 10:55 Dose: 2.5 mg Aspirin (Halfprin) 81 mg PO DAILY [facility] Last Admin: 10/07/17 10:25 Dose: 81 mg Enoxaparin Sodium (Lovenox) 40 mg SUBCUT Q24H [facility] Last Admin: 10/06/17 14:40 Dose: 40 mg Escitalopram Oxalate (Lexapro) 10 mg PO DAILY [facility] Last Admin: 10/07/17 10:29 Dose: 10 mg Fentanyl Citrate (Fentanyl In Ns 20 Mcg/Ml 30 Ml Celery Stripper) 0 mcg IV ASDIRECTED PRN; Protocol PRN Reason: Pain Last Admin: 10/05/17 18:57 Dose: 600 mcg Furosemide (Lasix) 60 mg IV Q12H [facility] Last Admin: 10/07/17 10:27 Dose: 60 mg Gabapentin (Neurontin) 300 mg PO BID [facility] Last Admin: 10/07/17 10:30 Dose: 300 mg Heparin Sodium (Porcine) (Heparin Lock Flush 100 Units/Ml) 500 units FLUSH ASDIRECTED PRN PRN Reason: flush tlsc Last Admin: 10/04/17 06:09 Dose: 500 units Piperacillin/Tazobactam/ (Dextrose 3.375 gm/ Premix) 50 mls @ 100 mls/hr IV Q6H [facility] Last Admin: 10/07/17 08:17 Dose: 100 mls/hr Levofloxacin/Dextrose 750 mg/ (Premix) 150 mls @ 100 mls/hr IV Q48H [facility] Last Admin: 10/06/17 16:59 Dose: 100 mls/hr Multivitamins/Minerals 10 ml/Chromium/Copper/Manganese/Seleni/Zn 1 ml/ Amino Ac/ Electrol/Dextrose/Calcium 1,011 mls @ 60 mls/hr IV .BY DURATION [facility] Amino Ac/Electrol/Dextrose/Calcium (Clinimix E 5/15) 1,000 mls @ 60 mls/hr IV .BY DURATION [facility] Last Admin: 10/07/17 13:24 Dose: 60 mls/hr Potassium Phosphate 20 mmole/ (Sodium Chloride) 106.6667 mls @ 36 mls/hr IV Q3H [facility] Stop: 10/07/17 18:58 Last Admin: 10/07/17 13:25 Dose: 36 mls/hr Naloxone HCl (Narcan) 0.1 mg IV ASDIRECTED PRN PRN Reason: decreased respiratory rate Ondansetron HCl (Zofran) 4 mg IV Q4H PRN PRN Reason: Nausea/Vomiting Oxybutynin Chloride (Oxybutynin) 5 mg PO TID [facility] Last Admin: 10/07/17 10:30 Dose: 5 mg Primidone (Mysoline) 125 mg PO BID [facility] Last Admin: 10/07/17 10:29 Dose: 150 mg Propranolol HCl (Inderal La) 60 mg PO BID [facility] Last Admin: 10/07/17 10:27 Dose: 60 mg Sodium Chloride (Saline Flush) 10 ml FLUSH ASDIRECTED PRN PRN Reason: Keep Vein Open Last Admin: 10/04/17 06:10 Dose: 10 ml Discontinued Medications Albuterol/Ipratropium (Duoneb 3.0-0.5 Mg/3 Ml) 3 ml NEB ONETIME ONE Stop: 09/30/17 17:56 Last Admin: 09/30/17 18:11 Dose: 3 ml Bisacodyl (Dulcolax) 10 mg PO BID [facility] Last Admin: 10/05/17 09:07 Dose: Not Given Bupivacaine HCl (Marcaine 0.5%) Confirm Administered Dose 50 ml .ROUTE .STK-MED ONE Stop: 09/30/17 19:44 Last Admin: 09/30/17 19:30 Dose: 20 ml Dexamethasone (Dexamethasone) Confirm Administered Dose 4 mg .ROUTE .STK-MED ONE Stop: 09/30/17 18:11 Docusate Sodium (Colace 50 Mg/5 Ml Liquid) 100 mg PO BID [facility] Last Admin: 10/05/17 09:07 Dose: Not Given Fentanyl (Sublimaze) Confirm Administered Dose 250 mcg .ROUTE .STK-MED ONE Stop: 09/30/17 18:11 Fentanyl Citrate (Fentanyl In Ns 20 Mcg/Ml 30 Ml Celery Stripper) 10 mcg IV ASDIRECTED [facility] ; Protocol Last Admin: 09/30/17 20:35 Dose: 10 mcg Furosemide (Lasix) 20 mg IVPUSH ONETIME ONE Stop: 10/03/17 09:01 Last Admin: 10/03/17 09:12 Dose: 20 mg Furosemide (Lasix) 20 mg IVPUSH Q8H [facility] Furosemide (Lasix) 40 mg IV Q8H [facility] Last Admin: 10/04/17 08:41 Dose: 40 mg Furosemide (Lasix) 40 mg IV Q12H [facility] Last Admin: 10/06/17 22:35 Dose: Not Given Gabapentin (Neurontin) 600 mg PO TID [facility] Last Admin: 10/05/17 09:17 Dose: Not Given Glycopyrrolate (Robinul) Confirm Administered Dose 1 mg .ROUTE .STK-MED ONE Stop: 09/30/17 18:11 Heparin Sodium (Porcine) (Heparin Lock Flush 100 Units/Ml) Confirm Administered Dose 1,000 units .ROUTE .STK-MED ONE Stop: 09/30/17 18:17 Last Admin: 09/30/17 19:29 Dose: 1,000 units Heparin Sodium (Porcine) (Heparin Sodium) Confirm Administered Dose 5,000 units .ROUTE .STK-MED ONE Stop: 09/30/17 22:05 Last Admin: 09/30/17 22:29 Dose: Not Given Heparin Sodium (Porcine) (Heparin Lock Flush 100 Units/Ml) Confirm Administered Dose 500 units .ROUTE .STK-MED ONE Stop: 10/04/17 05:56 Last Admin: 10/04/17 06:40 Dose: Not Given Lactated Ringer's (Ringers, Lactated) 1,000 mls @ 999 mls/hr IV ASDIRECTED [facility] Last Admin: 09/30/17 13:16 Dose: 999 mls/hr Piperacillin/Tazobactam/ (Dextrose 4.5 gm/ Premix) 100 mls @ 200 mls/hr IV ONETIME ONE Stop: 09/30/17 14:29 Last Admin: 09/30/17 13:56 Dose: 200 mls/hr Vancomycin HCl 1,000 mg/ (Dextrose/Water) 250 mls @ 167 mls/hr IV ONETIME ONE Stop: 09/30/17 16:31 Last Admin: 09/30/17 15:23 Dose: 167 mls/hr Lactated Ringer's (Ringers, Lactated) 1,000 mls @ 250 mls/hr IV ASDIRECTED [facility] Stop: 09/30/17 20:50 Last Admin: 09/30/17 17:13 Dose: 250 mls/hr Lactated Ringer's (Ringers, Lactated) 1,000 mls @ 125 mls/hr IV ASDIRECTED [facility] Last Admin: 10/03/17 03:50 Dose: 125 mls/hr Vancomycin HCl 1 gm/ Sodium (Chloride) 250 mls @ 167 mls/hr IV Q24H [facility] Last Admin: 10/01/17 15:57 Dose: 167 mls/hr Aztreonam/Dextrose 1 gm/ (Premix) 50 mls @ 100 mls/hr IV Q8H [facility] Last Admin: 10/02/17 09:39 Dose: 100 mls/hr Lactated Ringer's (Ringers, Lactated) 500 mls @ 500 mls/hr IV BOLUS [facility] Stop: 09/30/17 22:44 Last Admin: 10/01/17 07:17 Dose: Not Given Heparin Sodium (Porcine) 5,000 (units/ Sodium Chloride) 501 mls @ 0 mls/hr IV ASDIRECTED [facility] Last Admin: 10/04/17 16:46 Dose: 1 mls/hr Norepinephrine Bitartrate 4 mg (/ Dextrose/Water) 250 mls @ 7.5 mls/hr IV TITRATE [facility]; Protocol Last Admin: 10/02/17 02:25 Dose: 10 mcg/min, 37.5 mls/hr Magnesium Sulfate 2 gm/ Premix 50 mls @ 25 mls/hr IV Q6H [facility] Stop: 10/01/17 23:59 Last Admin: 10/01/17 22:09 Dose: 25 mls/hr Lactated Ringer's (Ringers, Lactated) 1,000 mls @ 500 mls/hr IV ASDIRECTED [facility] Stop: 10/01/17 10:46 Last Admin: 10/01/17 09:43 Dose: 500 mls/hr Lactated Ringer's (Ringers, Lactated) 500 mls @ 500 mls/hr IV ONETIME ONE Stop: 10/01/17 15:59 Last Admin: 10/01/17 15:00 Dose: 500 mls/hr Vasopressin 100 units/ (Dextrose/Water) 255 mls @ 1.53 mls/hr IV TITRATE [facility]; Protocol Stop: 10/02/17 15:55 Last Admin: 10/01/17 22:21 Dose: 0.01 units/min, 1.53 mls/hr Dextrose/Water (Dextrose 5% In Water) Confirm Administered Dose 250 mls @ as directed .ROUTE .STK-MED ONE Stop: 10/01/17 21:59 Last Admin: 10/01/17 22:25 Dose: Not Given Norepinephrine Bitartrate 8 mg (/ Dextrose/Water) 500 mls @ 7.5 mls/hr IV TITRATE [facility]; Protocol Stop: 10/03/17 17:55 Last Titration: 10/03/17 13:54 Dose: 2 mcg/min, 7.5 mls/hr Vasopressin 40 units/ Dextrose (/Water) 100 mls @ 1.5 mls/hr IV TITRATE [facility]; Protocol Last Titration: 10/03/17 06:19 Dose: 0 units/min, 0 mls/hr Vancomycin HCl 1.3 gm/ Sodium (Chloride) 250 mls @ 167 mls/hr IV Q24H [facility] Last Admin: 10/03/17 16:02 Dose: 167 mls/hr Magnesium Sulfate 2 gm/ Premix 50 mls @ 25 mls/hr IV ONETIME ONE Stop: 10/03/17 10:59 Last Admin: 10/03/17 08:36 Dose: 25 mls/hr Norepinephrine Bitartrate 4 mg (/ Dextrose/Water) 250 mls @ 7.5 mls/hr IV TITRATE [facility]; Protocol Last Titration: 10/04/17 05:09 Dose: 0 mcg/min, 0 mls/hr Multivitamins/Minerals 10 ml/Chromium/Copper/Manganese/Seleni/Zn 1 ml/ Amino Ac/ Electrol/Dextrose/Calcium 1,011 mls @ 60 mls/hr IV .BY DURATION [facility] Last Admin: 10/06/17 21:00 Dose: 60 mls/hr Amino Ac/Electrol/Dextrose/Calcium (Clinimix E 09/28) 1,000 mls @ 60 mls/hr IV .BY DURATION [facility] Last Admin: 10/06/17 05:53 Dose: Not Given Potassium Chloride 40 meq/ (Premix) 100 mls @ 25 mls/hr IV ONETIME ONE Stop: 10/06/17 11:59 Last Admin: 10/06/17 08:53 Dose: 25 mls/hr Potassium Chloride 20 meq/ (Sodium Chloride) 60 mls @ 30 mls/hr IV ONETIME ONE Stop: 10/06/17 13:59 Last Admin: 10/06/17 12:39 Dose: 30 mls/hr Lidocaine/Epinephrine (Xylocaine 1% With Epinephrine 1:100,000) Confirm Administered Dose 50 ml .ROUTE .STK-MED ONE Stop: 09/30/17 19:44 Last Admin: 09/30/17 19:30 Dose: 20 ml Magnesium Hydroxide (Milk Of Magnesia) 30 ml PO DAILY [facility] Last Admin: 10/05/17 09:07 Dose: Not Given Neostigmine Methylsulfate (Neostigmine) Confirm Administered Dose 5 mg .ROUTE .STK-MED ONE Stop: 09/30/17 18:11 Ondansetron HCl (Zofran) Confirm Administered Dose 4 mg .ROUTE .STK-MED ONE Stop: 09/30/17 18:11 Pantoprazole Sodium (Protonix) 40 mg PO ACBREAKFAST [facility] Last Admin: 10/05/17 07:50 Dose: 40 mg Propofol (Diprivan 20 Ml) Confirm Administered Dose 200 mg .ROUTE .STK-MED ONE Stop: 09/30/17 18:11 Rocuronium [place] (Zemuron) Confirm Administered Dose 50 mg .ROUTE .STK-MED ONE Stop: 09/30/17 18:11 Vancomycin HCl (Vancomycin) 1 gm IV .PHARMACY TO DOSE [facility] Stop: 09/30/17 18:00 Vasopressin (Vasopressin) Confirm Administered Dose 100 units .ROUTE .STK-MED ONE Stop: 10/01/17 22:00 Last Admin: 10/01/17 22:25 Dose: Not Given *Q Meaningful Use (DIS) - VTE *Q VTE Pharmacological Contraindications *Q: Patient Scheduled Surgery
== END 2017-10-07 13:55 | disposition expired | DRG 853 ==
LOC: JP.ED 12:03 → JP.ICU 15:24
PROVIDERS: ADMIT Hospitalist; ATTEND Internal Medicine
PROC: 0WJF0ZZ Inspection of Abdominal Wall, Open Approach (ICD-10-PCS; principal; 2017-09-30)
PROC: 05H533Z Insertion of Infusion Device into Right Subclavian Vein, Percutaneous Approach (ICD-10-PCS; 2017-09-30)
PROC: 3E033XZ Introduction of Vasopressor into Peripheral Vein, Percutaneous Approach (ICD-10-PCS; 2017-10-01)
PROC: 3E0336Z Introduction of Nutritional Substance into Peripheral Vein, Percutaneous Approach (ICD-10-PCS; 2017-10-05)
PROC: 039Y3ZZ Drainage of Upper Artery, Percutaneous Approach (ICD-10-PCS; 2017-10-06)
PROC: 5A09357 Assistance with Respiratory Ventilation, Less than 24 Consecutive Hours, Continuous Positive Airway Pressure (ICD-10-PCS; 2017-10-06)
DX: A41.9 Sepsis, unspecified organism (principal); R65.21 Severe sepsis with septic shock; J96.02 Acute respiratory failure with hypercapnia; J96.01 Acute respiratory failure with hypoxia; E87.1 Hypo-osmolality and hyponatremia; E87.2 Acidosis; N17.9 Acute kidney failure, unspecified; K56.609 Unspecified intestinal obstruction, unspecified as to partial versus complete obstruction; J90 Pleural effusion, not elsewhere classified; Z66 Do not resuscitate; N18.3 Chronic kidney disease, stage 3 (moderate); E88.09 Other disorders of plasma-protein metabolism, not elsewhere classified; H91.90 Unspecified hearing loss, unspecified ear; H54.7 Unspecified visual loss; I48.91 Unspecified atrial fibrillation; I50.9 Heart failure, unspecified; I27.20 Pulmonary hypertension, unspecified; J43.1 Panlobular emphysema; K21.9 Gastro-esophageal reflux disease without esophagitis; R53.1 Weakness; R09.02 Hypoxemia; B95.8 Unspecified staphylococcus as the cause of diseases classified elsewhere; K58.9 Irritable bowel syndrome, unspecified; R32 Unspecified urinary incontinence; M19.90 Unspecified osteoarthritis, unspecified site; G89.29 Other chronic pain; M54.9 Dorsalgia, unspecified; M81.0 Age-related osteoporosis without current pathological fracture; G20 Parkinson's disease; R50.9 Fever, unspecified; R60.9 Edema, unspecified; G25.0 Essential tremor; R10.84 Generalized abdominal pain; R79.82 Elevated C-reactive protein (CRP); F32.9 Major depressive disorder, single episode, unspecified; D64.9 Anemia, unspecified; E53.8 Deficiency of other specified B group vitamins; H26.9 Unspecified cataract; Z90.49 Acquired absence of other specified parts of digestive tract; Z96.659 Presence of unspecified artificial knee joint; Z91.040 Latex allergy status; Z79.82 Long term (current) use of aspirin; Z96.89 Presence of other specified functional implants; Z87.01 Personal history of pneumonia (recurrent); Z79.899 Other long term (current) drug therapy; Z98.891 History of uterine scar from previous surgery; E86.9 Volume depletion, unspecified; Z79.01 Long term (current) use of anticoagulants
CPT/HCPCS: 36415; 71045 ×2; 74176; 80053; 81001; 83605; 85025; 86140; 87040 ×2; 96361; 96365; 99285; J2543; J3370; J7060; J7120; 36600; 51702; 70450; 71250; 71250-26; 80202; 82140; 82803; 83735; 83880; 84100; 85027; 87070; 87075; 87205; 93306; 94640; 94660; 97110-GP; 97140-GP; 97162-GP; A9270-GY; C1894; J1100; J1642; J1644; J1650; J1940; J1956; J2405; J2704; J2710; J3010; J3475; J3480; J3490; J7030; J7040; J7050; J7620